=== PATIENT | male | born 1940 | race Caucasian/White ===

== ENCOUNTER 2019-12-01 14:15 | Inpatient (IN) | payer OTHER ==
[~2019-12-01] VITALS: Ht 185.4 cm; Wt 89.2 kg
[~2019-12-01 14:15] MED LIST: ACETAMINOPHEN325 MG PO; DIABETA5 MG PO; HYDROCODON-ACE1 EAC7 PO; K-DUR20 MEQ PO; LASIX20 MG PO; MELATONIN 3 MG1 TAB PO; PRAVACHOL40 MG
--- NOTE | 2019-12-01 14:20 | NUR ---
PATIENT ARRIVED BY [facility] WITH EMS X 2 FROM [facility] IN [place]. PATIENT TRANSFERRED FOR EVALUATION AND THE NEED FOR CHEST TUBE PLACEMENT DUE TO HEMOTHORAX FROM FALLING AT HIS HOME. PATIENT IS ALERT/ORIENTED X 3. FREQUENTLY FORGETS HE IS NOW IN [place]. REORIENTED NEEDED. PATIENT ANSWERS QUESTIONS APPROPRIATELY. LEFT UPPER ARM IV SITE PATENT. 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 PATIENT IS PLEASANT, NO BEHAVIORS WITNESSED AT THIS TIME. CALL LIGHT WITHIN REACH. NO DISTRESS.
--- NOTE | 2019-12-01 14:50 | NUR ---
PAGED AND NEW ORDERS RECIEVED TO COMPLETE CXR AND CALL REPORT WHEN AVAILABLE.
[2019-12-01] MEDS ORDERED: METOPROLOL TART50 MG PO (15:12)
[2019-12-01] MEDS ORDERED: HYDRALAZINE HCL25 MG PO (15:12)
[2019-12-01] MEDS ORDERED: LISINOPRIL20 MG PO (15:12)
[2019-12-01] MEDS ORDERED: KEFLEX500 MG PO (15:13)
[2019-12-01] MEDS ORDERED: LEVEMIR FL100 UNIT/1 SC (15:13)
[2019-12-01] MEDS ORDERED: KLONOPIN1 MG PO (15:14)
[2019-12-01 15:46] VITALS: BP 178/84; BMI 25.5
--- NOTE | 2019-12-01 16:02 | NUR ---
CXR RESULTS CALLED TO DR. GUAJARDO AT THIS TIME. NO FURTHER ORDERS RECEIVED.
[2019-12-01 16:28] LABS: APTT 22.1 SECONDS (22.8-39.4); INR 0.98 (0.85-1.17)
--- NOTE | 2019-12-01 16:36 | NUR ---
FSBS 150. NO INSULIN PER SLIDING SCALE.
[2019-12-01 16:45] LABS: ALBUMIN 2.7 g/dL (3.4-5.0); ALKALINE PHOSPHATASE 75 U/L (30-120); ALT (SGPT) 16 U/L (10-68); BILIRUBIN - TOTAL 0.79 mg/dL (0.2-1.3); CALC OSMOLALITY 294 mosm/kg (275-300); CALCIUM 7.8 mg/dL (8.5-10.1); CHLORIDE - SERUM 108 mmol/L (98-107); CKMB 1.6 U/L (0.0-3.6); CREATINE KINASE 209 UL (21-232); CREATININE - SERUM 1.5 mg/dL (0.6-1.3); GLUCOSE 152 mg/dL (74-106); MAGNESIUM - SERUM 1.9 mg/dL (1.8-2.4); POTASSIUM - SERUM 3.5 mmol/L (3.5-5.1); PROTEIN - SERUM 5.5 g/dL (6.4-8.2); SODIUM 143 mmol/L (136-145); TROPONIN-I 0.028 ng/mL (0.000-0.060); UREA NITROGEN 31 mg/dL (7-18); eGFR NON AFRICAN AMERICAN 48 mL/min (90-120)
[2019-12-01 17:42] VITALS: BP 120/93
--- NOTE | 2019-12-01 19:47 | NUR ---
DR GUAJARDO ON UNIT SEEING PATIENT.
[2019-12-01 19:48] LABS: BASOPHILS 0.1 % (0-2); EOSINOPHILS 1.3 % (0-7); HEMATOCRIT 38.5 % (42.0-54.0); HEMOGLOBIN 12.7 g/dL (13.5-17.5); IMMATURE GRANULOCYTES 0.1 % (0-5); LYMPHOCYTES 13.5 % (15-50); MCH 32.4 pg (26.0-34.0); MCV 98.2 fL (80.0-100.0); MEAN PLATELET VOLUME 12.4 fL (7.4-10.4); MONOCYTES 8.1 % (2-11); NEUTROPHILS 76.9 % (40-80); RBC 3.92 10x6/uL (4.20-6.10); RDW 13.7 % (11.5-14.5); WBC 7.5 10x3/uL (4.8-10.8)
[2019-12-01 19:49] LABS: PLATELET COUNT 136 10x3/uL (130-400)
[2019-12-01 20:00] VITALS: BP 123/68
--- NOTE | 2019-12-01 20:00 | NUR ---
REPORT AND INITIAL ASSESSMENT COMPLETED. PT RESTING IN BED. CONFUSED. WEARING BRIEFS. BED ALARM ON, TRYING TO GET UP OUT OF BED, BUT IS TOO WEAK. DISORIENTED TO PLACE/TIME/SITUATION. FALL PRECAUTIONS IN PLACE.
--- NOTE | 2019-12-01 22:30 | NUR ---
ABLE TO DEFLATE PENILE IMPLANT. PT WET, INCONTINENT OF URINE. CARE PROVIDED. NEW BRIEF AND LINENS. 2 PERSONS TO GET HIM BACK UP IN BED AND RESTING COMFORTABLY. SALINE LOCK TO SABA IN PLACE. SR UP X 2. CALL LIGHT IN REACH.
[2019-12-01 22:32] LABS: CKMB 1.5 U/L (0.0-3.6); CREATINE KINASE 190 UL (21-232); TROPONIN-I 0.019 ng/mL (0.000-0.060)
[2019-12-02 03:14] LABS: BASOPHILS 0.2 % (0-2); EOSINOPHILS 1.5 % (0-7); HEMATOCRIT 34.4 % (42.0-54.0); HEMOGLOBIN 11.4 g/dL (13.5-17.5); IMMATURE GRANULOCYTES 0.2 % (0-5); LYMPHOCYTES 21.5 % (15-50); MCH 32.4 pg (26.0-34.0); MCHC 33.1 g/dL (31.0-37.0); MCV 97.7 fL (80.0-100.0); MEAN PLATELET VOLUME 11.4 fL (7.4-10.4); NEUTROPHILS 66.6 % (40-80); PLATELET COUNT 137 10x3/uL (130-400); RBC 3.52 10x6/uL (4.20-6.10); RDW 13.5 % (11.5-14.5); WBC 5.5 10x3/uL (4.8-10.8)
[2019-12-02 03:42] LABS: ALBUMIN 2.4 g/dL (3.4-5.0); ALKALINE PHOSPHATASE 66 U/L (30-120); ALT (SGPT) 13 U/L (10-68); BILIRUBIN - TOTAL 0.91 mg/dL (0.2-1.3); CALC OSMOLALITY 294 mosm/kg (275-300); CALCIUM 7.8 mg/dL (8.5-10.1); CARBON DIOXIDE 24.7 mmol/L (21.0-32.0); CHLORIDE - SERUM 106 mmol/L (98-107); CKMB 1.4 U/L (0.0-3.6); CREATINE KINASE 174 UL (21-232); CREATININE - SERUM 1.6 mg/dL (0.6-1.3); GLUCOSE 186 mg/dL (74-106); MAGNESIUM - SERUM 1.9 mg/dL (1.8-2.4); POTASSIUM - SERUM 3.5 mmol/L (3.5-5.1); PROTEIN - SERUM 5.5 g/dL (6.4-8.2); SODIUM 142 mmol/L (136-145); TROPONIN-I 0.035 ng/mL (0.000-0.060); UREA NITROGEN 33 mg/dL (7-18); eGFR NON AFRICAN AMERICAN 45 mL/min (90-120)
[2019-12-02 04:00] VITALS: BP 173/76
--- NOTE | 2019-12-02 04:22 | NUR ---
UNABLE TO COLLECT URINE SPECIMEN DUE TO FREQUENT INCONTINENCE.
--- NOTE | 2019-12-02 07:00 | NUR ---
RECEIVED REPORT. ASSUMED CARE OF PATIENT. CALL LIGHT WITHIN REACH. PATIENT RESTING IN BED, EYES OPEN. PATIENT CONFUSED TO PLACE. PATIENT IS CURRENTLY NPO. BED ALARM PATENT. SR UP FOR SAFETY. BEDSIDE SHIFT REPORT COMPLETE. WHITE BOARD UPDATED. NO DISTRESS.
--- NOTE | 2019-12-02 09:15 | NUR ---
TELEMETRY D/C'D PER AT THIS TIME DUE TO PATIENT CONTINUOUSLY PULLS TELEMETRY OFF. PATIENT HAS NOW PULLED IV TO LEFT UPPER ARM OUT. CATHETER TIP INTACT. NO BLEEDING FROM SITE. PT AT BEDSIDE WORKING WITH PATEINT AT THIS TIME.
--- NOTE | 2019-12-02 09:34 | NUR ---
PATIENT OOB TO CHAIR AT BEDSIDE. AM MEDICATIONS HELD DUE TO NPO STATUS. CALL LIGHT WITHIN REACH. NO DISTRESS. PATIENT REMAINS CONFUSED.
--- NOTE | 2019-12-02 09:44 | NUR ---
20 GAUGE IV PLACED TO RIGHT FA X 1 STICK. GOOD BLOOD RETURN, EASY FLUSH. TAPED, DATED AND SECURED. FLESH COLORED COBAN PLACED LIGHTLY OVER IV SITE TO PREVENT PT FROM PULLING IV OUT. PATIENT TOLERATED IV PLACEMENT WELL. NO DISTRESS. REQUIRES MANY QUES AND REMINDERS.
--- NOTE | 2019-12-02 10:03 | NUR ---
QUES AND REMINDERS PROVIDED TO KEEP PATIENT SITTING UP IN CHAIR CORRECTLY INSTEAD OF LEANING OVER FORWARD. FREQUENT VISUAL CHECKS. CALL LIGHT WITHIN REACH. NO DISTRESS.
[2019-12-02 10:36] VITALS: BP 170/74
--- NOTE | 2019-12-02 11:15 | NUR ---
FSBS 289. BLOOD GLUCOSE CONTINUES TO ELEVATE DESPITE NPO STATUS.
--- NOTE | 2019-12-02 13:28 | NUR ---
SPOKE WITH HAZEL DOWLING ABOUT PATIENT BEING KEPT NPO ALL DAY. NEW ORDERS OBTAINED TO ALLOW PATIENT TO EAT.
--- NOTE | 2019-12-02 14:25 | NUR ---
MEDICATED FOR PAIN AT THIS TIME. NO DISTRESS.
--- NOTE | 2019-12-02 14:33 | NUR ---
NO SCDs APPLIED TO PATIENT. PATIENT IS VERY CONFUSED, PULLS IV's OUT, TELEMETRY OFF, TRIES TO GET OUT OF THE BED. APPLYING SCDs WOULD BE MORE OF A FALL RISK TO PATIENT. PATIENT IS VERY ACTIVE.
[2019-12-02 16:03] VITALS: BP 128/61
--- NOTE | 2019-12-02 16:35 | NUR ---
FSBS 287. 6 UNITS HUMULIN ADMINISTERED PER SLIDING SCALE.
--- NOTE | 2019-12-02 20:20 | NUR ---
INITIAL ROUNDS COMPLETED AT 1920 HRS. PT RESTING WITH EYES CLOSED. RESP EVEN AND REGULAR. ASSESSMENT COMPLETED AT 2020 HRS. PT ALERT, KNOWS WHO HE IS AND THE PRESIDENT OF THE [place] Sign. KNOWS YEAR BUT DOESN'T KNOW PLACE OR SITUATION. REORIENTED TO PLACE AND SITUATION. LUINGS DIMINISHED IN BASES BILAT. CERRATO. PALPABLE PERIPHERAL PULSES. SCRATCHES NOTED TO BILAT LOWER LEGS. SORE NOTED TO L BIG TOE AND 2ND TOE. PT FOLLOWSS COMMANDS. IV TO RFA SL. SR UP X2, CALL LIGHT WITHIN REACH AND BED ALARM ON.
--- NOTE | 2019-12-02 20:35 | NUR ---
BRUISE NOTED TO R FLANK AND HIP. PT DENEIS ANY DISCOMOFRT TO THAT AREA.
[2019-12-02 20:48] VITALS: BP 150/69
--- NOTE | 2019-12-02 21:58 | NUR ---
PT INCONTINENT OF URINE. INCONTINENT CARE DONE. PT REPOSITIONED IN BED FOR COMFORT.
[2019-12-03 00:30] VITALS: BP 134/63
--- NOTE | 2019-12-03 00:47 | NUR ---
PT PULLED OUT IV WITH CATHETER INTACT. REPOSITONED IN BED FOR COMFORT. BED ALARM ON.
--- NOTE | 2019-12-03 01:10 | NUR ---
PT INCONTINENT OF URINE. INCONTINENT CARE DONE. PT REPOSITIONED IN BED FOR COMFORT.
--- NOTE | 2019-12-03 02:16 | NUR ---
PT RESTING WITH EYES CLOSED. RESP EVEN AND REGULAR. SR UP X2, CALL LIGHT WITHIN REACH AND BED ALARM ON.
--- NOTE | 2019-12-03 04:14 | NUR ---
PT INCONTINENT OF URINE. INCONTINENT CARE DONE. PT REPOSITIONED IN BED FOR COMFORT. SR UP X2, CALL LIGHT WITHIN REACH AND BED ALARM ON.
[2019-12-03 04:30] VITALS: BP 149/50
--- NOTE | 2019-12-03 04:49 | NUR ---
NEW IV PLACED #20 TO L HAND WITH ATTEMPT X1. PT TOLERATED PROCEDURE WELL.
[2019-12-03 05:58] LABS: BASOPHILS 0.2 % (0-2); EOSINOPHILS 2.2 % (0-7); HEMATOCRIT 33.8 % (42.0-54.0); HEMOGLOBIN 11.3 g/dL (13.5-17.5); LYMPHOCYTES 25.3 % (15-50); MCH 32.3 pg (26.0-34.0); MCHC 33.4 g/dL (31.0-37.0); MCV 96.6 fL (80.0-100.0); MEAN PLATELET VOLUME 11.6 fL (7.4-10.4); NEUTROPHILS 63.3 % (40-80); PLATELET COUNT 134 10x3/uL (130-400); RDW 13.7 % (11.5-14.5)
[2019-12-03 06:50] LABS: ALBUMIN 2.5 g/dL (3.4-5.0); BILIRUBIN - TOTAL 0.83 mg/dL (0.2-1.3); CALCIUM 8.3 mg/dL (8.5-10.1); CARBON DIOXIDE 26.7 mmol/L (21.0-32.0); MAGNESIUM - SERUM 2.2 mg/dL (1.8-2.4); POTASSIUM - SERUM 3.7 mmol/L (3.5-5.1); PROTEIN - SERUM 5.3 g/dL (6.4-8.2)
[2019-12-03 08:00] VITALS: BP 154/71
[2019-12-03 09:34] LABS: ANION GAP 14.7 mmol/L (8-16); CALCIUM 8.3 mg/dL (8.5-10.1); POTASSIUM - SERUM 3.7 mmol/L (3.5-5.1)
[2019-12-03 09:40] LABS: INR 0.95 (0.85-1.17); PROTIME 12.7 SECONDS (11.6-15.0)
[2019-12-03 12:08] VITALS: BP 149/64
--- NOTE | 2019-12-03 12:08 | NUR ---
ARRIVE BACK TO ROOM VIA BED FROM PROCEDURE. RT MID-BACK PUNCTURE SITE C/D/I. DENIES PAIN. ENCOURAGE TO REMAIN IN BED FOR NEXT 4 HOURS. CONTINUE PLAN OF CARE AND SAFETY PRECAUTIONS.
[2019-12-03 13:28] VITALS: BMI 25.4
[2019-12-03 15:00] VITALS: BP 167/79
[2019-12-03 15:26] LABS: PROTEIN - BODY FLUID 3.5 G/DL
[2019-12-03 18:14] LABS: EOS BF 2 %; MACROPHAGES BF 32 %; MESOTHELIALS BF 4 %; NEUT - BF 52 %
--- NOTE | 2019-12-03 19:21 | NUR ---
REPORT RECEIVED AND ROUNDING COMPLETE. PATIENT LAYING IN BED IN LOW FOWLERS, EYES CLOSED, MOUTH OPEN BREATHING EVEN BUT SHALLOW. NO PIV DAY NURSE STATES PATIENT PULLED OUT AND MD AWARE, BED ALARM IS ON AT THIS TIME. CALL LIGHT WITHIN REACH AND BED IN LOWEST LOCKED POSITION.
[2019-12-03 20:00] VITALS: BP 144/66
--- NOTE | 2019-12-03 22:27 | NUR ---
OT NOTE: PT REQUIRED MOD/MAX A X2 FOR SUPINE TO SIT. PT COMPLETED SIT TO STAND WITH MOD A X2. PT COMPLETED BUE AROM WITH FUNTIONAL TASKS. PT REQUIRED MOD A WITH CAYLA GOWN. PT EXHIBITED IMPAIRED TASK PROCESSING. PT REQUIRED EXTENSIVE CUES FOR SEQUENCING TASKS. [phone] ROSE MARIE VITALE COTA
[2019-12-04] VITALS (51 sets, daily range): BP systolic 105–185; BP diastolic 56–104
--- NOTE | 2019-12-04 04:10 | NUR ---
UPDATE GIVEN TO CHRISTIANO BRAVO APN, NEW ORDERS RECIEVED
[2019-12-04 04:14] LABS: BASOPHILS 0.1 % (0-2); HEMATOCRIT 34.4 % (42.0-54.0); HEMOGLOBIN 11.4 g/dL (13.5-17.5); IMMATURE GRANULOCYTES 0.8 % (0-5); LYMPHOCYTES 22.2 % (15-50); MCH 32.4 pg (26.0-34.0); MCHC 33.1 g/dL (31.0-37.0); MCV 97.7 fL (80.0-100.0); MEAN PLATELET VOLUME 11.5 fL (7.4-10.4); MONOCYTES 6.3 % (2-11); NEUTROPHILS 69.6 % (40-80); RBC 3.52 10x6/uL (4.20-6.10); RDW 13.8 % (11.5-14.5)
[2019-12-04 04:16] LABS: PLATELET COUNT 179 10x3/uL (130-400); WBC 10.9 10x3/uL (4.8-10.8)
[2019-12-04 04:22] LABS: ALBUMIN 2.4 g/dL (3.4-5.0); ANION GAP 14.6 mmol/L (8-16); BILIRUBIN - TOTAL 0.93 mg/dL (0.2-1.3); CALCIUM 7.9 mg/dL (8.5-10.1); CARBON DIOXIDE 23.2 mmol/L (21.0-32.0); CREATININE - SERUM 2.1 mg/dL (0.6-1.3); MAGNESIUM - SERUM 2.1 mg/dL (1.8-2.4); POTASSIUM - SERUM 3.8 mmol/L (3.5-5.1); PROTEIN - SERUM 5.9 g/dL (6.4-8.2)
--- NOTE | 2019-12-04 04:31 | NUR ---
0308 ROUNDING ON PATIENT AND FOUND HIM UNRESPONSIVE, CALLED A RAPID. 0309 CODE BLUE CALLED 0330 PATIENT LEFT FLOOR AND MOVED TO CVICU REPORT GIVEN TO OSITO RN AT BEDSIDE BEFORE PATIENT WAS MOVED. 0425 PAITENT FAMILY WAS NOTIFIED ON EVENTS AND SISTER STATED TO CONTINE TO GIVE ALL CARE NECESSARY. TRANSFER CAR OPERATOR DRIER AND OSITO IN CVICU NOTIFIED OF SISTERS WISHES.
--- NOTE | 2019-12-04 07:00 | NUR ---
RECEIVED BEDSIDE REPORT ON PATIENT AND ASSUMED CARE. PATIENT ON VENT, VENT SETTINGS ARE: AC 14, TV 500, PEEP 5 FIO2 40%, BBS - CLEAR BUT DIMINIHSED IN THE BASES, SPO2 100%. CM - SR RATE 76, BARILLAS CATH IN PLACE WITH SIENNA UOP NOTED. PATIENT NOT FOLLOWING COMMANDS, TURNED AND REPOSITIONED IN BED. LEVOPHED GTT AT 10 MCG/MIN, WITH BP SYSTOLIC IN 160S DECREASED TO 5 MCG/MIN. HEAD TO TOE ASSESSMENT COMPLETED.
--- NOTE | 2019-12-04 07:50 | MORECARE ---
CASE MANAGEMENT DISCHARGE SUMMARY PATIENT: JOSE BLOUNT 3RD UNIT: [id number] ADM DATE: 12/01/19 AGE: 79 : 42 SEX: M ROOM/BED: D[facility] AUTHOR: CHRISTOPHER MONAHAN PHYSICIAN: REFERRING PHYSICIAN: MIKE PATRICIO MD DATE OF SERVICE: 12/04/19 Discharge Plan Patient Name: JOSE BLOUNT [facility] [facility] 1940 Planned Disposition: Anticipated Discharge Date: Discharge Date: Expected LOS: Initial Reviewer: [email or web address] Initial Review Date: 12/01/2019 Generated: 12/04/19 8:49 am External Providers External Provider: [facility] Next Contact Date: Service Request Date: Service Type: Resolution: Reviewer: Comments: Patient Name: JOSE BLOUNT Page [phone] at 0750 All edits/amendments must be made on the electronic document DICTATION DATE: 12/04/19 0749 PARTS LISTER: YANG 12/04/19 0749 RPT#: [id number] DC DATE: STATUS: ADM IN [facility] [address] [place] [address] END OF REPORT
--- NOTE | 2019-12-04 07:57 | MORECARE ---
CASE MANAGEMENT DISCHARGE SUMMARY PATIENT: JOSE BLOUNT UNIT: [id number] ADM DATE: 12/01/19 AGE: 79 : 42 SEX: M ROOM/BED: [facility] AUTHOR: CHRISTOPHER MONAHAN PHYSICIAN: REFERRING PHYSICIAN: MIKE PATRICIO MD DATE OF SERVICE: 12/04/19 Discharge Plan Patient Name: JOSE BLOUNT [facility] [facility] 1940 Planned Disposition: Anticipated Discharge Date: Discharge Date: Expected LOS: Initial Reviewer: [email or web address] Initial Review Date: 12/01/2019 Generated: 12/04/19 8:57 am DCPIA - Discharge Planning Initial Assessment Updated by [email or web address]: Karyna Perez on 12/04/19 7:50 am * Is the patient Alert and Oriented? No * Preadmission Environment Home Alone * Additional services required to return to the preadmission environment? Yes * Can the patient safely return to the preadmission environment? No * Has this patient been hospitalized within the prior 30 days at any hospital? No Last DP export: 12/04/19 6:50 a Patient Name: JOSE BLOUNT Page [phone] at 0757 All edits/amendments must be made on the electronic document DICTATION DATE: 12/04/19756 SEWER CONTRACTOR: YANG 12/04/19 075 RPT#: [id number] DC DATE: STATUS: ADM IN [facility] [address] [place] [address] END OF REPORT
--- NOTE | 2019-12-04 08:04 | MORECARE ---
CASE MANAGEMENT DISCHARGE SUMMARY PATIENT: JOSE BLOUNT UNIT: [id number] ADM DATE: 12/01/19 AGE: 79 : 42 SEX: M ROOM/BED: D[facility] AUTHOR: TANIYA,DOC PHYSICIAN: REFERRING PHYSICIAN: MIKE PATRICIO MD DATE OF SERVICE: 12/04/19 Discharge Plan Patient Name: JOSE BLOUNT Facility: [facility]:[place] : 1940 Planned Disposition: Anticipated Discharge Date: Discharge Date: Expected LOS: Initial Reviewer: [email or web address] Initial Review Date: 12/01/2019 Generated: 12/04/19 9:04 am Comments DCP- Discharge Planning Updated by [email or web address]: Karyna Perez on 12/04/19 7:[address] Patient Name: JOSE BLOUNT Admission Status: Elective Accout number: [id number] Admission Date: 12-01-2019 : 1940 Admission Diagnosis: Attending: ZACHARY Current LOS: 3 Anticipated DC Date: Planned Disposition: Primary Insurance: [employer] Late entry. assessment completed 12/03/19 at 1430 Discharge Planning Comments: CM met with patient to complete initial dc planning assessment. PT confused. CM called sister Leandra at [phone]. CM educated patient on the CM role and verbal consent given by patient to complete assessment. Patient lives at home alone and Leandra feels he needs additional services, and she feels he can not live at home alone. Leandra wanted CM to assist with placing patient in an assisted living facility. CM educated Leandra on the services available for the patient. Leandra states she feels the patient could benefit from rehab at SNF. TOYA verbalized for [facility]. CM called Teja at [phone] and faxed referral. CM will continue to follow and will assist as needed with dc plans/needs. Visual Merchandising Director: Karyna Perez DCPIA - Discharge Planning Initial Assessment Updated by [id number]: Karyna Perez on 12/04/19 7:50 am * Is the patient Alert and Oriented? No * Preadmission Environment Home Alone * Additional services required to return to the preadmission environment? Yes * Can the patient safely return to the preadmission environment? No * Has this patient been hospitalized within the prior 30 days at any hospital? No Coverage Notice Reviewer: [id number] Jabier Perez Notice Issued Date-Time: 12/03/2019 15:30 Notice Type: Patient Choice Letter Notice Delivered To: Family Member Relationship to Patient: Sister Salesperson [employer] Name: Leandra Benjamin Delivery Method: PHONE - Phone Johanna Days: Prior Verbal Notification: Recipient Understood Notice: Yes Recipient Signature: Med Rec Note Co-signed by Attending: Coverage Notice Comment: toya verbalized for luke Ann DP export: 12/04/19 6:57 a Patient Name: JOSE BLOUNT Page [phone] at 0804 All edits/amendments must be made on the electronic document DICTATION DATE: 12/04/19803 NURSE EXTERN: YANG 12/04/19803 RPT#: [id number] DC DATE: STATUS: ADM IN [address] [place] [address] END OF REPORT
--- NOTE | 2019-12-04 09:00 | NUR ---
PATIENT TURNED AND REPOSITIONED IN BED. LEVOPHED GTT TURNED OFF.
[2019-12-04 09:54] LABS: BILIRUBIN NEGATIVE (NEGATIVE); KETONE SMALL mg/dL (NEGATIVE); NITRITE NEGATIVE (NEGATIVE); UROBILINOGEN NORMAL (NORMAL)
--- NOTE | 2019-12-04 11:00 | NUR ---
REASSESSMENT COMPLETED. PATIENT TURNED AND REPOSITIONED IN BED. LINENS CHANGED.
--- NOTE | 2019-12-04 11:10 | NUR ---
Nutrition Follow-up: Code blue overnight. Now intubated. Wt: 192.9# (12/02) Last BM: 11/29 per chart Labs noted: Glu 248, Ca 7.9, Alb 2.4 Meds noted: Humalog, NS @ 125, electrolyte protocol -If pt to remain intubated, rec initiate nutrition support within 24-48 hrs as medically feasible. -Monitor wt. -RD following.
--- NOTE | 2019-12-04 13:06 | NUR ---
SPOKE TO DR. ONEIL CONCERNING PATEINT HAVING INCREASED FREQUENCY OF PVC'S AND A 6 BEAT RUN OF V-TACH. K WAS 3.8 AND MAG 2.1 WITH THIS MORNING LABS, CREATINE WAS 2.1. ORDERS 40 MEQ OF KCL TO BE GIVEN ONE TIME.
--- NOTE | 2019-12-04 13:30 | NUR ---
DR. ONEIL AT ROOM UPDATED AND EXAMINES PATIENT. STATES WILL LIKELY TRY PS TRIALS TOMORROW TO START WEANING FOR EXTUBATION.
--- NOTE | 2019-12-04 14:21 | NUR ---
SPOKE TO DR. CLEMONS REGARDING PATIENTS FREQUENT PVCS AND SHORT RUNS 4-6 BEATS OF VTACH. ORDERS CARIZEM GTT AT 5 MG/HR AND TO OBTAIN SET OF CARDIAC ENZYMES.
--- NOTE | 2019-12-04 15:01 | NUR ---
REASSESSMENT COMPLETED VSS. TURNED AND REPOSITIONED IN BED.
[2019-12-04 15:36] LABS: CKMB 7.5 U/L (0.0-3.6); CREATINE KINASE 418 UL (21-232)
[2019-12-04 15:50] LABS: TROPONIN-I 0.089 ng/mL (0.000-0.060)
--- NOTE | 2019-12-04 15:53 | NUR ---
SPOKE TO DR. CLEMONS REGARDING TROPONIN 0.089, NO NEW ORDERS. TO CONTINUE CARDIZEM GTT AND WILL LOOK AT GETTING A CT OF HEAD TOMORROW.
--- NOTE | 2019-12-04 17:11 | NUR ---
PATIENT TURNED AND REPOSITIONED. DR. CLEMONS AT ROOM UPDATED, WILL ORDER A CT HEAD FOR TONIGHT. PATIENT TO TRANSFER DOWN TO ICU AND OBTAIN CT WHEN TRANSFERED.
[2019-12-04 18:08] LABS: ACID FAST SMEAR Negative (()); AFB SPECIMEN PROCESSING Concentration (())
[2019-12-05] VITALS (25 sets, daily range): BP systolic 123–162; BP diastolic 55–103
--- NOTE | 2019-12-05 00:06 | NUR ---
patient arrived to unit. bedside shift report recieved from gamal miranda.
--- NOTE | 2019-12-05 00:07 | NUR ---
patient on vent. respiratory at bedside. no open sores on skin. warm and dry. frey in place. bruising on the right side of torso. patient on no sedation. has cardizam running at 5 mg. patient does not react to stimuli. eyes move but does not follow commands such as squeezing hands. lungs clear to auscalation. hypo x4 bowel sounds. s1s2 noted. palpable pulses.
[2019-12-05 05:17] LABS: BASOPHILS 0 % (0-2); EOSINOPHILS 0.1 % (0-7); HEMATOCRIT 32.6 % (42.0-54.0); HEMOGLOBIN 10.5 g/dL (13.5-17.5); IMMATURE GRANULOCYTES 0.2 % (0-5); LYMPHOCYTES 7.8 % (15-50); MCH 31.9 pg (26.0-34.0); MCHC 32.2 g/dL (31.0-37.0); MCV 99.1 fL (80.0-100.0); MEAN PLATELET VOLUME 11.2 fL (7.4-10.4); MONOCYTES 7.9 % (2-11); RBC 3.29 10x6/uL (4.20-6.10); RDW 14.1 % (11.5-14.5); WBC 8.4 10x3/uL (4.8-10.8)
[2019-12-05 05:45] LABS: PLATELET COUNT 142 10x3/uL (130-400)
[2019-12-05 06:00] LABS: ALBUMIN 2.1 g/dL (3.4-5.0); BILIRUBIN - TOTAL 0.91 mg/dL (0.2-1.3); CALCIUM 7.6 mg/dL (8.5-10.1); CREATININE - SERUM 1.8 mg/dL (0.6-1.3); MAGNESIUM - SERUM 1.9 mg/dL (1.8-2.4); PROTEIN - SERUM 5.3 g/dL (6.4-8.2)
[2019-12-05 06:01] LABS: ANION GAP 18.4 mmol/L (8-16); POTASSIUM - SERUM 4.4 mmol/L (3.5-5.1)
--- NOTE | 2019-12-05 07:59 | NUR ---
0750 DR ONEIL AT BEDSIDE STOPPED CARDIZEM GTT HR 68 PLACED ON CPAP. PT TURNS HEAD TO LOOK AT NURSE WHEN TALKED TO.
--- NOTE | 2019-12-05 10:46 | NUR ---
Nutrition follow-up: Pt intubated, sedated Glucerna started @ 20 ml/hr with increase to goal rate of 40 ml/hr Labs reviewed Wt: 199# RDN following.
[2019-12-05 13:12] LABS: FUNGUS STAIN Final report (())
[2019-12-05 15:07] LABS: APTT 30.8 SECONDS (22.8-39.4); INR 1.27 (0.85-1.17); PROTIME 15.8 SECONDS (11.6-15.0)
--- NOTE | 2019-12-05 16:58 | NUR ---
1630 TRANSPORTED VIA BED TO IR FOR THORACYNTHESIS CONSENT SIGNED VIA PHONE CONSENT BY HIS SISTER MANISHA
--- NOTE | 2019-12-05 17:39 | NUR ---
1710 RETIRNED FROM IR PULLED OFF 850ML BLOODY DRAINAGE DRESSING NOTED TO RIGHT BACK DSG CDI FREQUENT VITAL SIGNS INITIATED DR ONEIL ORDERED STAT CBC AND PRBC X 3 UNITS TO KEEP ON HOLD IF NEEDED
[2019-12-05 18:21] LABS: BASOPHILS 0.1 % (0-2); EOSINOPHILS 0.1 % (0-7); HEMATOCRIT 32.8 % (42.0-54.0); HEMOGLOBIN 10.5 g/dL (13.5-17.5); IMMATURE GRANULOCYTES 0.2 % (0-5); LYMPHOCYTES 6.3 % (15-50); MCH 32.1 pg (26.0-34.0); MCV 100.3 fL (80.0-100.0); NEUTROPHILS 84.3 % (40-80); PLATELET COUNT 145 10x3/uL (130-400); RBC 3.27 10x6/uL (4.20-6.10); RDW 14.5 % (11.5-14.5); WBC 9.9 10x3/uL (4.8-10.8)
--- NOTE | 2019-12-05 18:35 | NUR ---
1800 CALLED PTS SISTER AFTER THORO TO REPORT UPDATE BLOOD CONSENT DONE
--- NOTE | 2019-12-05 19:00 | NUR ---
REPORT RECIEVED, SHIFT ASSESSMENT COMPLETE, PT ON VENT WITH 100% O2 SAT. ALL PPP, VSS, WILL CON'T TO MONITOR
[2019-12-06] VITALS (23 sets, daily range): BP systolic 106–171; BP diastolic 53–88
--- NOTE | 2019-12-06 03:00 | NUR ---
COMPLETE BATH AND LINEN CHANGE
[2019-12-06 05:09] LABS: BASOPHILS 0.1 % (0-2); EOSINOPHILS 0.1 % (0-7); HEMATOCRIT 32.1 % (42.0-54.0); HEMOGLOBIN 10.3 g/dL (13.5-17.5); IMMATURE GRANULOCYTES 0.2 % (0-5); LYMPHOCYTES 6.4 % (15-50); MCH 32.5 pg (26.0-34.0); MCHC 32.1 g/dL (31.0-37.0); MCV 101.3 fL (80.0-100.0); MEAN PLATELET VOLUME 11.5 fL (7.4-10.4); MONOCYTES 7.8 % (2-11); NEUTROPHILS 85.4 % (40-80); PLATELET COUNT 147 10x3/uL (130-400); RBC 3.17 10x6/uL (4.20-6.10); RDW 14.5 % (11.5-14.5); WBC 8.5 10x3/uL (4.8-10.8)
[2019-12-06 05:33] LABS: ALBUMIN 2.1 g/dL (3.4-5.0); ANION GAP 18.4 mmol/L (8-16); BILIRUBIN - TOTAL 0.63 mg/dL (0.2-1.3); CARBON DIOXIDE 21.1 mmol/L (21.0-32.0); CREATININE - SERUM 1.8 mg/dL (0.6-1.3); MAGNESIUM - SERUM 2.1 mg/dL (1.8-2.4); POTASSIUM - SERUM 4.5 mmol/L (3.5-5.1); PROTEIN - SERUM 5.1 g/dL (6.4-8.2)
[2019-12-06 05:43] LABS: PHOSPHOROUS 3.9 mg/dL (2.5-4.9)
--- NOTE | 2019-12-06 09:08 | NUR ---
PS TRIAL 01/27
--- NOTE | 2019-12-06 20:15 | NUR ---
ASSESSMENT PER FLOW SHEET, VS CONTINUE, IV IN RIGH FA INTACT WITH NO REDNESS OR EDEMA INFUSING VIA PUMP NS AT 125, BARILLAS CATH INTACT DRAINING DARK YELLOW URINE, SCD'S ON AND WORKING PROPERLY, HEEL PROTECTORS IN PLACE, BED IN LOW POSITION, SIDE RAILS X 2, CALL LIGHT IN REACH
--- NOTE | 2019-12-06 20:28 | NUR ---
NEW BAG OF NS HUNG PER MD ORDERS, SEE EMAR
--- NOTE | 2019-12-06 21:22 | NUR ---
OBTAINED FSBS AND TEMP, PT SUCTIONED AT THIS TIME
--- NOTE | 2019-12-06 21:25 | NUR ---
CHRISTIANO BRAVO NP ON UNIT, REPORT OF PT'S TEMP, SEE ORDERS
--- NOTE | 2019-12-06 21:38 | NUR ---
ADM TYLENOL RECTALLY PER MD ORDERS, SEE EMAR
--- NOTE | 2019-12-06 22:15 | NUR ---
PT RESTING WITH EYES CLOSED, RESP QUIET, NO DISTRESS NOTED, LEFT UNDISTURBED AT THIS TIME, BED IN LOW POSITION, SIDE RAILS X 2, CALL LIGHT IN REACH
--- NOTE | 2019-12-06 23:00 | NUR ---
SHIFT REASSESSMENT PER FLOW SHEET, VS CONTINUE, SCD'S ON AND WORKING PROPERLY, HEEL PROTECTORS ON, FALL PRECAUTIONS IN PLACE
[2019-12-07] VITALS (24 sets, daily range): BP systolic 132–206; BP diastolic 55–112
--- NOTE | 2019-12-07 00:30 | NUR ---
PT RESTING WITH EYES CLOSED, RESP QUIET, NO DISTRESS NOTED, LEFT UNDISTURBED AT THIS TIME, FALL PRECAUTIONS IN PLACE
--- NOTE | 2019-12-07 02:21 | NUR ---
PT RESTING WITH EYES CLOSED, RESP QUIET, NO DISTRESS NOTED, LEFT UNDISTURBED AT THIS TIME
--- NOTE | 2019-12-07 03:21 | NUR ---
BP 184/112, PAGED CHRISTIANO BRAVO LINE SERVICE PERSON
--- NOTE | 2019-12-07 03:24 | NUR ---
CHRISTIANO BRAVO NP ON UNIT, REPORT OF PT'S BP'S, SEE ORDERS
--- NOTE | 2019-12-07 03:45 | NUR ---
CALLED [employer] REGARDING ORDER
--- NOTE | 2019-12-07 04:00 | NUR ---
BP 177/79, HR104, ADM LOPRESSOR SIVP OVER 10MINS, I&O'S COLLECTED, PT GIVEN CHG BATH, BARILLAS CARE DONE, GOWN AND CHUX CHANGED, SCD'S CONTINUE ON AND WORKING PROPERLY, FALL PRECAUTIONS IN PLACE
--- NOTE | 2019-12-07 06:31 | NUR ---
PT RESTING WITH EYES CLOSED, AROUSES TO SOFT VERBAL STIMULATION, OBTAINED FSBS, ADM INSULIN PER MD ORDERS, SEE EMAR, VS CONTINUE, SCD'S ON AND WORKING PROPERLY, HEEL PROTECTORS ON, FALL PRECAUTIONS IN PLACE
--- NOTE | 2019-12-07 09:53 | NUR ---
NUTRITION F/U PT EXTUBATED, AWAITING SWALLOW EVAL. WILL PROVIDE DIET WHEN ADVANCED. RD FOLLOWING
[2019-12-07 11:05] LABS: BASOPHILS 0.1 % (0-2); EOSINOPHILS 2.4 % (0-7); HEMATOCRIT 33.8 % (42.0-54.0); HEMOGLOBIN 10.4 g/dL (13.5-17.5); IMMATURE GRANULOCYTES 0.7 % (0-5); LYMPHOCYTES 9.1 % (15-50); MCH 32.2 pg (26.0-34.0); MCHC 30.8 g/dL (31.0-37.0); MEAN PLATELET VOLUME 11.1 fL (7.4-10.4); NEUTROPHILS 80.7 % (40-80); PLATELET COUNT 167 10x3/uL (130-400); RBC 3.23 10x6/uL (4.20-6.10); RDW 14.9 % (11.5-14.5); WBC 8.4 10x3/uL (4.8-10.8)
[2019-12-07 11:06] LABS: MCV 104.6 fL (80.0-100.0)
[2019-12-07 11:21] LABS: ALBUMIN 1.9 g/dL (3.4-5.0); ANION GAP 18.8 mmol/L (8-16); BILIRUBIN - TOTAL 0.55 mg/dL (0.2-1.3); CALCIUM 8.1 mg/dL (8.5-10.1); CARBON DIOXIDE 18.3 mmol/L (21.0-32.0); CREATININE - SERUM 1.7 mg/dL (0.6-1.3); POTASSIUM - SERUM 4.1 mmol/L (3.5-5.1); PROTEIN - SERUM 5.6 g/dL (6.4-8.2)
--- NOTE | 2019-12-07 19:40 | NUR ---
RECEIVED CARE OF PT, ASSESSMENT PER FLOWSHEET. PT ALERT, SPEECH GARBLED, ABLE TO FOLLOW SIMPLE COMMANDS. HR SR WITH PVC'S ON CM, PPP, BARILLAS CATH PATENT, POSITIONED FOR COMFORT, ON RA, VSS.
--- NOTE | 2019-12-07 20:26 | NUR ---
OT NOTE: PT COMPLETED UE PROM TOLERATED. PT COMPLETED POSITIONING WITH MAX A. [id number] THANK YOU,CARLOS ALCOCER
[2019-12-08] VITALS (25 sets, daily range): BP systolic 124–202; BP diastolic 58–120
[2019-12-08 04:34] LABS: BASOPHILS 0.2 % (0-2); EOSINOPHILS 1.9 % (0-7); HEMATOCRIT 33.8 % (42.0-54.0); HEMOGLOBIN 10.5 g/dL (13.5-17.5); IMMATURE GRANULOCYTES 0.2 % (0-5); LYMPHOCYTES 17.2 % (15-50); MCH 31.7 pg (26.0-34.0); MCHC 31.1 g/dL (31.0-37.0); MEAN PLATELET VOLUME 10.8 fL (7.4-10.4); MONOCYTES 7.1 % (2-11); NEUTROPHILS 73.4 % (40-80); PLATELET COUNT 174 10x3/uL (130-400); RBC 3.31 10x6/uL (4.20-6.10); RDW 14.5 % (11.5-14.5)
[2019-12-08 04:37] LABS: MCV 102.1 fL (80.0-100.0); WBC 5.9 10x3/uL (4.8-10.8)
[2019-12-08 05:05] LABS: ALBUMIN 1.8 g/dL (3.4-5.0); ANION GAP 14.9 mmol/L (8-16); BILIRUBIN - TOTAL 0.73 mg/dL (0.2-1.3); CALCIUM 7.8 mg/dL (8.5-10.1); CARBON DIOXIDE 21.8 mmol/L (21.0-32.0); CREATININE - SERUM 1.4 mg/dL (0.6-1.3); PHOSPHOROUS 2.4 mg/dL (2.5-4.9); POTASSIUM - SERUM 3.7 mmol/L (3.5-5.1); PROTEIN - SERUM 5.3 g/dL (6.4-8.2)
--- NOTE | 2019-12-08 05:59 | NUR ---
SPOKE WITH CHRISTIANO BRAVO APRN, REGARDING CRITICALLY HIGH CHLORIDE OF 122. RECEIVED ORDERS TO DC NS IVF, START D5W @ 50 ML/HR, REDRAW BMP @ 1200. WILL CTM.
[2019-12-08 10:23] LABS: MAGNESIUM - SERUM 1.9 mg/dL (1.8-2.4); POTASSIUM - SERUM 3.6 mmol/L (3.5-5.1)
--- NOTE | 2019-12-08 10:43 | NUR ---
PT TOLERATED MEDS CRUSHED IN APPLESAUCE AND ATE ENTIRE CUP OF APPLESAUCE. NO S/S ASPIRATION NOTED. VSS. NO ACUTE DISTRESS NOTED. WILL [id number] PLAN OF CARE.
[2019-12-08 11:59] LABS: ANION GAP 13.3 mmol/L (8-16); CALCIUM 8.2 mg/dL (8.5-10.1); CARBON DIOXIDE 23.4 mmol/L (21.0-32.0); CREATININE - SERUM 1.4 mg/dL (0.6-1.3); POTASSIUM - SERUM 3.7 mmol/L (3.5-5.1)
--- NOTE | 2019-12-08 12:22 | NUR ---
DR CLEMONS ROUNDED ON PT, NO NEW ORDERS RECIEVED.
--- NOTE | 2019-12-08 18:26 | NUR ---
NO ACUTE DISTRESS NOTED. NO CHANGE. VSS. PT TURNED Q2H. OPENS EYES TO STIMULATION THEN GOES BACK TO SLEEP. THIS IS NO CHANGE SINCE AM ASSESSMENT. WILL CONTINUE PLAN OF CARE.
--- NOTE | 2019-12-08 19:00 | NUR ---
RECEIVED REPORT, BREATHING SHALLOW, DENIES NEEDS, BED LOWEST POSIITON, BARILLAS TO GRAVITY, IV TO RW PATENT, CALL LIGHT IN REACH, TRACE EDEMA TO BLE, WILL CONTINUE POC
--- NOTE | 2019-12-08 23:53 | NUR ---
SLEEPING, NO S/S OF DISTRESS NOTED, BREATHING SHALLOW
[2019-12-09] VITALS (13 sets, daily range): BP systolic 122–195; BP diastolic 47–107
--- NOTE | 2019-12-09 01:38 | NUR ---
PT AWAKE LYING IN BED. PT HAS BARILLAS SIENNA COLORED URINE, HEEL PROTECTORS IN PLACE. PT ON RA, LUNG SOUNDS DIMINISHED. NO S/SX OF DISTRESS, IV IN RT WRIST D5 @ 50. CONTINUE WITH PLAN OF CARE
[2019-12-09 03:44] LABS: BASOPHILS 0.2 % (0-2); EOSINOPHILS 1.5 % (0-7); HEMOGLOBIN 10.8 g/dL (13.5-17.5); IMMATURE GRANULOCYTES 0.4 % (0-5); LYMPHOCYTES 19.2 % (15-50); MCH 32.2 pg (26.0-34.0); MCHC 31.8 g/dL (31.0-37.0); MCV 101.5 fL (80.0-100.0); MEAN PLATELET VOLUME 10.5 fL (7.4-10.4); MONOCYTES 7.1 % (2-11); NEUTROPHILS 71.6 % (40-80); PLATELET COUNT 170 10x3/uL (130-400); RBC 3.35 10x6/uL (4.20-6.10); RDW 14.5 % (11.5-14.5); WBC 5.5 10x3/uL (4.8-10.8)
[2019-12-09 03:55] LABS: ALBUMIN 1.8 g/dL (3.4-5.0); ANION GAP 11.7 mmol/L (8-16); BILIRUBIN - TOTAL 0.91 mg/dL (0.2-1.3); CALCIUM 7.9 mg/dL (8.5-10.1); CARBON DIOXIDE 24.8 mmol/L (21.0-32.0); CREATININE - SERUM 1.5 mg/dL (0.6-1.3); MAGNESIUM - SERUM 1.9 mg/dL (1.8-2.4); PHOSPHOROUS 2.8 mg/dL (2.5-4.9); POTASSIUM - SERUM 3.5 mmol/L (3.5-5.1); PROTEIN - SERUM 5.2 g/dL (6.4-8.2)
--- NOTE | 2019-12-09 05:01 | NUR ---
PT K+ IS 3.5 ADMINISTERED 40MEQ OF K+ PER PROTOCOL WITH SCHEDULED MEDS WILL ORDER REDRAW FOR 0900. CONTINUE WITH PLAN OF CARE
--- NOTE | 2019-12-09 07:00 | NUR ---
RECEIVED REPORT. ASSUMED CARE OF PATIENT. PATIENT RESTING WITH EYES CLOSED. RESP EVEN AND UNLABORED. BEDSIDE SHIFT REPORT COMPLETE, WHITE BOARD UPDATED. IV FLUIDS INFUSING ORDERED. CALL LIGHT WITHIN REACH. SCDS AND HEEL PROTECTORS PATENT. NO DISTRESS.
--- NOTE | 2019-12-09 09:00 | NUR ---
PT CONSUMED >60% OF AM MEAL. ATTEMPTS TO SPEAK SHORT WORDS. ATTENTION TOWARD TELEVISION AT THIS TIME. NO DISTRESS.
--- NOTE | 2019-12-09 10:00 | NUR ---
COMPLETE BATH AND LINEN CHANGE AT THIS TIME. PATIENT TOLERATED BATH AND LINEN CHANGE WELL. NO DISTRESS. NOW RESTING WITH EYE CLOSED.
--- NOTE | 2019-12-09 11:14 | NUR ---
FSBS 289. 6 UNITS HUMALOG ADMINISTERED PER SLIDING SCALE. PT AT BEDSIDE AT THIS TIME.
--- NOTE | 2019-12-09 12:21 | NUR ---
OT NOTE: PT MORE ALERT TODAY.. ORIENTED X SELF ONLY. ABLE TO FOLLOW APPROX 50% COMMANDS. UNABLE TO PERFORM ANY SIMPLE GROOMING TASKS. REMAINS EXT ASSIST WITH ALL ADLS AND MOBILITY. A/AROM EXS FOR UES..PROM EXS FOR LES; ATTEMPTED TO SIT PT UP ON EOB WITH MAX ASSIST X 2..ONCE PT WAS UP, REQUIRED TOTAL ASSIST FOR STATIC SITTING BALANCE. PT BECAME LESS RESPONSIVE SO WE ASSISTED BACK TO SUPINE POSITION AND PT WAS FINE.. BP AND 02 SATS WERE ALL GOOD. POSITIONED UP IN BED WITH MAX ASSIST X 2 BERONICA EARL, OTR/L
--- NOTE | 2019-12-09 12:37 | NUR ---
AT BEDSIDE, PATIENT HAS IMPROVED AND CAN BE MOVED OUT OF ICU TODAY.
--- NOTE | 2019-12-09 13:23 | NUR ---
MEDICATED FOR PAIN AT THIS TIME. NO DISTRESS.
--- NOTE | 2019-12-09 14:14 | NUR ---
JOSETTE, PATIENTS SISTERS FROM [place], CALLED AND WITH PROVIDED PASSWORD, UPDATE PROVIDED TO HIS SISTERS.
--- NOTE | 2019-12-09 14:49 | NUR ---
TRANSFER FROM ICU BY BED. CALL LIGHT IN REACH. WILL CONT. PLAN OF CARE.
--- NOTE | 2019-12-09 19:47 | NUR ---
RECIEVED UP IN BED WITH HOB ELEVATED. CONFUSED X4. WHEN ASKED HIS NAME HE REPLIED "KRISTEN". IV TO RT FA WITH D51/2 NS INFUSING AT 50CC/HR. BRUISING TO LT SIDE D/T FALL AT HOME. TELEMETRY IN PLACE. F/C INTACT WITH CLEAR YELLOW URINE DRAINING TO BEDSIDE DRAINAG BAG. HE IS TOTAL CARE. NO OBVIOUS S/S OF DISTRESS OBSERVED.
[2019-12-10 00:30] VITALS: BP 159/77
[2019-12-10 04:30] VITALS: BP 140/75
--- NOTE | 2019-12-10 09:11 | MORECARE ---
CASE MANAGEMENT DISCHARGE SUMMARY PATIENT: JOSE BLOUNT UNIT: [id number] ADM DATE: 12/01/19 AGE: 79 : 42 SEX: M ROOM/BED: D.3055 AUTHOR: TANIYA,DOC PHYSICIAN: REFERRING PHYSICIAN: MIKE PATRICIO MD DATE OF SERVICE: 12/10/19 Discharge Plan Patient Name: JOSE BLOUNT Facility: [facility]:[place] : 1940 Planned Disposition: Anticipated Discharge Date: Discharge Date: Expected LOS: Initial Reviewer: [email or web address] Initial Review Date: 12/01/2019 Generated: 12/10/19 10:10 am Comments DCP- Discharge Planning Updated by [email or web address]: Karyna Perez on 12/10/19 8:[address] SENT UPDATE TO KARMA AT [place] TO REVIEW. KARMA STATES THEY HAVE A MALE BED AVAILIBILITY. WILL CONTINUE TO FOLLOW. DCP- Discharge Planning Updated by [id number]: Karyna Perez on 12/04/19 7:[address] Patient Name: JOSE BLOUNT Admission Status: Elective Accout number: [id number] Admission Date: 12-01-2019 : 1940 Admission Diagnosis: Attending: ZACHARY Current LOS: 3 Anticipated DC Date: Planned Disposition: [facility] Late entry. assessment completed 12/03/19 at 1430 Discharge Planning Comments: CM met with patient to complete initial dc planning assessment. PT confused. CM called sister Leandra at [phone]. CM educated patient on the CM role and verbal consent given by patient to complete assessment. Patient lives at home alone and Leandra feels he needs additional services, and she feels he can not live at home alone. Leandra wanted CM to assist with placing patient in an assisted living facility. CM educated Leandra on the services available for the patient. Leandra states she feels the patient could benefit from rehab at SNF. TOYA verbalized for [facility]. CM called Karma at [phone] and faxed referral. CM will continue to follow and will assist as needed with dc plans/needs. Mechanic Field Service: Karyna Perez DCPIA - Discharge Planning Initial Assessment Updated by [id number]: Karyna Perez on 12/04/19 7:50 am * Is the patient Alert and Oriented? No * Preadmission Environment Home Alone * Additional services required to return to the preadmission environment? Yes * Can the patient safely return to the preadmission environment? No * Has this patient been hospitalized within the prior 30 days at any hospital? No Coverage Notice Reviewer: [id number] - Karyna Perez Notice Issued Date-Time: 12/03/2019 15:30 Notice Type: Patient Choice Letter Notice Delivered To: Family Member Relationship to Patient: Sister Hospice Volunteer Coordinator Name: Leandra Benjamin Delivery Method: PHONE - Phone Johanna Days: Prior Verbal Notification: Recipient Understood Notice: Yes Recipient Signature: Med Rec Note Co-signed by Attending: Coverage Notice Comment: toya verbalized for slim Ann DP export: 12/04/19 7:04 a Patient Name: JOSE BLOUNT Page [id number] at 0911 All edits/amendments must be made on the electronic document DICTATION DATE: 12/10/19909 DENTAL LABORATORY TECHNICIAN: YANG 12/10/19909 RPT#: [id number] DC DATE: STATUS: ADM IN [facility] [address] [place] [address] END OF REPORT
[2019-12-10 10:22] VITALS: BP 152/65
[2019-12-10 12:54] LABS: BASOPHILS 0.2 % (0-2); EOSINOPHILS 1.5 % (0-7); HEMATOCRIT 36.1 % (42.0-54.0); HEMOGLOBIN 11.2 g/dL (13.5-17.5); IMMATURE GRANULOCYTES 0.3 % (0-5); LYMPHOCYTES 9.4 % (15-50); MCH 31.9 pg (26.0-34.0); MCV 102.8 fL (80.0-100.0); MEAN PLATELET VOLUME 11.1 fL (7.4-10.4); MONOCYTES 6.4 % (2-11); NEUTROPHILS 82.2 % (40-80); PLATELET COUNT 151 10x3/uL (130-400); RBC 3.51 10x6/uL (4.20-6.10); RDW 14.5 % (11.5-14.5); WBC 6.1 10x3/uL (4.8-10.8)
[2019-12-10 13:06] VITALS: BP 125/70
[2019-12-10 13:13] LABS: BILIRUBIN - TOTAL 1.3 mg/dL (0.2-1.3); CALCIUM 7.7 mg/dL (8.5-10.1); CARBON DIOXIDE 21.2 mmol/L (21.0-32.0); CREATININE - SERUM 1.5 mg/dL (0.6-1.3)
[2019-12-10 13:17] LABS: ANION GAP 16.1 mmol/L (8-16); POTASSIUM - SERUM 4.3 mmol/L (3.5-5.1)
--- NOTE | 2019-12-10 17:13 | NUR ---
OT NOTE: PT RESTING BUT AROUSED TO VOICE. PT REMAINS CONFUSED AND ORIENTED TO SELF ONLY. VERBALIZATION REMAINS MINIMAL AND DIFFICULT TO UNDERSTAND. ATTEMPTED BED MOB INCLUDING ROLLING FROM SIDE TO SIDE, HOWEVER, PT CURRENTLY TOTAL ASSIST. NO ATTEMPTS TO ASSIST WITH THIS. PERFORMED PROM TO ALL EXTREMETIES.. L UE REMAINS TIGHT. ATTEMPTED TO POSITION L UE INTO EXTENDED POSITION, HOWEVER, PT STAYS IN THIS POSITION ONLY MOMENTARILY AND RETURNS TO FLEXED ELBOW POSIITON. BERONICA EARL, OTR/L [phone]
[2019-12-10 18:28] VITALS: BP 192/96
--- NOTE | 2019-12-10 19:48 | NUR ---
REPORT RECEIVED AND ROUNDING COMPLETE. PATIENT LAYING IN BED BED SLIGHTLY ELEVATED, LEFT FOREARM PIV THAT IS PATENT AND RUNNING FLUIDS AT THIS TIME. BARILLAS IN PLACE WITH SCANT AMOUT OF URINE IN BARILLAS BAG, URINE IS CLEAR BUT A ORANGE IN COLOR. PATIENT IS LETHARGIC BUT RESPONSE VERY SLOWLY WHEN TALKED TO. NO DISTRESS NOTED AND NO NEEDS VOICED AT THIS TIME. CALL LIGHT WITHIN REACH AND BED IN LOWEST LOCKED POSITION.
[2019-12-10 20:00] VITALS: BP 153/81
[2019-12-11] VITALS: BP 153/74
[2019-12-11 04:00] VITALS: BP 140/64
[2019-12-11 06:04] LABS: BASOPHILS 0.2 % (0-2); HEMATOCRIT 34.4 % (42.0-54.0); HEMOGLOBIN 10.8 g/dL (13.5-17.5); IMMATURE GRANULOCYTES 0.6 % (0-5); LYMPHOCYTES 15.8 % (15-50); MCH 31.5 pg (26.0-34.0); MCHC 31.4 g/dL (31.0-37.0); MEAN PLATELET VOLUME 10.9 fL (7.4-10.4); MONOCYTES 5.3 % (2-11); NEUTROPHILS 76.1 % (40-80); PLATELET COUNT 176 10x3/uL (130-400); RBC 3.43 10x6/uL (4.20-6.10); RDW 14.3 % (11.5-14.5); WBC 6.5 10x3/uL (4.8-10.8)
[2019-12-11 06:07] LABS: MCV 100.3 fL (80.0-100.0)
[2019-12-11 06:32] LABS: ANION GAP 9.1 mmol/L (8-16); CALCIUM 8.1 mg/dL (8.5-10.1); CARBON DIOXIDE 27.6 mmol/L (21.0-32.0); CREATININE - SERUM 1.5 mg/dL (0.6-1.3); POTASSIUM - SERUM 3.7 mmol/L (3.5-5.1)
--- NOTE | 2019-12-11 07:00 | NUR ---
RECEIVED REPORT. ASSUMED CARE OF PATIENT. CALL LIGHT WITHIN REACH. PATIENT RESTING WITH EYES CLOSED. RESP EVEN AND UNLABORED. PATIENT IS MAXIMAL ASSIST. WHITE BOARD UPDATED, BEDSIDE SHIFT REPORT COMPLETE. NO DISTRESS.
[2019-12-11 09:13] VITALS: BP 188/71
--- NOTE | 2019-12-11 10:24 | NUR ---
OT NOTE: (DOS 12/10/19) PT COMPLETED BUE PROM TOLERATED. PT COMPLETED POSITIONING WITH TOTAL A. [id number] THANK YOU,CARLOS ALCOCER
[2019-12-11 11:10] VITALS: BP 153/60
--- NOTE | 2019-12-11 11:21 | NUR ---
FSBS 279. 6 UNITS HUMALOG ADMINISTERED PER SLIDING SCALE.
--- NOTE | 2019-12-11 14:01 | NUR ---
NUTRITION FOLLOW UP: INTERVIEW: Met with patient and spoke with patient's nurse. Patient in bed and lunch tray on bedside table. Only a couple of bites eaten from lunch tray. Patient's nurse stated patient has not been experiencing a poor appetite. Patient cannot physcially feed himself and needs asssitance with all PO intake. Patient's nurse denied patient has been experiencing any recent N/V/D/C and no new chewing/swallowing issues with the puree foods and nectar thick liquids. DIET: Purreed Diet with [place] Thick Liquids PO INTAKE: 31% avg for past 5 meals WEIGHT: 12/08-198lbs, 12/05-196lbs, 12/03-198lbs BM: BM x 1 on 12/09 SIG MEDS: Lantus, Synthroid, Humalog, KPhos, KCl, Protonix IV Fluids: D5 in NS @ 50 ml/hr (provides 204 kcal/day) SIG LABS: Na-151(H), Cl-118(CH), BUN-(H), Cr-1.5(H), GFR-48(L), Ca-8.1(L), AST-64(H), ALT-76(H), Albumin-2.0(L) POC Glucose: 279, 227, 262, 277, 388 INTERVENTIONS: -Continue current diet per STERILE PROCESSING MANAGER -Offer nectar thick nutritional supplements if po intake continues < 50% avg -Patient must have assistance with all PO intake (pt cannot feed himself) RD to continue to monitor and follow patient DHS
--- NOTE | 2019-12-11 14:56 | MORECARE ---
CASE MANAGEMENT DISCHARGE SUMMARY PATIENT: JOSE BLOUNT UNIT: [id number] ADM DATE: 12/01/19 AGE: 79 : 42 SEX: M ROOM/BED: D.2151 AUTHOR: TANIYA,DOC PHYSICIAN: REFERRING PHYSICIAN: MIKE PATRICIO MD DATE OF SERVICE: 12/11/19 Discharge Plan Patient Name: JOSE BLOUNT Facility: [facility]:[place] : 1940 Planned Disposition: Anticipated Discharge Date: Discharge Date: Expected LOS: Initial Reviewer: [id number] Initial Review Date: 12/01/2019 Generated: 12/11/19 3:56 pm Comments DCP- Discharge Planning Updated by [id number]: Karyna Browne on 12/11/19 1:[address] CM SPOKE WITH KARMA FROM [facility]. KARMA STATES THEY ARE UNABLE TO ACCOMODATE HIS NEEDS. SENT REFERRAL TO [facility] PER REQUEST. KARYNA BROWNE DCP- Discharge Planning Updated by [email or web address]: Karyna Browne on 12/10/19 8:[address] SENT UPDATE TO KARMA AT [place] TO REVIEW. KARMA STATES THEY HAVE A MALE BED AVAILIBILITY. WILL CONTINUE TO FOLLOW. DCP- Discharge Planning Updated by [email or web address]: Karyna Browne on 12/04/19 7:[address] Patient Name: JOSE BLOUNT Admission Status: Elective Accout number: [id number] Admission Date: 12-01-2019 : 1940 Admission Diagnosis: Attending: ZACHARY Current LOS: 3 Anticipated DC Date: Planned Disposition: Primary Insurance: [employer]YCR Late entry. assessment completed 12/03/19 at 1430 Discharge Planning Comments: CM met with patient to complete initial dc planning assessment. PT confused. CM called sister Leandra at [phone]. CM educated patient on the CM role and verbal consent given by patient to complete assessment. Patient lives at home alone and Leandra feels he needs additional services, and she feels he can not live at home alone. Leandra wanted CM to assist with placing patient in an assisted living facility. CM educated Leandra on the services available for the patient. Leandra states she feels the patient could benefit from rehab at [facility]. TOYA verbalized for [facility]. CM called Karma at [phone] and faxed referral. CM will continue to follow and will assist as needed with dc plans/needs. Stock Patcher: Karyna Browne DCPIA - Discharge Planning Initial Assessment Updated by [email or web address]: Karyna Browne on 12/04/19 7:50 am * Is the patient Alert and Oriented? No * Preadmission Environment Home Alone * Additional services required to return to the preadmission environment? Yes * Can the patient safely return to the preadmission environment? No * Has this patient been hospitalized within the prior 30 days at any hospital? No External Providers External Provider: [facility] Next Contact Date: Service Request Date: Service Type: Resolution: Reviewer: Comments: Coverage Notice Reviewer: [id number] Jabier Browne Notice Issued Date-Time: 12/03/2019 15:30 Notice Type: Patient Choice Letter Notice Delivered To: Family Member Relationship to Patient: Sister Radiator Specialist Name: Leandra Benjamin Delivery Method: PHONE - Phone Johanna Days: Prior Verbal Notification: Recipient Understood Notice: Yes Recipient Signature: Med Rec Note Co-signed by Attending: Coverage Notice Comment: toya verbalized for [facility] Last DP export: 12/10/19 8:11 a Patient Name: JOSE BLOUNT Page [phone] at 1456 All edits/amendments must be made on the electronic document DICTATION DATE: 12/11/19 1451 FUR OPERATOR: YANG 12/11/19 1451 RPT#: [id number] DC DATE: STATUS: ADM IN [facility] [address] [place] [address] END OF REPORT
[2019-12-11 16:32] VITALS: BP 134/62
--- NOTE | 2019-12-11 16:35 | NUR ---
OT NOTE: PROM TO B UES. REQUIRES EXT ASSIST WITH ALL ADLS. PT DOES NOT INITIATE ANY ADLS WITH THERAPIST. MAX ASSIST WITH BED MOB. BERONICA EARL, OTR/L [phone]
--- NOTE | 2019-12-11 17:15 | NUR ---
NS @ 30 initiated at this time.
[2019-12-11 20:00] VITALS: BP 143/72
[2019-12-12] VITALS: BP 108/57
[2019-12-12 00:05] LABS: BILIRUBIN NEGATIVE (NEGATIVE); KETONE NEGATIVE (NEGATIVE); NITRITE NEGATIVE (NEGATIVE)
[2019-12-12 00:07] LABS: BACTERIA FEW /hpf (NEGATIVE); EPITHELIAL CELLS 0-5 /hpf (0-5); WHITE CELLS - URINE 0-5 /hpf (NEGATIVE)
[2019-12-12 04:00] VITALS: BP 152/64
[2019-12-12 06:06] LABS: BASOPHILS 0.2 % (0-2); HEMATOCRIT 34.7 % (42.0-54.0); HEMOGLOBIN 11.1 g/dL (13.5-17.5); IMMATURE GRANULOCYTES 0.4 % (0-5); LYMPHOCYTES 19.4 % (15-50); MCH 31.4 pg (26.0-34.0); MEAN PLATELET VOLUME 11.5 fL (7.4-10.4); MONOCYTES 6.6 % (2-11); NEUTROPHILS 71.4 % (40-80); PLATELET COUNT 179 10x3/uL (130-400); RBC 3.53 10x6/uL (4.20-6.10); RDW 14.2 % (11.5-14.5); WBC 5.5 10x3/uL (4.8-10.8)
[2019-12-12 06:34] LABS: ANION GAP 11.4 mmol/L (8-16); CALCIUM 7.9 mg/dL (8.5-10.1); CARBON DIOXIDE 23.9 mmol/L (21.0-32.0); CREATININE - SERUM 1.4 mg/dL (0.6-1.3); POTASSIUM - SERUM 3.3 mmol/L (3.5-5.1)
[2019-12-12 06:45] LABS: MCV 98.3 fL (80.0-100.0)
[2019-12-12 09:00] VITALS: BP 151/66
[2019-12-12 13:36] VITALS: BP 123/67
--- NOTE | 2019-12-12 14:03 | NUR ---
NURSE TO NURSE BEDSIDE SHIFT REPORT DONE. RIGHT FA SEEN WITH NS INFUSING AT 30 CC/HR, BILATERAL PINK HEEL PROTECTORS ON, HEELS ARE BOGGY. DENIES NEEDS AT THIS TIME. CALL LIGHT IN USE.
--- NOTE | 2019-12-12 15:26 | NUR ---
K+ IS 3.6
--- NOTE | 2019-12-12 15:59 | NUR ---
OT NOTE: PROM TO B UE/LES..MAX ASSIST WITH ROLLING. BERONICA EARL, OTR/L [phone]
[2019-12-12 19:11] VITALS: BP 138/57
[2019-12-12 20:00] VITALS: BP 143/71
--- NOTE | 2019-12-12 21:48 | NUR ---
OT NOTE: PT COMPLETED BUE PROM TOLERATED. PT COMPLETED POSITIONING WITH TOTAL A TO DECREASE RISK OF SKIN BREAKDOWN. [phone] THANK YOU,CARLOS ALCOCER
[2019-12-13] VITALS: BP 145/57
[2019-12-13 04:00] VITALS: BP 178/74
[2019-12-13 06:27] LABS: BASOPHILS 0 % (0-2); EOSINOPHILS 1.4 % (0-7); HEMATOCRIT 34.5 % (42.0-54.0); HEMOGLOBIN 10.9 g/dL (13.5-17.5); IMMATURE GRANULOCYTES 0.7 % (0-5); LYMPHOCYTES 17.6 % (15-50); MCH 31.4 pg (26.0-34.0); MCHC 31.6 g/dL (31.0-37.0); MCV 99.4 fL (80.0-100.0); MEAN PLATELET VOLUME 11.5 fL (7.4-10.4); MONOCYTES 5.9 % (2-11); NEUTROPHILS 74.4 % (40-80); PLATELET COUNT 191 10x3/uL (130-400); RBC 3.47 10x6/uL (4.20-6.10); RDW 14.3 % (11.5-14.5); WBC 5.6 10x3/uL (4.8-10.8)
[2019-12-13 07:07] LABS: ANION GAP 11.5 mmol/L (8-16); CALCIUM 7.7 mg/dL (8.5-10.1); CREATININE - SERUM 1.5 mg/dL (0.6-1.3); POTASSIUM - SERUM 3.5 mmol/L (3.5-5.1)
--- NOTE | 2019-12-13 10:02 | NUR ---
Nutrition Follow-up: PO intake improving. ST following. Requires 1:1 feeding. Diet: Diabetic, Puree with [place] Thick Liquids, 1:1 feeding PO intake: 72% avg x 6 meals; 100% x 3 meals yesterday Wt: 197# (12/12); 192.9# (11/30) Labs noted: Na 149, Glu 292, A1C 9.5, Ca 7.7 Meds noted: Lantus, Humalog, Protonix, NS @ 30, electrolyte protocol -Encourage PO intake and honor food preferences within diet restrictions. -Monitor wt; noted daily wts ordered. -RD following.
--- NOTE | 2019-12-13 14:32 | MORECARE ---
CASE MANAGEMENT DISCHARGE SUMMARY PATIENT: JOSE BLOUNT UNIT: [id number] ADM DATE: 12/01/19 AGE: 79 : 42 SEX: M ROOM/BED: D.7477 AUTHOR: TANIYA,DOC PHYSICIAN: REFERRING PHYSICIAN: MIKE PATRICIO MD DATE OF SERVICE: 12/13/19 Discharge Plan Patient Name: JOSE BLOUNT Facility: [facility]:[place] : 1940 Planned Disposition: Anticipated Discharge Date: Discharge Date: Expected LOS: Initial Reviewer: [id number] Initial Review Date: 12/01/2019 Generated: 12/13/19 3:32 pm Comments DCP- Discharge Planning Updated by [email or web address]: Edel Ford on 12/13/19 1:[address] RECEIVED TELEPHONE MESSAGE FROM ARSENIO AT [facility]. TELEPHONED AT 1130. SHE WAS NOT AVAILABLE. TELEPHONED AT 1400. SHE WAS INTERESTED TO KNOW IF THE PATIENT COULD SIGN HIS OWN PAPERWORK. THE PRIMARY NURSE STATES PATIENT CAN ANSWER YES OR NO. HE IS NOT VERY VERBAL. HE IS HARD TO UNDERSTAND. ADVISED ARSENIO. DCP- Discharge Planning Updated by [id number]: Karyna Browne on 12/11/19 1:[address] CM SPOKE WITH KARMA FROM [facility]. KARMA STATES THEY ARE UNABLE TO ACCOMODATE HIS NEEDS. SENT REFERRAL TO [facility] PER REQUEST. KARYNA BROWNE DCP- Discharge Planning Updated by [email or web address]: Karyna Browne on 12/10/19 8:[address] SENT UPDATE TO KARMA AT [place] TO REVIEW. KARMA STATES THEY HAVE A MALE BED AVAILIBILITY. WILL CONTINUE TO FOLLOW. DCP- Discharge Planning Updated by [email or web address]: Karyna Browne on 12/04/19 7:[address] Patient Name: JOSE BLOUNT Admission Status: Elective Accout number: [id number] Admission Date: 12-01-2019 : 1940 Admission Diagnosis: Attending: ZACHARY Current LOS: 3 Anticipated DC Date: Planned Disposition: Primary Insurance: NOVASYSMCR Late entry. assessment completed 12/03/19 at 1430 Discharge Planning Comments: CM met with patient to complete initial dc planning assessment. PT confused. CM called sister Leandra at [phone]. CM educated patient on the CM role and verbal consent given by patient to complete assessment. Patient lives at home alone and Leandra feels he needs additional services, and she feels he can not live at home alone. Leandra wanted CM to assist with placing patient in an assisted living facility. CM educated Leandra on the services available for the patient. Leandra states she feels the patient could benefit from rehab at SNF. TOYA verbalized for [facility]. CM called Karma at [phone] and faxed referral. CM will continue to follow and will assist as needed with dc plans/needs. Senior Php Software Developer: Karyna Browne DCPIA - Discharge Planning Initial Assessment Updated by [email or web address]: Karyna Browne on 12/04/19 7:50 am * Is the patient Alert and Oriented? No * Preadmission Environment Home Alone * Additional services required to return to the preadmission environment? Yes * Can the patient safely return to the preadmission environment? No * Has this patient been hospitalized within the prior 30 days at any hospital? No Coverage Notice Reviewer: [id number] - Karyna Browne Notice Issued Date-Time: 12/03/2019 15:30 Notice Type: Patient Choice Letter Notice Delivered To: Family Member Relationship to Patient: Sister Asp Net Software Developer Name: Leandra Benjamin Delivery Method: PHONE - Phone Johanna Days: Prior Verbal Notification: Recipient Understood Notice: Yes Recipient Signature: Med Rec Note Co-signed by Attending: Coverage Notice Comment: toya verbalized for [facility] Last DP export: 12/11/19 1:56 p Patient Name: JOSE BLOUNT Page [phone] at 1432 All edits/amendments must be made on the electronic document DICTATION DATE: 12/13/19 1432 APPEALS SPECIALIST: YANG 12/13/19 1432 RPT#: [id number] DC DATE: STATUS: ADM IN [facility] [address] [place] [address] END OF REPORT
[2019-12-13 18:20] VITALS: BP 121/58
--- NOTE | 2019-12-13 19:17 | NUR ---
ASSESSMENT COMPLETE, PT AWAKE IN BED, RESPERATONS NON LABORED, PT DENIES NEEDS, BED LOW, CL IN REACH.
[2019-12-13 20:00] VITALS: BP 119/79
[2019-12-14] VITALS: BP 120/59
[2019-12-14 04:00] VITALS: BP 129/60
[2019-12-14 06:50] LABS: BASOPHILS 0.2 % (0-2); EOSINOPHILS 1.2 % (0-7); HEMATOCRIT 32.6 % (42.0-54.0); HEMOGLOBIN 10.2 g/dL (13.5-17.5); IMMATURE GRANULOCYTES 0.3 % (0-5); LYMPHOCYTES 16.1 % (15-50); MCH 31.2 pg (26.0-34.0); MCHC 31.3 g/dL (31.0-37.0); MCV 99.7 fL (80.0-100.0); MEAN PLATELET VOLUME 11.7 fL (7.4-10.4); MONOCYTES 5.7 % (2-11); NEUTROPHILS 76.5 % (40-80); PLATELET COUNT 184 10x3/uL (130-400); RBC 3.27 10x6/uL (4.20-6.10); RDW 14.6 % (11.5-14.5); WBC 6.5 10x3/uL (4.8-10.8)
[2019-12-14 07:03] LABS: ANION GAP 13.1 mmol/L (8-16); CALCIUM 7.7 mg/dL (8.5-10.1); CARBON DIOXIDE 22.2 mmol/L (21.0-32.0); CREATININE - SERUM 1.6 mg/dL (0.6-1.3); POTASSIUM - SERUM 3.3 mmol/L (3.5-5.1)
[2019-12-14 08:01] VITALS: BP 166/47
--- NOTE | 2019-12-14 08:52 | MORECARE ---
CASE MANAGEMENT DISCHARGE SUMMARY PATIENT: JOSE BLOUNT UNIT: [id number] ADM DATE: 12/01/19 AGE: 79 : 42 SEX: M ROOM/BED: D.5334 AUTHOR: TANIYA,DOC PHYSICIAN: REFERRING PHYSICIAN: MIKE PATRICIO MD DATE OF SERVICE: 12/14/19 Discharge Plan Patient Name: JOSE BLOUNT Facility: [facility]:[place] : 1940 Planned Disposition: Anticipated Discharge Date: Discharge Date: Expected LOS: Initial Reviewer: [email or web address] Initial Review Date: 12/01/2019 Generated: 12/14/19 9:52 am Comments DCP- Discharge Planning Updated by [id number]: Karyna Browne on 12/14/19 7:[address] CM CALLED [facility] AT [phone] AND SPOKE WITH KHALIF. STATES THEY ARE LOOKING TO IF THE PATIENTS INSURANCE IS IN NETWORK. STATES THEY WILL CALL CM BACK WITH DETAILS. KARYNA BROWNE DCP- Discharge Planning Updated by [email or web address]: Edel Ford on 12/13/19 1:[address] RECEIVED TELEPHONE MESSAGE FROM ARSENIO AT [facility]. TELEPHONED AT 1130. SHE WAS NOT AVAILABLE. TELEPHONED AT 1400. SHE WAS INTERESTED TO KNOW IF THE PATIENT COULD SIGN HIS OWN PAPERWORK. THE PRIMARY NURSE STATES PATIENT CAN ANSWER YES OR NO. HE IS NOT VERY VERBAL. HE IS HARD TO UNDERSTAND. ADVISED ARSENIO. DCP- Discharge Planning Updated by [email or web address]: Karyna Browne on 12/11/19 1:[address] CM SPOKE WITH KARMA FROM [facility]. KARMA STATES THEY ARE UNABLE TO ACCOMODATE HIS NEEDS. SENT REFERRAL TO [facility] PER REQUEST. KARYNA BROWNE DCP- Discharge Planning Updated by [email or web address]: Karyna Browne on 12/10/19 8:[address] SENT UPDATE TO KARMA AT [place] TO REVIEW. KARMA STATES THEY HAVE A MALE BED AVAILIBILITY. WILL CONTINUE TO FOLLOW. DCP- Discharge Planning Updated by [id number]: Karyna Browne on 12/04/19 7:[address] Patient Name: JOSE BLOUNT Admission Status: Elective Accout number: [id number] Admission Date: 12-01-2019 : 1940 Admission Diagnosis: Attending: ZACHARY Current LOS: 3 Anticipated DC Date: Planned Disposition: Primary Insurance: NOVASYSMCR Late entry. assessment completed 12/03/19 at 1430 Discharge Planning Comments: CM met with patient to complete initial dc planning assessment. PT confused. CM called sister Leandra at [phone]. CM educated patient on the CM role and verbal consent given by patient to complete assessment. Patient lives at home alone and Leandra feels he needs additional services, and she feels he can not live at home alone. Leandra wanted CM to assist with placing patient in an assisted living facility. CM educated Leandra on the services available for the patient. Leandra states she feels the patient could benefit from rehab at [facility]. EVONNE verbalized for [facility]. CM called Karma at [phone] and faxed referral. CM will continue to follow and will assist as needed with dc plans/needs. Technical Associate: Karyna Browne DCPIA - Discharge Planning Initial Assessment Updated by [id number]: Karyna Browne on 12/04/19 7:50 am * Is the patient Alert and Oriented? No * Preadmission Environment Home Alone * Additional services required to return to the preadmission environment? Yes * Can the patient safely return to the preadmission environment? No * Has this patient been hospitalized within the prior 30 days at any hospital? No Coverage Notice Reviewer: [id number] - Karyna Browne Notice Issued Date-Time: 12/03/2019 15:30 Notice Type: Patient Choice Letter Notice Delivered To: Family Member Relationship to Patient: Sister Production Mechanic Name: Leandra Benjamin Delivery Method: PHONE - Phone Johanna Days: Prior Verbal Notification: Recipient Understood Notice: Yes Recipient Signature: Med Rec Note Co-signed by Attending: Coverage Notice Comment: evonne verbalized for slim [facility]re Last DP export: 12/13/19 1:32 p Patient Name: JOSE BLOUNT Page [id number] at 0852 All edits/amendments must be made on the electronic document DICTATION DATE: 12/14/19851 POLYSOMNOGRAPHER: YANG 12/14/19851 RPT#: [id number] DC DATE: STATUS: ADM IN [facility] [address] [place] [address] END OF REPORT
--- NOTE | 2019-12-14 12:14 | NUR ---
PT RESTING QUIETLY. DENIES PAIN.
[2019-12-14 12:30] VITALS: BP 143/53
[2019-12-14 16:02] VITALS: BP 107/60
--- NOTE | 2019-12-14 19:05 | NUR ---
REPORT RECEIVED, PT CARE ASSUMED. INTRODUCED SELF AND WROTE NAME ON BOARD. PT LYING IN BED, WATCHING TV, A&A, ORIENTED TO SELF. REORIENTED TO PLACE, TIME, SITUATION. DENIES PAIN OR ANY OTHER NEEDS AT THIS TIME. BED IN LOWEST, SRX3, CALL LIGHT WITHIN REACH. WILL CTM.
[2019-12-15 04:00] VITALS: BP 132/64
[2019-12-15 05:50] LABS: BASOPHILS 0.2 % (0-2); EOSINOPHILS 1.6 % (0-7); HEMATOCRIT 33.2 % (42.0-54.0); HEMOGLOBIN 10.5 g/dL (13.5-17.5); IMMATURE GRANULOCYTES 0.2 % (0-5); LYMPHOCYTES 15.3 % (15-50); MCH 32.2 pg (26.0-34.0); MCHC 31.6 g/dL (31.0-37.0); MEAN PLATELET VOLUME 11.5 fL (7.4-10.4); MONOCYTES 6.1 % (2-11); NEUTROPHILS 76.6 % (40-80); PLATELET COUNT 197 10x3/uL (130-400); RBC 3.26 10x6/uL (4.20-6.10); RDW 14.9 % (11.5-14.5); WBC 6.2 10x3/uL (4.8-10.8)
[2019-12-15 06:06] LABS: CALCIUM 7.8 mg/dL (8.5-10.1); CARBON DIOXIDE 23.5 mmol/L (21.0-32.0); CREATININE - SERUM 1.5 mg/dL (0.6-1.3); POTASSIUM - SERUM 3.5 mmol/L (3.5-5.1)
[2019-12-15 06:11] LABS: MCV 101.8 fL (80.0-100.0)
[2019-12-15 08:13] VITALS: BP 154/62
[2019-12-15 12:00] VITALS: BP 165/65
--- NOTE | 2019-12-15 13:11 | NUR ---
PT ONLY RESPONDS WITH A GRUNT AND OCCASIONAL YEAH. REFUSES MEDICATION AND ANYTHING TO EAT OR DRINK. ORAL CARE AND BARILLAS CARE GIVEN. SCD ON.
--- NOTE | 2019-12-15 13:26 | NUR ---
DDR. NEAL HERE AND PTS CONDITION EXPLAINED TO HIM.
[2019-12-15 16:00] VITALS: BP 153/75
[2019-12-15 20:00] VITALS: BP 164/59
[2019-12-16] VITALS: BP 155/63
[2019-12-16 04:00] VITALS: BP 151/67
[2019-12-16 08:00] VITALS: BP 196/74
[2019-12-16 16:00] VITALS: BP 152/67
--- NOTE | 2019-12-16 16:57 | NUR ---
CONFUSED. FOLLOWS COMMANDS. BARILLAS DRAINING BY GRAVITY. NO SIGNS OF DISTRESS. CONTINUE PLAN OF CARE AND SAFETY PRECAUTIONS.
--- NOTE | 2019-12-16 19:10 | NUR ---
REPORT RECEIVED, PT CARE ASSUMED. WROTE NAME ON BOARD. PT SITTING UP IN BED, WATCHING TV, A&A, ORIENTED TO SELF. REQUESTING THICKENED TEA, ASSISTED. DENIES ANY OTHER NEEDS AT THIS TIME. BED IN LOWEST, SRX2, CALL LIGHT WITHIN REACH. WILL CTM.
[2019-12-16 20:00] VITALS: BP 133/61
[2019-12-17] VITALS: BP 160/63
--- NOTE | 2019-12-17 00:30 | NUR ---
EXCESSIVE LEAKING NOTED AROUND BARILLAS INSERTION SITE. ATTEMPTED TO ADJUST BARILLAS PLACEMENT, LEAKING STILL NOTED. REMOVED AND REPLACED WITH NEW 16 [place] BARILLAS, ONE ATTEMPT, 200 ML OF CONCENTRATED YELLOW URINE NOTED IN BAG, TOLERATED WELL. DRAINING BY GRAVITY WITHOUT ISSUE, NO FURTHER LEAKING NOTED. PT CLEANED AND LINENS CHANGED. MEPIPLEX PLACED ON BUTTOCKS FOR BLISTERS X2, MEPIPLEX PLACED ON LEFT LOWER BACK FOR BLISTER. REPOSITIONED FOR COMFORT. REQUESTING DIET COLA, THICKENER ADDED AND ASSISTED WITH. DENIES ANY OTHER NEEDS AT THIS TIME. BED IN LOWEST, SRX3, CALL LIGHT WITHIN REACH. WILL CTM.
[2019-12-17 04:00] VITALS: BP 156/93
[2019-12-17 04:56] LABS: BASOPHILS 0.1 % (0-2); EOSINOPHILS 1.2 % (0-7); HEMATOCRIT 33.8 % (42.0-54.0); HEMOGLOBIN 10.6 g/dL (13.5-17.5); IMMATURE GRANULOCYTES 0.4 % (0-5); LYMPHOCYTES 10.8 % (15-50); MCH 31.8 pg (26.0-34.0); MCHC 31.4 g/dL (31.0-37.0); MCV 101.5 fL (80.0-100.0); MEAN PLATELET VOLUME 11.3 fL (7.4-10.4); MONOCYTES 6.3 % (2-11); NEUTROPHILS 81.2 % (40-80); PLATELET COUNT 217 10x3/uL (130-400); RBC 3.33 10x6/uL (4.20-6.10); RDW 14.8 % (11.5-14.5)
[2019-12-17 04:57] LABS: WBC 8.2 10x3/uL (4.8-10.8)
[2019-12-17 05:33] LABS: BILIRUBIN - TOTAL 0.82 mg/dL (0.2-1.3); CALCIUM 7.8 mg/dL (8.5-10.1); CARBON DIOXIDE 28.2 mmol/L (21.0-32.0); CREATININE - SERUM 1.5 mg/dL (0.6-1.3); POTASSIUM - SERUM 3.2 mmol/L (3.5-5.1); PROTEIN - SERUM 5.6 g/dL (6.4-8.2)
--- NOTE | 2019-12-17 07:20 | NUR ---
RECIEVE REPORT. LETHARGIC. AROUSES TO STIMULI. REQUIRES COACHING TO FOLLOW COMMANDS. BARILLAS DRAINING BY GRAVITY. CONTINUE PLAN OF CARE AND SAFETY PRECAUTIONS.
[2019-12-17 09:00] VITALS: BP 154/67
--- NOTE | 2019-12-17 09:38 | MORECARE ---
CASE MANAGEMENT DISCHARGE SUMMARY PATIENT: JOSE BLOUNT UNIT: [id number] ADM DATE: 12/01/19 AGE: 79 : 42 SEX: M ROOM/BED: D.1044 AUTHOR: TANIYA,DOC PHYSICIAN: REFERRING PHYSICIAN: MIKE PATRICIO MD DATE OF SERVICE: 12/17/19 Discharge Plan Patient Name: JOSE BLOUNT Facility: [facility]:[place] : 1940 Planned Disposition: Anticipated Discharge Date: Discharge Date: Expected LOS: Initial Reviewer: [id number] Initial Review Date: 12/01/2019 Generated: 12/17/19 10:37 am Comments DCP- Discharge Planning Updated by [id number]: Karyna Browne on 12/17/19 8:[address] CM CALLED [facility] AND SPOKE WITH KHALIF FOR UPDATE ON APPROVAL. KHALIF STATES THEY ARE NOT IN NETWORK AND UNABLE TO ACCEPT PT. CM WILL CALL AROUND TO SNF TO SEE IF THEY ARE IN NETWORK. KARYNA BROWNE MSN,RN,CM DCP- Discharge Planning Updated by [id number]: Karyna Browne on 12/14/19 7:[address] CM CALLED [facility] AT [phone] AND SPOKE WITH KHALIF. STATES THEY ARE LOOKING TO SE IF THE PATIENTS INSURANCE IS IN NETWORK. STATES THEY WILL CALL CM BACK WITH DETAILS. KARYNA BROWNE DCP- Discharge Planning Updated by [id number]: Edel Ford on 12/13/19 1:[address] RECEIVED TELEPHONE MESSAGE FROM ARSENIO AT [facility]. TELEPHONED AT 1130. SHE WAS NOT AVAILABLE. TELEPHONED AT 1400. SHE WAS INTERESTED TO KNOW IF THE PATIENT COULD SIGN HIS OWN PAPERWORK. THE PRIMARY NURSE STATES PATIENT CAN ANSWER YES OR NO. HE IS NOT VERY VERBAL. HE IS HARD TO UNDERSTAND. ADVISED ARSENIO. DCP- Discharge Planning Updated by [id number]: Karyna Browne on 12/11/19 1:[address] CM SPOKE WITH KARMA FROM [facility]. KARMA STATES THEY ARE UNABLE TO ACCOMODATE HIS NEEDS. SENT REFERRAL TO [facility] PER REQUEST. KARYNA BROWNE DCP- Discharge Planning Updated by [id number]: Karyna Browne on 12/10/19 8:[address] SENT UPDATE TO KARMA AT [place] TO REVIEW. KARMA STATES THEY HAVE A MALE BED AVAILIBILITY. WILL CONTINUE TO FOLLOW. DCP- Discharge Planning Updated by [id number]: Karyna Browne on 12/04/19 7:[address] Patient Name: JOSE BLOUNT Admission Status: Elective Accout number: [id number] Admission Date: 12-01-2019 : 1940 Admission Diagnosis: Attending: ZACHARY Current LOS: 3 Anticipated DC Date: Planned Disposition: Primary Insurance: [employer] Late entry. assessment completed 12/03/19 at 1430 Discharge Planning Comments: CM met with patient to complete initial dc planning assessment. PT confused. CM called sister Leandra at [phone]. CM educated patient on the CM role and verbal consent given by patient to complete assessment. Patient lives at home alone and Leandra feels he needs additional services, and she feels he can not live at home alone. Leandra wanted CM to assist with placing patient in an assisted living facility. CM educated Leandra on the services available for the patient. Leandra states she feels the patient could benefit from rehab at SNF. EVONNE verbalized for [facility]. CM called Karma at [phone] and faxed referral. CM will continue to follow and will assist as needed with dc plans/needs. Penology Professor: Karyna Browne DCPIA - Discharge Planning Initial Assessment Updated by [id number]: Karyna Browne on 12/04/19 7:50 am * Is the patient Alert and Oriented? No * Preadmission Environment Home Alone * Additional services required to return to the preadmission environment? Yes * Can the patient safely return to the preadmission environment? No * Has this patient been hospitalized within the prior 30 days at any hospital? No Coverage Notice Reviewer: [id number] - Karyna Browne Notice Issued Date-Time: 12/03/2019 15:30 Notice Type: Patient Choice Letter Notice Delivered To: Family Member Relationship to Patient: Sister Tip Stitcher Name: Leandra Benjamin Delivery Method: PHONE - Phone Johanna Days: Prior Verbal Notification: Recipient Understood Notice: Yes Recipient Signature: Med Rec Note Co-signed by Attending: Coverage Notice Comment: evonne verbalized for [facility] Last DP export: 12/14/19 7:52 a Patient Name: JOSE BLOUNT Page 20863 at 0938 All edits/amendments must be made on the electronic document DICTATION DATE: 12/17/19936 STOVE INSTALLER: YANG 12/17/19936 RPT#: [id number] DC DATE: STATUS: ADM IN [facility] [address] [place] [address] END OF REPORT
[2019-12-17 12:49] VITALS: BP 122/50
--- NOTE | 2019-12-17 16:15 | MORECARE ---
CASE MANAGEMENT DISCHARGE SUMMARY PATIENT: JOSE BLOUNT UNIT: [id number] ADM DATE: 12/01/19 AGE: 79 : 42 SEX: M ROOM/BED: D.2653 AUTHOR: TANIYA,DOC PHYSICIAN: REFERRING PHYSICIAN: MIKE PATRICIO MD DATE OF SERVICE: 12/17/19 Discharge Plan Patient Name: JOSE BLOUNT [facility] [facility] 1940 Planned Disposition: Anticipated Discharge Date: Discharge Date: Expected LOS: Initial Reviewer: [id number] Initial Review Date: 12/01/2019 Generated: 12/17/19 5:15 pm Comments DCP- Discharge Planning Updated by [id number]: Karyna Browne on 12/17/19 8:[address] CM CALLED [facility] AND SPOKE WITH KHALIF FOR UPDATE ON APPROVAL. KHALIF STATES THEY ARE NOT IN NETWORK AND UNABLE TO ACCEPT PT. CM WILL CALL AROUND TO SNF TO SEE IF THEY ARE IN NETWORK. KARYNA BROWNE MSN,RN,CM DCP- Discharge Planning Updated by [id number]: Karyna Browne on 12/14/19 7:[address] CM CALLED [facility] AT [phone] AND SPOKE WITH KHALIF. STATES THEY ARE LOOKING TO SE IF THE PATIENTS INSURANCE IS IN NETWORK. STATES THEY WILL CALL CM BACK WITH DETAILS. KARYNA BROWNE DCP- Discharge Planning Updated by [email or web address]: Edel Ford on 12/13/19 1:[address] RECEIVED TELEPHONE MESSAGE FROM ARSENIO AT [facility]. TELEPHONED AT 1130. SHE WAS NOT AVAILABLE. TELEPHONED AT 1400. SHE WAS INTERESTED TO KNOW IF THE PATIENT COULD SIGN HIS OWN PAPERWORK. THE PRIMARY NURSE STATES PATIENT CAN ANSWER YES OR NO. HE IS NOT VERY VERBAL. HE IS HARD TO UNDERSTAND. ADVISED ARSENIO. DCP- Discharge Planning Updated by [id number]: Karyna Browne on 12/11/19 1:[address] CM SPOKE WITH KARMA FROM [facility]. KARMA STATES THEY ARE UNABLE TO ACCOMODATE HIS NEEDS. SENT REFERRAL TO [facility] PER REQUEST. KARYNA BROWNE DCP- Discharge Planning Updated by [id number]: Karyna Browne on 12/10/19 8:[address] SENT UPDATE TO KARMA AT [place] TO REVIEW. KARMA STATES THEY HAVE A MALE BED AVAILIBILITY. WILL CONTINUE TO FOLLOW. DCP- Discharge Planning Updated by [id number]: Karyna Browne on 12/04/19 7:[address] Patient Name: JOSE BLOUNT Admission Status: Elective Accout number: [id number] Admission Date: 12-01-2019 : 1940 Admission Diagnosis: Attending: ZACHARY Current LOS: 3 Anticipated DC Date: Planned Disposition: Primary Insurance: [employer] Late entry. assessment completed 12/03/19 at 1430 Discharge Planning Comments: CM met with patient to complete initial dc planning assessment. PT confused. CM called sister Leandra at [phone]. CM educated patient on the CM role and verbal consent given by patient to complete assessment. Patient lives at home alone and Leandra feels he needs additional services, and she feels he can not live at home alone. Leandra wanted CM to assist with placing patient in an assisted living facility. CM educated Leandra on the services available for the patient. Leandra states she feels the patient could benefit from rehab at SNF. TOYA verbalized for [facility]. CM called Karma at [phone] and faxed referral. CM will continue to follow and will assist as needed with dc plans/needs. Armoured Corps Officer: Karyna Browne DCPIA - Discharge Planning Initial Assessment Updated by [id number]: Karyna Browne on 12/04/19 7:50 am * Is the patient Alert and Oriented? No * Preadmission Environment Home Alone * Additional services required to return to the preadmission environment? Yes * Can the patient safely return to the preadmission environment? No * Has this patient been hospitalized within the prior 30 days at any hospital? No External Providers External Provider: [facility] Next Contact Date: Service Request Date: Service Type: Resolution: Reviewer: Comments: Coverage Notice Reviewer: [id number] - Karyna Browne Notice Issued Date-Time: 12/03/2019 15:30 Notice Type: Patient Choice Letter Notice Delivered To: Family Member Relationship to Patient: Sister Screen Tacker Name: Leandra Benjamin Delivery Method: PHONE - Phone Johanna Days: Prior Verbal Notification: Recipient Understood Notice: Yes Recipient Signature: Med Rec Note Co-signed by Attending: Coverage Notice Comment: toya verbalized for slim Ann DP export: 12/17/19 8:38 a Patient Name: JOSE BLOUNT Page 08955 at 1615 All edits/amendments must be made on the electronic document DICTATION DATE: 12/17/191614 FELT HAT MELLOWING MACHINE OPERATOR: YANG 12/17/195 RPT#: [id number] DC DATE: STATUS: ADM IN [facility] [address] [place] [address] END OF REPORT
--- NOTE | 2019-12-17 16:25 | MORECARE ---
CASE MANAGEMENT DISCHARGE SUMMARY PATIENT: JOSE BLOUNT UNIT: [id number] ADM DATE: 12/01/19 AGE: 79 : 42 SEX: M ROOM/BED: D.9812 AUTHOR: TANIYA,DOC PHYSICIAN: REFERRING PHYSICIAN: MIKE PATRICIO MD DATE OF SERVICE: 12/17/19 Discharge Plan Patient Name: JOSE BLOUNT [facility] [facility] 1940 Planned Disposition: Anticipated Discharge Date: Discharge Date: Expected LOS: Initial Reviewer: [id number] Initial Review Date: 12/01/2019 Generated: 12/17/19 5:24 pm Comments DCP- Discharge Planning Updated by [id number]: Karyna Browne on 12/17/19 8:[address] CM CALLED [facility] AND SPOKE WITH KHALIF FOR UPDATE ON APPROVAL. KHALIF STATES THEY ARE NOT IN NETWORK AND UNABLE TO ACCEPT PT. CM WILL CALL AROUND TO SNF TO SEE IF THEY ARE IN NETWORK. KARYNA BROWNE MSN,RN,CM DCP- Discharge Planning Updated by [id number]: Karyna Browne on 12/14/19 7:[address] CM CALLED [facility] AT [phone] AND SPOKE WITH KHALIF. STATES THEY ARE LOOKING TO SE IF THE PATIENTS INSURANCE IS IN NETWORK. STATES THEY WILL CALL CM BACK WITH DETAILS. KARYNA BROWNE DCP- Discharge Planning Updated by [id number]: Edel Ford on 12/13/19 1:[address] RECEIVED TELEPHONE MESSAGE FROM ARSENIO AT [facility]. TELEPHONED AT 1130. SHE WAS NOT AVAILABLE. TELEPHONED AT 1400. SHE WAS INTERESTED TO KNOW IF THE PATIENT COULD SIGN HIS OWN PAPERWORK. THE PRIMARY NURSE STATES PATIENT CAN ANSWER YES OR NO. HE IS NOT VERY VERBAL. HE IS HARD TO UNDERSTAND. ADVISED ARSENIO. DCP- Discharge Planning Updated by [id number]: Karyna Browne on 12/11/19 1:[address] CM SPOKE WITH KARMA FROM [facility]. KARMA STATES THEY ARE UNABLE TO ACCOMODATE HIS NEEDS. SENT REFERRAL TO [facility] PER REQUEST. KARYNA BROWNE DCP- Discharge Planning Updated by [id number]: Karyna Browne on 12/10/19 8:[address] SENT UPDATE TO KARMA AT [place] TO REVIEW. KARMA STATES THEY HAVE A MALE BED AVAILIBILITY. WILL CONTINUE TO FOLLOW. DCP- Discharge Planning Updated by [id number]: Karyna Browne on 12/04/19 7:[address] Patient Name: JOSE BLOUNT Admission Status: Elective Accout number: [id number] Admission Date: 12-01-2019 : 1940 Admission Diagnosis: Attending: ZACHARY Current LOS: 3 Anticipated DC Date: Planned Disposition: Primary Insurance: [employer] Late entry. assessment completed 12/03/19 at 1430 Discharge Planning Comments: CM met with patient to complete initial dc planning assessment. PT confused. CM called sister Leandra at [phone]. CM educated patient on the CM role and verbal consent given by patient to complete assessment. Patient lives at home alone and Leandra feels he needs additional services, and she feels he can not live at home alone. Leandra wanted CM to assist with placing patient in an assisted living facility. CM educated Leandra on the services available for the patient. Leandra states she feels the patient could benefit from rehab at SNF. TOYA verbalized for [facility]. CM called [facility] at [phone] and faxed referral. CM will continue to follow and will assist as needed with dc plans/needs. Monotype Caster: Karyna Browne DCPIA - Discharge Planning Initial Assessment Updated by [id number]: Karyna Browne on 12/04/19 7:50 am * Is the patient Alert and Oriented? No * Preadmission Environment Home Alone * Additional services required to return to the preadmission environment? Yes * Can the patient safely return to the preadmission environment? No * Has this patient been hospitalized within the prior 30 days at any hospital? No External Providers External Provider: [facility] Next Contact Date: Service Request Date: Service Type: Resolution: Reviewer: Comments: Coverage Notice Reviewer: [id number] - Karyna Browne Notice Issued Date-Time: 12/03/2019 15:30 Notice Type: Patient Choice Letter Notice Delivered To: Family Member Relationship to Patient: Sister Child Welfare Specialist Name: Leandra Benjamin Delivery Method: PHONE - Phone Johanna Days: Prior Verbal Notification: Recipient Understood Notice: Yes Recipient Signature: Med Rec Note Co-signed by Attending: Coverage Notice Comment: toya verbalized for slim Ann DP export: 12/17/19 3:15 p Patient Name: JOSE BLOUNT Page 27241 at 1625 All edits/amendments must be made on the electronic document DICTATION DATE: 12/17/191624 PLATEN DRIER OPERATOR: YANG 12/17/195 RPT#: [id number] DC DATE: STATUS: ADM IN [facility] [address] [place] [address] END OF REPORT
[2019-12-17 20:00] VITALS: BP 144/71
[2019-12-18] VITALS: BP 109/53
[2019-12-18 04:00] VITALS: BP 124/58
[2019-12-18 07:15] LABS: BASOPHILS 0.1 % (0-2); EOSINOPHILS 1.1 % (0-7); HEMATOCRIT 33.9 % (42.0-54.0); HEMOGLOBIN 10.5 g/dL (13.5-17.5); IMMATURE GRANULOCYTES 0.3 % (0-5); LYMPHOCYTES 12.1 % (15-50); MCH 31.4 pg (26.0-34.0); MCV 101.5 fL (80.0-100.0); MEAN PLATELET VOLUME 11.9 fL (7.4-10.4); MONOCYTES 4.4 % (2-11); PLATELET COUNT 204 10x3/uL (130-400); RBC 3.34 10x6/uL (4.20-6.10); RDW 15.1 % (11.5-14.5); WBC 9.9 10x3/uL (4.8-10.8)
[2019-12-18 07:18] LABS: ALBUMIN 2.1 g/dL (3.4-5.0); BILIRUBIN - TOTAL 0.89 mg/dL (0.2-1.3); CARBON DIOXIDE 22.9 mmol/L (21.0-32.0); CREATININE - SERUM 1.6 mg/dL (0.6-1.3); PROTEIN - SERUM 5.5 g/dL (6.4-8.2)
[2019-12-18 07:21] LABS: ANION GAP 14.8 mmol/L (8-16); POTASSIUM - SERUM 3.7 mmol/L (3.5-5.1)
--- NOTE | 2019-12-18 08:43 | MORECARE ---
CASE MANAGEMENT DISCHARGE SUMMARY PATIENT: JOSE BLOUNT UNIT: [id number] ADM DATE: 12/01/19 AGE: 79 : 42 SEX: M ROOM/BED: D.2410 AUTHOR: TANIYA,DOC PHYSICIAN: REFERRING PHYSICIAN: MIKE PATRICIO MD DATE OF SERVICE: 12/18/19 Discharge Plan Patient Name: JOSE BLOUNT Facility: [facility]:[place] : 1940 Planned Disposition: Anticipated Discharge Date: Discharge Date: Expected LOS: Initial Reviewer: [id number] Initial Review Date: 12/01/2019 Generated: 12/18/19 9:42 am Comments DCP- Discharge Planning Updated by [email or web address]: Karyna Browne on 12/18/19 7:[address] CM CALLED [facility] AND SPOKE WITH KHALIF FOR UPDATE ON APPROVAL. [facility] STATES THEY ARE NOT IN NETWORK AND UNABLE TO ACCEPT PT. CM WILL CALL AROUND TO SNF TO SEE IF THEY ARE IN NETWORK. CM ATTEMPTED TO CALL CARMELO AT [phone] AND UNABLE TO LEAVE MESSAGE. KARYNA BROWNE MSN,RN,CM DCP- Discharge Planning Updated by [id number]: Karyna Browne on 12/18/19 7:[address] MCM CALLED SISTER AT [phone] TO DISCUSS UPDATE. MAILBOX IS FULL AND UNABLE TO TAKE MESSAGES. WILL CONTINUE TO REACH OUT TO DISCUSS DC PLANNING. KARYNA BROWNE DCP- Discharge Planning Updated by [id number]: Karyna Browne on 12/14/19 7:[address] CM CALLED [facility] AT [phone] AND SPOKE WITH KHALIF. STATES THEY ARE LOOKING TO SE IF THE PATIENTS INSURANCE IS IN NETWORK. STATES THEY WILL CALL CM BACK WITH DETAILS. KARYNA BROWNE DCP- Discharge Planning Updated by [email or web address]: Edel Ford on 12/13/19 1:[address] RECEIVED TELEPHONE MESSAGE FROM ARSENIO AT [facility]. TELEPHONED AT 1130. SHE WAS NOT AVAILABLE. TELEPHONED AT 1400. SHE WAS INTERESTED TO KNOW IF THE PATIENT COULD SIGN HIS OWN PAPERWORK. THE PRIMARY NURSE STATES PATIENT CAN ANSWER YES OR NO. HE IS NOT VERY VERBAL. HE IS HARD TO UNDERSTAND. ADVISED ARSENIO. DCP- Discharge Planning Updated by [id number]: Karyna Browne on 12/11/19 1:[address] CM SPOKE WITH KARMA FROM [facility]. KARMA STATES THEY ARE UNABLE TO ACCOMODATE HIS NEEDS. SENT REFERRAL TO [facility] PER REQUEST. KARYNA BROWNE DCP- Discharge Planning Updated by [id number]: Karyna Browne on 12/10/19 8:[address] SENT UPDATE TO KARMA AT [place] TO REVIEW. KARMA STATES THEY HAVE A MALE BED AVAILIBILITY. WILL CONTINUE TO FOLLOW. DCP- Discharge Planning Updated by [id number]: Karyna Browne on 12/04/19 7:[address] Patient Name: JOSE BLOUNT Admission Status: Elective Accout number: [id number] Admission Date: 12-01-2019 : 1940 Admission Diagnosis: Attending: ZACHARY Current LOS: 3 Anticipated DC Date: Planned Disposition: Primary Insurance: [employer] Locks[employer] Late entry. assessment completed 12/03/19 at 1430 Discharge Planning Comments: CM met with patient to complete initial dc planning assessment. PT confused. CM called sister Carmelo at [phone]. CM educated patient on the CM role and verbal consent given by patient to complete assessment. Patient lives at home alone and Carmelo feels he needs additional services, and she feels he can not live at home alone. Carmelo wanted CM to assist with placing patient in an assisted living facility. CM educated Carmelo on the services available for the patient. Carmelo states she feels the patient could benefit from rehab at SNF. EVONNE verbalized for [facility]. CM called [facility]ma at [phone] and faxed referral. CM will continue to follow and will assist as needed with dc plans/needs. Toys And Games Hand Finisher: Karyna Browne DCPIA - Discharge Planning Initial Assessment Updated by [email or web address]: Karyna Browne on 12/04/19 7:50 am * Is the patient Alert and Oriented? No * Preadmission Environment Home Alone * Additional services required to return to the preadmission environment? Yes * Can the patient safely return to the preadmission environment? No * Has this patient been hospitalized within the prior 30 days at any hospital? No Coverage Notice Reviewer: KAREN - Karyna Browne Notice Issued Date-Time: 12/03/2019 15:30 Notice Type: Patient Choice Letter Notice Delivered To: Family Member Relationship to Patient: Sister Medical Records Auditor Name: Carmelo Benjamin Delivery Method: PHONE - Phone Johanna Days: Prior Verbal Notification: Recipient Understood Notice: Yes Recipient Signature: Med Rec Note Co-signed by Attending: Coverage Notice Comment: evonne verbalized for slim Ann DP export: 12/17/19 3:25 p Patient Name: JOSE BLOUNT Page 40728 at 0843 All edits/amendments must be made on the electronic document DICTATION DATE: 12/18/19841 SUPERINTENDENT TRACK: YANG 12/18/19841 RPT#: [id number] DC DATE: STATUS: ADM IN [address] [place] [address] END OF REPORT
--- NOTE | 2019-12-18 09:01 | MORECARE ---
CASE MANAGEMENT DISCHARGE SUMMARY PATIENT: JOSE BLOUNT UNIT: [id number] ADM DATE: 12/01/19 AGE: 79 : 42 SEX: M ROOM/BED: D.5762 AUTHOR: TANIYA,DOC PHYSICIAN: REFERRING PHYSICIAN: MIKE PATRICIO MD DATE OF SERVICE: 12/18/19 Discharge Plan Patient Name: JOSE BLOUNT Facility: [facility]:[place] : 1940 Planned Disposition: Anticipated Discharge Date: Discharge Date: Expected LOS: Initial Reviewer: [id number] Initial Review Date: 12/01/2019 Generated: 12/18/19 10:00 am Comments DCP- Discharge Planning Updated by [id number]: Karyna Browne on 12/18/19 7:[address] CM CALLED [facility] AND SPOKE WITH KHALIF FOR UPDATE ON APPROVAL. [facility] STATES THEY ARE NOT IN NETWORK AND UNABLE TO ACCEPT PT. CM WILL CALL AROUND TO SNF TO SEE IF THEY ARE IN NETWORK. CM ATTEMPTED TO CALL CARMELO AT [phone] AND UNABLE TO LEAVE MESSAGE. KARYNA BROWNE MSN,RN,CM DCP- Discharge Planning Updated by [id number]: Karyna Browne on 12/18/19 7:[address] MCM CALLED SISTER AT [phone] TO DISCUSS UPDATE. MAILBOX IS FULL AND UNABLE TO TAKE MESSAGES. WILL CONTINUE TO REACH OUT TO DISCUSS DC PLANNING. KARYNA BROWNE DCP- Discharge Planning Updated by [id number]: Karyna Browne on 12/14/19 7:[address] CM CALLED [facility] AT [phone] AND SPOKE WITH KHALIF. STATES THEY ARE LOOKING TO SE IF THE PATIENTS INSURANCE IS IN NETWORK. STATES THEY WILL CALL CM BACK WITH DETAILS. KARYNA BROWNE DCP- Discharge Planning Updated by [email or web address]: Edel Ford on 12/13/19 1:[address] RECEIVED TELEPHONE MESSAGE FROM ARSENIO AT [facility]. TELEPHONED AT 1130. SHE WAS NOT AVAILABLE. TELEPHONED AT 1400. SHE WAS INTERESTED TO KNOW IF THE PATIENT COULD SIGN HIS OWN PAPERWORK. THE PRIMARY NURSE STATES PATIENT CAN ANSWER YES OR NO. HE IS NOT VERY VERBAL. HE IS HARD TO UNDERSTAND. ADVISED ARSENIO. DCP- Discharge Planning Updated by [id number]: Karyna Browne on 12/11/19 1:[address] CM SPOKE WITH KARMA FROM [facility]. KARMA STATES THEY ARE UNABLE TO ACCOMODATE HIS NEEDS. SENT REFERRAL TO [facility] PER REQUEST. KARYNA BROWNE DCP- Discharge Planning Updated by [id number]: Karyna Browne on 12/10/19 8:[address] SENT UPDATE TO KARMA AT [place] TO REVIEW. KARMA STATES THEY HAVE A MALE BED AVAILIBILITY. WILL CONTINUE TO FOLLOW. DCP- Discharge Planning Updated by [id number]: Karyna Browne on 12/04/19 7:[address] Patient Name: JOSE BLOUNT Admission Status: Elective Accout number: [id number] Admission Date: 12-01-2019 : 1940 Admission Diagnosis: Attending: ZACHARY Current LOS: 3 Anticipated DC Date: Planned Disposition: Primary Insurance: [employer] Late entry. assessment completed 12/03/19 at 1430 Discharge Planning Comments: CM met with patient to complete initial dc planning assessment. PT confused. CM called sister Carmelo at [phone]. CM educated patient on the CM role and verbal consent given by patient to complete assessment. Patient lives at home alone and Carmelo feels he needs additional services, and she feels he can not live at home alone. Carmelo wanted CM to assist with placing patient in an assisted living facility. CM educated Carmelo on the services available for the patient. Carmelo states she feels the patient could benefit from rehab at [facility]. EVONNE verbalized for [facility]. CM called Karma at [phone] and faxed referral. CM will continue to follow and will assist as needed with dc plans/needs. Overlock Collar Setter: Karyna Browne DCPIA - Discharge Planning Initial Assessment Updated by [id number]: Karyna Browne on 12/04/19 7:50 am * Is the patient Alert and Oriented? No * Preadmission Environment Home Alone * Additional services required to return to the preadmission environment? Yes * Can the patient safely return to the preadmission environment? No * Has this patient been hospitalized within the prior 30 days at any hospital? No External Providers External Provider: [facility] Next Contact Date: Service Request Date: Service Type: Resolution: Reviewer: Comments: Coverage Notice Reviewer: [id number] Jabier Browne Notice Issued Date-Time: 12/03/2019 15:30 Notice Type: Patient Choice Letter Notice Delivered To: Family Member Relationship to Patient: Sister Board Writer Name: Carmelo Benjamin Delivery Method: PHONE - Phone Johanna Days: Prior Verbal Notification: Recipient Understood Notice: Yes Recipient Signature: Med Rec Note Co-signed by Attending: Coverage Notice Comment: evonne verbalized for slim Ann DP export: 12/18/19 7:43 a Patient Name: JOSE BLOUNT Page 77705 at 0901 All edits/amendments must be made on the electronic document DICTATION DATE: 12/18/19899 BUILDING PERFORMANCE CONSULTANT: YANG 12/18/19899 RPT#: [id number] DC DATE: STATUS: ADM IN [facility] [address] [place] [address] END OF REPORT
--- NOTE | 2019-12-18 09:02 | NUR ---
OT NOTE: (DOS 12/17/19) PT COMPLETED UE AAROM TOLERATED. PT COMPLETED BED POSITIONING WITH MOD/MAX A. PT COMPLETED FACE HYGIENE WITH MAX A. [phone] THANK YOU,CARLOS ALCOCER
[2019-12-18 09:36] VITALS: BP 118/55
--- NOTE | 2019-12-18 11:51 | NUR ---
OT NOTE: PT MUCH MORE ALERT TODAY. INCREASED VERBALIZATION NOTED TODAY. PERFORMED PROM TO ALL EXTREMETIES. PT ABLE TO MOVE R UE UPON COMMAND WITH EXT TIME.(I.E. TOUCH THE TOP OF YOUR HEAD WITH YOUR R HAND)...PERFORMED MYOFACIAL RELEASE TO STERNOCLEIDOMASTOID MUSCLE.. 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 POSITIONED WITH PAD TO PREVENT FURTHER TIGHTENING OF MUSCLES. BERONICA EARL, OTR/L [phone]
--- NOTE | 2019-12-18 12:55 | NUR ---
Nutrition Follow-up: PO intake fluctuates. Nursing reports pt ate ~50% of breakfast this AM. ST following. Awaiting placement. Diet: Diabetic, Puree, Veteran Thick Liquids; 1:1 feeding PO intake: 61% avg x 7 meals Wt: 203# (12/17); 192.9# (11/30) Last BM: 12/14 per chart Labs noted: Na 148, Glu 212, Ca 8.0, Alb 2.1 Meds noted: Lantus, Humalog, Protonix, NS @ 30, electrolyte protocol -Encourage PO intake and honor food preferences within diet restrictions. -Monitor wt; noted daily wts ordered. - following.
[2019-12-18 13:39] VITALS: BP 134/57
--- NOTE | 2019-12-18 15:07 | NUR ---
OT NOTE: PT COMPLETED UE/LE PROM TOLERATED. PT COMPLETED POSITIONING WITH TOTAL A. PT COMPLETED BED MOB WITH TOTAL A. [phone] THANK YOU,CARLOS ALCOCER
--- NOTE | 2019-12-18 16:19 | MORECARE ---
CASE MANAGEMENT DISCHARGE SUMMARY PATIENT: JOSE BLOUNT UNIT: [id number] ADM DATE: 12/01/19 AGE: 79 : 42 SEX: M ROOM/BED: D.1198 AUTHOR: TANIYA,DOC PHYSICIAN: REFERRING PHYSICIAN: MIKE PATRICIO MD DATE OF SERVICE: 12/18/19 Discharge Plan Patient Name: JOSE BLOUNT Facility: [facility]:[place] : 1940 Planned Disposition: Anticipated Discharge Date: Discharge Date: Expected LOS: Initial Reviewer: [id number] Initial Review Date: 12/01/2019 Generated: 12/18/19 5:19 pm Comments DCP- Discharge Planning Updated by [id number]: Karyna Browne on 12/18/19 7:[address] CM CALLED [facility] AND SPOKE WITH KHALIF FOR UPDATE ON APPROVAL. [facility] STATES THEY ARE NOT IN NETWORK AND UNABLE TO ACCEPT PT. CM WILL CALL AROUND TO SNF TO SEE IF THEY ARE IN NETWORK. CM ATTEMPTED TO CALL CARMELO AT [phone] AND UNABLE TO LEAVE MESSAGE. KARYNA BROWNE MSN,RN,CM DCP- Discharge Planning Updated by [id number]: Karyna Browne on 12/18/19 7:[address] MCM CALLED SISTER AT [phone] TO DISCUSS UPDATE. MAILBOX IS FULL AND UNABLE TO TAKE MESSAGES. WILL CONTINUE TO REACH OUT TO DISCUSS DC PLANNING. KARYNA BROWNE DCP- Discharge Planning Updated by [id number]: Karyna Browne on 12/14/19 7:[address] CM CALLED [facility] AT [phone] AND SPOKE WITH KHALIF. STATES THEY ARE LOOKING TO SE IF THE PATIENTS INSURANCE IS IN NETWORK. STATES THEY WILL CALL CM BACK WITH DETAILS. KARYNA BROWNE DCP- Discharge Planning Updated by [id number]: Edel Ford on 12/13/19 1:[address] RECEIVED TELEPHONE MESSAGE FROM ARSENIO AT [facility]. TELEPHONED AT 1130. SHE WAS NOT AVAILABLE. TELEPHONED AT 1400. SHE WAS INTERESTED TO KNOW IF THE PATIENT COULD SIGN HIS OWN PAPERWORK. THE PRIMARY NURSE STATES PATIENT CAN ANSWER YES OR NO. HE IS NOT VERY VERBAL. HE IS HARD TO UNDERSTAND. ADVISED ARSENIO. DCP- Discharge Planning Updated by [email or web address]: Karyna Browne on 12/11/19 1:[address] CM SPOKE WITH KARMA FROM [facility]. KARMA STATES THEY ARE UNABLE TO ACCOMODATE HIS NEEDS. SENT REFERRAL TO [facility] PER REQUEST. KARYNA BROWNE DCP- Discharge Planning Updated by [id number]: Karyna Browne on 12/10/19 8:[address] SENT UPDATE TO KARMA AT [facility] TO REVIEW. KARMA STATES THEY HAVE A MALE BED AVAILIBILITY. WILL CONTINUE TO FOLLOW. DCP- Discharge Planning Updated by [id number]: Karyna Browne on 12/04/19 7:[address] Patient Name: JOSE BLOUNT Admission Status: Elective Accout number: [id number] Admission Date: 12-01-2019 : 1940 Admission Diagnosis: Attending: ZACHARY Current LOS: 3 Anticipated DC Date: Planned Disposition: Primary Insurance: [employer]wi Late entry. assessment completed 12/03/19 at 1430 Discharge Planning Comments: CM met with patient to complete initial dc planning assessment. PT confused. CM called sister Carmelo at [phone]. CM educated patient on the CM role and verbal consent given by patient to complete assessment. Patient lives at home alone and Carmelo feels he needs additional services, and she feels he can not live at home alone. Carmelo wanted CM to assist with placing patient in an assisted living facility. CM educated Carmelo on the services available for the patient. Carmelo states she feels the patient could benefit from rehab at SNF. EVONNE verbalized for [facility]. CM called Karma at [phone] and faxed referral. CM will continue to follow and will assist as needed with dc plans/needs. Commercial Credit Reviewer: Karyna Browne DCPIA - Discharge Planning Initial Assessment Updated by [id number]: Karyna Browne on 12/04/19 7:50 am * Is the patient Alert and Oriented? No * Preadmission Environment Home Alone * Additional services required to return to the preadmission environment? Yes * Can the patient safely return to the preadmission environment? No * Has this patient been hospitalized within the prior 30 days at any hospital? No Coverage Notice Reviewer: KAREN - Karyna Browne Notice Issued Date-Time: 12/03/2019 15:30 Notice Type: Patient Choice Letter Notice Delivered To: Family Member Relationship to Patient: Sister Assistant Professor Of Surgery Name: Carmelo Benjamin Delivery Method: PHONE - Phone Johanna Days: Prior Verbal Notification: Recipient Understood Notice: Yes Recipient Signature: Med Rec Note Co-signed by Attending: Coverage Notice Comment: evonne verbalized for slim Ann DP export: 12/18/19 8:01 a Patient Name: JOSE BLOUNT Page 00954 at 1619 All edits/amendments must be made on the electronic document DICTATION DATE: 12/18/191618 LAY OUT TECHNICIAN: YANG 12/18/19 1619 RPT#: [id number] DC DATE: STATUS: ADM IN [facility] [address] [place] [address] END OF REPORT
[2019-12-18 20:00] VITALS: BP 133/53
[2019-12-19 04:00] VITALS: BP 172/66
[2019-12-19 05:59] LABS: BILIRUBIN - TOTAL 0.65 mg/dL (0.2-1.3); CALCIUM 7.5 mg/dL (8.5-10.1); CARBON DIOXIDE 24.2 mmol/L (21.0-32.0); CREATININE - SERUM 1.5 mg/dL (0.6-1.3); POTASSIUM - SERUM 3.9 mmol/L (3.5-5.1); PROTEIN - SERUM 5.4 g/dL (6.4-8.2)
[2019-12-19 06:35] LABS: ANION GAP 11.7 mmol/L (8-16)
[2019-12-19 06:36] LABS: BASOPHILS 0 % (0-2); EOSINOPHILS 1.4 % (0-7); HEMATOCRIT 32.3 % (42.0-54.0); HEMOGLOBIN 10.3 g/dL (13.5-17.5); IMMATURE GRANULOCYTES 0.4 % (0-5); LYMPHOCYTES 17.7 % (15-50); MCHC 31.9 g/dL (31.0-37.0); MCV 100.3 fL (80.0-100.0); MEAN PLATELET VOLUME 12.1 fL (7.4-10.4); MONOCYTES 5.6 % (2-11); NEUTROPHILS 74.9 % (40-80); PLATELET COUNT 183 10x3/uL (130-400); RBC 3.22 10x6/uL (4.20-6.10); RDW 15.1 % (11.5-14.5)
[2019-12-19 06:39] LABS: WBC 7.3 10x3/uL (4.8-10.8)
[2019-12-19 07:48] VITALS: BP 175/74
--- NOTE | 2019-12-19 09:39 | NUR ---
REPORT RECEIVED. WILL CONTINUE WITH POC. PT CURRENTLY LYING SEMI FOWLERS. CALL LIGHT W/I REACH. PT IS AAO WITH INTERMENTINT CONFUSION. PT IS BEDFAST. SCDS ON. BARILLAS IN PLACE AND DRAINING URINE. NO S/S OF DISTRESS NOTED. PT DENIES ANY NEEDS AT THIS TIME. R.FOR PIV SALINE LOCKED. FEED PT BREAKFAST. WILL CTM.
--- NOTE | 2019-12-19 13:19 | MORECARE ---
CASE MANAGEMENT DISCHARGE SUMMARY PATIENT: JOSE BLOUNT UNIT: [id number] ADM DATE: 12/01/19 AGE: 79 : 42 SEX: M ROOM/BED: D.8973 AUTHOR: TANIYA,DOC PHYSICIAN: REFERRING PHYSICIAN: MIKE PATRICIO MD DATE OF SERVICE: 12/19/19 Discharge Plan Patient Name: JOSE BLOUNT Facility: [facility]:[place] : 1940 Planned Disposition: Anticipated Discharge Date: Discharge Date: Expected LOS: Initial Reviewer: [email or web address] Initial Review Date: 12/01/2019 Generated: 12/19/19 2:19 pm Comments DCP- Discharge Planning Updated by [id number]: Gretel Aparicio on 12/19/19 12:[address] A referral was faxed to [facility], spoke with Roxana ([phone]), who states the facility does not have any alf beds available. [facility] does have Skilled beds, but this patient looks, eventually, to require a alf bed. DCP- Discharge Planning Updated by [id number]: Karyna Browne on 12/18/19 7:[address] CM CALLED [facility] AND SPOKE WITH KHALIF FOR UPDATE ON APPROVAL. [facility] STATES THEY ARE NOT IN NETWORK AND UNABLE TO ACCEPT PT. CM WILL CALL AROUND TO SNF TO SEE IF THEY ARE IN NETWORK. CM ATTEMPTED TO CALL CARMELO AT [phone] AND UNABLE TO LEAVE MESSAGE. KARYNA BROWNE MSN,RN,CM DCP- Discharge Planning Updated by [id number]: Karyna Browne on 12/18/19 7:[address] MCM CALLED SISTER AT [phone] TO DISCUSS UPDATE. MAILBOX IS FULL AND UNABLE TO TAKE MESSAGES. WILL CONTINUE TO REACH OUT TO DISCUSS DC PLANNING. KARYNA BROWNE DCP- Discharge Planning Updated by [id number]: Karyna Browne on 12/14/19 7:[address] CM CALLED [facility] AT [phone] AND SPOKE WITH KHALIF. STATES THEY ARE LOOKING TO IF THE PATIENTS INSURANCE IS IN NETWORK. STATES THEY WILL CALL CM BACK WITH DETAILS. KARYNA BROWNE DCP- Discharge Planning Updated by [id number]: Edel Ford on 12/13/19 1:[address] RECEIVED TELEPHONE MESSAGE FROM ARSENIO AT [facility]. TELEPHONED AT 1130. SHE WAS NOT AVAILABLE. TELEPHONED AT 1400. SHE WAS INTERESTED TO KNOW IF THE PATIENT COULD SIGN HIS OWN PAPERWORK. THE PRIMARY NURSE STATES PATIENT CAN ANSWER YES OR NO. HE IS NOT VERY VERBAL. HE IS HARD TO UNDERSTAND. ADVISED ARSENIO. DCP- Discharge Planning Updated by [id number]: Karyna Browne on 12/11/19 1:[address] CM SPOKE WITH KARMA FROM [facility]. KARMA STATES THEY ARE UNABLE TO ACCOMODATE HIS NEEDS. SENT REFERRAL TO [facility] PER REQUEST. KARYNA BROWNE DCP- Discharge Planning Updated by [id number]: Karyna Browne on 12/10/19 8:[address] SENT UPDATE TO KARMA AT [facility] TO REVIEW. KARMA STATES THEY HAVE A MALE BED AVAILIBILITY. WILL CONTINUE TO FOLLOW. DCP- Discharge Planning Updated by [id number]: Karyna Browne on 12/04/19 7:[address] Patient Name: JOSE BLOUNT Admission Status: Elective Accout number: [id number] Admission Date: 12-01-2019 : 1940 Admission Diagnosis: Attending: ZACHARY Current LOS: 3 Anticipated DC Date: Planned Disposition: Primary Insurance: NOVASYCR Late entry. assessment completed 12/03/19 at 1430 Discharge Planning Comments: CM met with patient to complete initial dc planning assessment. PT confused. CM called sister Carmelo at [phone]. CM educated patient on the CM role and verbal consent given by patient to complete assessment. Patient lives at home alone and Carmelo feels he needs additional services, and she feels he can not live at home alone. Carmelo wanted CM to assist with placing patient in an assisted living facility. CM educated Carmelo on the services available for the patient. Carmelo states she feels the patient could benefit from rehab at SNF. EVONNE verbalized for [facility]. CM called [facility] at [phone] and faxed referral. CM will continue to follow and will assist as needed with dc plans/needs. Candy Dipper: Karyna Browne DCPIA - Discharge Planning Initial Assessment Updated by [id number]: Karyna Browne on 12/04/19 7:50 am * Is the patient Alert and Oriented? No * Preadmission Environment Home Alone * Additional services required to return to the preadmission environment? Yes * Can the patient safely return to the preadmission environment? No * Has this patient been hospitalized within the prior 30 days at any hospital? No Coverage Notice Reviewer: [id number] Jabier Browne Notice Issued Date-Time: 12/03/2019 15:30 Notice Type: Patient Choice Letter Notice Delivered To: Family Member Relationship to Patient: Sister Black Leather Buffer Name: Carmelo Benjamin Delivery Method: PHONE - Phone Johanna Days: Prior Verbal Notification: Recipient Understood Notice: Yes Recipient Signature: Med Rec Note Co-signed by Attending: Coverage Notice Comment: evonne verbalized for slim andre Seth DP export: 12/18/19 3:20 p Patient Name: JOSE BLOUNT Page [id number] at 1319 All edits/amendments must be made on the electronic document DICTATION DATE: 12/19/19 1319 PLATING AND POINT ASSEMBLY SUPERVISOR: YANG 12/19/19 1319 RPT#: [id number] DC DATE: STATUS: ADM IN [facility] [address] [place] [address] END OF REPORT
--- NOTE | 2019-12-19 16:04 | NUR ---
OT NOTE: PT PERFORMED BETTER TODAY WITH UE AROM EXS. ABLE TO PERFORM SEVERAL REPS OF R UE AROM WITHOUT ASSIST; L UE A/AROM. PROM TO B LES; PT AGAIN WITH LATERAL LEAN OF HEAD. PERFORMED MYOFACIAL MASSAGE TO R SCM, THEN POSITIONED TOWEL AND PILLOW TO SUPPORT HEAD/NECK.. WAS ABLE TO POSITION FAIRLY CLOSE TO MIDLINE. BERONICA COY, OTR/L [phone]
[2019-12-19 19:18] VITALS: BP 123/63
[2019-12-20] VITALS: BP 137/51
[2019-12-20 04:00] VITALS: BP 133/77
[2019-12-20 06:14] LABS: ALBUMIN 1.7 g/dL (3.4-5.0); BILIRUBIN - TOTAL 0.39 mg/dL (0.2-1.3); CALCIUM 7.4 mg/dL (8.5-10.1); CARBON DIOXIDE 23.6 mmol/L (21.0-32.0); CREATININE - SERUM 1.4 mg/dL (0.6-1.3); POTASSIUM - SERUM 3.9 mmol/L (3.5-5.1); PROTEIN - SERUM 4.6 g/dL (6.4-8.2)
[2019-12-20 06:17] LABS: ANION GAP 13.3 mmol/L (8-16)
--- NOTE | 2019-12-20 06:55 | NUR ---
RESTING IN BED WITH EYES CLOSED. RESPIRATIONS EVEN AND UNLABORED. BREATHING OUT OF MOUTH. BARILLAS CATHETER PRESENT. BED ALARM ON. SCDS ON. IV TO RIGHT FOREARM, SL. SITE PATENT WITHOUT REDNESS OR SWELLING. CRUSH MEDS WITH . FEEDER. CALL LIGHT IN REACH. WILL CONTINUE TO MONITOR.
--- NOTE | 2019-12-20 07:19 | NUR ---
I have reviewed this patient and I concur with the Shift Assessment completed by the Licensed Practical Nurse today this shift.
[2019-12-20 07:36] LABS: BASOPHILS 0.2 % (0-2); EOSINOPHILS 2.3 % (0-7); HEMATOCRIT 30.5 % (42.0-54.0); HEMOGLOBIN 9.6 g/dL (13.5-17.5); IMMATURE GRANULOCYTES 0.2 % (0-5); LYMPHOCYTES 24.4 % (15-50); MCH 31.4 pg (26.0-34.0); MCHC 31.5 g/dL (31.0-37.0); MCV 99.7 fL (80.0-100.0); MEAN PLATELET VOLUME 11.2 fL (7.4-10.4); MONOCYTES 6.5 % (2-11); NEUTROPHILS 66.4 % (40-80); PLATELET COUNT 202 10x3/uL (130-400); RBC 3.06 10x6/uL (4.20-6.10); RDW 14.9 % (11.5-14.5); WBC 5.3 10x3/uL (4.8-10.8)
--- NOTE | 2019-12-20 08:13 | NUR ---
LYING IN BED,WITHOUT DISTRESS.DOOR OPEN
[2019-12-20 08:40] VITALS: BP 124/61
[2019-12-20 12:25] VITALS: BP 114/55
--- NOTE | 2019-12-20 14:52 | MORECARE ---
CASE MANAGEMENT DISCHARGE SUMMARY PATIENT: JOSE BLOUNT UNIT: [id number] ADM DATE: 12/01/19 AGE: 79 : 42 SEX: M ROOM/BED: D.2230 AUTHOR: TANIYA,DOC PHYSICIAN: REFERRING PHYSICIAN: MIKE PATRICIO MD DATE OF SERVICE: 12/20/19 Discharge Plan Patient Name: JOSE BLOUNT Facility: [facility]:[place] : 1940 Planned Disposition: Anticipated Discharge Date: Discharge Date: Expected LOS: Initial Reviewer: [id number] Initial Review Date: 12/01/2019 Generated: 12/20/19 3:52 pm Comments DCP- Discharge Planning Updated by [id number]: Gretel Aparicio on 12/19/19 12:[address] A referral was faxed to [facility], spoke with Roxana ([phone]), who states the facility does not have any alf beds available. [facility] does have Skilled beds, but this patient looks, eventually, to require a alf bed. DCP- Discharge Planning Updated by [id number]: Karyna Browne on 12/18/19 7:[address] CM CALLED [facility] AND SPOKE WITH KHALIF FOR UPDATE ON APPROVAL. [facility] STATES THEY ARE NOT IN NETWORK AND UNABLE TO ACCEPT PT. CM WILL CALL AROUND TO SNF TO SEE IF THEY ARE IN NETWORK. CM ATTEMPTED TO CALL CARMELO AT [phone] AND UNABLE TO LEAVE MESSAGE. KARYNA BROWNE MSN,RN,CM DCP- Discharge Planning Updated by [id number]: Karyna Browne on 12/18/19 7:[address] MCM CALLED SISTER AT [phone] TO DISCUSS UPDATE. MAILBOX IS FULL AND UNABLE TO TAKE MESSAGES. WILL CONTINUE TO REACH OUT TO DISCUSS DC PLANNING. KARYNA BROWNE DCP- Discharge Planning Updated by [id number]: Karyna Browne on 12/14/19 7:[address] CM CALLED [facility] AT [phone] AND SPOKE WITH KHALIF. STATES THEY ARE LOOKING TO IF THE PATIENTS INSURANCE IS IN NETWORK. STATES THEY WILL CALL CM BACK WITH DETAILS. KARYNA BROWNE DCP- Discharge Planning Updated by [id number]: Edel Ford on 12/13/19 1:[address] RECEIVED TELEPHONE MESSAGE FROM ARSENIO AT [facility] ([place], [place]). TELEPHONED AT 1130. SHE WAS NOT AVAILABLE. TELEPHONED AT 1400. SHE WAS INTERESTED TO KNOW IF THE PATIENT COULD SIGN HIS OWN PAPERWORK. THE PRIMARY NURSE STATES PATIENT CAN ANSWER YES OR NO. HE IS NOT VERY VERBAL. HE IS HARD TO UNDERSTAND. ADVISED ARSENIO. DCP- Discharge Planning Updated by [id number]: Karyna Browne on 12/11/19 1:[address] CM SPOKE WITH KARMA FROM [facility]. KARMA STATES THEY ARE UNABLE TO ACCOMODATE HIS NEEDS. SENT REFERRAL TO [facility] ([place], [place]) PER REQUEST. KARYNA BROWNE DCP- Discharge Planning Updated by [id number]: Karyna Browne on 12/10/19 8:[address] SENT UPDATE TO KARMA AT [facility] TO REVIEW. KARMA STATES THEY HAVE A MALE BED AVAILIBILITY. WILL CONTINUE TO FOLLOW. DCP- Discharge Planning Updated by [id number]: Karyna Browne on 12/04/19 7:[address] Patient Name: JOSE BLOUNT Admission Status: Elective Accout number: [id number] Admission Date: 12-01-2019 : 1940 Admission Diagnosis: Attending: ZACHARY Current LOS: 3 Anticipated DC Date: Planned Disposition: Primary Insurance: NOVASYCR Late entry. assessment completed 12/03/19 at 1430 Discharge Planning Comments: CM met with patient to complete initial dc planning assessment. PT confused. CM called sister Carmelo at [phone]. CM educated patient on the CM role and verbal consent given by patient to complete assessment. Patient lives at home alone and Carmelo feels he needs additional services, and she feels he can not live at home alone. Carmelo wanted CM to assist with placing patient in an assisted living facility. CM educated Carmelo on the services available for the patient. Carmelo states she feels the patient could benefit from rehab at SNF. EVONNE verbalized for [facility]. CM called [facility] at [phone] and faxed referral. CM will continue to follow and will assist as needed with dc plans/needs. Mother'S Helper: Karyna Browne DCPIA - Discharge Planning Initial Assessment Updated by [email or web address]: Karyna Browne on 12/04/19 7:50 am * Is the patient Alert and Oriented? No * Preadmission Environment Home Alone * Additional services required to return to the preadmission environment? Yes * Can the patient safely return to the preadmission environment? No * Has this patient been hospitalized within the prior 30 days at any hospital? No External Providers External Provider: [facility] Next Contact Date: Service Request Date: Service Type: Resolution: Reviewer: Comments: Coverage Notice Reviewer: [id number] Jabier Browne Notice Issued Date-Time: 12/03/2019 15:30 Notice Type: Patient Choice Letter Notice Delivered To: Family Member Relationship to Patient: Sister Protective Signal Installer Name: Carmelo Benjamin Delivery Method: PHONE - Phone Johanna Days: Prior Verbal Notification: Recipient Understood Notice: Yes Recipient Signature: Med Rec Note Co-signed by Attending: Coverage Notice Comment: evonne verbalized for slim Ann DP export: 12/19/19 12:19 p Patient Name: JOSE BLOUNT Page 57616 at 1452 All edits/amendments must be made on the electronic document DICTATION DATE: 12/20/19 145 ZINC PLATE GRAINER: YANG 12/20/19 1452 RPT#: [id number] DC DATE: STATUS: ADM IN [facility] [address] [place] [address] END OF REPORT
--- NOTE | 2019-12-20 15:01 | MORECARE ---
CASE MANAGEMENT DISCHARGE SUMMARY PATIENT: JOSE BLOUNT UNIT: [id number] ADM DATE: 12/01/19 AGE: 79 : 42 SEX: M ROOM/BED: D.2230 AUTHOR: TANIYA,DOC PHYSICIAN: REFERRING PHYSICIAN: IMKE PATRICIO MD DATE OF SERVICE: 12/20/19 Discharge Plan Patient Name: JOSE BLOUNT Facility: [facility]:[place] : 1940 Planned Disposition: Anticipated Discharge Date: Discharge Date: Expected LOS: Initial Reviewer: [id number] Initial Review Date: 12/01/2019 Generated: 12/20/19 4:00 pm Comments DCP- Discharge Planning Updated by [id number]: Gretel Aparicio on 12/19/19 12:[address] A referral was faxed to [facility], spoke with Roxana ([phone]), who states the facility does not have any retirement beds available. [facility] does have Skilled beds, but this patient looks, eventually, to require a retirement bed. DCP- Discharge Planning Updated by [email or web address]: Karyna Browne on 12/18/19 7:[address] CM CALLED [facility] AND SPOKE WITH KHALIF FOR UPDATE ON APPROVAL. [facility] STATES THEY ARE NOT IN NETWORK AND UNABLE TO ACCEPT PT. CM WILL CALL AROUND TO SNF TO SEE IF THEY ARE IN NETWORK. CM ATTEMPTED TO CALL CARMELO AT [phone] AND UNABLE TO LEAVE MESSAGE. KARYNA BROWNE MSN,RN,CM DCP- Discharge Planning Updated by [email or web address]: Karyna Browne on 12/18/19 7:[address] MCM CALLED SISTER AT [phone] TO DISCUSS UPDATE. MAILBOX IS FULL AND UNABLE TO TAKE MESSAGES. WILL CONTINUE TO REACH OUT TO DISCUSS DC PLANNING. KARYNA BROWNE DCP- Discharge Planning Updated by [email or web address]: Karyna Browne on 12/14/19 7:[address] CM CALLED [facility] AT [phone] AND SPOKE WITH KHALIF. STATES THEY ARE LOOKING TO IF THE PATIENTS INSURANCE IS IN NETWORK. STATES THEY WILL CALL CM BACK WITH DETAILS. KARYNA BROWNE DCP- Discharge Planning Updated by [id number]: Edel Ford on 12/13/19 1:[address] RECEIVED TELEPHONE MESSAGE FROM ARSENIO AT [facility]. TELEPHONED AT 1130. SHE WAS NOT AVAILABLE. TELEPHONED AT 1400. SHE WAS INTERESTED TO KNOW IF THE PATIENT COULD SIGN HIS OWN PAPERWORK. THE PRIMARY NURSE STATES PATIENT CAN ANSWER YES OR NO. HE IS NOT VERY VERBAL. HE IS HARD TO UNDERSTAND. ADVISED ARSENIO. DCP- Discharge Planning Updated by [id number]: Karyna Browne on 12/11/19 1:[address] CM SPOKE WITH KARMA FROM [facility]. KARMA STATES THEY ARE UNABLE TO ACCOMODATE HIS NEEDS. SENT REFERRAL TO [facility] PER REQUEST. KARYNA BROWNE DCP- Discharge Planning Updated by [id number]: Karyna Browne on 12/10/19 8:[address] SENT UPDATE TO KARMA AT [place] TO REVIEW. KARMA STATES THEY HAVE A MALE BED AVAILIBILITY. WILL CONTINUE TO FOLLOW. DCP- Discharge Planning Updated by [id number]: Karyna Browne on 12/04/19 7:[address] Patient Name: JOSE BLOUNT Admission Status: Elective Accout number: [id number] Admission Date: 12-01-2019 : 1940 Admission Diagnosis: Attending: ZACHARY Current LOS: 3 Anticipated DC Date: Planned Disposition: Primary Insurance: NOVASYCR Late entry. assessment completed 12/03/19 at 1430 Discharge Planning Comments: CM met with patient to complete initial dc planning assessment. PT confused. CM called sister Carmelo at [phone]. CM educated patient on the CM role and verbal consent given by patient to complete assessment. Patient lives at home alone and Carmelo feels he needs additional services, and she feels he can not live at home alone. Carmelo wanted CM to assist with placing patient in an assisted living facility. CM educated Carmelo on the services available for the patient. Carmelo states she feels the patient could benefit from rehab at SNF. EVONNE verbalized for [facility]. CM called [facility] at [phone] and faxed referral. CM will continue to follow and will assist as needed with dc plans/needs. Automotive Parts Clerk: Karyna Browne DCPIA - Discharge Planning Initial Assessment Updated by [id number]: Karyna Browne on 12/04/19 7:50 am * Is the patient Alert and Oriented? No * Preadmission Environment Home Alone * Additional services required to return to the preadmission environment? Yes * Can the patient safely return to the preadmission environment? No * Has this patient been hospitalized within the prior 30 days at any hospital? No External Providers External Provider: [facility] Next Contact Date: Service Request Date: Service Type: Resolution: Reviewer: Comments: Coverage Notice Reviewer: [id number] Jabier Browne Notice Issued Date-Time: 12/03/2019 15:30 Notice Type: Patient Choice Letter Notice Delivered To: Family Member Relationship to Patient: Sister Nylon Machine Operator Name: Carmelo Benjamin Delivery Method: PHONE - Phone Johanna Days: Prior Verbal Notification: Recipient Understood Notice: Yes Recipient Signature: Med Rec Note Co-signed by Attending: Coverage Notice Comment: evonne verbalized for slim Ann DP export: 12/20/19 1:52 p Patient Name: JOSE BLOUNT Page [id number] at 1501 All edits/amendments must be made on the electronic document DICTATION DATE: 12/20/19 1501 MINE INSPECTOR: YANG 12/20/19 1501 RPT#: [id number] DC DATE: STATUS: ADM IN [facility] [address] [place] [address] END OF REPORT
--- NOTE | 2019-12-20 15:46 | MORECARE ---
CASE MANAGEMENT DISCHARGE SUMMARY PATIENT: JOSE BLOUNT UNIT: [id number] ADM DATE: 12/01/19 AGE: 79 : 42 SEX: M ROOM/BED: D.2230 AUTHOR: TANIYA,DOC PHYSICIAN: REFERRING PHYSICIAN: MIKE PATRICIO MD DATE OF SERVICE: 12/20/19 Discharge Plan Patient Name: JOSE BLOUNT [facility] [facility] 1940 Planned Disposition: Anticipated Discharge Date: Discharge Date: Expected LOS: Initial Reviewer: [id number] Initial Review Date: 12/01/2019 Generated: 12/20/19 4:45 pm Comments DCP- Discharge Planning Updated by [id number]: Claudette Taylor on 12/20/19 2:[address] Patient Name: JOSE BLOUNT Admission Status: Elective Accout number: [id number] Admission Date: 12-01-2019 : 1940 Admission Diagnosis:HEMOTHORAX Attending: ZACHARY Current LOS: 19 Anticipated DC Date: Planned Disposition: Primary Insurance: [employer] Discharge Planning Comments: FAXED REFERRAL TO [facility]. Car Cleaning Supervisor: Claudette Taylor DCP- Discharge Planning Updated by [id number]: Gretel Aparicio on 12/19/19 12:[address] A referral was faxed to [facility], spoke with Roxana ([phone]), who states the facility does not have any half-way beds available. [facility] does have Skilled beds, but this patient looks, eventually, to require a half-way bed. DCP- Discharge Planning Updated by [id number]: Karyna Browne on 12/18/19 7:[address] CM CALLED [facility] AND SPOKE WITH KHALIF FOR UPDATE ON APPROVAL. KHALIF STATES THEY ARE NOT IN NETWORK AND UNABLE TO ACCEPT PT. CM WILL CALL AROUND TO SNF TO SEE IF THEY ARE IN NETWORK. CM ATTEMPTED TO CALL CARMELO AT [phone] AND UNABLE TO LEAVE MESSAGE. KARYNA BROWNE MSN,RN,CM DCP- Discharge Planning Updated by [id number]: Karyna Browne on 12/18/19 7:[address] MCM CALLED SISTER AT [phone] TO DISCUSS UPDATE. MAILBOX IS FULL AND UNABLE TO TAKE MESSAGES. WILL CONTINUE TO REACH OUT TO DISCUSS DC PLANNING. KARYNA BROWNE DCP- Discharge Planning Updated by [id number]: Karyna Browne on 12/14/19 7:[address] CM CALLED [facility] AT [phone] AND SPOKE WITH KHALIF. STATES THEY ARE LOOKING TO SE IF THE PATIENTS INSURANCE IS IN NETWORK. STATES THEY WILL CALL CM BACK WITH DETAILS. KARYNA BROWNE DCP- Discharge Planning Updated by [id number]: Edlelola Ford on 12/13/19 1:[address] RECEIVED TELEPHONE MESSAGE FROM ARSENIO AT [facility]. TELEPHONED AT 1130. SHE WAS NOT AVAILABLE. TELEPHONED AT 1400. SHE WAS INTERESTED TO KNOW IF THE PATIENT COULD SIGN HIS OWN PAPERWORK. THE PRIMARY NURSE STATES PATIENT CAN ANSWER YES OR NO. HE IS NOT VERY VERBAL. HE IS HARD TO UNDERSTAND. ADVISED ARSENIO. DCP- Discharge Planning Updated by [id number]: Karyna Browne on 12/11/19 1:[address] CM SPOKE WITH KARMA FROM [facility]. KARMA STATES THEY ARE UNABLE TO ACCOMODATE HIS NEEDS. SENT REFERRAL TO [facility] PER REQUEST. KARYNA BROWNE DCP- Discharge Planning Updated by [id number]: Karyna Browne on 12/10/19 8:[address] SENT UPDATE TO KARMA AT [facility] TO REVIEW. KARMA STATES THEY HAVE A MALE BED AVAILIBILITY. WILL CONTINUE TO FOLLOW. DCP- Discharge Planning Updated by [id number]: Karyna Browne on 12/04/19 7:[address] Patient Name: JOSE BLOUNT Admission Status: Elective Accout number: [id number] Admission Date: 12-01-2019 : 1940 Admission Diagnosis: Attending: ZACHARY Current LOS: 3 Anticipated DC Date: Planned Disposition: Primary Insurance: [employer] Late entry. assessment completed 12/03/19 at 1430 Discharge Planning Comments: CM met with patient to complete initial dc planning assessment. PT confused. CM called sister Carmelo at [phone]. CM educated patient on the CM role and verbal consent given by patient to complete assessment. Patient lives at home alone and Carmelo feels he needs additional services, and she feels he can not live at home alone. Carmelo wanted CM to assist with placing patient in an assisted living facility. CM educated Carmelo on the services available for the patient. Carmelo states she feels the patient could benefit from rehab at SNF. EVONNE verbalized for [facility]. CM called [facility] at [phone] and faxed referral. CM will continue to follow and will assist as needed with dc plans/needs. Car Cleaning Supervisor: Karyna Browne DCPIA - Discharge Planning Initial Assessment Updated by [id number]: Karyna Browne on 12/04/19 7:50 am * Is the patient Alert and Oriented? No * Preadmission Environment Home Alone * Additional services required to return to the preadmission environment? Yes * Can the patient safely return to the preadmission environment? No * Has this patient been hospitalized within the prior 30 days at any hospital? No Coverage Notice Reviewer: [id number] - Karyna Browne Notice Issued Date-Time: 12/03/2019 15:30 Notice Type: Patient Choice Letter Notice Delivered To: Family Member Relationship to Patient: Sister Hospital Scientist Name: Carmelo Benjamin Delivery Method: PHONE - Phone Johanna Days: Prior Verbal Notification: Recipient Understood Notice: Yes Recipient Signature: Med Rec Note Co-signed by Attending: Coverage Notice Comment: evonne verbalized for slim andre Last DP export: 12/20/19 2:01 p Patient Name: JOSE BLOUNT Page 56049 at 1546 All edits/amendments must be made on the electronic document DICTATION DATE: 12/20/19 1545 BASEBALL PLAYER: YANG 12/20/19 1545 RPT#: [id number] DC DATE: STATUS: ADM IN [facility] [address] [place] [address] END OF REPORT
[2019-12-20 16:38] VITALS: BP 156/90
--- NOTE | 2019-12-20 18:48 | NUR ---
RESTING IN BED WITH EYES OPEN. NO C/O PAIN. NO S/S OF ACUTE DISTRESS NOTED. DENIES ANY NEEDS AT THIS TIME. CALL LIGHT IN REACH. WILL CONTINUE TO MONITOR.
[2019-12-20 20:00] VITALS: BP 127/53
[2019-12-21] VITALS: BP 114/60
--- NOTE | 2019-12-21 03:06 | NUR ---
ASSESSED AT THE BEGINNING OF THE SHIFT. PT IS ALERT AND ANSWERS MOST QUESTIONS WITH A YES OR NO NOD. HIS SISTER WAS IN THE ROOM AT THE BEGINNING. MEDS WERE CRUSHED AND GIVEN WITH APPLESAUCE. HE HAD NO PROBLEMS WITH IT AND TOOK A COKE WITH THICKENER TO WASH MEDS DOWN WITH. THERE IS A BARILLAS IN PLACE AND HE IS AWAKE AT THIS TIME.
[2019-12-21 04:00] VITALS: BP 156/57
[2019-12-21 06:49] LABS: BASOPHILS 0.2 % (0-2); EOSINOPHILS 2.4 % (0-7); HEMOGLOBIN 9.7 g/dL (13.5-17.5); IMMATURE GRANULOCYTES 0.2 % (0-5); LYMPHOCYTES 28.5 % (15-50); MCH 31.4 pg (26.0-34.0); MCHC 31.3 g/dL (31.0-37.0); MCV 100.3 fL (80.0-100.0); MEAN PLATELET VOLUME 11.4 fL (7.4-10.4); MONOCYTES 8.2 % (2-11); NEUTROPHILS 60.5 % (40-80); PLATELET COUNT 194 10x3/uL (130-400); RBC 3.09 10x6/uL (4.20-6.10); WBC 4.3 10x3/uL (4.8-10.8)
[2019-12-21 07:08] LABS: ALBUMIN 1.9 g/dL (3.4-5.0); ANION GAP 13.5 mmol/L (8-16); BILIRUBIN - TOTAL 0.5 mg/dL (0.2-1.3); CALCIUM 7.8 mg/dL (8.5-10.1); CARBON DIOXIDE 25.2 mmol/L (21.0-32.0); CREATININE - SERUM 1.6 mg/dL (0.6-1.3); POTASSIUM - SERUM 3.7 mmol/L (3.5-5.1); PROTEIN - SERUM 5.5 g/dL (6.4-8.2)
--- NOTE | 2019-12-21 08:00 | NUR ---
PT LAYING IN BED, AWAKE, DISORIENTATED TO TIME, PLACE AND SITUATION. PT ANSWERS QUESTIONS SLOWLY WITH GARBLED VOICE. DENIES PAIN AT THIS TIME. PIV IN RIGHT FOREARM, S/L PATENT NO REDNESS OR SWELLING. BRUISES ON RIGHT HIP AND FLANK. BRUISES ON BILAT UPPER EXTREMITIES. SKIN TEAR ON RIGHT ELBOW AND FOREARM, DRSG C/D/I. DRY CRACKING ON BILAT LOWER EXTREMITIES. BARILLAS IN PLACE, PATENT, CONCENTRATED URINE, STATLOCK IN PLACE. PT UNABLE TO EAT WITHOUT ASSIST. EDUCATED PT ON CL AND NEEDS, VERBALIZED UNDERSTANDING. DENIES FURTHER NEEDS. BED LOW, RAILS X2. CL IN REACH. WILL CONTINUE TO MONITOR.
--- NOTE | 2019-12-21 08:30 | MORECARE ---
CASE MANAGEMENT DISCHARGE SUMMARY PATIENT: JOSE BLOUNT UNIT: [id number] ADM DATE: 12/01/19 AGE: 79 : 42 SEX: M ROOM/BED: D.2203 AUTHOR: TANIYA,DOC PHYSICIAN: REFERRING PHYSICIAN: MIKE PATRICIO MD DATE OF SERVICE: 12/21/19 Discharge Plan Patient Name: JOSE BLOUNT [facility] [facility] 1940 Planned Disposition: Anticipated Discharge Date: Discharge Date: Expected LOS: Initial Reviewer: [id number] Initial Review Date: 12/01/2019 Generated: 12/21/19 9:30 am Comments DCP- Discharge Planning Updated by [id number]: Claudette Taylor on 12/20/19 2:[address] Patient Name: JOSE BLOUNT Admission Status: Elective Accout number: [id number] Admission Date: 12-01-2019 : 1940 Admission Diagnosis:HEMOTHORAX Attending: ZACHARY Current LOS: 19 Anticipated DC Date: Planned Disposition: Primary Insurance: [employer] Discharge Planning Comments: FAXED REFERRAL TO [facility]. Staffing Manager: Claudette Taylor DCP- Discharge Planning Updated by [id number]: Gretel Aparicio on 12/19/19 12:[address] A referral was faxed to [facility], spoke with Roxana ([phone]), who states the facility does not have any residential beds available. [facility] does have Skilled beds, but this patient looks, eventually, to require a residential bed. DCP- Discharge Planning Updated by [id number]: Karyna Browne on 12/18/19 7:[address] CM CALLED [facility] AND SPOKE WITH KHALIF FOR UPDATE ON APPROVAL. KHALIF STATES THEY ARE NOT IN NETWORK AND UNABLE TO ACCEPT PT. CM WILL CALL AROUND TO SNF TO SEE IF THEY ARE IN NETWORK. CM ATTEMPTED TO CALL CARMELO AT [phone] AND UNABLE TO LEAVE MESSAGE. KARYNA BROWNE MSN,RN,CM DCP- Discharge Planning Updated by [id number]: Karyna Browne on 12/18/19 7:[address] MCM CALLED SISTER AT [phone] TO DISCUSS UPDATE. MAILBOX IS FULL AND UNABLE TO TAKE MESSAGES. WILL CONTINUE TO REACH OUT TO DISCUSS DC PLANNING. KARYNA BROWNE DCP- Discharge Planning Updated by [id number]: Karyna Browne on 12/14/19 7:[address] CM CALLED [facility] AT [phone] AND SPOKE WITH KHALIF. STATES THEY ARE LOOKING TO SE IF THE PATIENTS INSURANCE IS IN NETWORK. STATES THEY WILL CALL CM BACK WITH DETAILS. KARYNA BROWNE DCP- Discharge Planning Updated by [id number]: Edellola Ford on 12/13/19 1:[address] RECEIVED TELEPHONE MESSAGE FROM ARSENIO AT [facility]. TELEPHONED AT 1130. SHE WAS NOT AVAILABLE. TELEPHONED AT 1400. SHE WAS INTERESTED TO KNOW IF THE PATIENT COULD SIGN HIS OWN PAPERWORK. THE PRIMARY NURSE STATES PATIENT CAN ANSWER YES OR NO. HE IS NOT VERY VERBAL. HE IS HARD TO UNDERSTAND. ADVISED ARSENIO. DCP- Discharge Planning Updated by [id number]: Karyna Browne on 12/11/19 1:[address] CM SPOKE WITH KARMA FROM [facility]. KARMA STATES THEY ARE UNABLE TO ACCOMODATE HIS NEEDS. SENT REFERRAL TO [facility] PER REQUEST. KARYNA BROWNE DCP- Discharge Planning Updated by [id number]: Karyna Browne on 12/10/19 8:[address] SENT UPDATE TO KARMA AT [facility] TO REVIEW. KARMA STATES THEY HAVE A MALE BED AVAILIBILITY. WILL CONTINUE TO FOLLOW. DCP- Discharge Planning Updated by [id number]: Karyna Browne on 12/04/19 7:[address] Patient Name: JOSE BLOUNT Admission Status: Elective Accout number: [id number] Admission Date: 12-01-2019 : 1940 Admission Diagnosis: Attending: ZACHARY Current LOS: 3 Anticipated DC Date: Planned Disposition: Primary Insurance: [employer] Late entry. assessment completed 12/03/19 at 1430 Discharge Planning Comments: CM met with patient to complete initial dc planning assessment. PT confused. CM called sister Carmelo at [phone]. CM educated patient on the CM role and verbal consent given by patient to complete assessment. Patient lives at home alone and Carmelo feels he needs additional services, and she feels he can not live at home alone. Carmelo wanted CM to assist with placing patient in an assisted living facility. CM educated Carmelo on the services available for the patient. Carmelo states she feels the patient could benefit from rehab at SNF. EVONNE verbalized for [facility]. CM called [facility] at [phone] and faxed referral. CM will continue to follow and will assist as needed with dc plans/needs. Staffing Manager: Karyna Browne DCPIA - Discharge Planning Initial Assessment Updated by [id number]: Karyna Browne on 12/04/19 7:50 am * Is the patient Alert and Oriented? No * Preadmission Environment Home Alone * Additional services required to return to the preadmission environment? Yes * Can the patient safely return to the preadmission environment? No * Has this patient been hospitalized within the prior 30 days at any hospital? No Coverage Notice Reviewer: [id number] - Karyna Browne Notice Issued Date-Time: 12/03/2019 15:30 Notice Type: Patient Choice Letter Notice Delivered To: Family Member Relationship to Patient: Sister It Support Specialist Name: Carmelo Benjamin Delivery Method: PHONE - Phone Johanna Days: Prior Verbal Notification: Recipient Understood Notice: Yes Recipient Signature: Med Rec Note Co-signed by Attending: Coverage Notice Comment: evonne verbalized for slim andre Last DP export: 12/20/19 2:46 p Patient Name: JOSE BLOUNT Page 30481 at 0830 All edits/amendments must be made on the electronic document DICTATION DATE: 12/21/19829 PULLMAN CONDUCTOR: YANG 12/21/19829 RPT#: [id number] DC DATE: STATUS: ADM IN [facility] [address] [place] [address] END OF REPORT
[2019-12-21 13:07] VITALS: BP 147/63
--- NOTE | 2019-12-21 13:54 | NUR ---
NUTRTIION FOLLOW UP: COMMENTS: Patient eating okay. Tolerating current diet per AUTOMATIC DIE CUTTING MACHINE OPERATOR. DIET: Diabetic Purree with Table Rock Thick Liquids PO INTAKE: 65% avg for last 7 meals WEIGHT: 203 lbs BM: x 1 on 12/19 SIG LABS: Na-150(H), Cl-115(H), BUN-30(H), Cr-1.6(H) SIG MEDS: Lantus, Synthroid, Humalog, KPhos, KCl, Zofran, Protonix, NS @ 50cc/hr RECOMMENDATIONS: -Continue current diet per AUTOMATIC DIE CUTTING MACHINE OPERATOR -Offer nectar thick nutritional supplements if po intake becomes < 50% avg -Patient requires 1:1 feeding assist with PO intake
--- NOTE | 2019-12-21 13:55 | NUR ---
ASSISTED PT WITH LUNCH TRAY, TOLERATED WELL, ATE 50% OF MEAL. BED LOW, RAILS X2. WILL CONTINUE TO MONITOR.
[2019-12-21 14:04] LABS: CREATININE - URINE 114.6 mg/dL (30-125); PRO/CRE RATIO URINE 0.7 mg/g; PROTEIN - URINE 81.2 mg/dL (0.0-11.9)
--- NOTE | 2019-12-21 15:46 | NUR ---
OT NOTE: PT COMPLETED UE/LE PROM TOLERATED. PT REQUIRED TOTAL A WITH POSITIONING TO DECREASE AREAS OF PRESSURE. PT REQUIRED MAX A FOR SIMPLE FACE HYGIENE. [phone] THANK YOU,CARLOS ALCOCER
[2019-12-21 17:42] VITALS: BP 140/60
[2019-12-21 20:00] VITALS: BP 158/66
[2019-12-22 04:00] VITALS: BP 160/56
--- NOTE | 2019-12-22 07:15 | NUR ---
REC'D IN BED ALERT TO SELF ONLY. RESP EVEN AND UNLABORED WITH NO DISTRESS NOTED. CAN EXPRESS NEEDS AND WANTS. NO C/O NOTED OR VOICED. ASSESSMENT COMPLETED. C/L IN REACH AT BEDSIDE.
[2019-12-22 08:00] VITALS: BP 140/62
[2019-12-22 10:04] LABS: ANION GAP 14.1 mmol/L (8-16); CALCIUM 7.7 mg/dL (8.5-10.1); CARBON DIOXIDE 23.6 mmol/L (21.0-32.0); CREATININE - SERUM 1.6 mg/dL (0.6-1.3); POTASSIUM - SERUM 3.7 mmol/L (3.5-5.1)
[2019-12-22 11:44] LABS: BASOPHILS 0.2 % (0-2); EOSINOPHILS 2.6 % (0-7); HEMATOCRIT 29.7 % (42.0-54.0); HEMOGLOBIN 9.2 g/dL (13.5-17.5); IMMATURE GRANULOCYTES 0.2 % (0-5); LYMPHOCYTES 29.9 % (15-50); MCH 31.4 pg (26.0-34.0); MCV 101.4 fL (80.0-100.0); MEAN PLATELET VOLUME 11.2 fL (7.4-10.4); MONOCYTES 8.1 % (2-11); PLATELET COUNT 175 10x3/uL (130-400); RBC 2.93 10x6/uL (4.20-6.10); RDW 14.9 % (11.5-14.5); WBC 4.2 10x3/uL (4.8-10.8)
[2019-12-22 13:26] VITALS: BP 127/58
--- NOTE | 2019-12-22 14:23 | NUR ---
I have reviewed this patient and I concur with the Shift Assessment completed by the Licensed Practical Nurse today this shift.
[2019-12-22 16:17] VITALS: BP 144/67
--- NOTE | 2019-12-22 19:15 | NUR ---
PATIENT ALERT AND ORIENTED ONLY TO SELF. CAN ANSWER YES AND NO QUESTIONS. ASSESSMENT PERFORMED. PATIENT INCONTINENT OF BOWEL. BED BATH AND BED CHANGE PROVIDED. BARILLAS CARE PROVIDED PER HOSPITAL PROTOCAL. PATIENT DENIES PAIN UPON ASSESSMENT. NEW MEPILEX APPLIED TO BUTTOCKS. SCDS ON BILATERALLY. CALL LIGHT CLOSE. PATIENT CLOSE TO NURSES STATION FOR MONITORING. DENIES FURTHER NEEDS. CPOC.
[2019-12-22 20:00] VITALS: BP 144/71
[2019-12-23] VITALS: BP 127/63
[2019-12-23 04:00] VITALS: BP 149/62
[2019-12-23 07:10] LABS: BASOPHILS 0 % (0-2); EOSINOPHILS 2.7 % (0-7); HEMATOCRIT 29.9 % (42.0-54.0); HEMOGLOBIN 9.5 g/dL (13.5-17.5); IMMATURE GRANULOCYTES 0.2 % (0-5); LYMPHOCYTES 25.7 % (15-50); MCH 31.7 pg (26.0-34.0); MCHC 31.8 g/dL (31.0-37.0); MCV 99.7 fL (80.0-100.0); MEAN PLATELET VOLUME 11.2 fL (7.4-10.4); MONOCYTES 7.7 % (2-11); NEUTROPHILS 63.7 % (40-80); PLATELET COUNT 178 10x3/uL (130-400); RDW 14.7 % (11.5-14.5); WBC 4.8 10x3/uL (4.8-10.8)
[2019-12-23 07:40] LABS: ANION GAP 11.6 mmol/L (8-16); CALCIUM 7.3 mg/dL (8.5-10.1); CARBON DIOXIDE 24.8 mmol/L (21.0-32.0); CREATININE - SERUM 1.5 mg/dL (0.6-1.3); PHOSPHOROUS 3.1 mg/dL (2.5-4.9); POTASSIUM - SERUM 3.4 mmol/L (3.5-5.1)
--- NOTE | 2019-12-23 08:45 | NUR ---
RESTING IN BED, NO DISTRESS NOTED, CONT TO MONITOR SUGARS, AND CONFUSION, WILL ASSIST WITH MEALS, REMAINS CONFUSED
[2019-12-23 09:53] VITALS: BP 141/69
[2019-12-23 12:45] VITALS: BP 149/63
[2019-12-23 16:37] VITALS: BP 161/68
--- NOTE | 2019-12-23 19:15 | NUR ---
PATIENT ALERT AND WATCHING TV WHEN ENTERING THE ROOM. PATIENT IS ORIENTED TO HIMSELF ONLY, AND WHEN ASKED HIS NAME, PATIENT ANSWERS "BLOUNT". PATIENT ANSWERES YES AND NO QUESTIONS. ANSWERS "NO" WHEN ASKED IF HE IS IN PAIN. HAS CALL LIGHT CLOSE. BARILLAS CATHETER DRAINING YELLOW URINE. ASSESSMENT PERFORMED. BED ALARM ON. DOOR OPEN FOR CONTINUAL MONITORING. CPOC.
--- NOTE | 2019-12-23 20:15 | NUR ---
ADMINISTERED HS MEDICATIONS IN APPLE SAUCE. FED PATIENT ENTIRE APPLESAUCE HS SNACK. TOLERATED WELL.
[2019-12-23 23:03] VITALS: BP 156/78
[2019-12-24 02:35] VITALS: BP 182/91
[2019-12-24 04:48] LABS: BASOPHILS 0.2 % (0-2); EOSINOPHILS 2.7 % (0-7); HEMATOCRIT 31.9 % (42.0-54.0); IMMATURE GRANULOCYTES 0.2 % (0-5); LYMPHOCYTES 31.4 % (15-50); MCH 31.2 pg (26.0-34.0); MCHC 31.3 g/dL (31.0-37.0); MCV 99.4 fL (80.0-100.0); MEAN PLATELET VOLUME 10.9 fL (7.4-10.4); MONOCYTES 7.3 % (2-11); NEUTROPHILS 58.2 % (40-80); PLATELET COUNT 172 10x3/uL (130-400); RBC 3.21 10x6/uL (4.20-6.10); RDW 14.5 % (11.5-14.5); WBC 4.4 10x3/uL (4.8-10.8)
[2019-12-24 05:26] LABS: ANION GAP 10.6 mmol/L (8-16); CALCIUM 7.6 mg/dL (8.5-10.1); CARBON DIOXIDE 25.1 mmol/L (21.0-32.0); CREATININE - SERUM 1.4 mg/dL (0.6-1.3); MAGNESIUM - SERUM 1.8 mg/dL (1.8-2.4); POTASSIUM - SERUM 3.7 mmol/L (3.5-5.1)
[2019-12-24 07:13] VITALS: BP 176/79
--- NOTE | 2019-12-24 08:23 | MORECARE ---
CASE MANAGEMENT DISCHARGE SUMMARY PATIENT: JOSE BLOUNT UNIT: [id number] ADM DATE: 12/01/19 AGE: 79 : 42 SEX: M ROOM/BED: D.2203 AUTHOR: TANIYA,DOC PHYSICIAN: REFERRING PHYSICIAN: MIKE PATRICIO MD DATE OF SERVICE: 12/24/19 Discharge Plan Patient Name: JOSE BLOUNT Facility: [facility]:[place] : 1940 Planned Disposition: Anticipated Discharge Date: Discharge Date: Expected LOS: Initial Reviewer: [id number] Initial Review Date: 12/01/2019 Generated: 12/24/19 9:23 am Comments DCP- Discharge Planning Updated by [id number]: Bettye Portillo on 12/24/19 7:[address] REFERRAL SENT TO [facility] DCP- Discharge Planning Updated by [id number]: Claudette Taylor on 12/20/19 2:[address] Patient Name: JOSE BLOUNT Admission Status: Elective Accout number: [id number] Admission Date: 12-01-2019 : 1940 Admission Diagnosis:HEMOTHORAX Attending: ZACHARY Current LOS: 19 Anticipated DC Date: Planned Disposition: [facility] Discharge Planning Comments: FAXED REFERRAL TO [facility]. Touch Up Carver: Claudette Taylor DCP- Discharge Planning Updated by [id number]: Gretel Aparicio on 12/19/19 12:[address] A referral was faxed to [facility], spoke with Roxana ([phone]), who states the facility does not have any medical terminologist beds available. [facility] does have Skilled beds, but this patient looks, eventually, to require a alf bed. DCP- Discharge Planning Updated by [id number]: Karyna Browne on 12/18/19 7:[address] CM CALLED [facility] AND SPOKE WITH KHALIF FOR UPDATE ON APPROVAL. KHALIF STATES THEY ARE NOT IN NETWORK AND UNABLE TO ACCEPT PT. CM WILL CALL AROUND TO SNF TO SEE IF THEY ARE IN NETWORK. CM ATTEMPTED TO CALL CARMELO AT [phone] AND UNABLE TO LEAVE MESSAGE. KARYNA BROWNE MSN,RN,CM DCP- Discharge Planning Updated by [id number]: Karyna Browne on 12/18/19 7:[address] MCM CALLED SISTER AT [phone] TO DISCUSS UPDATE. MAILBOX IS FULL AND UNABLE TO TAKE MESSAGES. WILL CONTINUE TO REACH OUT TO DISCUSS DC PLANNING. KARYNA BROWNE DCP- Discharge Planning Updated by [id number]: Karyna Browne on 12/14/19 7:[address] CM CALLED [facility] AT [phone] AND SPOKE WITH KHALIF. STATES THEY ARE LOOKING TO IF THE PATIENTS INSURANCE IS IN NETWORK. STATES THEY WILL CALL CM BACK WITH DETAILS. KARYNA BROWNE DCP- Discharge Planning Updated by [id number]: Edel Ford on 12/13/19 1:[address] RECEIVED TELEPHONE MESSAGE FROM ARSENIO AT [facility]. TELEPHONED AT 1130. SHE WAS NOT AVAILABLE. TELEPHONED AT 1400. SHE WAS INTERESTED TO KNOW IF THE PATIENT COULD SIGN HIS OWN PAPERWORK. THE PRIMARY NURSE STATES PATIENT CAN ANSWER YES OR NO. HE IS NOT VERY VERBAL. HE IS HARD TO UNDERSTAND. ADVISED ARSENIO. DCP- Discharge Planning Updated by [id number]: Karyna Browne on 12/11/19 1:[address] CM SPOKE WITH KARMA FROM [facility]. KARMA STATES THEY ARE UNABLE TO ACCOMODATE HIS NEEDS. SENT REFERRAL TO [facility] PER REQUEST. KARYNA BROWNE DCP- Discharge Planning Updated by [id number]: Karyna Browne on 12/10/19 8:[address] SENT UPDATE TO KARMA AT [place] TO REVIEW. KARMA STATES THEY HAVE A MALE BED AVAILIBILITY. WILL CONTINUE TO FOLLOW. DCP- Discharge Planning Updated by [id number]: Karyna Browne on 12/04/19 7:[address] Patient Name: JOSE BLOUNT Admission Status: Elective Accout number: [id number] Admission Date: 12-01-2019 : 1940 Admission Diagnosis: Attending: ZACHARY Current LOS: 3 Anticipated DC Date: Planned Disposition: Primary Insurance: [employer] Late entry. assessment completed 12/03/19 at 1430 Discharge Planning Comments: CM met with patient to complete initial dc planning assessment. PT confused. CM called sister Carmelo at [phone]. CM educated patient on the CM role and verbal consent given by patient to complete assessment. Patient lives at home alone and Carmelo feels he needs additional services, and she feels he can not live at home alone. Carmelo wanted CM to assist with placing patient in an assisted living facility. CM educated Carmelo on the services available for the patient. Carmelo states she feels the patient could benefit from rehab at [facility]. EVONNE verbalized for [facility]. CM called [facility] at [phone] and faxed referral. CM will continue to follow and will assist as needed with dc plans/needs. Touch Up Carver: Karyna Browne DCPIA - Discharge Planning Initial Assessment Updated by [id number]: Karyna Browne on 12/04/19 7:50 am * Is the patient Alert and Oriented? No * Preadmission Environment Home Alone * Additional services required to return to the preadmission environment? Yes * Can the patient safely return to the preadmission environment? No * Has this patient been hospitalized within the prior 30 days at any hospital? No External Providers External Provider: [facility] Next Contact Date: Service Request Date: Service Type: Resolution: Reviewer: Comments: Coverage Notice Reviewer: [id number] - Karyna Browne Notice Issued Date-Time: 12/03/2019 15:30 Notice Type: Patient Choice Letter Notice Delivered To: Family Member Relationship to Patient: Sister Container Finishing Inspector Name: Carmelo Benjamin Delivery Method: PHONE - Phone Johanna Days: Prior Verbal Notification: Recipient Understood Notice: Yes Recipient Signature: Med Rec Note Co-signed by Attending: Coverage Notice Comment: evonne verbalized for slim andre Last DP export: 12/21/19 7:31 a Patient Name: JOSE BLOUNT Page 85792 at 0823 All edits/amendments must be made on the electronic document DICTATION DATE: 12/24/19822 DENTISTRY PROFESSOR: YANG 12/24/19822 RPT#: [id number] DC DATE: STATUS: ADM IN [facility] [address] [place] [address] END OF REPORT
[2019-12-24 09:31] VITALS: BP 163/73
[2019-12-24 12:34] VITALS: BP 140/89
[2019-12-24 17:59] VITALS: BP 141/64
--- NOTE | 2019-12-24 19:00 | NUR ---
PATIENT RESTING WITH EYES CLOSED AND UNLABORED RESPIRATIONS WHEN ENTERING THE ROOM. PATIENT AROUSES WHEN NAME CALLED. PATIENT ANSWERS YES AND NO QUESTIONS. FALLS BACK TO SLEEP EASILY. ASSESSMENT PERFORMED. PATIENT HAS BARILLAS CATHETER THAT IS PATENT AND DRAINING YELLOW URINE. NO DISTRESS NOTED. CALL LIGHT CLOSE. BED ALARM ON. CPOC.
[2019-12-24 20:00] VITALS: BP 157/67
--- NOTE | 2019-12-24 20:30 | NUR ---
ADMINISTERED HS MEDICATIONS CRUSHED IN PUDDING. PATIENT FINISHED PUDDING CUP HS SNACK. NO DISTRESS NOTED. SHAKES HEAD "NO" WHEN ASKED IF HE NEEDS ANYTHING. BED ALARM REMAINS ON. CLOSE TO NURSES STATION FOR CONTINUAL MONITORING. CPOC.
--- NOTE | 2019-12-25 00:05 | NUR ---
PATIENT SIGNED CONSENTS. SIGNED REFUSAL FOR BLOOD PRODUCTS. ALL ARE ON CHART. HIBBA CLEANSE PERFORMED. NPO STATUS REVIEWED WITH PATIENT. PATIENT VERBALIZES UNDERSTANDING.
[2019-12-25 04:00] VITALS: BP 152/67
--- NOTE | 2019-12-25 05:42 | NUR ---
FSBS CHECKED, 76. FED PATIENT APPLESAUCE WITH AM MEDICATIONS.
[2019-12-25 06:56] LABS: BASOPHILS 0.2 % (0-2); EOSINOPHILS 2.8 % (0-7); HEMATOCRIT 33.3 % (42.0-54.0); HEMOGLOBIN 10.4 g/dL (13.5-17.5); IMMATURE GRANULOCYTES 0.2 % (0-5); LYMPHOCYTES 24.6 % (15-50); MCHC 31.2 g/dL (31.0-37.0); MCV 99.1 fL (80.0-100.0); MEAN PLATELET VOLUME 11.1 fL (7.4-10.4); MONOCYTES 8.5 % (2-11); NEUTROPHILS 63.7 % (40-80); PLATELET COUNT 183 10x3/uL (130-400); RBC 3.36 10x6/uL (4.20-6.10); RDW 14.6 % (11.5-14.5)
[2019-12-25 07:27] LABS: ANION GAP 9.7 mmol/L (8-16); CALCIUM 8.2 mg/dL (8.5-10.1); CARBON DIOXIDE 26.8 mmol/L (21.0-32.0); CREATININE - SERUM 1.4 mg/dL (0.6-1.3); PHOSPHOROUS 3.2 mg/dL (2.5-4.9); POTASSIUM - SERUM 3.5 mmol/L (3.5-5.1)
--- NOTE | 2019-12-25 07:54 | NUR ---
PT SITTING UP IN BED. AWAKE AND ALERT. ANSWERS ONLY YES AND NO QUESTIONS BY KNODDING OF HEAD. RESP EVEN AND UNLABORED AT THIS TIME. DOES NOT PRESENT WITH PAIN. SALINE LOC TO RIGHT FOREARM, SITE WITHOUT REDNESS OR EDEMA. F/C PATENT TO GRAVITY. DENIES FURTHER NEEDS AT THIS TIME. CL WITHIN REACH. ENCOURAGED TO CALL WITH NEEDS. CONTINUE POC
[2019-12-25 08:25] VITALS: BP 149/79
[2019-12-25 12:22] VITALS: BP 137/74
--- NOTE | 2019-12-25 17:00 | NUR ---
OT NOTE: (AM) PT COMPLETED BUE PROM TOLERATED. PT COMPLETED POSITIONING WITH MAX A. (PM) PT COMPLETED UE PROM . PT COMPLETED UB HYGIENE TASKS WITH MOD A. [phone] THANK YOU,CARLOS ALCOCER
[2019-12-25 20:00] VITALS: BP 170/88
--- NOTE | 2019-12-25 20:00 | NUR ---
PT SITTING UP IN BED WITHOUT DISTRESS, ORIENTED TO SELF ONLY. IV RIGHT FA SL. BARILLAS IN PLACE. SCDS ON. BAD RIVER BAND. ANSWERS SOME YES OR NO QUESTIONS BY NODDING HEAD. GAVE PT MEDS CRUSHED IN APPLESAUCE. PT TOOK TWO BITES AND HAD DIFFICULTY FOLLOWING COMMANDS TO SWALLOW. GAVE A SIP OF THICKENED JUICE AND WAS ABLE TO GET APPLESAUCE DOWN. PT IMMEDIATELY FELL ASLEEP SITTING UP. LEFT HOB ELEVATED. WILL CTM
--- NOTE | 2019-12-25 23:30 | NUR ---
PT LYING IN BED WITH HOB 45 SLEEPING WITHOUT DISTRESS, WILL CTM
[2019-12-26] VITALS: BP 189/91
[2019-12-26 04:00] VITALS: BP 169/89
--- NOTE | 2019-12-26 05:15 | NUR ---
PT GIVEN BED BATH AT THIS TIME. PROVIDED BARILLAS CARE. PROPPED ARMS ON PILLOWS. ELEVATED LEGS. BILAT HEEL PROTECTORS ON. SCDS ON. WILL CTM
[2019-12-26 05:27] LABS: BASOPHILS 0.2 % (0-2); EOSINOPHILS 3.3 % (0-7); HEMATOCRIT 33.2 % (42.0-54.0); HEMOGLOBIN 10.5 g/dL (13.5-17.5); IMMATURE GRANULOCYTES 0.2 % (0-5); LYMPHOCYTES 24.5 % (15-50); MCH 31.4 pg (26.0-34.0); MCHC 31.6 g/dL (31.0-37.0); MCV 99.4 fL (80.0-100.0); MEAN PLATELET VOLUME 11.3 fL (7.4-10.4); MONOCYTES 8.2 % (2-11); NEUTROPHILS 63.6 % (40-80); PLATELET COUNT 189 10x3/uL (130-400); RBC 3.34 10x6/uL (4.20-6.10); RDW 14.7 % (11.5-14.5); WBC 4.6 10x3/uL (4.8-10.8)
[2019-12-26 05:40] LABS: ANION GAP 12.8 mmol/L (8-16); CALCIUM 8.1 mg/dL (8.5-10.1); CREATININE - SERUM 1.4 mg/dL (0.6-1.3); PHOSPHOROUS 3.4 mg/dL (2.5-4.9); POTASSIUM - SERUM 3.8 mmol/L (3.5-5.1)
--- NOTE | 2019-12-26 07:56 | NUR ---
RESTING IN BED, NO DISTRESS NOTED, EYES CLOSED, CONT TO MONITOR SUGARS, MONITOR SWALLOW, TURN PER STAFF
[2019-12-26 09:58] VITALS: BP 167/82
[2019-12-26 12:47] VITALS: BP 151/69
--- NOTE | 2019-12-26 13:26 | NUR ---
OT NOTE: PT COMPLETED SUPINE TO SIT WITH TOTAL A. PT COMPLETED EOB SITTING ENDURANCE WITH MIN A. PT COMPLETED UE PROM TOLERATED. PT COMPLETED FACE HYGIENE WITH MOD A. NOTED INCREASE AROM IN UE TODAY. [phone] THANK YOU,CARLOS ALCOCER
--- NOTE | 2019-12-26 14:23 | NUR ---
OT NOTE: PERFORMED A/AROM AND AROM EXS WITH UE/LES. PT ALERT BUT STILL WITH MINIMAL VERBALIZATION. BERONICA EARL, OTR/L 2-120
--- NOTE | 2019-12-26 14:26 | MORECARE ---
CASE MANAGEMENT DISCHARGE SUMMARY PATIENT: JOSE BLOUNT UNIT: [id number] ADM DATE: 12/01/19 AGE: 79 : 42 SEX: M ROOM/BED: D.2203 AUTHOR: TANIYADOC PHYSICIAN: REFERRING PHYSICIAN: MIKE PATRICIO MD DATE OF SERVICE: 12/26/19 Discharge Plan Patient Name: JOSE BLOUNT Facility: [facility]:[place] : 1940 Planned Disposition: Anticipated Discharge Date: Discharge Date: Expected LOS: Initial Reviewer: [id number] Initial Review Date: 12/01/2019 Generated: 12/26/19 3:26 pm Comments DCP- Discharge Planning Updated by [email or web address]: Bettye Portillo on 12/26/19 1:[address] SPOKE AT LENGTH WITH CARMELO (SISTER) ABOUT HER BROTHER AND HIS PLAN OF CARE. SHE HAD MULTIPLE QUESTIONS. I ATTEPMTED TO ANSWER THEM THE BEST I COULD. LOOKING BACK IN HIS CHART HE DID AMBULATE 4 FEET PRIOR TO HIS CODE ON 12/03 HIS SISTER SAID THAT HE WAS LIVING ON HIS OWN IN A SENIOR CITIZEN COMPLEX, IT WAS HIS NEIGHBOR WHO CALLED EMS BECAUSE HIS CALL LIGHT WAS FLASHING AT 0200. 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 SHE SAID THAT LAST YEAR HIS NUMBERS WERE "GOING UP". 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 CM SHARED THESE CONCERNS WITH ROSS THE CHIP SEPARATOR . CM WILL CONTINUE TO FOLLOW AND ASSIST WITH PATIENT'S CARE. DCP- Discharge Planning Updated by [id number]: Bettye Portillo on 12/24/19 7:[address] REFERRAL SENT TO [facility] DCP- Discharge Planning Updated by [id number]: Claudette Taylor on 12/20/19 2:[address] Patient Name: JOSE BLOUNT Admission Status: Elective Accout number: [id number] Admission Date: 12-01-2019 : 1940 Admission Diagnosis:HEMOTHORAX Attending: ZACHARY Current LOS: 19 Anticipated DC Date: Planned Disposition: [facility] Discharge Planning Comments: FAXED REFERRAL TO [facility]. Coffin Maker: Claudette Taylor DCP- Discharge Planning Updated by [email or web address]: Gretel Aparicio on 12/19/19 12:[address] A referral was faxed to [facility], spoke with Roxana ([phone]), who states the facility does not have any intermodal customer service beds available. [facility] does have Skilled beds, but this patient looks, eventually, to require a detention bed. DCP- Discharge Planning Updated by [email or web address]: Karyna Browne on 12/18/19 7:[address] CM CALLED [facility] AND SPOKE WITH KHALIF FOR UPDATE ON APPROVAL. KHALIF STATES THEY ARE NOT IN NETWORK AND UNABLE TO ACCEPT PT. CM WILL CALL AROUND TO SNF TO SEE IF THEY ARE IN NETWORK. CM ATTEMPTED TO CALL CARMELO AT [phone] AND UNABLE TO LEAVE MESSAGE. KARYNA BROWNE MSN,RN,CM DCP- Discharge Planning Updated by [email or web address]: Karyna Browne on 12/18/19 7:[address] MCM CALLED SISTER AT [phone] TO DISCUSS UPDATE. MAILBOX IS FULL AND UNABLE TO TAKE MESSAGES. WILL CONTINUE TO REACH OUT TO DISCUSS DC PLANNING. KARYNA BROWNE DCP- Discharge Planning Updated by [id number]: Karyna Browne on 12/14/19 7:[address] CM CALLED [facility] AT [phone] AND SPOKE WITH KHALIF. STATES THEY ARE LOOKING TO SE IF THE PATIENTS INSURANCE IS IN NETWORK. STATES THEY WILL CALL CM BACK WITH DETAILS. KARYNA BROWNE DCP- Discharge Planning Updated by [email or web address]: Edel Ford on 12/13/19 1:[address] RECEIVED TELEPHONE MESSAGE FROM ARSENIO AT [facility]. TELEPHONED AT 1130. SHE WAS NOT AVAILABLE. TELEPHONED AT 1400. SHE WAS INTERESTED TO KNOW IF THE PATIENT COULD SIGN HIS OWN PAPERWORK. THE PRIMARY NURSE STATES PATIENT CAN ANSWER YES OR NO. HE IS NOT VERY VERBAL. HE IS HARD TO UNDERSTAND. ADVISED ARSENIO. DCP- Discharge Planning Updated by [id number]: Karyna Browne on 12/11/19 1:[address] CM SPOKE WITH KARMA FROM [facility]. KARMA STATES THEY ARE UNABLE TO ACCOMODATE HIS NEEDS. SENT REFERRAL TO [facility] PER REQUEST. KARYNA BROWNE DCP- Discharge Planning Updated by [id number]: Karyna Browne on 12/10/19 8:[address] SENT UPDATE TO KARMA AT [facility] TO REVIEW. KARMA STATES THEY HAVE A MALE BED AVAILIBILITY. WILL CONTINUE TO FOLLOW. DCP- Discharge Planning Updated by [id number]: Karyna Browne on 12/04/19 7:[address] Patient Name: JOSE BLOUNT Admission Status: Elective Accout number: [id number] Admission Date: 12-01-2019 : 1940 Admission Diagnosis: Attending: ZACHARY Current LOS: 3 Anticipated DC Date: Planned Disposition: Primary Insurance: [employer] Late entry. assessment completed 12/03/19 at 1430 Discharge Planning Comments: CM met with patient to complete initial dc planning assessment. PT confused. CM called sister Carmelo at [phone]. CM educated patient on the CM role and verbal consent given by patient to complete assessment. Patient lives at home alone and Carmelo feels he needs additional services, and she feels he can not live at home alone. Carmelo wanted CM to assist with placing patient in an assisted living facility. CM educated Carmelo on the services available for the patient. Carmelo states she feels the patient could benefit from rehab at SNF. EVONNE verbalized for [facility]. CM called [facility] at [phone] and faxed referral. CM will continue to follow and will assist as needed with dc plans/needs. Coffin Maker: Karyna Browne DCPIA - Discharge Planning Initial Assessment Updated by [id number]: Karyna Browne on 12/04/19 7:50 am * Is the patient Alert and Oriented? No * Preadmission Environment Home Alone * Additional services required to return to the preadmission environment? Yes * Can the patient safely return to the preadmission environment? No * Has this patient been hospitalized within the prior 30 days at any hospital? No Coverage Notice Reviewer: [id number] - Karyna Browne Notice Issued Date-Time: 12/03/2019 15:30 Notice Type: Patient Choice Letter Notice Delivered To: Family Member Relationship to Patient: Sister Flame Burner Name: Carmelo Benjamin Delivery Method: PHONE - Phone Johanna Days: Prior Verbal Notification: Recipient Understood Notice: Yes Recipient Signature: Med Rec Note Co-signed by Attending: Coverage Notice Comment: evonne verbalized for [facility] Last DP export: 12/24/19 7:23 a Patient Name: JOSE BLOUNT Page 60701 at 1426 All edits/amendments must be made on the electronic document DICTATION DATE: 12/26/191425 [facility]OSPITAL [facility]LAIN: YANG 12/26/191425 RPT#: [id number] DC DATE: STATUS: ADM IN [facility] [address] [place] [address] END OF REPORT
--- NOTE | 2019-12-26 16:16 | NUR ---
DR GORDON AWARE OF CONSULT
--- NOTE | 2019-12-26 17:29 | NUR ---
MRI BRAIN WITHOUT ORDERED ON PATIENT. HE IS UNABLE TO SCREEN HIMSELF SO I CALLED AND SPOKE TO BOTH HIS SISTERS, CARMELO TA AND MANISHA TAN. IN LOOKING AT HIS PRIOR IMAGES I NOTICED A PENILE IMPLANT. NO INFORMATION IS KNOWN ABOUT THE TYPE OF IMPLANT THIS IS OR IF IT IS MRI COMPATIBLE. I CALLED DR MAR, RADIOLOGIST, WHO INTRUCTED ME NOT TO DO AN MRI ON HIM UNTIL WE HAD FURTHER INFORMATION ON THE IMPLANT AND COULD CLEAR HIM FOR THE SCAN. I CALLLED HIS NURSE CHRIS AND INFORMED HER OF THIS WELL. DR MAR RECOMMENDS REPEATING CT HEAD TO COMPARE TO 12/04/2019 SCAN TO SEE IF THERE ARE ANY CHANGES.
[2019-12-26 18:06] VITALS: BP 146/67
[2019-12-26 20:00] VITALS: BP 147/66
--- NOTE | 2019-12-26 20:00 | NUR ---
PT SITTING UP IN BED WITHOUT DISTRESS, ORIENTED TO SELF ONLY. IV RIGHT FA SL. PT ANSWERS SOME YES OR NO QUESTIONS. BARILLAS IN PLACE. FSBS 86. GAVE PT MEDS CRUSHED IN APPLESAUCE. PT WOULD ONLY EAT A COUPLE BITES BEFORE REFUSING TO SWALLOW ANYMORE. HOLDING APPLESAUCE IN MOUTH. TOOK LOTS OF ENCOURAGING TO GET PT TO SWALLOW SOME WATER TO GET APPLESAUCE DOWN. LEFT PT SITTING UP. WILL CTM
--- NOTE | 2019-12-26 23:00 | NUR ---
PT GIVEN BED BATH AT THIS TIME, BARILLAS CARE PROVIDED. LINENS CHANGED. DRESSINGS TO BUTTOCKS CHANGED. ARMS PROPPED ON PILLOWS. TURNED TO RIGHT SIDE. PROVIDED ORAL CARE. PT IMMEDIATELY WENT BACK TO SLEEP. LEFT HOB 45 DEGRESS. WILL CTM
[2019-12-27] VITALS: BP 158/90
[2019-12-27 04:00] VITALS: BP 157/70
--- NOTE | 2019-12-27 05:45 | NUR ---
PT WOULD NOT WAKE UP ENOUGH TO TAKE MORNING MEDS, UNABLE TO FOLLOW COMMANDS
[2019-12-27 08:24] LABS: BASOPHILS 0.2 % (0-2); EOSINOPHILS 3.4 % (0-7); HEMOGLOBIN 10.6 g/dL (13.5-17.5); IMMATURE GRANULOCYTES 0.2 % (0-5); LYMPHOCYTES 24.4 % (15-50); MCH 31.5 pg (26.0-34.0); MCHC 31.2 g/dL (31.0-37.0); MCV 100.9 fL (80.0-100.0); MEAN PLATELET VOLUME 10.7 fL (7.4-10.4); MONOCYTES 9.4 % (2-11); NEUTROPHILS 62.4 % (40-80); PLATELET COUNT 163 10x3/uL (130-400); RBC 3.37 10x6/uL (4.20-6.10); RDW 14.9 % (11.5-14.5); WBC 4.7 10x3/uL (4.8-10.8)
[2019-12-27 08:47] LABS: ALBUMIN 2.1 g/dL (3.4-5.0); ANION GAP 14.3 mmol/L (8-16); BILIRUBIN - TOTAL 0.59 mg/dL (0.2-1.3); CARBON DIOXIDE 25.3 mmol/L (21.0-32.0); CREATININE - SERUM 1.3 mg/dL (0.6-1.3); PHOSPHOROUS 3.6 mg/dL (2.5-4.9); POTASSIUM - SERUM 3.6 mmol/L (3.5-5.1); PROTEIN - SERUM 5.4 g/dL (6.4-8.2)
[2019-12-27 09:00] VITALS: BP 105/60
--- NOTE | 2019-12-27 10:18 | CN ---
PATIENT NAME:JOSE BLOUNT MEDICAL RECORD: [id number] : 44 LOCATION:[facility] ADMIT DATE: 12/01/19 ACCOUNT: [id number] CONSULTING PHYSICIAN: JONATHAN HANDLEY MD REFERRING PHYSICIAN: MIKE PATRICIO MD DATE OF CONSULTATION: 12/26/2019 IDENTIFYING DATA: The patient is 79 years old and he is admitted to the hospital on a voluntary basis. CHIEF COMPLAINT: Confusion. HISTORY OF PRESENT ILLNESS: The patient has multiple myeloma. He suffered of rib fracture and he has been admitted to the hospital to address this. He has had a urinary tract infection, hemothorax and pleural effusion along with diabetes and coronary artery disease. Currently, he is profoundly confused. He answers questions yes and no, although I am not sure he is answering them accurately and if the questions is posed in a way that cannot be answered yes or no, he does not answer at all. He is only oriented to person and cannot follow multistep commands. He is awake, alert, and pleasant, but not able to understand what is being said or done with him. Apparently, this is relatively new. I have reviewed the records and he was living in a supervised setting for the elderly a month ago. He clearly has had a decline and it may well be related to the code that he had in early November. The explanation is not clear and may never be clear; however, this appears to be fairly advanced dementia with no real evidence that he is going to improve. ASSESSMENT: Vascular dementia. PLAN: The patient's condition is advanced. He needs 90-fhez-q-day supervision. He is not displaying behaviors that would necessitate or require an admission to the behavioral unit. He does need long-term long term care. I doubt he is capable of participating in rehabilitation services at a skilled wing of the long term, but I will leave that to the long term to assess and decide. At this point, there is little that I can do for him pharmacologically except control any disruptive behaviors that might arise and recommend 79-wbtp-g-day supervision and it would appear that given his social circumstances, the least restrictive environment is going to be the long term. TRANSINT:[id number] Voice Confirmation ID: [id number] DOCUMENT ID: [id number] JONATHAN HANDLEY MD at 1018 CC: [id number] DICTATION DATE: 12/26/19 1534 CONTENT DESIGNER: 12/26/19 1606 ADM IN [facility] [address] [id number]
[2019-12-27 13:13] VITALS: BP 148/78
--- NOTE | 2019-12-27 14:18 | NUR ---
Nutrition follow-up: Pt receiving a regular pureed diet with nectar thick liquids 1:1 feeding PO intake ~25%-50% of some meals; 0 at some meals Labs reviewed +BM Wt: 203# Pt lethargic today If po intake remains poor will need to consider nutrition support (PEG tube vs NGT placement and TF started) RDN following.
--- NOTE | 2019-12-27 16:04 | NUR ---
OT NOTE: PT VERY LETHARGIC IN AM AND PM..UNABLE TO AROUSE PT IN PM FOR GREATER THAN A FEW SECONDS AND THEN HE WOULD FALL BACK ASLEEP. BERONICA EARL, OTR/L
[2019-12-27 17:17] VITALS: BP 146/53
--- NOTE | 2019-12-27 19:30 | NUR ---
THIS NURSE WALKED PAST PT ROOM TO RECIEVE REPORT FROM PREVIOUS SHIFT ON A DIFFERENT PT WHEN THIS NURSE NOTICED PT HAD AGONAL BREATHING. ENTERED PT ROOM AND PT WAS VERY DIAPHORETIC AND PALE. ATTEMPTED TO FEEL FOR PULSE AND INITIALLY COULD NOT FIND ONE. DROPPED PT HOB FLAT AND FELT A WEAK CAROTID PULSE. PT WAS UNRESPONIVE TO ALL STIMULI. SECOND NURSE CAME TO ROOM AND ASSISTED CALLED RAPID RESPONSE. 02 WAS 76%, BP 107/47, HR 60. RESPIRATORY CAME TO ROOM AND PLACED PT ON NON REBREATHER. CHRISTIANO BRAVO APN CAME TO BEDSIDE. STARTED RUNNING NS. THIS NURSE CALLED SISTER MANISHA AND TO UPDATE ON PT AND CLARIFY CODE STATUS, AT THIS TIME PT WAS FULL CODE. MANISHA STATED SHE WAS TO SPEAK TO SISTER ABOUT PT CONDITION AND SHE WOULD CALL BACK WITH HER DECISION BUT UNTIL THEN SHE WANTED FULL CODE. CHRISTIANO BRAVO APN AT THIS TIME INSTRUCTED TO CALL SERJIO BILLY TO PREPARE TO INTUBATE. SERJIO BILLY CALLED AND ER DOC CAME TO BEDSIDE. STARTED PREPPING ROOM FOR INTUBATION WHILE BAGGING PT WITH AMBU. MANISHA CALLED BACK TO SPEAK AGAIN ABOUT WHAT WAS HAPPENING WITH PT. CHRISTIANO BRAVO SPOKE WITH SISTER ABOUT PT CONDITION/PROGNOSIS. DURING THIS TIME PT STARTED HAVING A SEIZURE. ER DOC ORDERED 1MG ATIVAN, GIVEN ORDERED. SUCTION SECRETIONS FROM MOUTH. AT THIS TIME MANISHA CHOSE TO MAKE PT MED CODE ONLY. MED CODE WAS THOROUGHLY EXPLAINED THAT IN THE EVENT PT NEEDED LIFE SAVING MEASURES WE WOULD GIVE MEDICATION ONLY, NO CPR, NO INTUBATION, NO DEFIBRILLATION. MANISHA VERBALIZED UNDERSTANDING, STATES SHE WANTS TO JUST MAKE SURE PT IS COMFORTABLE. AT THIS TIME PREP FOR INTUBATION STOPPED. PT WAS IN POST ICTAL STATE BUT RESPIRATION WERE BETTER AFTER ATIVAN. PT LEFT ON VENTI MASK TO WEAN TOLERATED WITH ALL VSS. WILL CTM
[2019-12-27 20:00] VITALS: BP 107/47
--- NOTE | 2019-12-27 22:00 | NUR ---
PT STARTING TO AROUSE TO VERBAL AND PHYSICAL STIMULATION. MOVING ARMS SLIGHTLY WHEN TOUCHED. SISTER CARMELO CALLED FOR UPDATE AND WANTED CLARIFICATION ON WHAT MED CODE ONLY MEANT. INFORMED CARMELO IN THE EVENT OF PULMONARY OR CARDIAC ARREST WE WOULD ONLY GIVE MEDICATIONS, THERE WOULD BE NO CPR, NO INTUBATION AND NO DEBRILLATION. CARMELO VERBALIZED UNDERSTANDING AND STATED SHE WAS INTERESTED IN SPEAKING WITH DOCTORS AND CHIEF INTERNAL AUDITOR IN AM ABOUT MAKING PT HOSPICE OR COMFORT CARE ONLY. STATES [facility] IS NOT VERY INTERESTED IN HOSPICE BUT THAT COMFORT MEASURES ONLY IS SOMETHING THEY MIGHT WANT. BOTH SISTERS DO NOT WANT PT TO GO TO [facility] D/T COVID RESTRICTIONS NOT ALLOWING THEM TO SEE HIM. THEY WOULD LIKE TO SPEAK ABOUT OPTIONS THAT WOULD ALLOW THEM TO BE WITH HIM. WILL PASS ALONG TO DAYSHIFT IN AM TO SET UP WITH DOCTORS AND CASE MANAGEMENT. AT THIS TIME I TRANSFERED PHONE CALL INTO PT ROOM AND SET ROOM PHONE UP BESIDE PT SO CARMELO COULD SPEAK TO HIM. UPON HEARING CARMELO PT STARTED MAKING SOUNDS IF HE RECOGNIZED HER VOICE BUT IS STILL NOT OPENING EYES. WILL CTM
[2019-12-28] VITALS: BP 100/53
--- NOTE | 2019-12-28 00:30 | NUR ---
PT WEANED DOWN TO 2L/NC, O2 98-100%. ALL VITALS STABLE
--- NOTE | 2019-12-28 03:00 | NUR ---
PT AWAKE AND MOVING ARMS AROUND HE WAS PRIOR TO EVENT AT BEGINNING OF SHIFT. WASHED PT FACE, PROVIDED ORAL CARE AND BARILLAS CARE. PT OPENING LEFT EYE SENIOR LIVING AND LOOKING AT THIS NURSE WHILE DOING SO. PT MAKING NOISES DURING THIS WELL IF TRYING TO COMMUNICATE. PT WAS PULLING NASAL CANULA OFF, O2 SATS WERE 98-100% ON ROOM AIR SO THIS NURSE DID NOT PUT CANULA BACK ON AT THIS TIME
[2019-12-28 04:00] VITALS: BP 161/71
[2019-12-28 05:01] LABS: HEMOGLOBIN 11.1 g/dL (13.5-17.5); LYMPHOCYTES 23.7 % (15-50); MCH 32.8 pg (26.0-34.0); MCHC 32.6 g/dL (31.0-37.0); MCV 100.6 fL (80.0-100.0); MEAN PLATELET VOLUME 10.7 fL (7.4-10.4); PLATELET COUNT 166 10x3/uL (130-400); RBC 3.38 10x6/uL (4.20-6.10); RDW 14.7 % (11.5-14.5); WBC 5.4 10x3/uL (4.8-10.8)
[2019-12-28 05:09] LABS: ALBUMIN 2.2 g/dL (3.4-5.0); ANION GAP 17.5 mmol/L (8-16); BILIRUBIN - TOTAL 0.58 mg/dL (0.2-1.3); CALCIUM 7.9 mg/dL (8.5-10.1); CARBON DIOXIDE 21.9 mmol/L (21.0-32.0); CREATININE - SERUM 1.4 mg/dL (0.6-1.3); PROTEIN - SERUM 5.9 g/dL (6.4-8.2)
[2019-12-28 05:13] LABS: POTASSIUM - SERUM 4.4 mmol/L (3.5-5.1)
[2019-12-28 09:45] VITALS: BP 128/77
[2019-12-28 12:54] VITALS: BP 115/47
--- NOTE | 2019-12-28 16:51 | MORECARE ---
CASE MANAGEMENT DISCHARGE SUMMARY PATIENT: JOSE BLOUNT UNIT: [id number] ADM DATE: 12/01/19 AGE: 79 : 42 SEX: M ROOM/BED: D.2203 AUTHOR: TANIYADOC PHYSICIAN: REFERRING PHYSICIAN: MIKE PATRICIO MD DATE OF SERVICE: 12/28/19 Discharge Plan Patient Name: JOSE BLOUNT Facility: [facility]:[place] : 1940 Planned Disposition: Anticipated Discharge Date: Discharge Date: Expected LOS: Initial Reviewer: [email or web address] Initial Review Date: 12/01/2019 Generated: 12/28/19 5:51 pm Comments DCP- Discharge Planning Updated by [id number]: Bettye Portillo on 12/28/19 3:[address] updated Carmelo on patient's status. She stated that her and her sister will be here Tuesday and they are going to visit him together ( I got this approved with Dharmesh Curran) So they can make the decision on residential vs hospice. CM to follow and assist as needed DCP- Discharge Planning Updated by [id number]: Bettye Portillo on 12/26/19 1:[address] SPOKE AT LENGTH WITH CARMELO (SISTER) ABOUT HER BROTHER AND HIS PLAN OF CARE. SHE HAD MULTIPLE QUESTIONS. I ATTEPMTED TO ANSWER THEM THE BEST I COULD. LOOKING BACK IN HIS CHART HE DID AMBULATE 4 FEET PRIOR TO HIS CODE ON 12/03 HIS SISTER SAID THAT HE WAS LIVING ON HIS OWN IN A SENIOR CITIZEN COMPLEX, IT WAS HIS NEIGHBOR WHO CALLED EMS BECAUSE HIS CALL LIGHT WAS FLASHING AT 0200. 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 SHE SAID THAT LAST YEAR HIS NUMBERS WERE "GOING UP". 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 CM SHARED THESE CONCERNS WITH DEBORAH . CM WILL CONTINUE TO FOLLOW AND ASSIST WITH PATIENT'S CARE. DCP- Discharge Planning Updated by [id number]: Bettye Portillo on 12/24/19 7:[address] REFERRAL SENT TO [facility] DCP- Discharge Planning Updated by [id number]: Claudette Taylor on 12/20/19 2:[address] Patient Name: JOSE BLOUNT Admission Status: Elective Accout number: [id number] Admission Date: 12-01-2019 : 1940 Admission Diagnosis:HEMOTHORAX Attending: ZACHARY Current LOS: 19 Anticipated DC Date: Planned Disposition: Primary Insurance: [employer] Discharge Planning Comments: FAXED REFERRAL TO [facility]. Systems Test Analyst: Claudette Taylor DCP- Discharge Planning Updated by [id number]: Gretel Aparicio on 12/19/19 12:[address] A referral was [facility]ed to [facility], spoke with Roxana ([phone]), who states the facility does not have any chcf beds available. [facility] does have Skilled beds, but this patient looks, eventually, to require a exterminator helper bed. DCP- Discharge Planning Updated by [id number]: Karyna Browne on 12/18/19 7:[address] CM CALLED [facility] AND SPOKE WITH KHALIF FOR UPDATE ON APPROVAL. KHALIF STATES THEY ARE NOT IN NETWORK AND UNABLE TO ACCEPT PT. CM WILL CALL AROUND TO SNF TO SEE IF THEY ARE IN NETWORK. CM ATTEMPTED TO CALL CARMELO AT [phone] AND UNABLE TO LEAVE MESSAGE. KARYNA BROWNE MSN,RN,CM DCP- Discharge Planning Updated by [id number]: Karyna Browne on 12/18/19 7:[address] MCM CALLED SISTER AT [phone] TO DISCUSS UPDATE. MAILBOX IS FULL AND UNABLE TO TAKE MESSAGES. WILL CONTINUE TO REACH OUT TO DISCUSS DC PLANNING. KARYNA BROWNE DCP- Discharge Planning Updated by [id number]: Karyna Browne on 12/14/19 7:[address] CM CALLED [facility] AT [phone] AND SPOKE WITH KHALIF. STATES THEY ARE LOOKING TO SE IF THE PATIENTS INSURANCE IS IN NETWORK. STATES THEY WILL CALL CM BACK WITH DETAILS. KARYNA BROWNE DCP- Discharge Planning Updated by [id number]: Edel Ford on 12/13/19 1:[address] RECEIVED TELEPHONE MESSAGE FROM ARSENIO AT [facility]. TELEPHONED AT 1130. SHE WAS NOT AVAILABLE. TELEPHONED AT 1400. SHE WAS INTERESTED TO KNOW IF THE PATIENT COULD SIGN HIS OWN PAPERWORK. THE PRIMARY NURSE STATES PATIENT CAN ANSWER YES OR NO. HE IS NOT VERY VERBAL. HE IS HARD TO UNDERSTAND. ADVISED ARSENIO. DCP- Discharge Planning Updated by [id number]: Karyna Browne on 12/11/19 1:[address] CM SPOKE WITH KARMA FROM [facility]. KARMA STATES THEY ARE UNABLE TO ACCOMODATE HIS NEEDS. SENT REFERRAL TO [facility] PER REQUEST. KARYNA BROWNE DCP- Discharge Planning Updated by [id number]: Karyna Browne on 12/10/19 8:[address] SENT UPDATE TO KARMA AT [facility] TO REVIEW. KARMA STATES THEY HAVE A MALE BED AVAILIBILITY. WILL CONTINUE TO FOLLOW. DCP- Discharge Planning Updated by [id number]: Karyna Browne on 12/04/19 7:[address] Patient Name: JOSE BLOUNT Admission Status: Elective Accout number: [id number] Admission Date: 12-01-2019 : 1940 Admission Diagnosis: Attending: ZACHARY Current LOS: 3 Anticipated DC Date: Planned Disposition: Primary Insurance: [employer] Late entry. assessment completed 12/03/19 at 1430 Discharge Planning Comments: CM met with patient to complete initial dc planning assessment. PT confused. CM called sister Carmelo at [phone]. CM educated patient on the CM role and verbal consent given by patient to complete assessment. Patient lives at home alone and Carmelo feels he needs additional services, and she feels he can not live at home alone. Carmelo wanted CM to assist with placing patient in an assisted living facility. CM educated Carmelo on the services available for the patient. Carmelo states she feels the patient could benefit from rehab at SNF. EVONNE verbalized for [facility]. CM called [facility] at [phone] and faxed referral. CM will continue to follow and will assist as needed with dc plans/needs. Systems Test Analyst: Karyna Browne DCPIA - Discharge Planning Initial Assessment Updated by [email or web address]: Karyan Browne on 12/04/19 7:50 am * Is the patient Alert and Oriented? No * Preadmission Environment Home Alone * Additional services required to return to the preadmission environment? Yes * Can the patient safely return to the preadmission environment? No * Has this patient been hospitalized within the prior 30 days at any hospital? No Coverage Notice Reviewer: [email or web address] - Karyna Browne Notice Issued Date-Time: 12/03/2019 15:30 Notice Type: Patient Choice Letter Notice Delivered To: Family Member Relationship to Patient: Sister Wastewater Treatment Engineer Name: Carmelo Benjamin Delivery Method: PHONE - Phone Johanna Days: Prior Verbal Notification: Recipient Understood Notice: Yes Recipient Signature: Med Rec Note Co-signed by Attending: Coverage Notice Comment: evonne verbalized for slim Ann DP export: 12/26/19 1:26 pm Patient Name: JOSE BLOUNT Page 25562 at 1651 All edits/amendments must be made on the electronic document DICTATION DATE: 12/28/191650 TEMPERATURE LOGGING OPERATOR: YANG 12/28/191650 RPT#: [id number] DC DATE: STATUS: ADM IN [facility] [address] [place] [address] END OF REPORT
[2019-12-28 17:35] VITALS: BP 141/72
[2019-12-28 22:04] VITALS: BP 150/119
[2019-12-29 03:09] VITALS: BP 148/62
--- NOTE | 2019-12-29 07:26 | NUR ---
REFUSED AM LABS THIS AM
--- NOTE | 2019-12-29 07:59 | NUR ---
RESTING IN BED, NO DISTRESS NOTED, TURN AND FEED PER STAFF, IV INFUSING, CONT TO MONITOR
[2019-12-29 10:26] VITALS: BP 167/67
[2019-12-29 11:00] VITALS: BP 134/72
[2019-12-29 17:35] VITALS: BP 124/45
--- NOTE | 2019-12-29 22:05 | NUR ---
OT NOTE: PT COMPLETED SUPINE TO SIT AT EOB WITH MOD A. PT COMPLETED UE AAROM TOLERATED. PT COMPLETED FACE HYGIENE WITH MOD A. [phone] ROSE MARIE VITALE COTA
[2019-12-29 22:21] VITALS: BP 101/51
[2019-12-30 01:07] VITALS: BP 123/58
[2019-12-30 06:49] VITALS: BP 141/56
[2019-12-30 08:48] LABS: BASOPHILS 0.2 % (0-2); EOSINOPHILS 3.1 % (0-7); HEMATOCRIT 33.3 % (42.0-54.0); HEMOGLOBIN 10.3 g/dL (13.5-17.5); IMMATURE GRANULOCYTES 0.2 % (0-5); MCH 31.7 pg (26.0-34.0); MCHC 30.9 g/dL (31.0-37.0); MCV 102.5 fL (80.0-100.0); MEAN PLATELET VOLUME 10.6 fL (7.4-10.4); MONOCYTES 7.3 % (2-11); NEUTROPHILS 71.2 % (40-80); PLATELET COUNT 171 10x3/uL (130-400); RBC 3.25 10x6/uL (4.20-6.10); RDW 15.5 % (11.5-14.5); WBC 6.2 10x3/uL (4.8-10.8)
[2019-12-30 09:03] VITALS: BP 134/62
[2019-12-30 09:15] LABS: ALBUMIN 2.4 g/dL (3.4-5.0); ANION GAP 14.3 mmol/L (8-16); BILIRUBIN - TOTAL 0.75 mg/dL (0.2-1.3); CALCIUM 8.3 mg/dL (8.5-10.1); CARBON DIOXIDE 23.5 mmol/L (21.0-32.0); CREATININE - SERUM 1.4 mg/dL (0.6-1.3); POTASSIUM - SERUM 3.8 mmol/L (3.5-5.1); PROTEIN - SERUM 5.7 g/dL (6.4-8.2)
[2019-12-30 12:53] VITALS: BP 138/58
[2019-12-30 17:31] VITALS: BP 137/69
--- NOTE | 2019-12-30 20:40 | NUR ---
AROUSES TO VERBAL STIMULI. RESP UNALBORED. NO DISTRESS NOTED. IV TO RFA WITHOUT REDNESS OR EDEMA NOTED.BARILLAS PATENT AND DRAINING SIENNA URINE. CL IN REACH
[2019-12-31 03:24] VITALS: BP 141/52
--- NOTE | 2019-12-31 05:10 | NUR ---
I have reviewed this patient and I concur with the Shift Assessment completed by the Licensed Practical Nurse today this shift.
[2019-12-31 05:39] LABS: BASOPHILS 0.1 % (0-2); EOSINOPHILS 1.9 % (0-7); HEMATOCRIT 35.7 % (42.0-54.0); HEMOGLOBIN 11.1 g/dL (13.5-17.5); IMMATURE GRANULOCYTES 0.1 % (0-5); LYMPHOCYTES 16.2 % (15-50); MCH 31.6 pg (26.0-34.0); MCHC 31.1 g/dL (31.0-37.0); MCV 101.7 fL (80.0-100.0); MEAN PLATELET VOLUME 10.5 fL (7.4-10.4); MONOCYTES 5.5 % (2-11); NEUTROPHILS 76.2 % (40-80); PLATELET COUNT 189 10x3/uL (130-400); RBC 3.51 10x6/uL (4.20-6.10); RDW 15.3 % (11.5-14.5); WBC 7.2 10x3/uL (4.8-10.8)
[2019-12-31 05:56] LABS: ALBUMIN 2.5 g/dL (3.4-5.0); ANION GAP 15.8 mmol/L (8-16); BILIRUBIN - TOTAL 1.06 mg/dL (0.2-1.3); CALCIUM 8.4 mg/dL (8.5-10.1); CARBON DIOXIDE 22.8 mmol/L (21.0-32.0); CREATININE - SERUM 1.4 mg/dL (0.6-1.3); POTASSIUM - SERUM 3.6 mmol/L (3.5-5.1); PROTEIN - SERUM 6.4 g/dL (6.4-8.2)
[2019-12-31 06:40] VITALS: BP 196/65
[2019-12-31 07:09] LABS: FUNGUS MYCOLOGY CULTURE Final report (())
[2019-12-31 09:22] VITALS: BP 159/63
--- NOTE | 2019-12-31 10:44 | NUR ---
PT LYING IN BED, NOT EATING MUCH PT HAS BEEN POCKETING FOOD, ADMINISTERED CRUSHED MEDIATIONS WITH APPLESAUCE AND GIVING PT THICKENED WATER AFTERWARDS. BED IN LOWEST POSITION, CL IN REACH CONTINUE WITH PLAN OF CARE
[2019-12-31 13:05] VITALS: BP 139/54
[2019-12-31 17:54] VITALS: BP 148/53
--- NOTE | 2019-12-31 18:39 | NUR ---
OT NOTE: PT COMPLETED BUE PROM TOLERATED. PT COMPLETED POSITOINING TO DECREASE SKIN BREAKDOWN. [phone] THANK YOU,CARLOS ALCOCER
--- NOTE | 2019-12-31 18:45 | NUR ---
I have reviewed this patient and I concur with the Shift Assessment completed by the Licensed Practical Nurse today this shift.
--- NOTE | 2019-12-31 19:45 | NUR ---
resting in bed with no needs noted at this time. patient is confused. on bedrest. folley cath in place and paten. heal protecters in place. iv to right forearm with ns at 50ml/hr. no s/s of disterss.call light in reach. checked often for needs and safety.
[2019-12-31 20:00] VITALS: BP 183/78
[2020-01-01] VITALS: BP 152/66
[2020-01-01 04:00] VITALS: BP 172/77
[2020-01-01 08:55] VITALS: BP 144/59
[2020-01-01 11:22] LABS: ANION GAP 14.8 mmol/L (8-16); BASOPHILS 0.1 % (0-2); CALCIUM 8.3 mg/dL (8.5-10.1); CARBON DIOXIDE 24.4 mmol/L (21.0-32.0); CREATININE - SERUM 1.3 mg/dL (0.6-1.3); EOSINOPHILS 1.7 % (0-7); HEMATOCRIT 36.7 % (42.0-54.0); HEMOGLOBIN 11.4 g/dL (13.5-17.5); IMMATURE GRANULOCYTES 0.1 % (0-5); LYMPHOCYTES 18.3 % (15-50); MCH 31.7 pg (26.0-34.0); MCHC 31.1 g/dL (31.0-37.0); MCV 101.9 fL (80.0-100.0); MEAN PLATELET VOLUME 10.6 fL (7.4-10.4); MONOCYTES 4.6 % (2-11); NEUTROPHILS 75.2 % (40-80); PLATELET COUNT 188 10x3/uL (130-400)
[2020-01-01 11:24] LABS: POTASSIUM - SERUM 4.2 mmol/L (3.5-5.1)
[2020-01-01 13:19] VITALS: BP 138/46
--- NOTE | 2020-01-01 14:08 | NUR ---
Nutrition follow-up: Pt asleep in chair. RDN did not disturb. Pt receiving a consistent CHO puree diet with nectar thick liquids 1:1 feeding assistace required PO intake remains poor; nurse reports pt pocketing food at times Labs reviedwed No new wt to assess Noted possible hospice eval soon Will need nutrition support within 24 hours if pt does not go into hospice. RDN following.
[2020-01-01 17:06] VITALS: BP 139/43
--- NOTE | 2020-01-01 18:04 | NUR ---
PT ABLE TO EAT HALF OF DINNER TRAY TONVOLODYMRY, ASSSITED PT WITH DINNER AND HE ATE ALL OF PUREED HAM, HALF OF PUREED GREENS BEANS AND A FOURTH OF MASHED POTATOES AND A CUP OF SHERBERT, PT ALSO ATE ABOUT 40% OF BREAKFAST WITH ENCOURAGEMENT FROM SPEEACH THERAPIST. WILL ORDER FLAVORED ICE WITH EACH TRAY TO WAKE PT SENSES AND CONTRIBUTE TO PT EATING MORE.
--- NOTE | 2020-01-01 18:45 | NUR ---
I have reviewed this patient and I concur with the Shift Assessment completed by the Licensed Practical Nurse today this shift.
--- NOTE | 2020-01-01 19:47 | NUR ---
PATIENT IS RESTING IN BED WITH CONFUSION PRESENT. LEFT FOREARM IN PLACE AND PATEN WITH NS PER ORDERS PER ORDERS. FOLLEY CARTH IN PLACE AND PATEN WITH SIENNA URIN TO BAG. MEDS CRUSHED IN APPLESAUSE. SISTERS JUST ARIVED TO SEE PT. WITH APROVAIL FOR BOTH TO BE HERE. THERE ARE CONSIDERING HOSPICE PER REPORT.NO NEEDS AT THIS TIME.
[2020-01-01 20:00] VITALS: BP 151/54
[2020-01-02] VITALS: BP 152/75
[2020-01-02 04:00] VITALS: BP 165/77
[2020-01-02 05:01] LABS: BASOPHILS 0.4 % (0-2); EOSINOPHILS 2.3 % (0-7); HEMATOCRIT 32.5 % (42.0-54.0); HEMOGLOBIN 10.3 g/dL (13.5-17.5); IMMATURE GRANULOCYTES 0.2 % (0-5); LYMPHOCYTES 22.2 % (15-50); MCH 31.6 pg (26.0-34.0); MCHC 31.7 g/dL (31.0-37.0); MEAN PLATELET VOLUME 10.6 fL (7.4-10.4); MONOCYTES 5.8 % (2-11); NEUTROPHILS 69.1 % (40-80); PLATELET COUNT 183 10x3/uL (130-400); RBC 3.26 10x6/uL (4.20-6.10); WBC 5.3 10x3/uL (4.8-10.8)
[2020-01-02 05:18] LABS: MCV 99.7 fL (80.0-100.0)
[2020-01-02 05:30] LABS: ANION GAP 13.9 mmol/L (8-16); CALCIUM 7.8 mg/dL (8.5-10.1); CARBON DIOXIDE 23.5 mmol/L (21.0-32.0); CREATININE - SERUM 1.2 mg/dL (0.6-1.3); MAGNESIUM - SERUM 1.7 mg/dL (1.8-2.4); POTASSIUM - SERUM 3.4 mmol/L (3.5-5.1)
--- NOTE | 2020-01-02 07:42 | NUR ---
PT CALCIUM AND MAGNESIUM ARE LOW THIS MORNING. COVER WITH PROTOCOL
[2020-01-02 09:36] VITALS: BP 168/62
--- NOTE | 2020-01-02 09:39 | NUR ---
PT SITTING UP IN BED, ASSISTED PT WITH BREAKFAST, PT ATE ALL OF HIS EGGS AND HALF OF BISCUIT FOR BREAKFAST ALONG WITH I/2 CUP OF SHERBERT AND TOOK MEDS. CONTINUE WITH PLAN OF CARE
--- NOTE | 2020-01-02 10:52 | MORECARE ---
CASE MANAGEMENT DISCHARGE SUMMARY PATIENT: JOSE BLOUNT UNIT: [id number] ADM DATE: 12/01/19 AGE: 79 : 42 SEX: M ROOM/BED: D.2203 AUTHOR: TANIYADOC PHYSICIAN: REFERRING PHYSICIAN: MIEK PATRICIO MD DATE OF SERVICE: 01/02/20 Discharge Plan Patient Name: JOSE BLOUNT Facility: [facility]:[place] : 1940 Planned Disposition: Anticipated Discharge Date: Discharge Date: Expected LOS: Initial Reviewer: [id number] Initial Review Date: 12/01/2019 Generated: 01/02/20 11:52 am Comments DCP- Discharge Planning Updated by [id number]: Bettye Portillo on 01/02/20 9:[address] ATTEMPTED TO CALL SISTER BUT GOT HER VOICEMAIL. WILL CALL AGAIN LATER DCP- Discharge Planning Updated by [id number]: Bettye Portillo on 12/28/19 3:[address] updated Carmelo on patient's status. She stated that her and her sister will be here Tuesday and they are going to visit him together ( I got this approved with Dharmesh Curran) So [facility] can [facility]. CM to follow and assist as needed DCP- Discharge Planning Updated by [id number]: Bettye Portillo on 12/26/19 1:[address] SPOKE AT LENGTH WITH CARMELO (SISTER) ABOUT HER BROTHER AND HIS PLAN OF CARE. SHE HAD MULTIPLE QUESTIONS. I ATTEPMTED TO ANSWER THEM THE BEST I COULD. LOOKING BACK IN HIS CHART HE DID AMBULATE 4 FEET PRIOR TO HIS CODE ON 12/03 HIS SISTER SAID THAT HE WAS LIVING ON HIS OWN IN A SENIOR CITIZEN COMPLEX, IT WAS HIS NEIGHBOR WHO CALLED EMS BECAUSE HIS CALL LIGHT WAS FLASHING AT 0200. 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 SHE SAID THAT LAST YEAR HIS NUMBERS WERE "GOING UP". 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 CM SHARED THESE CONCERNS WITH DEBORAH . CM WILL CONTINUE TO FOLLOW AND ASSIST WITH PATIENT'S CARE. DCP- Discharge Planning Updated by [email or web address]: Bettye Portillo on 12/24/19 7:[address] REFERRAL SENT TO [facility] DCP- Discharge Planning Updated by [id number]: Claudette Taylor on 12/20/19 2:[address] Patient Name: JOSE BLOUNT Admission Status: Elective Accout number: [id number] Admission Date: 12-01-2019 : 1940 Admission Diagnosis:HEMOTHORAX Attending: ZACHARY Current LOS: 19 Anticipated DC Date: Planned Disposition: Primary Insurance: [facility] Discharge Planning Comments: FAXED REFERRAL TO [facility]. Truck Technician: Claudette Taylor DCP- Discharge Planning Updated by [id number]: Gretel Aparicio on 12/19/19 12:[address] A referral was [facility]ed to [facility], spoke with Roxana ([phone]), who states the facility does not have any half-way beds available. [facility] does have Skilled beds, but this patient looks, eventually, to require a exterminator helper termite bed. DCP- Discharge Planning Updated by [id number]: Karyna Browne on 12/18/19 7:[address] CM CALLED [facility] AND SPOKE WITH KHALIF FOR UPDATE ON APPROVAL. KHALIF STATES THEY ARE NOT IN NETWORK AND UNABLE TO ACCEPT PT. CM WILL CALL AROUND TO SNF TO SEE IF THEY ARE IN NETWORK. CM ATTEMPTED TO CALL CARMELO AT [phone] AND UNABLE TO LEAVE MESSAGE. KARYAN BROWNE MSN,RN,CM DCP- Discharge Planning Updated by [id number]: Karyna Browne on 12/18/19 7:[address] MCM CALLED SISTER AT [phone] TO DISCUSS UPDATE. MAILBOX IS FULL AND UNABLE TO TAKE MESSAGES. WILL CONTINUE TO REACH OUT TO DISCUSS DC PLANNING. KARYNA BROWNE DCP- Discharge Planning Updated by [id number]: Karyna Browne on 12/14/19 7:[address] CM CALLED [facility] AT [phone] AND SPOKE WITH KHALIF. STATES THEY ARE LOOKING TO SE IF THE PATIENTS INSURANCE IS IN NETWORK. STATES THEY WILL CALL CM BACK WITH DETAILS. KARYNA BROWNE DCP- Discharge Planning Updated by [id number]: Edel Ford on 12/13/19 1:[address] RECEIVED TELEPHONE MESSAGE FROM ARSENIO AT [facility]. TELEPHONED AT 1130. SHE WAS NOT AVAILABLE. TELEPHONED AT 1400. SHE WAS INTERESTED TO KNOW IF THE PATIENT COULD SIGN HIS OWN PAPERWORK. THE PRIMARY NURSE STATES PATIENT CAN ANSWER YES OR NO. HE IS NOT VERY VERBAL. HE IS HARD TO UNDERSTAND. ADVISED ARSENIO. DCP- Discharge Planning Updated by [email or web address]: Karyna Browne on 12/11/19 1:[address] CM SPOKE WITH KARMA FROM [facility]. KARMA STATES THEY ARE UNABLE TO ACCOMODATE HIS NEEDS. SENT REFERRAL TO [facility] PER REQUEST. KARYNA BROWNE DCP- Discharge Planning Updated by [id number]: Karyna Browne on 12/10/19 8:[address] SENT UPDATE TO KARMA AT [facility] TO REVIEW. KARMA STATES THEY HAVE A MALE BED AVAILIBILITY. WILL CONTINUE TO FOLLOW. DCP- Discharge Planning Updated by [id number]: Karyna Browne on 12/04/19 7:[address] Patient Name: JOSE BLOUNT Admission Status: Elective Accout number: [id number] Admission Date: 12-01-2019 : 1940 Admission Diagnosis: Attending: ZACHARY Current LOS: 3 Anticipated DC Date: Planned Disposition: Primary Insurance: [employer] Late entry. assessment completed 12/03/19 at 1430 Discharge Planning Comments: CM met with patient to complete initial dc planning assessment. PT confused. CM called sister Carmelo at [phone]. CM educated patient on the CM role and verbal consent given by patient to complete assessment. Patient lives at home alone and Carmelo feels he needs additional services, and she feels he can not live at home alone. Carmelo wanted CM to assist with placing patient in an assisted living facility. CM educated Carmelo on the services available for the patient. Carmelo states she feels the patient could benefit from rehab at SNF. EVONNE verbalized for [facility]. CM called [facility] at [phone] and faxed referral. CM will continue to follow and will assist as needed with dc plans/needs. Truck Technician: Karyna Browne DCPIA - Discharge Planning Initial Assessment Updated by [id number]: Karyna Browne on 12/04/19 7:50 am * Is the patient Alert and Oriented? No * Preadmission Environment Home Alone * Additional services required to return to the preadmission environment? Yes * Can the patient safely return to the preadmission environment? No * Has this patient been hospitalized within the prior 30 days at any hospital? No Coverage Notice Reviewer: [id number] Jabier Browne Notice Issued Date-Time: 12/03/2019 15:30 Notice Type: Patient Choice Letter Notice Delivered To: Family Member Relationship to Patient: Sister Mold Capper Name: Carmelo Benjamin Delivery Method: PHONE - Phone Johanna Days: Prior Verbal Notification: Recipient Understood Notice: Yes Recipient Signature: Med Rec Note Co-signed by Attending: Coverage Notice Comment: evonne verbalized for slim Ann DP export: 12/28/19 3:51 pm Patient Name: JOSE BLOUNT Page 34152 at 1052 All edits/amendments must be made on the electronic document DICTATION DATE: 01/02/20 1052 RN MATERNITY: YANG 01/02/20 1052 RPT#: [id number] DC DATE: STATUS: ADM IN [facility] [address] [place] [address] END OF REPORT
--- NOTE | 2020-01-02 12:41 | MORECARE ---
CASE MANAGEMENT DISCHARGE SUMMARY PATIENT: JOSE BLOUNT UNIT: [id number] ADM DATE: 12/01/19 AGE: 79 : 42 SEX: M ROOM/BED: D.2203 AUTHOR: TANIYA,DOC PHYSICIAN: REFERRING PHYSICIAN: MIKE PATRICIO MD DATE OF SERVICE: 01/02/20 Discharge Plan Patient Name: JOSE BLOUNT Facility: [facility]:[place] : 1940 Planned Disposition: Anticipated Discharge Date: Discharge Date: Expected LOS: Initial Reviewer: [id number] Initial Review Date: 12/01/2019 Generated: 01/02/20 1:40 pm Comments DCP- Discharge Planning Updated by [id number]: Bettye Portillo on 01/02/20 11:[address] spoke with Carmelo they would like to meet with me for options of next plan of care. They will be coming to the hospital today DCP- Discharge Planning Updated by [id number]: Bettye Portillo on 01/02/20 9:[address] ATTEMPTED TO CALL SISTER BUT GOT HER VOICEMAIL. WILL CALL AGAIN LATER DCP- Discharge Planning Updated by [id number]: Bettye Portillo on 12/28/19 3:[address] updated Carmelo on patient's status. She stated that her and her sister will be here Tuesday and they are going to visit him together ( I got this approved with Dharmesh Curran) So they can make the decision on [facility] vs hospice. CM to follow and assist as needed DCP- Discharge Planning Updated by [id number]: Bettye Portillo on 12/26/19 1:[address] SPOKE AT LENGTH WITH CARMELO (SISTER) ABOUT HER BROTHER AND HIS PLAN OF CARE. SHE HAD MULTIPLE QUESTIONS. I ATTEPMTED TO ANSWER THEM THE BEST I COULD. LOOKING BACK IN HIS CHART HE DID AMBULATE 4 FEET PRIOR TO HIS CODE ON 12/03 HIS SISTER SAID THAT HE WAS LIVING ON HIS OWN IN A SENIOR CITIZEN COMPLEX, IT WAS HIS NEIGHBOR WHO CALLED EMS BECAUSE HIS CALL LIGHT WAS FLASHING AT 0200. 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 SHE SAID THAT LAST YEAR HIS NUMBERS WERE "GOING UP". 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 CM SHARED THESE CONCERNS WITH REZAN . CM WILL CONTINUE TO FOLLOW AND ASSIST WITH PATIENT'S CARE. DCP- Discharge Planning Updated by [id number]: Bettye Portillo on 12/24/19 7:[address] REFERRAL SENT TO [facility] DCP- Discharge Planning Updated by [id number]: Claudette Taylor on 12/20/19 2:[address] Patient Name: JOSE BLOUNT Admission Status: Elective Accout number: [id number] Admission Date: 12-01-2019 : 1940 Admission Diagnosis:HEMOTHORAX Attending: ZACHARY Current LOS: 19 Anticipated DC Date: Planned Disposition: Primary Insurance: [employer] Discharge Planning Comments: FAXED REFERRAL TO [facility]. Base Manager: Claudette Taylor DCP- Discharge Planning Updated by [email or web address]: Gretel Aparicio on 12/19/19 12:[address] A referral [facility]ed to [facility], spoke with Roxana ([phone]), who states the facility does not have any senior benefits specialist beds available. [place] does have Skilled beds, but this patient looks, eventually, to require a correction bed. DCP- Discharge Planning Updated by [id number]: Karyna Browne on 12/18/19 7:[address] CM CALLED [facility] AND SPOKE WITH KHALIF FOR UPDATE ON APPROVAL. [facility] STATES THEY ARE NOT IN NETWORK AND UNABLE TO ACCEPT PT. CM WILL CALL AROUND TO SNF TO SEE IF THEY ARE IN NETWORK. CM ATTEMPTED TO CALL CARMELO AT [phone] AND UNABLE TO LEAVE MESSAGE. KARYNA BROWNE MSN,RN,CM DCP- Discharge Planning Updated by [id number]: Karyna Browne on 12/18/19 7:[address] MCM CALLED SISTER AT [phone] TO DISCUSS UPDATE. MAILBOX IS FULL AND UNABLE TO TAKE MESSAGES. WILL CONTINUE TO REACH OUT TO DISCUSS DC PLANNING. KARYNA BROWNE DCP- Discharge Planning Updated by [id number]: Karyna Browne on 12/14/19 7:[address] CM CALLED [facility] AT [phone] AND SPOKE WITH KHALIF. STATES THEY ARE LOOKING TO SE IF THE PATIENTS INSURANCE IS IN NETWORK. STATES THEY WILL CALL CM BACK WITH DETAILS. KARYNA BROWNE DCP- Discharge Planning Updated by [id number]: Edel Logan on 12/13/19 1:[address] RECEIVED TELEPHONE MESSAGE FROM ARSENIO AT [facility]. TELEPHONED AT 1130. SHE WAS NOT AVAILABLE. TELEPHONED AT 1400. SHE WAS INTERESTED TO KNOW IF THE PATIENT COULD SIGN HIS OWN PAPERWORK. THE PRIMARY NURSE STATES PATIENT CAN ANSWER YES OR NO. HE IS NOT VERY VERBAL. HE IS HARD TO UNDERSTAND. ADVISED ARSENIO. DCP- Discharge Planning Updated by [id number]: Karyna Browne on 12/11/19 1:[address] CM SPOKE WITH KARMA FROM [facility]. KARMA STATES THEY ARE UNABLE TO ACCOMODATE HIS NEEDS. SENT REFERRAL TO [facility] PER REQUEST. KARYNA BROWNE DCP- Discharge Planning Updated by [id number]: Karyna Browne on 12/10/19 8:[address] SENT UPDATE TO KARMA AT [facility] TO REVIEW. KARMA STATES THEY HAVE A MALE BED AVAILIBILITY. WILL CONTINUE TO FOLLOW. DCP- Discharge Planning Updated by [id number]: Karyna Browne on 12/04/19 7:[address] Patient Name: JOSE BLOUNT Admission Status: Elective Accout number: [id number] Admission Date: 12-01-2019 : 1940 Admission Diagnosis: Attending: ZACHARY Current LOS: 3 Anticipated DC Date: Planned Disposition: Primary Insurance: [employer] Late entry. assessment completed 12/03/19 at 1430 Discharge Planning Comments: CM met with patient to complete initial dc planning assessment. PT confused. CM called sister Carmelo at [phone]. CM educated patient on the CM role and verbal consent given by patient to complete assessment. Patient lives at home alone and Carmelo feels he needs additional services, and she feels he can not live at home alone. Carmelo wanted CM to assist with placing patient in an assisted living facility. CM educated Carmelo on the services available for the patient. Carmelo states she feels the patient could benefit from rehab at SNF. EVONNE verbalized for [facility]. CM called [facility] at [phone] and faxed referral. CM will continue to follow and will assist as needed with dc plans/needs. Base Manager: Karyna Edds DCPIA - Discharge Planning Initial Assessment Updated by [id number]: Karyna Browne on 12/04/19 7:50 am * Is the patient Alert and Oriented? No * Preadmission Environment Home Alone * Additional services required to return to the preadmission environment? Yes * Can the patient safely return to the preadmission environment? No * Has this patient been hospitalized within the prior 30 days at any hospital? No Coverage Notice Reviewer: [id number] - Karyna Browne Notice Issued Date-Time: 12/03/2019 15:30 Notice Type: Patient Choice Letter Notice Delivered To: Family Member Relationship to Patient: Sister Pizzamaker Name: Carmelo Benjamin Delivery Method: PHONE - Phone Johanna Days: Prior Verbal Notification: Recipient Understood Notice: Yes Recipient Signature: Med Rec Note Co-signed by Attending: Coverage Notice Comment: evonne verbalized for slim Ann DP export: 01/02/20 9:52 am Patient Name: JOSE BLOUNT Page 30860 at 1241 All edits/amendments must be made on the electronic document DICTATION DATE: 01/02/20 1241 NURSES MEDICAL ASSISTANTS PHLEBOTOMISTS: YANG 01/02/20 1241 RPT#: [id number] DC DATE: STATUS: ADM IN [facility] [address] [place] [address] END OF REPORT
[2020-01-02 13:24] VITALS: BP 155/70
--- NOTE | 2020-01-02 16:17 | NUR ---
OT NOTE: PT COMPLETED UE PROM TOLERATED. PT COMPLETED POSITIONING WITH TOTAL A . PT COMPLETED FACE HYGIENE WITH MAX A. [phone] THANK YOU,CARLOS ALCOCER
--- NOTE | 2020-01-02 16:49 | MORECARE ---
CASE MANAGEMENT DISCHARGE SUMMARY PATIENT: JOSE BLOUNT UNIT: [id number] ADM DATE: 12/01/19 AGE: 79 : 42 SEX: M ROOM/BED: D.2203 AUTHOR: TANIYA,DOC PHYSICIAN: REFERRING PHYSICIAN: MIKE PATRICIO MD DATE OF SERVICE: 01/02/20 Discharge Plan Patient Name: JOSE BLOUNT Facility: [facility]:[place] : 1940 Planned Disposition: Anticipated Discharge Date: Discharge Date: Expected LOS: Initial Reviewer: [id number] Initial Review Date: 12/01/2019 Generated: 01/02/20 5:48 pm Comments DCP- Discharge Planning Updated by [id number]: Bettye Portillo on 01/02/20 11:[address] spoke with Carmelo they would like to meet with me for options of next plan of care. They will be coming to the hospital today DCP- Discharge Planning Updated by [id number]: Bettye Portillo on 01/02/20 9:[address] ATTEMPTED TO CALL SISTER BUT GOT HER VOICEMAIL. WILL CALL AGAIN LATER DCP- Discharge Planning Updated by [id number]: Bettye Portillo on 12/28/19 3:[address] updated Carmelo on patient's status. She stated that her and her sister will be here Tuesday and they are going to visit him together ( I got this approved with Dharmesh Curran) So they can make the decision on correction vs hospice. CM to follow and assist as needed DCP- Discharge Planning Updated by [id number]: Bettye Portillo on 12/26/19 1:[address] SPOKE AT LENGTH WITH CARMELO (SISTER) ABOUT HER BROTHER AND HIS PLAN OF CARE. SHE HAD MULTIPLE QUESTIONS. I ATTEPMTED TO ANSWER THEM THE BEST I COULD. LOOKING BACK IN HIS CHART HE DID AMBULATE 4 FEET PRIOR TO HIS CODE ON 12/03 HIS SISTER SAID THAT HE WAS LIVING ON HIS OWN IN A SENIOR CITIZEN COMPLEX, IT WAS HIS NEIGHBOR WHO CALLED EMS BECAUSE HIS CALL LIGHT WAS FLASHING AT 0200. 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 SHE SAID THAT LAST YEAR HIS NUMBERS WERE "GOING UP". 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 CM SHARED THESE CONCERNS WITH REZAN . CM WILL CONTINUE TO FOLLOW AND ASSIST WITH PATIENT'S CARE. DCP- Discharge Planning Updated by [id number]: Bettye Portillo on 12/24/19 7:[address] REFERRAL SENT TO [facility] DCP- Discharge Planning Updated by [id number]: Claudette Taylor on 12/20/19 2:[address] Patient Name: JOSE BLOUNT Admission Status: Elective Accout number: [id number] Admission Date: 12-01-2019 : 1940 Admission Diagnosis:HEMOTHORAX Attending: ZACHARY Current LOS: 19 Anticipated DC Date: Planned Disposition: Primary Insurance: [employer] Discharge Planning Comments: FAXED REFERRAL TO [facility]. Rn Admissions: Claudette Taylor DCP- Discharge Planning Updated by [id number]: Gretel Aparicio on 12/19/19 12:[address] A referral was [facility]ed to [facility], spoke with Roxana ([phone]), who states the facility does not have any manager long term care beds available. [place] does have Skilled beds, but this patient looks, eventually, to require a fdc bed. DCP- Discharge Planning Updated by [id number]: Karyna Browne on 12/18/19 7:[address] CM CALLED [facility] AND SPOKE WITH KHALIF FOR UPDATE ON APPROVAL. [facility] STATES THEY ARE NOT IN NETWORK AND UNABLE TO ACCEPT PT. CM WILL CALL AROUND TO SNF TO SEE IF THEY ARE IN NETWORK. CM ATTEMPTED TO CALL CARMELO AT [phone] AND UNABLE TO LEAVE MESSAGE. KARYNA BROWNE MSN,RN,CM DCP- Discharge Planning Updated by [id number]: Karyna Browne on 12/18/19 7:[address] MCM CALLED SISTER AT [phone] TO DISCUSS UPDATE. MAILBOX IS FULL AND UNABLE TO TAKE MESSAGES. WILL CONTINUE TO REACH OUT TO DISCUSS DC PLANNING. KARYNA BROWNE DCP- Discharge Planning Updated by [id number]: Karyna Browne on 12/14/19 7:[address] CM CALLED [facility] AT [phone] AND SPOKE WITH KHALIF. STATES THEY ARE LOOKING TO SE IF THE PATIENTS INSURANCE IS IN NETWORK. STATES THEY WILL CALL CM BACK WITH DETAILS. KARYNA BROWNE DCP- Discharge Planning Updated by [id number]: Edel Logan on 12/13/19 1:[address] RECEIVED TELEPHONE MESSAGE FROM ARSENIO AT [facility]. TELEPHONED AT 1130. SHE WAS NOT AVAILABLE. TELEPHONED AT 1400. SHE WAS INTERESTED TO KNOW IF THE PATIENT COULD SIGN HIS OWN PAPERWORK. THE PRIMARY NURSE STATES PATIENT CAN ANSWER YES OR NO. HE IS NOT VERY VERBAL. HE IS HARD TO UNDERSTAND. ADVISED ARSENIO. DCP- Discharge Planning Updated by [id number]: Karyna Browne on 12/11/19 1:[address] CM SPOKE WITH KARMA FROM [facility]. KARMA STATES THEY ARE UNABLE TO ACCOMODATE HIS NEEDS. SENT REFERRAL TO [facility] PER REQUEST. KARYNA BROWNE DCP- Discharge Planning Updated by [id number]: Karyna Browne on 12/10/19 8:[address] SENT UPDATE TO KARMA AT [facility] TO REVIEW. KARMA STATES THEY HAVE A MALE BED AVAILIBILITY. WILL CONTINUE TO FOLLOW. DCP- Discharge Planning Updated by [id number]: Karyna Browne on 12/04/19 7:[address] Patient Name: JOSE BLOUNT Admission Status: Elective Accout number: [id number] Admission Date: 12-01-2019 : 1940 Admission Diagnosis: Attending: ZACHARY Current LOS: 3 Anticipated DC Date: Planned Disposition: Primary Insurance: [employer] Late entry. assessment completed 12/03/19 at 1430 Discharge Planning Comments: CM met with patient to complete initial dc planning assessment. PT confused. CM called sister Carmelo at [phone]. CM educated patient on the CM role and verbal consent given by patient to complete assessment. Patient lives at home alone and Carmelo feels he needs additional services, and she feels he can not live at home alone. Carmelo wanted CM to assist with placing patient in an assisted living facility. CM educated Carmelo on the services available for the patient. Carmelo states she feels the patient could benefit from rehab at SNF. EVONNE verbalized for [facility]. CM called [facility] at [phone] and faxed referral. CM will continue to follow and will assist as needed with dc plans/needs. Rn Admissions: Karyna Edds DCPIA - Discharge Planning Initial Assessment Updated by [id number]: Karyna Browne on 12/04/19 7:50 am * Is the patient Alert and Oriented? No * Preadmission Environment Home Alone * Additional services required to return to the preadmission environment? Yes * Can the patient safely return to the preadmission environment? No * Has this patient been hospitalized within the prior 30 days at any hospital? No Coverage Notice Reviewer: [id number] - Karyna Browne Notice Issued Date-Time: 12/03/2019 15:30 Notice Type: Patient Choice Letter Notice Delivered To: Family Member Relationship to Patient: Sister Solar Development Engineer Name: Carmelo Benjamin Delivery Method: PHONE - Phone Johanna Days: Prior Verbal Notification: Recipient Understood Notice: Yes Recipient Signature: Med Rec Note Co-signed by Attending: Coverage Notice Comment: evonne verbalized for slim Ann DP export: 01/02/20 11:41 am Patient Name: JOSE BLOUNT Page 40316 at 1649 All edits/amendments must be made on the electronic document DICTATION DATE: 01/02/201647 MANAGER CONTACT: YANG 01/02/201647 RPT#: [id number] DC DATE: STATUS: ADM IN [facility] [address] [place] [address] END OF REPORT
--- NOTE | 2020-01-02 16:59 | MORECARE ---
CASE MANAGEMENT DISCHARGE SUMMARY PATIENT: JOSE BLOUNT UNIT: [id number] ADM DATE: 12/01/19 AGE: 79 : 42 SEX: M ROOM/BED: D.2203 AUTHOR: TANIYADOC PHYSICIAN: REFERRING PHYSICIAN: MIKE PATRICIO MD DATE OF SERVICE: 01/02/20 Discharge Plan Patient Name: JOSE BLOUNT Facility: [facility]:[place] : 1940 Planned Disposition: Anticipated Discharge Date: Discharge Date: Expected LOS: Initial Reviewer: [id number] Initial Review Date: 12/01/2019 Generated: 01/02/20 5:59 pm Comments DCP- Discharge Planning Updated by [id number]: Bettye Portillo on 01/02/20 3:[address] Spoke with both sisters at length about their options. They would like for him to go to [facility] and give him a chance to see what he can do with therapy. They are trying to decide between [facility] and [facility]. I explained to them that the next question that will be is PEG tube. They are torn between what is the right choice. I told them to think about it and to call me in the morning. I spent over 1 hour speaking with them. They are very concerned and willing to help their brother DCP- Discharge Planning Updated by [id number]: Bettye Portillo on 01/02/20 11:[address] spoke with Carmelo they would like to meet with me for options of next plan of care. They will be coming to the hospital today DCP- Discharge Planning Updated by [id number]: Bettye Portillo on 01/02/20 9:[address] ATTEMPTED TO CALL SISTER BUT GOT HER VOICEMAIL. WILL CALL AGAIN LATER DCP- Discharge Planning Updated by [id number]: Bettye Portillo on 12/28/19 3:[address] updated Carmelo on patient's status. She stated that her and her sister will be here Tuesday and they are going to visit him together ( I got this approved with Niecy the Alex Curran) So they can make the decision on senior care vs hospice. CM to follow and assist as needed DCP- Discharge Planning Updated by [id number]: Bettye Portillo on 12/26/19 1:[address] SPOKE AT LENGTH WITH CARMELO (SISTER) ABOUT HER BROTHER AND HIS PLAN OF CARE. SHE HAD MULTIPLE QUESTIONS. I ATTEPMTED TO ANSWER THEM THE BEST I COULD. LOOKING BACK IN HIS CHART HE DID AMBULATE 4 FEET PRIOR TO HIS CODE ON 12/03 HIS SISTER SAID THAT HE WAS LIVING ON HIS OWN IN A SENIOR CITIZEN COMPLEX, IT WAS HIS NEIGHBOR WHO CALLED EMS BECAUSE HIS CALL LIGHT WAS FLASHING AT 0200. 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 SHE SAID THAT LAST YEAR HIS NUMBERS WERE "GOING UP". 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 CM SHARED THESE CONCERNS WITH DEBORAH . CM WILL CONTINUE TO FOLLOW AND ASSIST WITH PATIENT'S CARE. DCP- Discharge Planning Updated by [id number]: Bettye Lindsey on 12/24/19 7:[address] REFERRAL SENT TO [facility] DCP- Discharge Planning Updated by [id number]: Claudette Taylor on 12/20/19 2:[address] Patient Name: JOSE BLOUNT Admission Status: Elective Accout number: [id number] Admission Date: 12-01-2019 : 1940 Admission Diagnosis:HEMOTHORAX Attending: ZACHARY Current LOS: 19 Anticipated DC Date: Planned Disposition: Primary Insurance: [facility] Discharge Planning Comments: FAXED REFERRAL TO [facility]. Certified Nurse Operating Room: Claudette Taylor DCP- Discharge Planning Updated by [id number]: Gretel Aparicio on 12/19/19 12:[address] A referral was faxed to [facility], spoke with Roxana ([phone]), who states the facility does not have any half-way beds available. [place] does have Skilled beds, but this patient looks, eventually, to require a half-way bed. DCP- Discharge Planning Updated by [id number]: Karyna Browne on 12/18/19 7:[address] [facility] AND SPOKE WITH KHALIF FOR UPDATE ON APPROVAL. KHALIF STATES THEY ARE NOT IN NETWORK AND UNABLE TO ACCEPT PT. CM WILL CALL AROUND TO SNF TO SEE IF THEY ARE IN NETWORK. CM ATTEMPTED TO CALL CARMELO AT [phone] AND UNABLE TO LEAVE MESSAGE. KARYNA BROWNE MSN,RN,CM DCP- Discharge Planning Updated by [id number]: Karyna Browne on 12/18/19 7:[address] MCM CALLED SISTER AT [phone] TO DISCUSS UPDATE. MAILBOX IS FULL AND UNABLE TO TAKE MESSAGES. WILL CONTINUE TO REACH OUT TO DISCUSS DC PLANNING. KARYNA BRWONE DCP- Discharge Planning Updated by [id number]: Karyna Browne on 12/14/19 7:[address] CM CALLED [facility] AT [phone] AND SPOKE WITH KHALIF. STATES THEY ARE LOOKING TO SE IF THE PATIENTS INSURANCE IS IN NETWORK. STATES THEY WILL CALL CM BACK WITH DETAILS. KARYNA BROWNE DCP- Discharge Planning Updated by [id number]: Edel Ford on 12/13/19 1:[address] RECEIVED TELEPHONE MESSAGE FROM ARSENIO AT [facility]. TELEPHONED AT 1130. SHE WAS NOT AVAILABLE. TELEPHONED AT 1400. SHE WAS INTERESTED TO KNOW IF THE PATIENT COULD SIGN HIS OWN PAPERWORK. THE PRIMARY NURSE STATES PATIENT CAN ANSWER YES OR NO. HE IS NOT VERY VERBAL. HE IS HARD TO UNDERSTAND. ADVISED ARSENIO. DCP- Discharge Planning Updated by [id number]: Karyna Browne on 12/11/19 1:[address] CM SPOKE WITH KARMA FROM [facility]. KARMA STATES THEY ARE UNABLE TO ACCOMODATE HIS NEEDS. SENT REFERRAL TO [facility] PER REQUEST. KARYNA BROWNE DCP- Discharge Planning Updated by [id number]: Karyna Browne on 12/10/19 8:[address] SENT UPDATE TO KARAM AT [facility] TO REVIEW. KARMA STATES THEY HAVE A MALE BED AVAILIBILITY. WILL CONTINUE TO FOLLOW. DCP- Discharge Planning Updated by [id number]: Karyna Browne on 12/04/19 7:[address] Patient Name: JOSE BLOUNT Admission Status: Elective Accout number: [id number] Admission Date: 12-01-2019 : 1940 Admission Diagnosis: Attending: ZACHARY Current LOS: 3 Anticipated DC Date: Planned Disposition: Primary Insurance: [employer] Late entry. assessment completed 12/03/19 at 1430 Discharge Planning Comments: CM met with patient to complete initial dc planning assessment. PT confused. CM called sister Carmelo at [phone]. CM educated patient on the CM role and verbal consent given by patient to complete assessment. Patient lives at home alone and Carmelo feels he needs additional services, and she feels he can not live at home alone. Carmelo wanted CM to assist with placing patient in an assisted living facility. CM educated Carmelo on the services available for the patient. Carmelo states she feels the patient could benefit from rehab at SNF. EVONNE verbalized for [facility]. CM called [facility] at [phone] and faxed referral. CM will continue to follow and will assist as needed with dc plans/needs. Certified Nurse Operating Room: Karyna Browne DCPIA - Discharge Planning Initial Assessment Updated by [id number]: Karyna Browne on 12/04/19 7:50 am * Is the patient Alert and Oriented? No * Preadmission Environment Home Alone * Additional services required to return to the preadmission environment? Yes * Can the patient safely return to the preadmission environment? No * Has this patient been hospitalized within the prior 30 days at any hospital? No Coverage Notice Reviewer: [id number] - Karyna Browne Notice Issued Date-Time: 12/03/2019 15:30 Notice Type: Patient Choice Letter Notice Delivered To: Family Member Relationship to Patient: Sister Homicide Investigator Name: Carmelo Benjamin Delivery Method: PHONE - Phone Johanna Days: Prior Verbal Notification: Recipient Understood Notice: Yes Recipient Signature: Med Rec Note Co-signed by Attending: Coverage Notice Comment: evonne verbalized for [facility] Last DP export: 01/02/20 3:49 pm Patient Name: JOSE BLOUNT Page [id number] at 1659 All edits/amendments must be made on the electronic document DICTATION DATE: 01/02/201658 TACTICAL DEBRIEFER OFFICER: YANG 01/02/201658 RPT#: [id number] DC DATE: STATUS: ADM IN [facility] [address] [place] [address] END OF REPORT
--- NOTE | 2020-01-02 18:00 | NUR ---
I have reviewed this patient and I concur with the Shift Assessment completed by the Licensed Practical Nurse today this shift.
[2020-01-02 18:21] VITALS: BP 159/69
[2020-01-02 20:00] VITALS: BP 153/79
[2020-01-03] VITALS (7 sets, daily range): BP systolic 125–168; BP diastolic 44–96; Ht 185.4 cm; Wt 89.2 kg
[2020-01-03 05:49] LABS: BASOPHILS 0.2 % (0-2); EOSINOPHILS 2.1 % (0-7); HEMATOCRIT 31.6 % (42.0-54.0); IMMATURE GRANULOCYTES 0.2 % (0-5); LYMPHOCYTES 20.2 % (15-50); MCH 31.7 pg (26.0-34.0); MCHC 31.6 g/dL (31.0-37.0); MCV 100.3 fL (80.0-100.0); MEAN PLATELET VOLUME 10.5 fL (7.4-10.4); MONOCYTES 7.4 % (2-11); NEUTROPHILS 69.9 % (40-80); PLATELET COUNT 192 10x3/uL (130-400); RBC 3.15 10x6/uL (4.20-6.10); RDW 15.2 % (11.5-14.5); WBC 5.7 10x3/uL (4.8-10.8)
[2020-01-03 06:23] LABS: ANION GAP 12.8 mmol/L (8-16); CALCIUM 8.1 mg/dL (8.5-10.1); CARBON DIOXIDE 22.7 mmol/L (21.0-32.0); CREATININE - SERUM 1.2 mg/dL (0.6-1.3); MAGNESIUM - SERUM 1.7 mg/dL (1.8-2.4); POTASSIUM - SERUM 3.5 mmol/L (3.5-5.1)
--- NOTE | 2020-01-03 10:39 | NUR ---
SAT PATIENT UP IN BED FOR MEDICATIONS AND BREAKFAST. PATIENT ATE HALF HIS EGGS AND 1/4 OF BISCUITS THEN STARTED TO COUGH IN BETWEEN BITES, SAT PATIENT UP STRAIGHTER AND THEN REPORTED FINDINGS TO Fredo MARSH WITH SPEECH. CONTINUE WITH PLAN OF CARE
--- NOTE | 2020-01-03 10:52 | NUR ---
I have reviewed this patient and I concur with the Shift Assessment completed by the Licensed Practical Nurse today this shift.
--- NOTE | 2020-01-03 14:27 | NUR ---
FED PATIENT LUNCH, PT ATE HALF OF GREEN BEANS, TURKEY AND DRESSING. PATIENT DIES NOT CARE FOR MASHED POTATOES. CONTINUE WITH PLAN OF CARE
--- NOTE | 2020-01-03 15:39 | MORECARE ---
CASE MANAGEMENT DISCHARGE SUMMARY PATIENT: JOSE BLOUNT UNIT: [id number] ADM DATE: 12/01/19 AGE: 79 : 42 SEX: M ROOM/BED: D.2203 AUTHOR: TANIYADOC PHYSICIAN: REFERRING PHYSICIAN: MIKE PATRICIO MD DATE OF SERVICE: 01/03/20 Discharge Plan Patient Name: JOSE BLOUNT Facility: [facility]:[place] : 1940 Planned Disposition: Anticipated Discharge Date: Discharge Date: Expected LOS: Initial Reviewer: [id number] Initial Review Date: 12/01/2019 Generated: 01/03/20 4:38 pm Comments DCP- Discharge Planning Updated by [id number]: Bettye Portillo on 01/03/20 2:[address] PATIENT'S SISTERS ARE THINKING ABOUT [facility] AND WANT HIM TO HAVE HIS PEG TUBE, THEY WANT HIM TO HAVE SKILLED THERAPY TO SEE HOW MUCH HE WILL PROGRESS DCP- Discharge Planning Updated by [id number]: Bettye Portillo on 01/02/20 3:[address] Spoke with both sisters at length about their options. They would like for him to go to skilled and give him a chance to see what he can do with therapy. They are trying to decide between [facility] [place] and [facility]. I explained to them that the next question that will be is PEG tube. They are torn between what is the right choice. I told them to think about it and to call me in the morning. I spent over 1 hour speaking with them. They are very concerned and willing to help their brother DCP- Discharge Planning Updated by [id number]: Bettye Portillo on 01/02/20 11:[address] spoke with Carmelo they would like to meet with me for options of next plan of care. They will be coming to the hospital today DCP- Discharge Planning Updated by [id number]: Bettye Portillo on 01/02/20 9:[address] ATTEMPTED TO CALL SISTER BUT GOT HER VOICEMAIL. WILL CALL AGAIN LATER DCP- Discharge Planning Updated by [id number]: Bettye Portillo on 12/28/19 3:[address] updated Carmelo on patient's status. She stated that her and her sister will be here Tuesday and they are going to visit him together ( I got this approved with Dharmesh Curran) So they can make the decision on senior living vs hospice. CM to follow and assist as needed DCP- Discharge Planning Updated by [id number]: Bettye Portillo on 12/26/19 1:[address] SPOKE AT LENGTH WITH CARMELO (SISTER) ABOUT HER BROTHER AND HIS PLAN OF CARE. SHE HAD MULTIPLE QUESTIONS. I ATTEPMTED TO ANSWER THEM THE BEST I COULD. LOOKING BACK IN HIS CHART HE DID AMBULATE 4 FEET PRIOR TO HIS CODE ON 12/03 HIS SISTER SAID THAT HE WAS LIVING ON HIS OWN IN A SENIOR CITIZEN COMPLEX, IT WAS HIS NEIGHBOR WHO CALLED EMS BECAUSE HIS CALL LIGHT WAS FLASHING AT 0200. 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 SHE SAID THAT LAST YEAR HIS NUMBERS WERE "GOING UP". 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 CM SHARED THESE CONCERNS WITH DEBORAH . CM WILL CONTINUE TO FOLLOW AND ASSIST WITH PATIENT'S CARE. DCP- Discharge Planning Updated by [id number]: Bettye Portillo on 12/24/19 7:[address] REFERRAL SENT TO [facility] DCP- Discharge Planning Updated by [id number]: Claudette Taylor on 12/20/19 2:[address] Patient Name: JOSE BLOUNT Admission Status: Elective Accout number: [id number] Admission Date: 12-01-2019 : 1940 Admission Diagnosis:HEMOTHORAX Attending: ZACHARY Current LOS: 19 Anticipated DC Date: Planned Disposition: [facility] Discharge Planning Comments: FAXED REFERRAL TO [facility]. Cuff Turner Machine Operator: Claudette Taylor DCP- Discharge Planning Updated by [id number]: Gretel Aparicio on 12/19/19 12:[address] A referral was [facility]ed to [facility], spoke with Roxana ([phone]), who states the facility does not have any prison beds available. [place] does have Skilled beds, but this patient looks, eventually, to require a prison bed. DCP- Discharge Planning Updated by [id number]: Karyna Browne on 12/18/19 7:[address] CM [address]ED [facility] AND SPOKE WITH KHLAIF FOR UPDATE ON APPROVAL. KHALIF STATES THEY ARE NOT IN NETWORK AND UNABLE TO ACCEPT PT. CM WILL CALL AROUND TO SNF TO SEE IF THEY ARE IN NETWORK. CM ATTEMPTED TO CALL CARMELO AT [phone] AND UNABLE TO LEAVE MESSAGE. KAYRNA BROWNE MSN,RN,CM DCP- Discharge Planning Updated by [id number]: Karyna Browne on 12/18/19 7:[address] MCM CALLED SISTER AT [phone] TO DISCUSS UPDATE. MAILBOX IS FULL AND UNABLE TO TAKE MESSAGES. WILL CONTINUE TO REACH OUT TO DISCUSS DC PLANNING. KARYNA BROWNE DCP- Discharge Planning Updated by [id number]: Karyna Browne on 12/14/19 7:[address] CM CALLED [facility] AT [phone] AND SPOKE WITH KHALIF. STATES THEY ARE LOOKING TO SE IF THE PATIENTS INSURANCE IS IN NETWORK. STATES THEY WILL CALL CM BACK WITH DETAILS. KARYNA BROWNE DCP- Discharge Planning Updated by [id number]: Edel Ford on 12/13/19 1:[address] RECEIVED TELEPHONE MESSAGE FROM ARSENIO AT [facility]. TELEPHONED AT 1130. SHE WAS NOT AVAILABLE. TELEPHONED AT 1400. SHE WAS INTERESTED TO KNOW IF THE PATIENT COULD SIGN HIS OWN PAPERWORK. THE PRIMARY NURSE STATES PATIENT CAN ANSWER YES OR NO. HE IS NOT VERY VERBAL. HE IS HARD TO UNDERSTAND. ADVISED ARSENIO. DCP- Discharge Planning Updated by [id number]: Karyna Browne on 12/11/19 1:[address] CM SPOKE WITH KARMA FROM [facility]. KARMA STATES THEY ARE UNABLE TO ACCOMODATE HIS NEEDS. SENT REFERRAL TO [facility] PER REQUEST. KARYNA BROWNE DCP- Discharge Planning Updated by [id number]: Karyna Browne on 12/10/19 8:[address] SENT UPDATE TO KARMA AT [place] TO REVIEW. KARMA STATES THEY HAVE A MALE BED AVAILIBILITY. WILL CONTINUE TO FOLLOW. DCP- Discharge Planning Updated by [id number]: Karyna Browne on 12/04/19 7:[address] Patient Name: JOSE BLOUNT Admission Status: Elective Accout number: [id number] Admission Date: 12-01-2019 : 1940 Admission Diagnosis: Attending: ZACHARY Current LOS: 3 Anticipated DC Date: Planned Disposition: Primary [facility] Late entry. assessment completed 12/03/19 at 1430 Discharge Planning Comments: CM met with patient to complete initial dc planning assessment. PT confused. CM called sister Carmelo at [phone]. CM educated patient on the CM role and verbal consent given by patient to complete assessment. Patient lives at home alone and Carmelo feels he needs additional services, and she feels he can not live at home alone. Carmelo wanted CM to assist with placing patient in an assisted living facility. CM educated Carmelo on the services available for the patient. Carmelo states she feels the patient could benefit from rehab at SNF. EVONNE verbalized for [facility]. CM called [facility] at [phone] and faxed referral. CM will continue to follow and will assist as needed with dc plans/needs. Cuff Turner Machine Operator: Karyna Browne DCPIA - Discharge Planning Initial Assessment Updated by [id number]: Karyna Browne on 12/04/19 7:50 am * Is the patient Alert and Oriented? No * Preadmission Environment Home Alone * Additional services required to return to the preadmission environment? Yes * Can the patient safely return to the preadmission environment? No * Has this patient been hospitalized within the prior 30 days at any hospital? No Coverage Notice Reviewer: [id number] - Karyna Browne Notice Issued Date-Time: 12/03/2019 15:30 Notice Type: Patient Choice Letter Notice Delivered To: Family Member Relationship to Patient: Sister Woolen Tester Name: Carmelo Benjamin Delivery Method: PHONE - Phone Johanna Days: Prior Verbal Notification: Recipient Understood Notice: Yes Recipient Signature: Med Rec Note Co-signed by Attending: Coverage Notice Comment: evonne verbalized for [facility] Last DP export: 01/02/20 3:59 pm Patient Name: JOSE BLOUNT Page 05750 at 1539 All edits/amendments must be made on the electronic document DICTATION DATE: 01/03/201537 POUND ATTENDANT: YANG 01/03/201537 RPT#: [id number] DC DATE: STATUS: ADM IN [facility] [address] [place] [address] END OF REPORT
--- NOTE | 2020-01-03 16:24 | NUR ---
RECEIVED ORDERS FOR CONSENTS FOR A PEG PLACEMENT. PT SISTERS ARE AT BEDSIDE, HAD CONSENTS SIGNED. NO OTHER NEEDS AT THIS TIME. CONTINUE WITH PLAN OF CARE
--- NOTE | 2020-01-03 17:08 | NUR ---
OT NOTE: PT COMPLETED SUPINE TO SIT WITH MAX A. PT COMPLETED LUE POSITIONING AND PROM TOLERATED. PT COMPLETED SIT TO STAND WITH TOTAL A. PT COMPLETED EOB SITTING WITH MOD A. PT REQUIRED MOD CUES FOR INCREASED PARTICIPATION. PT IS COOPERATIVE BUT EXHIBITED POOR ENDURANCE. [id number] THANK YOU,CARLOS ALCOCER
--- NOTE | 2020-01-03 18:02 | NUR ---
PT IS COUGHING A LOT MORE TODAY THAN HE HAS BEEN , PER SYSTEM MANAGER PT TEMP WAS 100.2 AT DINNER TIME VITALS. ORDERED CXR TO R/O PNA. SISTERS AT BEDSIDE. SIGNED CONSENTS FOR PEG TUBE PLACEMENT 01/04/20. CO NTINUE WITH PLAN OF CARE. ADMINISTERED PRN TYLENOL WELL
[2020-01-04 04:00] VITALS: BP 178/73
[2020-01-04 05:22] LABS: BASOPHILS 0.2 % (0-2); EOSINOPHILS 1.5 % (0-7); HEMATOCRIT 31.5 % (42.0-54.0); IMMATURE GRANULOCYTES 0.2 % (0-5); MCH 31.7 pg (26.0-34.0); MCHC 31.7 g/dL (31.0-37.0); MEAN PLATELET VOLUME 10.5 fL (7.4-10.4); MONOCYTES 5.5 % (2-11); NEUTROPHILS 75.6 % (40-80); PLATELET COUNT 150 10x3/uL (130-400); RBC 3.15 10x6/uL (4.20-6.10); RDW 15.1 % (11.5-14.5)
[2020-01-04 05:27] LABS: ANION GAP 11.4 mmol/L (8-16); CALCIUM 7.9 mg/dL (8.5-10.1); CARBON DIOXIDE 23.3 mmol/L (21.0-32.0); CREATININE - SERUM 1.2 mg/dL (0.6-1.3); MAGNESIUM - SERUM 1.5 mg/dL (1.8-2.4); POTASSIUM - SERUM 3.7 mmol/L (3.5-5.1)
[2020-01-04 09:07] VITALS: BP 160/55
--- NOTE | 2020-01-04 11:57 | NUR ---
PT NOT IN ROOM.
[2020-01-04 17:31] VITALS: BP 136/66
[2020-01-04 22:24] VITALS: BP 158/79
[2020-01-05 01:13] VITALS: BP 175/74
[2020-01-05 06:14] VITALS: BP 119/52
[2020-01-05 06:33] LABS: BASOPHILS 0.2 % (0-2); EOSINOPHILS 1.8 % (0-7); HEMATOCRIT 30.6 % (42.0-54.0); HEMOGLOBIN 9.6 g/dL (13.5-17.5); IMMATURE GRANULOCYTES 0.2 % (0-5); MCH 31.4 pg (26.0-34.0); MCHC 31.4 g/dL (31.0-37.0); MEAN PLATELET VOLUME 10.9 fL (7.4-10.4); NEUTROPHILS 73.8 % (40-80); PLATELET COUNT 161 10x3/uL (130-400); RBC 3.06 10x6/uL (4.20-6.10); RDW 14.8 % (11.5-14.5)
[2020-01-05 06:48] LABS: ANION GAP 11.8 mmol/L (8-16); CALCIUM 7.6 mg/dL (8.5-10.1); CARBON DIOXIDE 23.9 mmol/L (21.0-32.0); CREATININE - SERUM 1.3 mg/dL (0.6-1.3); MAGNESIUM - SERUM 1.6 mg/dL (1.8-2.4); POTASSIUM - SERUM 3.7 mmol/L (3.5-5.1)
[2020-01-05 09:50] VITALS: BP 146/64
--- NOTE | 2020-01-05 12:26 | NUR ---
PATIENT IN BED DENIES PAIN OR NEEDS. SLEEPY, EASY TO AROUSE. BED LOW POSITION, CALL LIGHT IN REACH. WILL CONTINUE TO MONITOR.
[2020-01-05 13:12] VITALS: BP 157/59
[2020-01-05 16:00] VITALS: BP 150/60
[2020-01-05 21:14] VITALS: BP 169/69
[2020-01-06 01:21] VITALS: BP 173/78
[2020-01-06 06:03] LABS: BASOPHILS 0.2 % (0-2); HEMATOCRIT 32.4 % (42.0-54.0); HEMOGLOBIN 10.4 g/dL (13.5-17.5); IMMATURE GRANULOCYTES 0.2 % (0-5); LYMPHOCYTES 20.9 % (15-50); MCH 31.3 pg (26.0-34.0); MCHC 32.1 g/dL (31.0-37.0); MEAN PLATELET VOLUME 10.8 fL (7.4-10.4); MONOCYTES 8.6 % (2-11); NEUTROPHILS 67.1 % (40-80); PLATELET COUNT 173 10x3/uL (130-400); RBC 3.32 10x6/uL (4.20-6.10); RDW 14.4 % (11.5-14.5); WBC 5.3 10x3/uL (4.8-10.8)
[2020-01-06 06:10] LABS: MCV 97.6 fL (80.0-100.0)
[2020-01-06 06:17] VITALS: BP 156/78
[2020-01-06 06:23] LABS: CALCIUM 7.9 mg/dL (8.5-10.1); CARBON DIOXIDE 21.4 mmol/L (21.0-32.0); CREATININE - SERUM 1.1 mg/dL (0.6-1.3); MAGNESIUM - SERUM 1.6 mg/dL (1.8-2.4); POTASSIUM - SERUM 3.4 mmol/L (3.5-5.1)
--- NOTE | 2020-01-06 07:57 | NUR ---
RESTING IN BED WITH EYES CLOSED, BREATHING EVEN AND NONLABORED, NO CURRENT S/S OF DISTRESS. IV LOCATED TO RIGHT FOREARM CURRENTLY RUNNING 1/2NS @ 75ML. WILL CONT TO MONITOR.
[2020-01-06 08:00] VITALS: BP 171/69
[2020-01-06 12:18] VITALS: BP 146/68
[2020-01-06 16:26] VITALS: BP 99/75
[2020-01-06 22:11] VITALS: BP 154/62
[2020-01-07 01:38] VITALS: BP 141/66
[2020-01-07 04:04] VITALS: BP 132/86
[2020-01-07 06:01] LABS: BASOPHILS 0.3 % (0-2); HEMATOCRIT 31.9 % (42.0-54.0); HEMOGLOBIN 10.2 g/dL (13.5-17.5); IMMATURE GRANULOCYTES 0.3 % (0-5); LYMPHOCYTES 17.9 % (15-50); MCH 31.5 pg (26.0-34.0); MCV 98.5 fL (80.0-100.0); MEAN PLATELET VOLUME 10.9 fL (7.4-10.4); MONOCYTES 9.1 % (2-11); NEUTROPHILS 67.4 % (40-80); PLATELET COUNT 183 10x3/uL (130-400); RBC 3.24 10x6/uL (4.20-6.10); RDW 14.3 % (11.5-14.5)
[2020-01-07 06:13] LABS: WBC 3.4 10x3/uL (4.8-10.8)
[2020-01-07 06:38] LABS: ANION GAP 11.9 mmol/L (8-16); CARBON DIOXIDE 22.7 mmol/L (21.0-32.0); CREATININE - SERUM 1.2 mg/dL (0.6-1.3); MAGNESIUM - SERUM 1.7 mg/dL (1.8-2.4); POTASSIUM - SERUM 3.6 mmol/L (3.5-5.1)
[2020-01-07 09:11] VITALS: BP 157/76
--- NOTE | 2020-01-07 11:12 | NUR ---
Nutrition follow-up/consult: PEG tube placed 01/04/20 Consult for TF receiving 01/05/20 Chart reviewed Labs reviewed Wt: 203# RDN ordered Glucerna 1.0 urbano to start @ 25 ml/hr with gradual increase to goal rate of 75 ml/hr with 75 ml H2O flush q 4 hours. HOB > [address] following.
[2020-01-07 12:25] VITALS: BP 164/70
[2020-01-07 16:04] VITALS: BP 126/70
--- NOTE | 2020-01-07 16:49 | NUR ---
OT NOTE: PT COMPLETED UE PROM TOLERATED. PT REQUIRED TOTAL A WITH POSITIONING FOR DECREASED RISK OF SKIN BREAKDOWN. [id number] THANK YOU,CARLOS ALCOCER
--- NOTE | 2020-01-07 17:25 | NUR ---
0700 BEDSIDE REPORT RECEIVED ASSESSMENT COMPLETE BLISTER NOTED TO RIGHT UPPER THIGH PLACED ADAPTIC OVER SITE AND TEGREDERM OVER SITE
--- NOTE | 2020-01-07 17:28 | NUR ---
1200 PT REFUSES PO INTAKE PEG TUBE FLUSHED AND CLAMPED
--- NOTE | 2020-01-07 17:45 | NUR ---
1704 UPDATED FAMILY MEMBER VIA PHONE
[2020-01-07 20:00] VITALS: BP 167/83
--- NOTE | 2020-01-07 22:00 | NUR ---
SUPINE IN BED, FOLLOWS VERBAL COMMANDS, NO VERBAL RESPONSE, BUT NODS HEAD APPROPRIATELY. BED BATH GIVEN. MEPILEX TO BUTTOCK REMOVED, SKIN CLEANSED AND NEW DRESSING APPLIED. BUTTOCK EXCORIATED, 3 SORES NOTED, WITH GREEN PURULENT DRAINAGE. CTM.
[2020-01-08] VITALS: BP 145/71
[2020-01-08 04:00] VITALS: BP 114/47
[2020-01-08 05:38] LABS: BASOPHILS 0.2 % (0-2); EOSINOPHILS 2.3 % (0-7); HEMATOCRIT 32.4 % (42.0-54.0); HEMOGLOBIN 10.5 g/dL (13.5-17.5); IMMATURE GRANULOCYTES 0.2 % (0-5); LYMPHOCYTES 13.2 % (15-50); MCH 31.8 pg (26.0-34.0); MCHC 32.4 g/dL (31.0-37.0); MCV 98.2 fL (80.0-100.0); MEAN PLATELET VOLUME 10.6 fL (7.4-10.4); MONOCYTES 14.7 % (2-11); NEUTROPHILS 69.4 % (40-80); PLATELET COUNT 201 10x3/uL (130-400); RDW 14.3 % (11.5-14.5)
[2020-01-08 05:51] LABS: WBC 5.2 10x3/uL (4.8-10.8)
[2020-01-08 05:55] LABS: ANION GAP 16.8 mmol/L (8-16); CARBON DIOXIDE 19.3 mmol/L (21.0-32.0); CREATININE - SERUM 1.4 mg/dL (0.6-1.3); MAGNESIUM - SERUM 1.7 mg/dL (1.8-2.4); POTASSIUM - SERUM 4.1 mmol/L (3.5-5.1)
[2020-01-08 08:36] VITALS: BP 124/54
--- NOTE | 2020-01-08 08:39 | MORECARE ---
CASE MANAGEMENT DISCHARGE SUMMARY PATIENT: JOSE BLOUNT UNIT: [id number] ADM DATE: 12/01/19 AGE: 79 : 42 SEX: M ROOM/BED: D.2203 AUTHOR: TANIYA,DOC PHYSICIAN: REFERRING PHYSICIAN: MIKE PATRICIO MD DATE OF SERVICE: 01/08/20 Discharge Plan Patient Name: JOSE BLOUNT Facility: [facility]:[place] : 1940 Planned Disposition: Anticipated Discharge Date: Discharge Date: Expected LOS: Initial Reviewer: [id number] Initial Review Date: 12/01/2019 Generated: 01/08/20 9:38 am Comments DCP- Discharge Planning Updated by [email or web address]: Bettye Portillo on 01/08/20 7:[address] ALEXANDER SENT OFF, FEEDING STILL NEED TO BE STARTED. CM TO FOLLOW AND ASSIST NEEDED DCP- Discharge Planning Updated by [id number]: Bettye Portillo on 01/03/20 2:[address] PATIENT'S SISTERS ARE THINKING ABOUT [facility] AND WANT HIM TO HAVE HIS PEG TUBE, THEY WANT HIM TO HAVE SKILLED THERAPY TO SEE HOW MUCH HE WILL PROGRESS DCP- Discharge Planning Updated by [id number]: Bettye Portillo on 01/02/20 3:[address] Spoke with both sisters at length about their options. They would like for him to go to skilled and give him a chance to see what he can do with therapy. They are trying to decide between [facility] and [facility]. I explained to them that the next question that will be is PEG tube. They are torn between what is the right choice. I told them to think about it and to call me in the morning. I spent over 1 hour speaking with them. They are very concerned and willing to help their brother DCP- Discharge Planning Updated by [id number]: Bettye Portillo on 01/02/20 11:[address] spoke with Carmelo they would like to meet with me for options of next plan of care. They will be coming to the hospital today DCP- Discharge Planning Updated by [id number]: Bettye Portillo on 01/02/20 9:[address] ATTEMPTED TO CALL SISTER BUT GOT HER VOICEMAIL. WILL CALL AGAIN LATER DCP- Discharge Planning Updated by [id number]: Bettye Portillo on 12/28/19 3:[address] updated Carmelo on patient's status. She stated that her and her sister will be here Tuesday and they are going to visit him together ( I got this approved with Dharmesh Curran) So they can make the decision on long term vs hospice. CM to follow and assist as needed DCP- Discharge Planning Updated by [id number]: Bettye Portillo on 12/26/19 1:[address] SPOKE AT LENGTH WITH CARMELO (SISTER) ABOUT HER BROTHER AND HIS PLAN OF CARE. SHE HAD MULTIPLE QUESTIONS. I ATTEPMTED TO ANSWER THEM THE BEST I COULD. LOOKING BACK IN HIS CHART HE DID AMBULATE 4 FEET PRIOR TO HIS CODE ON 12/03 HIS SISTER SAID THAT HE WAS LIVING ON HIS OWN IN A SENIOR CITIZEN COMPLEX, IT WAS HIS NEIGHBOR WHO CALLED EMS BECAUSE HIS CALL LIGHT WAS FLASHING AT 0200. 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 SHE SAID THAT LAST YEAR HIS NUMBERS WERE "GOING UP". 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 CM SHARED THESE CONCERNS WITH DEBORAH . CM WILL CONTINUE TO FOLLOW AND ASSIST WITH PATIENT'S CARE. DCP- Discharge Planning Updated by [id number]: Bettye Ronquilloken on 12/24/19 7:[address] REFERRAL SENT TO [facility] DCP- Discharge Planning Updated by [id number]: Claudette Taylor on 12/20/19 2:[address] Patient Name: JOSE BLOUNT Admission Status: Elective Accout number: [id number] Admission Date: 12-01-2019 : 1940 Admission Diagnosis:HEMOTHORAX Attending: ZACHARY Current LOS: 19 Anticipated DC Date: Planned Disposition: Primary Insurance: [facility] Discharge Planning Comments: FAXED REFERRAL TO [facility]. Lead Software Architect: lCaudette Taylor DCP- Discharge Planning Updated by [id number]: Gretel Aparicio on 12/19/19 12:[address] A referral was faxed to [facility], spoke with Roxana ([phone]), who states the facility does not have any adjunct faculty for medical terminology beds available. [facility] does have Skilled beds, but this patient looks, eventually, to require a chcf bed. DCP- Discharge Planning Updated by [id number]: Karyna Browne on 12/18/19 7:[address] CM CALLED [facility] AND SPOKE WITH KHALIF FOR UPDATE ON APPROVAL. KHALIF STATES THEY ARE NOT IN NETWORK AND UNABLE TO ACCEPT PT. CM WILL CALL AROUND TO SNF TO SEE IF THEY ARE IN NETWORK. CM ATTEMPTED TO CALL CARMELO AT [phone] AND UNABLE TO LEAVE MESSAGE. KARYNA BROWNE MSN,RN,CM DCP- Discharge Planning Updated by [email or web address]: Karyna Browne on 12/18/19 7:[address] MCM CALLED SISTER AT [phone] TO DISCUSS UPDATE. MAILBOX IS FULL AND UNABLE TO TAKE MESSAGES. WILL CONTINUE TO REACH OUT TO DISCUSS DC PLANNING. KARYNA BROWNE DCP- Discharge Planning Updated by [id number]: Karyna Browne on 12/14/19 7:[address] CM CALLED [facility] AT [phone] AND SPOKE WITH KHALIF. STATES THEY ARE LOOKING TO SE IF THE PATIENTS INSURANCE IS IN NETWORK. STATES THEY WILL CALL CM BACK WITH DETAILS. KARYNA BROWNE DCP- Discharge Planning Updated by [id number]: Edel Ford on 12/13/19 1:[address] RECEIVED TELEPHONE MESSAGE FROM ARSENIO AT [facility]. TELEPHONED AT 1130. SHE WAS NOT AVAILABLE. TELEPHONED AT 1400. SHE WAS INTERESTED TO KNOW IF THE PATIENT COULD SIGN HIS OWN PAPERWORK. THE PRIMARY NURSE STATES PATIENT CAN ANSWER YES OR NO. HE IS NOT VERY VERBAL. HE IS HARD TO UNDERSTAND. ADVISED ARSENIO. DCP- Discharge Planning Updated by [email or web address]: Karyna Browne on 12/11/19 1:[address] CM SPOKE WITH KARMA FROM [facility]. KARMA STATES THEY ARE UNABLE TO ACCOMODATE HIS NEEDS. SENT REFERRAL TO [facility] PER REQUEST. KARYNA BROWNE DCP- Discharge Planning Updated by [id number]: Karyna Browne on 12/10/19 8:[address] SENT UPDATE TO KARMA AT [facility] TO REVIEW. KARMA STATES THEY HAVE A MALE BED AVAILIBILITY. WILL CONTINUE TO FOLLOW. DCP- Discharge Planning Updated by [id number]: Karyna Browne on 12/04/19 7:[address] Patient Name: JOSE BLOUNT Admission Status: Elective Accout number: [id number] Admission Date: 12-01-2019 : 1940 Admission Diagnosis: Attending: ZACHARY Current LOS: 3 Anticipated DC Date: Planned Disposition: Primary Insurance: [employer] Late entry. assessment completed 12/03/19 at 1430 Discharge Planning Comments: CM met with patient to complete initial dc planning assessment. PT confused. CM called sister Carmelo at [phone]. CM educated patient on the CM role and verbal consent given by patient to complete assessment. Patient lives at home alone and Carmelo feels he needs additional services, and she feels he can not live at home alone. Carmelo wanted CM to assist with placing patient in an assisted living facility. CM educated Carmelo on the services available for the patient. Carmelo states she feels the patient could benefit from rehab at SNF. EVONNE verbalized for [facility]. CM called [facility] at [phone] and faxed referral. CM will continue to follow and will assist as needed with dc plans/needs. Lead Software Architect: Karyna Browne DCPIA - Discharge Planning Initial Assessment Updated by [id number]: Karyna Browne on 12/04/19 7:50 am * Is the patient Alert and Oriented? No * Preadmission Environment Home Alone * Additional services required to return to the preadmission environment? Yes * Can the patient safely return to the preadmission environment? No * Has this patient been hospitalized within the prior 30 days at any hospital? No External Providers External Provider: [facility] Next Contact Date: Service Request Date: Service Type: Resolution: Reviewer: Comments: Coverage Notice Reviewer: [id number] - Karyna Browne Notice Issued Date-Time: 12/03/2019 15:30 Notice Type: Patient Choice Letter Notice Delivered To: Family Member Relationship to Patient: Sister Securities Settlement Processor Name: Carmelo Benjamin Delivery Method: PHONE - Phone Johanna Days: Prior Verbal Notification: Recipient Understood Notice: Yes Recipient Signature: Med Rec Note Co-signed by Attending: Coverage Notice Comment: evonne verbalized for [facility] Last DP export: 01/03/20 2:39 p Patient Name: JOSE BLOUNT Page [phone] at 0839 All edits/amendments must be made on the electronic document DICTATION DATE: 01/08/20838 METAL TUBE CUTTER: YANG 01/08/20838 RPT#: [id number] DC DATE: STATUS: ADM IN [facility] [address] [place] [address] END OF REPORT
--- NOTE | 2020-01-08 11:55 | NUR ---
0700 BEDSIDE REPORT RECEIVED ASSESSMENT COMPLETE ORAL CARE PROVIDED REPOSITIONED USING PILLOW SUPPORT TO BACK TOTAL FEED ONLYL ATE ONE BITE BREAKFAST
--- NOTE | 2020-01-08 11:56 | NUR ---
1130 KARMA IGNACIO FROM [facility] PRESENT WORKING ON ADMITTING PATIENT TO [facility]
--- NOTE | 2020-01-08 11:58 | NUR ---
1135 STARTED GLUCERNA AT 25 ML/HOUR TO GRAVITY FEED TO PEG TUBE
--- NOTE | 2020-01-08 12:00 | NUR ---
1145 NEW ORDER NOTED FOR PROCALAMINE INFUSION STARTED AT 75ML/HOUR TO R FORE ARM IV SITE SATISFACTORY
[2020-01-08 12:39] VITALS: BP 179/77
--- NOTE | 2020-01-08 13:41 | NUR ---
Nutrition follow-up: RDN rounds found TF had not beed started 2/2 no feeding pump available. RDN provided Edda, RN with gravity feeding set rates for drip feeds. Glucerna 1.0 urbano now infusing @ 25 ml per hour via gravity drip. ProcalAmine PPN also started @ 75 ml/hr RDN following.
[2020-01-08 17:20] VITALS: BP 115/39
--- NOTE | 2020-01-08 17:21 | NUR ---
OT NOTE: PT COMPLETED BUE PROM TOLERATED. PT COMPLETED POSITIONING TO DECREASE RISKS OF SKIN BREAKDOWN. PT REQUIRED MOD CUES FOR INCREASED ATTENTION TO TASKS. [phone] THANK YOU,CARLOS ALCOCER
--- NOTE | 2020-01-08 17:50 | NUR ---
OT NOTE: PERFORMED PROM TO B UE/LES...POSITIONED PT FOR COMFORT..PT VERY LETHARGIC.. LIMITED ACTIVE PARTICIPATION BERONICA EARL, OTR/L [phone]
[2020-01-08 20:00] VITALS: BP 149/64
[2020-01-09] VITALS: BP 173/99
--- NOTE | 2020-01-09 00:28 | NUR ---
I have reviewed this patient and I concur with the Shift Assessment completed by the Licensed Practical Nurse today this shift.
--- NOTE | 2020-01-09 01:00 | NUR ---
SUPINE IN BED, AROUSES TO VERBAL STIMULATION. TUBE FEEDING STOP IN PREPERATION FOR BATH. RESIDUAL 75ML. CTM
[2020-01-09 04:00] VITALS: BP 160/90
--- NOTE | 2020-01-09 06:00 | NUR ---
PEG RESIDUAL 80MLs, FLUSHED WITH 75MLs H2O, FEED RATE ADJUSTED AND PROCAL CHANGED TO 25ML/HR.
--- NOTE | 2020-01-09 07:52 | NUR ---
PATIENT SLEEPING. LUNGS DIMINISHED TO BLL. HEART SOUNDS S1 AND S2 HEARD IN ALL SHARPE. BOWEL SOUNDS ACTIVE X 4. IV TO RFA PATENT WITHOUT REDNESS. DENIES NEEDS. BED LOW. CALL RUST AND PERSONAL ITEMS IN REACH. WILL CONTINUE TO MONITOR.
[2020-01-09 08:33] VITALS: BP 153/44
--- NOTE | 2020-01-09 08:49 | MORECARE ---
CASE MANAGEMENT DISCHARGE SUMMARY PATIENT: JOSE BLOUNT UNIT: [id number] ADM DATE: 12/01/19 AGE: 79 : 42 SEX: M ROOM/BED: D.2203 AUTHOR: TANIYADOC PHYSICIAN: REFERRING PHYSICIAN: MIKE PATRICIO MD DATE OF SERVICE: 01/09/20 Discharge Plan Patient Name: JOSE BLOUNT Facility: [facility]:[place] : 1940 Planned Disposition: Anticipated Discharge Date: Discharge Date: Expected LOS: Initial Reviewer: [id number] Initial Review Date: 12/01/2019 Generated: 01/09/20 9:48 am Comments DCP- Discharge Planning Updated by [id number]: Bettye Portillo on 01/09/20 7:[address] CALLED CARMELO AND LEFT MESSAGE FOR HER TO CALL ME, I WAS CALLING TO GIVE UPDATE DCP- Discharge Planning Updated by [id number]: Bettye Portillo on 01/08/20 7:[address] ALEXANDER SENT OFF, FEEDING STILL NEED TO BE STARTED. CM TO FOLLOW AND ASSIST NEEDED DCP- Discharge Planning Updated by [id number]: Bettye Portillo on 01/03/20 2:[address] PATIENT'S SISTERS ARE THINKING ABOUT [facility] AND WANT HIM TO HAVE HIS PEG TUBE, THEY WANT HIM TO HAVE SKILLED THERAPY TO SEE HOW MUCH HE WILL PROGRESS DCP- Discharge Planning Updated by [id number]: Bettye Portillo on 01/02/20 3:[address] Spoke with both sisters at length about their options. They would like for him to go to skilled and give him a chance to see what he can do with therapy. They are trying to decide between [facility] in [place] and [facility]. I explained to them that the next question that will be is PEG tube. They are torn between what is the right choice. I told them to think about it and to call me in the morning. I spent over 1 hour speaking with them. They are very concerned and willing to help their brother DCP- Discharge Planning Updated by [id number]: Bettye Portillo on 01/02/20 11:[address] spoke with Carmelo they would like to meet with me for options of next plan of care. They will be coming to the hospital today DCP- Discharge Planning Updated by [id number]: Bettye Portillo on 01/02/20 9:[address] ATTEMPTED TO CALL SISTER BUT GOT HER VOICEMAIL. WILL CALL AGAIN LATER DCP- Discharge Planning Updated by [id number]: Bettye Portillo on 12/28/19 3:[address] updated Carmelo on patient's status. She stated that her and her sister will be here Tuesday and they are going to visit him together ( I got this approved with Dharmesh Curran) So they can make the decision on prison vs hospice. CM to follow and assist as needed DCP- Discharge Planning Updated by [id number]: Bettye Portillo on 12/26/19 1:[address] SPOKE AT LENGTH WITH CARMELO (SISTER) ABOUT HER BROTHER AND HIS PLAN OF CARE. SHE HAD MULTIPLE QUESTIONS. I ATTEPMTED TO ANSWER THEM THE BEST I COULD. LOOKING BACK IN HIS CHART HE DID AMBULATE 4 FEET PRIOR TO HIS CODE ON 12/03 HIS SISTER SAID THAT HE WAS LIVING ON HIS OWN IN A SENIOR CITIZEN COMPLEX, IT WAS HIS NEIGHBOR WHO CALLED EMS BECAUSE HIS CALL LIGHT WAS FLASHING AT 0200. 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 SHE SAID THAT LAST YEAR HIS NUMBERS WERE "GOING UP". 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 CM SHARED THESE CONCERNS WITH DEBORAH . CM WILL CONTINUE TO FOLLOW AND ASSIST WITH PATIENT'S CARE. DCP- Discharge Planning Updated by [id number]: Bettye Ronquilloken on 12/24/19 7:[address] REFERRAL SENT TO [facility] DCP- Discharge Planning Updated by [id number]: Claudette Taylor on 12/20/19 2:[address] Patient Name: JOSE BLOUNT Admission Status: Elective Accout number: [id number] Admission Date: 12-01-2019 : 1940 Admission Diagnosis:HEMOTHORAX Attending: ZACHARY Current LOS: 19 Anticipated DC Date: Planned Disposition: Primary Insurance: [facility] Discharge Planning Comments: FAXED REFERRAL TO [facility]. Lifestyle Coordinator: Claudette Taylor DCP- Discharge Planning Updated by [id number]: Gretel Aparicio on 12/19/19 12:[address] A referral was faxed to [facility], spoke with Roxana ([phone]), who states the facility does not have any moth exterminator beds available. [facility] does have Skilled beds, but this patient looks, eventually, to require a snf bed. DCP- Discharge Planning Updated by [id number]: Karyna Browne on 12/18/19 7:[address] CM CALLED [facility] AND SPOKE WITH KHALIF FOR UPDATE ON APPROVAL. KHALIF STATES THEY ARE NOT IN NETWORK AND UNABLE TO ACCEPT PT. CM WILL CALL AROUND TO SNF TO SEE IF THEY ARE IN NETWORK. CM ATTEMPTED TO CALL CARMELO AT [phone] AND UNABLE TO LEAVE MESSAGE. KARYNA BROWNE MSN,RN,CM DCP- Discharge Planning Updated by [id number]: Karyna Browne on 12/18/19 7:[address] MCM CALLED SISTER AT [phone] TO DISCUSS UPDATE. MAILBOX IS FULL AND UNABLE TO TAKE MESSAGES. WILL CONTINUE TO REACH OUT TO DISCUSS DC PLANNING. KARYNA BROWNE DCP- Discharge Planning Updated by [id number]: Karyna Browne on 12/14/19 7:[address] CM CALLED [facility] AT [phone] AND SPOKE WITH KHALIF. STATES THEY ARE LOOKING TO SE IF THE PATIENTS INSURANCE IS IN NETWORK. STATES THEY WILL CALL CM BACK WITH DETAILS. KARYNA BROWNE DCP- Discharge Planning Updated by [id number]: Edel Ford on 12/13/19 1:[address] RECEIVED TELEPHONE MESSAGE FROM ARSENIO AT [facility]. TELEPHONED AT 1130. SHE WAS NOT AVAILABLE. TELEPHONED AT 1400. SHE WAS INTERESTED TO KNOW IF THE PATIENT COULD SIGN HIS OWN PAPERWORK. THE PRIMARY NURSE STATES PATIENT CAN ANSWER YES OR NO. HE IS NOT VERY VERBAL. HE IS HARD TO UNDERSTAND. ADVISED ARSENIO. DCP- Discharge Planning Updated by [id number]: Karyna Browne on 12/11/19 1:[address] CM SPOKE WITH KARMA FROM [facility]. KARMA STATES THEY ARE UNABLE TO ACCOMODATE HIS NEEDS. SENT REFERRAL TO [facility] PER REQUEST. KARYNA BROWNE DCP- Discharge Planning Updated by [id number]: Karyna Browne on 12/10/19 8:[address] SENT UPDATE TO KARMA AT [place] TO REVIEW. KARMA STATES THEY HAVE A MALE BED AVAILIBILITY. WILL CONTINUE TO FOLLOW. DCP- Discharge Planning Updated by [id number]: Karyna Browne on 12/04/19 7:[address] Patient Name: JOSE BLOUNT Admission Status: Elective Accout number: [id number] Admission Date: 12-01-2019 : 1940 Admission Diagnosis: Attending: ZACHARY Current LOS: 3 Anticipated DC Date: Planned Disposition: Primary Insurance: [employer] Late entry. assessment completed 12/03/19 at 1430 Discharge Planning Comments: CM met with patient to complete initial dc planning assessment. PT confused. CM called sister Carmelo at [phone]. CM educated patient on the CM role and verbal consent given by patient to complete assessment. Patient lives at home alone and Carmelo feels he needs additional services, and she feels he can not live at home alone. Carmelo wanted CM to assist with placing patient in an assisted living facility. CM educated Carmelo on the services available for the patient. Carmelo states she feels the patient could benefit from rehab at SNF. EVONNE verbalized for [facility]. CM called [facility] at [phone] and faxed referral. CM will continue to follow and will assist as needed with dc plans/needs. Lifestyle Coordinator: Karyna Browne DCPIA - Discharge Planning Initial Assessment Updated by [id number]: Karyna Browne on 12/04/19 7:50 am * Is the patient Alert and Oriented? No * Preadmission Environment Home Alone * Additional services required to return to the preadmission environment? Yes * Can the patient safely return to the preadmission environment? No * Has this patient been hospitalized within the prior 30 days at any hospital? No Coverage Notice Reviewer: [id number] - Karyna Browne Notice Issued Date-Time: 12/03/2019 15:30 Notice Type: Patient Choice Letter Notice Delivered To: Family Member Relationship to Patient: Sister Orthopaedic Surgeon Name: Carmelo Benjamin Delivery Method: PHONE - Phone Johanna Days: Prior Verbal Notification: Recipient Understood Notice: Yes Recipient Signature: Med Rec Note Co-signed by Attending: Coverage Notice Comment: evonne verbalized for slim andre Last DP export: 01/08/20 7:39 a Patient Name: JOSE BLOUNT Page [phone] at 0849 All edits/amendments must be made on the electronic document DICTATION DATE: 01/09/20847 SENIOR PROCESS ENGINEER: YANG 01/09/20847 RPT#: [id number] DC DATE: STATUS: ADM IN [facility] [address] [place] [address] END OF REPORT
--- NOTE | 2020-01-09 10:42 | NUR ---
PATIENT SLEEPING. WILL CONTINUE TO MONITOR.
[2020-01-09 10:50] LABS: BASOPHILS 0 % (0-2); EOSINOPHILS 1.6 % (0-7); HEMATOCRIT 34.3 % (42.0-54.0); IMMATURE GRANULOCYTES 0.2 % (0-5); LYMPHOCYTES 22.7 % (15-50); MCH 31.1 pg (26.0-34.0); MCHC 32.1 g/dL (31.0-37.0); MCV 96.9 fL (80.0-100.0); MEAN PLATELET VOLUME 10.7 fL (7.4-10.4); MONOCYTES 10.2 % (2-11); NEUTROPHILS 65.3 % (40-80); PLATELET COUNT 184 10x3/uL (130-400); RBC 3.54 10x6/uL (4.20-6.10); RDW 14.2 % (11.5-14.5); WBC 4.5 10x3/uL (4.8-10.8)
[2020-01-09 11:00] LABS: ANION GAP 13.3 mmol/L (8-16); CALCIUM 7.8 mg/dL (8.5-10.1); CARBON DIOXIDE 21.8 mmol/L (21.0-32.0); CREATININE - SERUM 1.3 mg/dL (0.6-1.3); MAGNESIUM - SERUM 1.7 mg/dL (1.8-2.4); POTASSIUM - SERUM 4.1 mmol/L (3.5-5.1)
--- NOTE | 2020-01-09 11:44 | NUR ---
RESIDUAL CHECKED AND 80ML NOTED. TUBE FEED STOPPED AND PAGED. WAITING RESPONSE.
--- NOTE | 2020-01-09 11:55 | NUR ---
SPOKE WITH MICHEL OLIVA FOR DR MOHR AND MANISHA WHO STATES TO HOLD TUBE FEED FOR NOW. FEED PATIENT LUNCH AND CHECK RESIDUAL AGAIN IN 6 HOURS IF RESIDUAL IS STILL 2X'S AMOUNT OF FEEDING CONTINUE TO HOLD AND CALL SURGERY BACK. NO OTHER NEEDS AT THIS TIME. COTINUE WITH PLAN OF CARE.
--- NOTE | 2020-01-09 12:30 | NUR ---
ATTEMPTED TO FEED PATIENT LUNCH. TOLERATED THREE BITES SHERBET, THREE BITES VANILLA PUDDING AND TWO BITES MASHED POTATOES AND GRAVY. AFTER THIS, PATIENT STARTED LETTING FOOD FALL OUT OF MOUTH AND WOULD NOT SWALLOW EVEN WITH COAXING. WILL ATTEMPT AGAIN.
[2020-01-09 12:44] VITALS: BP 126/33
--- NOTE | 2020-01-09 13:14 | NUR ---
SPEECH THERAPIST ANDERS ATTEMPTED TO FEED PATIENT AGAIN WITHOUT SUCCESS. STATES PATIENT LETTING FOOD DROP OUT OF MOUTH AND NOT SWALLOWING.
--- NOTE | 2020-01-09 13:28 | NUR ---
PATIENT STATES FEELS URGE TO VOID. BARILLAS UNCLAMPED AND URINE DRAINED. STATES WANTS BARILLAS OUT NOW. REMOVED WITH TIP INTACT PER PATIENT REQUEST AND PER ORDER.
--- NOTE | 2020-01-09 13:28 | NUR ---
Nutrition follow-up: Pt with new PEG tube. Glucerna 1.0 urbano ordered @ 25 ml/hr with increase to goal rate of 75 ml/hr. TF to run via gravity drip - 18 drops/min TF off at this time 2/2 residual of 80 ml. Pt receiving a pureed diet; pt ate a few bites of lunch but then would not swallow aand food was falling out of mouth. Pt might tolerate bolus feeds as follows: If po intake at meals in < 50% - bolus 1 carton of Glucerna 1.0 urbano or, pt might tolerate nocturnal TF of Glucerna 1.0 urbano x 12 hours @ 60 ml/hr and offer meals during the day. Pt must have assistance with meals. RDN following.
--- NOTE | 2020-01-09 14:37 | NUR ---
TUBE FEEDS RESUMED AT [address] DELGADO AND HAZEL HAWKINS. STATES TO FOLLOW DIET ORDER IN REGARDS TO RESIDUAL AND INCREASING RATE.
[2020-01-09 16:57] VITALS: BP 123/65
--- NOTE | 2020-01-09 17:24 | NUR ---
TUBE FEED RESIDUAL CHECKED AND 50ML NOTED. TUBE FEED INCREASED TO 65ML/HR.
[2020-01-09 20:00] VITALS: BP 176/72
[2020-01-10] VITALS: BP 176/74
--- NOTE | 2020-01-10 01:00 | NUR ---
PEG RESIDUAL 110MLS. 75ML H2O FLUSH GIVEN THROUGH PEG. FEEDING STOPPED FOR UPCOMING BATH. CTM.
[2020-01-10 04:00] VITALS: BP 161/71
[2020-01-10 05:40] LABS: BASOPHILS 0.2 % (0-2); EOSINOPHILS 2.1 % (0-7); HEMATOCRIT 34.8 % (42.0-54.0); HEMOGLOBIN 11.4 g/dL (13.5-17.5); IMMATURE GRANULOCYTES 0.2 % (0-5); LYMPHOCYTES 19.3 % (15-50); MCH 31.7 pg (26.0-34.0); MCHC 32.8 g/dL (31.0-37.0); MCV 96.7 fL (80.0-100.0); MEAN PLATELET VOLUME 10.2 fL (7.4-10.4); MONOCYTES 8.1 % (2-11); NEUTROPHILS 70.1 % (40-80); PLATELET COUNT 174 10x3/uL (130-400); RDW 14.2 % (11.5-14.5); WBC 4.7 10x3/uL (4.8-10.8)
[2020-01-10 06:04] LABS: ANION GAP 13.7 mmol/L (8-16); CARBON DIOXIDE 21.5 mmol/L (21.0-32.0); CREATININE - SERUM 1.3 mg/dL (0.6-1.3); MAGNESIUM - SERUM 1.9 mg/dL (1.8-2.4); POTASSIUM - SERUM 4.2 mmol/L (3.5-5.1)
--- NOTE | 2020-01-10 07:25 | NUR ---
I have reviewed this patient and I concur with the Shift Assessment completed by the Licensed Practical Nurse today this shift.
--- NOTE | 2020-01-10 08:45 | NUR ---
PATIENT IN BED WITH IV INTACT. NO COMPLAINTS OR SIGNS OF IDSTRESS. EYES CLOSED RESTING QUIETLY. LAYING ON SIDE WITH BARILLAS INTACT. HOB 45 DEGRESS. CHECKED RESICUAL AT THIS TIME. NO RESIDUAL NOTED. TF DRIPPING ORDERED. WILL CONTINUE TO MONITOR.
[2020-01-10 08:51] VITALS: BP 133/93
--- NOTE | 2020-01-10 09:45 | NUR ---
Nutrition follow-up: Pt is now NPO per speech Glucerna 1.0 urbano infusing via gravity drip @ 50 ml/hr; goal rate 75 ml/hr Labs reviewed Wt: 196# RDN following.
--- NOTE | 2020-01-10 11:00 | NUR ---
PATIENT IN BED WITH IV INTACT. EYES CLOSED RESTING QUIETLY. TUBE FLUSHED WITH WATER. PATIENT HAS NO RESIDUAL. TF INFUSING ORDERED. BARILLAS ITACT. CALL LIGHT WITHIN REACH.
[2020-01-10 12:02] VITALS: BP 149/31
--- NOTE | 2020-01-10 13:45 | NUR ---
PATIENT IN BED WITH IV INTACT. TUBE FLUSHED AGAIN ORDERED. RESIDUAL WAS 50 AT THIS TIME. NO SIGS OF DISTRESS. WILL CONTINUE TO MONITOR. TF DRIPPING AT 75 ORDERED. CALL IGHT WITHIN REACH.
--- NOTE | 2020-01-10 16:43 | NUR ---
OT NOTE: PT COMPLETED UE PROM TOLERATED. PT EXHIBITED INCREASED SPASTICITY OF RUE. NURSING AWARE. PT REQUIRED REPOSITIONING WITH TOTAL A. [phone] THANK YOU,CARLOS ALCOCER
[2020-01-10 16:49] VITALS: BP 133/75
--- NOTE | 2020-01-10 16:50 | NUR ---
PATIENT SITTING UP IN BED WITH IV INTACT. TF INFUSING AT 75 PER HOUR. READJUSTED EARLIER BECAUSE SEEMED TO STOP DRIPPING. DRIPPING WITH NO PROBLEMS AT THIS TIME. EYES OPEN AT THIS TIME. ASKED IF OK, PATIET STATED YES. DOESNT SEEM TO BE IN ANY DISTRESS. BED ALARM ON. CALL LIGHT WITHIN REACH.
[2020-01-10 20:00] VITALS: BP 126/75
--- NOTE | 2020-01-10 20:00 | NUR ---
REPOSITIONED PATIENT. TOLERATED WELL. CPOC.
--- NOTE | 2020-01-10 21:56 | NUR ---
CHECKED PATIENT RESIDUAL. CURRENT RESIDUAL 160. FEEDING CLAMPED FOR ONE HOUR AND WILL RECHECK. NO MEDS GIVEN AT THIS TIME.
--- NOTE | 2020-01-10 22:15 | NUR ---
REPOSITIONING PROVIDED. CHANGED DRESSINGS TO BUTTOCKS. CALMOSEPTINE APPLIED. BARILLAS CARE PROVIDED. ORAL CARE PROVIDED. CPOC.
[2020-01-11] VITALS: BP 123/64
--- NOTE | 2020-01-11 00:30 | NUR ---
REPOSITIONED PATIENT TO RIGHT SIDE. PATIENT TOLERATED WELL. NO DISTRESS NOTED. HOB REMAINS ELEVATED. CPOC.
[2020-01-11 04:00] VITALS: BP 140/65
[2020-01-11 05:16] LABS: BASOPHILS 0 % (0-2); EOSINOPHILS 1.7 % (0-7); HEMATOCRIT 32.5 % (42.0-54.0); HEMOGLOBIN 10.7 g/dL (13.5-17.5); IMMATURE GRANULOCYTES 0.3 % (0-5); LYMPHOCYTES 26.4 % (15-50); MCH 31.5 pg (26.0-34.0); MCHC 32.9 g/dL (31.0-37.0); MCV 95.6 fL (80.0-100.0); MEAN PLATELET VOLUME 10.4 fL (7.4-10.4); MONOCYTES 8.7 % (2-11); NEUTROPHILS 62.9 % (40-80); PLATELET COUNT 160 10x3/uL (130-400); RDW 14.1 % (11.5-14.5); WBC 3.6 10x3/uL (4.8-10.8)
[2020-01-11 05:34] LABS: ANION GAP 12.1 mmol/L (8-16); CALCIUM 7.9 mg/dL (8.5-10.1); CARBON DIOXIDE 22.9 mmol/L (21.0-32.0); CREATININE - SERUM 1.3 mg/dL (0.6-1.3); MAGNESIUM - SERUM 1.8 mg/dL (1.8-2.4)
[2020-01-11 08:51] VITALS: BP 135/44
--- NOTE | 2020-01-11 12:17 | NUR ---
PATIENT IN BED. ELECTRONIC SCALE TESTER IN ROOM DRAWING BLOOD. FREE FROM SIGNS OF DISTRESS. WILL CONTINUE TO MONITOR.
[2020-01-11 12:36] VITALS: BP 137/62
--- NOTE | 2020-01-11 13:40 | NUR ---
Nutrition follow-up: TF of Glucerna 1.0 urbano @ goal rate of ~75 ml/hr gravity drip. TF was held earlier for a residual of 160 ml. Pt with no distress observed per nursing Labs reviewed Recommend continuing TF @ goal rate of 75 ml/hr gravity drip. RDN following.
--- NOTE | 2020-01-11 16:11 | NUR ---
FLUSHED BARILLAS CATHETER PER PHYSICIAN REQUEST IN NURSING MESSAGE.
--- NOTE | 2020-01-11 16:55 | NUR ---
PATIENT'S BARILLAS HAD SEDIMENT IN TUBING. CALLED ROSS MACHADO APRN TO GET ORDER TO DISCONTINUE BARILLAS AND REPLACE WITH NEW BARILLAS. DISCONTINUED OLD BARILLAS AND REPLACED WITH 16FR BARILLAS CATHETER.
[2020-01-11 16:56] VITALS: BP 146/54
--- NOTE | 2020-01-11 17:23 | NUR ---
OT NOTE: PT COMPLETED BUE PROM TOLERATED. INCREASED SPASTICITY NOTED ON R SIDE. REPORTED TO NURSING. PT REQUIRED TOTAL A WITH POSITIONING TO DECREASE RISK OF SKIN BREAKDOWN. [phone] THANK YOU,CARLOS ALCOCER
--- NOTE | 2020-01-11 18:00 | NUR ---
RESTING IN BED WITH EYES OPEN. NO S/S OF ACUTE DISTRESS NOTED. DENIES ANY NEEDS AT THIS TIME. CALL LIGHT IN REACH. BED ALARM ON. WILL CONTINUE TO MONITOR.
[2020-01-11 20:16] VITALS: BP 151/74
--- NOTE | 2020-01-11 21:30 | NUR ---
PATIENT LYING QUEITLY WITH NO DISTRESS NOTED. HOB ELEVATED 45 DEGREES. GLUCERNA 1.0 INFUSING VIA GRAVITY AT 75 CC/H VIA G TUBE. TOLERATING FEEDING WELL. RESIDUAL CHECK 50 CC. MEDS GIVEN AT THIS TIME. IV TO RFA INTACT AT KVO RATE. NO REDNESS OR EDEMA NOTED. BARILLAS PATENT AND DRAINING SIENNA URINE. TURNED AND POSITIONED FOR COMFORT.
[2020-01-12 00:55] VITALS: BP 127/61
--- NOTE | 2020-01-12 04:01 | NUR ---
I have reviewed this patient and I concur with the Shift Assessment completed by the Licensed Practical Nurse today this shift.
[2020-01-12 05:07] VITALS: BP 141/76
[2020-01-12 07:10] LABS: ALBUMIN 1.9 g/dL (3.4-5.0); ANION GAP 15.8 mmol/L (8-16); BILIRUBIN - TOTAL 0.55 mg/dL (0.2-1.3); CALCIUM 7.3 mg/dL (8.5-10.1); CARBON DIOXIDE 19.4 mmol/L (21.0-32.0); CREATININE - SERUM 1.3 mg/dL (0.6-1.3); POTASSIUM - SERUM 4.2 mmol/L (3.5-5.1); PROTEIN - SERUM 5.3 g/dL (6.4-8.2)
[2020-01-12 07:13] LABS: HEMOGLOBIN 10.2 g/dL (13.5-17.5); MCH 31.9 pg (26.0-34.0); MCHC 32.9 g/dL (31.0-37.0); MCV 96.9 fL (80.0-100.0); MEAN PLATELET VOLUME 10.6 fL (7.4-10.4); PLATELET COUNT 143 10x3/uL (130-400); RDW 14.4 % (11.5-14.5); WBC 2.7 10x3/uL (4.8-10.8)
[2020-01-12 07:50] LABS: LYMPHOCYTES 23 % (15-50); MONOCYTES 1 % (2-11); NEUTROPHILS 76 % (40-80); PLATELET ESTIMATE NORMAL
--- NOTE | 2020-01-12 07:57 | NUR ---
resting in bed, no distress noted, hob up, glucerna infusing at 75 per gravity, frey to gravity, turn per staff, cont to monitor
[2020-01-12 08:12] VITALS: BP 123/63
[2020-01-12 12:16] VITALS: BP 100/67
--- NOTE | 2020-01-12 13:52 | NUR ---
SOME SOFT BM NOTED WITH SUPPOSITORY INSERTION, CONT TO MONITOR, TURN AND REPOSITION
[2020-01-12 15:59] LABS: C-REACTIVE PROTEIN 7.4 mg/dL (0.0-0.9)
--- NOTE | 2020-01-12 16:05 | NUR ---
REPORTED D DIMER OF 4.01 TO EDITH PAZ TO GIVE RESULTS TO ASPEN MEDELLIN
[2020-01-12 16:20] VITALS: BP 123/61
[2020-01-12 16:36] LABS: ERYTHROCYTE SEDIMENTATION RATE 35 mm/hr (0-20)
--- NOTE | 2020-01-12 19:30 | NUR ---
PT IN BED, EYES CLOSED, RESP EVEN AND UNLABORED. NO DISTRESS NOTED, CL IN REACH, SR UP X 2.
[2020-01-12 20:00] VITALS: BP 139/70
[2020-01-13] VITALS (7 sets, daily range): BP systolic 103–141; BP diastolic 54–76
--- NOTE | 2020-01-13 01:59 | NUR ---
I have reviewed this patient and I concur with the Shift Assessment completed by the Licensed Practical Nurse today this shift.
[2020-01-13 06:09] LABS: BASOPHILS 0 % (0-2); EOSINOPHILS 0.3 % (0-7); HEMATOCRIT 31.7 % (42.0-54.0); HEMOGLOBIN 10.5 g/dL (13.5-17.5); IMMATURE GRANULOCYTES 0.3 % (0-5); LYMPHOCYTES 21.3 % (15-50); MCH 31.4 pg (26.0-34.0); MCHC 33.1 g/dL (31.0-37.0); MEAN PLATELET VOLUME 10.7 fL (7.4-10.4); MONOCYTES 6.3 % (2-11); NEUTROPHILS 71.8 % (40-80); PLATELET COUNT 133 10x3/uL (130-400); RBC 3.34 10x6/uL (4.20-6.10); RDW 13.9 % (11.5-14.5); WBC 3.3 10x3/uL (4.8-10.8)
[2020-01-13 06:13] LABS: MCV 94.9 fL (80.0-100.0)
[2020-01-13 06:43] LABS: ALBUMIN 1.7 g/dL (3.4-5.0); ANION GAP 14.4 mmol/L (8-16); BILIRUBIN - TOTAL 0.46 mg/dL (0.2-1.3); CALCIUM 7.6 mg/dL (8.5-10.1); CARBON DIOXIDE 20.5 mmol/L (21.0-32.0); CREATININE - SERUM 1.6 mg/dL (0.6-1.3); POTASSIUM - SERUM 3.9 mmol/L (3.5-5.1); PROTEIN - SERUM 5.4 g/dL (6.4-8.2)
--- NOTE | 2020-01-13 08:02 | NUR ---
RESTING IN BED, NO DISTRESS NOTED, GLUCERNA CONT AT 75 PER PEG, IV INFUSING AT KVO, TURNED PER STAFF, CONT TO MONITOR TEMPS
--- NOTE | 2020-01-13 10:16 | NUR ---
COVID SCREEN OBTAINED, PT PLACED IN AIRBORN ISOLATION, HOUSE SUP AWARE
--- NOTE | 2020-01-13 13:18 | NUR ---
REPORT CALLED TO DEVONTE
--- NOTE | 2020-01-13 20:30 | NUR ---
PT IN BED, EYES CLOSED, RESP EVEN AND UNLABORED, NO DISTRESS NOTED. CL IN REACH, SR UP X 2.
[2020-01-14 02:55] VITALS: BP 118/53
[2020-01-14 05:53] LABS: BASOPHILS 0 % (0-2); HEMATOCRIT 30.4 % (42.0-54.0); HEMOGLOBIN 10.2 g/dL (13.5-17.5); IMMATURE GRANULOCYTES 0.6 % (0-5); LYMPHOCYTES 22.9 % (15-50); MCHC 33.6 g/dL (31.0-37.0); MCV 95.3 fL (80.0-100.0); MEAN PLATELET VOLUME 10.5 fL (7.4-10.4); MONOCYTES 5.2 % (2-11); NEUTROPHILS 70.3 % (40-80); RBC 3.19 10x6/uL (4.20-6.10); WBC 3.1 10x3/uL (4.8-10.8)
[2020-01-14 06:02] LABS: PLATELET COUNT 88 10x3/uL (130-400)
[2020-01-14 06:34] LABS: ALBUMIN 1.6 g/dL (3.4-5.0); ANION GAP 12.4 mmol/L (8-16); BILIRUBIN - TOTAL 0.36 mg/dL (0.2-1.3); CALCIUM 7.2 mg/dL (8.5-10.1); CARBON DIOXIDE 21.8 mmol/L (21.0-32.0); CREATININE - SERUM 1.7 mg/dL (0.6-1.3); POTASSIUM - SERUM 4.2 mmol/L (3.5-5.1); PROTEIN - SERUM 4.9 g/dL (6.4-8.2)
[2020-01-14 10:22] VITALS: BP 129/80
--- NOTE | 2020-01-14 11:19 | NUR ---
PT UNRESPONSIVE. ADMINSITERED MEDICATIONS THROUGH PEG TUBE WITHOUT COMPLICATIONS. HOLDING PEG TUBE FEEDING AT THIS TIME D/T EXSESSIVE RESIDUAL. WILL REEVALUATE AND LUNCH. V/S STABLE AT THIS TIME. WILL CNT. TO MONITOR CLOSELY. CL IN REACH, SRX2. PT CLEAN/DRY.
--- NOTE | 2020-01-14 12:03 | MORECARE ---
CASE MANAGEMENT DISCHARGE SUMMARY PATIENT: JOSE BLOUNT UNIT: [id number] ADM DATE: 12/01/19 AGE: 79 : 42 SEX: M ROOM/BED: D.2131 AUTHOR: TANIYA,DOC PHYSICIAN: REFERRING PHYSICIAN: MIKE PATRICIO MD DATE OF SERVICE: 01/14/20 Discharge Plan Patient Name: JOSE BLOUNT Facility: [facility]:[place] : 1940 Planned Disposition: Anticipated Discharge Date: Discharge Date: Expected LOS: Initial Reviewer: [id number] Initial Review Date: 12/01/2019 Generated: 01/14/20 1:02 pm Comments DCP- Discharge Planning Updated by [id number]: Karyna Browne on 01/14/20 10:[address] CM attempted to call pt sister Saritha, at [phone]. CM unable to reach. Left voice message for return call. Karyna Browne DCP- Discharge Planning Updated by [id number]: Bettye Portillo on 01/09/20 7:[address] CALLED CARMELO AND LEFT MESSAGE FOR HER TO CALL ME, I WAS CALLING TO GIVE UPDATE DCP- Discharge Planning Updated by [id number]: Bettye Portillo on 01/08/20 7:[address] ALEXANDER SENT OFF, FEEDING STILL NEED TO BE STARTED. CM TO FOLLOW AND ASSIST NEEDED DCP- Discharge Planning Updated by [id number]: Bettye Portillo on 01/03/20 2:[address] PATIENT'S SISTERS ARE THINKING ABOUT [facility] AND WANT HIM TO HAVE HIS PEG TUBE, THEY WANT HIM TO HAVE SKILLED THERAPY TO SEE HOW MUCH HE WILL PROGRESS DCP- Discharge Planning Updated by [id number]: Bettye Portillo on 01/02/20 3:[address] Spoke with both sisters at length about their options. They would like for him to go to skilled and give him a chance to see what he can do with therapy. They are trying to decide between [facility] [place] and [facility]. I explained to them that the next question that will be is PEG tube. They are torn between what is the right choice. I told them to think about it and to call me in the morning. I spent over 1 hour speaking with them. They are very concerned and willing to help their brother DCP- Discharge Planning Updated by [email or web address]: Bettye Portillo on 01/02/20 11:[address] spoke with Carmelo they would like to meet with me for options of next plan of care. They will be coming to the hospital today DCP- Discharge Planning Updated by [id number]: Bettye Lindsey on 01/02/20 9:[address] ATTEMPTED TO CALL SISTER BUT GOT HER VOICEMAIL. WILL CALL AGAIN LATER DCP- Discharge Planning Updated by [id number]: Bettye Lindsey on 12/28/19 3:[address] updated Carmelo on patient's status. She stated that her and her sister will be here Tuesday and they are going to visit him together ( I got this approved with Dharmesh Curran) So they can make the decision on fci vs hospice. CM to follow and assist as needed DCP- Discharge Planning Updated by [id number]: Bettye Lindsey on 12/26/19 1:[address] SPOKE AT LENGTH WITH CARMELO (SISTER) ABOUT HER BROTHER AND HIS PLAN OF CARE. SHE HAD MULTIPLE QUESTIONS. I ATTEPMTED TO ANSWER THEM THE BEST I COULD. LOOKING BACK IN HIS CHART HE DID AMBULATE 4 FEET PRIOR TO HIS CODE ON 12/03 HIS SISTER SAID THAT HE WAS LIVING ON HIS OWN IN A SENIOR CITIZEN COMPLEX, IT WAS HIS NEIGHBOR WHO CALLED EMS BECAUSE HIS CALL LIGHT WAS FLASHING AT 0200. 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 SHE SAID THAT LAST YEAR HIS NUMBERS WERE "GOING UP". 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 CM SHARED THESE CONCERNS WITH DEBORAH . CM WILL CONTINUE TO FOLLOW AND ASSIST WITH PATIENT'S CARE. DCP- Discharge Planning Updated by [id number]: Bettye Portillo on 12/24/19 7:[address] REFERRAL SENT TO [facility] DCP- Discharge Planning Updated by [id number]: Claudette Taylor on 12/20/19 2:[address] Patient Name: JOSE BLOUNT Admission Status: Elective Accout number: [id number] Admission Date: 12-01-2019 : 1940 Admission Diagnosis:HEMOTHORAX Attending: ZACHARY Current LOS: 19 Anticipated DC Date: Planned Disposition: Primary Insurance: NOVASYSMCR Discharge Planning Comments: FAXED REFERRAL TO [facility]. [employer] Supervisor: Claudette Taylor DCP- Discharge Planning Updated by [id number]: Gretel Aparicio on 12/19/19 12:[address] A referral was faxed to [facility], spoke with Roxana ([phone]), who states the facility does not have any exterminator termite beds available. [facility] does have Skilled beds, but this patient looks, eventually, to require a jail bed. DCP- Discharge Planning Updated by [id number]: Karyna Browne on 12/18/19 7:[address] CM CALLED [facility] AND SPOKE WITH KHALIF FOR UPDATE ON APPROVAL. KHALIF STATES THEY ARE NOT IN NETWORK AND UNABLE TO ACCEPT PT. CM WILL CALL AROUND TO SNF TO SEE IF THEY ARE IN NETWORK. CM ATTEMPTED TO CALL CARMELO AT [phone] AND UNABLE TO LEAVE MESSAGE. KARYNA BROWNE MSN,RN,CM DCP- Discharge Planning Updated by [id number]: Karyna Browne on 12/18/19 7:[address] MCM CALLED SISTER AT [phone] TO DISCUSS UPDATE. MAILBOX IS FULL AND UNABLE TO TAKE MESSAGES. WILL CONTINUE TO REACH OUT TO DISCUSS DC PLANNING. KARYNA BROWNE DCP- Discharge Planning Updated by [id number]: Karyna Browne on 12/14/19 7:[address] CM CALLED [facility] AT [phone] AND SPOKE WITH KHALIF. STATES THEY ARE LOOKING TO SE IF THE PATIENTS INSURANCE IS IN NETWORK. STATES THEY WILL CALL CM BACK WITH DETAILS. KARYNA BROWNE DCP- Discharge Planning Updated by [id number]: Edel Ford on 12/13/19 1:[address] RECEIVED TELEPHONE MESSAGE FROM ARSENIO AT [facility]. TELEPHONED AT 1130. SHE WAS NOT AVAILABLE. TELEPHONED AT 1400. SHE WAS INTERESTED TO KNOW IF THE PATIENT COULD SIGN HIS OWN PAPERWORK. THE PRIMARY NURSE STATES PATIENT CAN ANSWER YES OR NO. HE IS NOT VERY VERBAL. HE IS HARD TO UNDERSTAND. ADVISED ARSENIO. DCP- Discharge Planning Updated by [id number]: Karyna Browne on 12/11/19 1:[address] CM SPOKE WITH KARMA FROM [facility]. KARMA STATES THEY ARE UNABLE TO ACCOMODATE HIS NEEDS. SENT REFERRAL TO [facility] PER REQUEST. KARYNA BROWNE DCP- Discharge Planning Updated by [id number]: Karyna Browne on 12/10/19 8:[address] SENT UPDATE TO KARMA AT [facility] TO REVIEW. KARMA STATES THEY HAVE A MALE BED AVAILIBILITY. WILL CONTINUE TO FOLLOW. DCP- Discharge Planning Updated by [id number]: Karyna Browne on 12/04/19 7:[address] Patient Name: JOSE BLOUNT Admission Status: Elective Accout number: [id number] Admission Date: 12-01-2019 : 1940 Admission Diagnosis: Attending: ZACHARY Current LOS: 3 Anticipated DC Date: Planned Disposition: Primary Insurance: [employer] Late entry. assessment completed 12/03/19 at 1430 Discharge Planning Comments: CM met with patient to complete initial dc planning assessment. PT confused. CM called sister Carmelo at [phone]. CM educated patient on the CM role and verbal consent given by patient to complete assessment. Patient lives at home alone and Carmelo feels he needs additional services, and she feels he can not live at home alone. Carmelo wanted CM to assist with placing patient in an assisted living facility. CM educated Carmelo on the services available for the patient. Carmelo states she feels the patient could benefit from rehab at SNF. EVONNE verbalized for [facility]. CM called Karma at [phone] and faxed referral. CM will continue to follow and will assist as needed with dc plans/needs. [employer] Supervisor: Karyna Browne DCPIA - Discharge Planning Initial Assessment Updated by [email or web address]: Karyna Browne on 12/04/19 7:50 am * Is the patient Alert and Oriented? No * Preadmission Environment Home Alone * Additional services required to return to the preadmission environment? Yes * Can the patient safely return to the preadmission environment? No * Has this patient been hospitalized within the prior 30 days at any hospital? No Coverage Notice Reviewer: [id number] - Karyna Browne Notice Issued Date-Time: 12/03/2019 15:30 Notice Type: Patient Choice Letter Notice Delivered To: Family Member Relationship to Patient: Sister Pegger Name: Carmelo Benjamin Delivery Method: PHONE - Phone Johanna Days: Prior Verbal Notification: Recipient Understood Notice: Yes Recipient Signature: Med Rec Note Co-signed by Attending: Coverage Notice Comment: evonne verbalized for slim Ann DP export: 01/09/20 7:49 a Patient Name: JOSE BLOUNT Page [phone] at 1203 All edits/amendments must be made on the electronic document DICTATION DATE: 01/14/201201 CLINICAL BIOSTATISTICIAN: YANG 01/14/201201 RPT#: [id number] DC DATE: STATUS: ADM IN [facility] [address] [place] [address] END OF REPORT
[2020-01-14 12:12] LABS: PLATELET ESTIMATE DECREASED
[2020-01-14 12:49] VITALS: BP 122/61
--- NOTE | 2020-01-14 13:04 | NUR ---
PT CONDITION WORSENING. MODELING NOTED ON FEET. CONTINUED REIDUAL IN FEEDING TUBE. ELEIVATED TEMPERATURE (WILL TREAT). RESPIRATIONS ELIVATED. SPOKE WITH FAMILY REGARDING CODE STATUS, CONFIRMED MEDCODE ONLY, INFORMED FAMILY OF PTS DECLINING CONDITION AND DISCUSSED POSSIBILITY OF BECOMING A DNR WITH HOSPICE CARE. FAMILY MEMBER STATED TO LEAVE THINGS IS AT THIS TIME, BUT THAT SHE WOULD CALL ME BACK SHORLTY AFTER SPEAKING WITH THE OTHER FAMILY MEMBERS. WILL CNT. TO MONITOR. CL IN REACH, SRX2.
--- NOTE | 2020-01-14 14:40 | NUR ---
SPOKE WITH BOTH OF PTS SISTERS. THEY AGREED TO MAKE PT A DNR AND TO HAVE HIM EVALUATED FOR HOSPICE. PTS CONDITION UNCHANGED. CONSULTED HOSPICE ([facility]). CM SPOKE WITH HOSPICE NURSE, TO BE EVAULATED. FAMILY MEMBERS REQUESTING VISITATION. SPOKE WITH MACHINE CONTAINER WASHER NALINI, POST HOSPICE ADMINISTION VISITATION WILL BE ALLOWED UNDER THE FOLLOWING CONDITIONS: ONE FAMILY MEMBER A TIME, THE VISITOR MUST FOLLOW ALL ISOLATION GOWNING PROTOCOLS. IDT MEMBERS INFORMED. CL IN REACH, SRX2. PT CONDITONED UNCHANGED FROM PREVIOUS NOTES.
--- NOTE | 2020-01-14 14:55 | MORECARE ---
CASE MANAGEMENT DISCHARGE SUMMARY PATIENT: JOSE BLOUNT UNIT: [id number] ADM DATE: 12/01/19 AGE: 79 : 42 SEX: M ROOM/BED: D.213 AUTHOR: TANIYA,DOC PHYSICIAN: REFERRING PHYSICIAN: MIKE PATRICIO MD DATE OF SERVICE: 01/14/20 Discharge Plan Patient Name: JOSE BLOUNT Facility: [facility]:[place] : 1940 Planned Disposition: Anticipated Discharge Date: Discharge Date: Expected LOS: Initial Reviewer: [email or web address] Initial Review Date: 12/01/2019 Generated: 01/14/20 3:54 pm Comments DCP- Discharge Planning Updated by [id number]: Karyna Browne on 01/14/20 10:[address] CM attempted to call pt sister Saritha, at [phone]. CM unable to reach. Left voice message for return call. Karyna Browne DCP- Discharge Planning Updated by [id number]: Bettye Portillo on 01/09/20 7:[address] CALLED CARMELO AND LEFT MESSAGE FOR HER TO CALL ME, I WAS CALLING TO GIVE UPDATE DCP- Discharge Planning Updated by [id number]: Bettye Portillo on 01/08/20 7:[address] ALEXANDER SENT OFF, FEEDING STILL NEED TO BE STARTED. CM TO FOLLOW AND ASSIST NEEDED DCP- Discharge Planning Updated by [id number]: Bettye Portillo on 01/03/20 2:[address] PATIENT'S SISTERS ARE THINKING ABOUT [facility] AND WANT HIM TO HAVE HIS PEG TUBE, THEY WANT HIM TO HAVE SKILLED THERAPY TO SEE HOW MUCH HE WILL PROGRESS DCP- Discharge Planning Updated by [id number]: Bettye Portillo on 01/02/20 3:[address] Spoke with both sisters at length about their options. They would like for him to go to skilled and give him a chance to see what he can do with therapy. They are trying to decide between [facility] [place] and [facility]. I explained to them that the next question that will be is PEG tube. They are torn between what is the right choice. I told them to think about it and to call me in the morning. I spent over 1 hour speaking with them. They are very concerned and willing to help their brother DCP- Discharge Planning Updated by [id number]: Bettye Portillo on 01/02/20 11:[address] spoke with Carmelo they would like to meet with me for options of next plan of care. They will be coming to the hospital today DCP- Discharge Planning Updated by [id number]: Bettye Lindsey on 01/02/20 9:[address] ATTEMPTED TO CALL SISTER BUT GOT HER VOICEMAIL. WILL CALL AGAIN LATER DCP- Discharge Planning Updated by [id number]: Bettye Lindsey on 12/28/19 3:[address] updated Carmelo on patient's status. She stated that her and her sister will be here Tuesday and they are going to visit him together ( I got this approved with Dharmesh Curran) So they can make the decision on half-way vs hospice. CM to follow and assist as needed DCP- Discharge Planning Updated by [id number]: Bettye Lindsey on 12/26/19 1:[address] SPOKE AT LENGTH WITH CARMELO (SISTER) ABOUT HER BROTHER AND HIS PLAN OF CARE. SHE HAD MULTIPLE QUESTIONS. I ATTEPMTED TO ANSWER THEM THE BEST I COULD. LOOKING BACK IN HIS CHART HE DID AMBULATE 4 FEET PRIOR TO HIS CODE ON 12/03 HIS SISTER SAID THAT HE WAS LIVING ON HIS OWN IN A SENIOR CITIZEN COMPLEX, IT WAS HIS NEIGHBOR WHO CALLED EMS BECAUSE HIS CALL LIGHT WAS FLASHING AT 0200. 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 SHE SAID THAT LAST YEAR HIS NUMBERS WERE "GOING UP". 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 CM SHARED THESE CONCERNS WITH DEBORAH . CM WILL CONTINUE TO FOLLOW AND ASSIST WITH PATIENT'S CARE. DCP- Discharge Planning Updated by [id number]: Bettye Portillo on 12/24/19 7:[address] REFERRAL SENT TO [facility] DCP- Discharge Planning Updated by [id number]: Claudette Taylor on 12/20/19 2:[address] Patient Name: JOSE BLOUNT Admission Status: Elective Accout number: [id number] Admission Date: 12-01-2019 : 1940 Admission Diagnosis:HEMOTHORAX Attending: ZACHARY Current LOS: 19 Anticipated DC Date: Planned Disposition: Primary Insurance: NOVASYSMCR Discharge Planning Comments: FAXED REFERRAL TO [facility]. Finger Lift Operator: Claudette Taylor DCP- Discharge Planning Updated by [id number]: Gretel Aparicio on 12/19/19 12:[address] A referral was faxed to [facility], spoke with Roxana ([phone]), who states the facility does not have any intermediate teacher beds available. [facility] does have Skilled beds, but this patient looks, eventually, to require a skilled nursing bed. DCP- Discharge Planning Updated by [id number]: Karyna Browne on 12/18/19 7:[address] CM CALLED [facility] AND SPOKE WITH KHALIF FOR UPDATE ON APPROVAL. KHALIF STATES THEY ARE NOT IN NETWORK AND UNABLE TO ACCEPT PT. CM WILL CALL AROUND TO SNF TO SEE IF THEY ARE IN NETWORK. CM ATTEMPTED TO CALL CARMELO AT [phone] AND UNABLE TO LEAVE MESSAGE. KARYNA BROWNE MSN,RN,CM DCP- Discharge Planning Updated by [id number]: Karyna Browne on 12/18/19 7:[address] MCM CALLED SISTER AT [phone] TO DISCUSS UPDATE. MAILBOX IS FULL AND UNABLE TO TAKE MESSAGES. WILL CONTINUE TO REACH OUT TO DISCUSS DC PLANNING. KARYNA BROWNE DCP- Discharge Planning Updated by [id number]: Karyna Browne on 12/14/19 7:[address] CM CALLED [facility] AT [phone] AND SPOKE WITH KHALIF. STATES THEY ARE LOOKING TO SE IF THE PATIENTS INSURANCE IS IN NETWORK. STATES THEY WILL CALL CM BACK WITH DETAILS. KARYNA BROWNE DCP- Discharge Planning Updated by [id number]: Edel Ford on 12/13/19 1:[address] RECEIVED TELEPHONE MESSAGE FROM ARSENIO AT [facility]. TELEPHONED AT 1130. SHE WAS NOT AVAILABLE. TELEPHONED AT 1400. SHE WAS INTERESTED TO KNOW IF THE PATIENT COULD SIGN HIS OWN PAPERWORK. THE PRIMARY NURSE STATES PATIENT CAN ANSWER YES OR NO. HE IS NOT VERY VERBAL. HE IS HARD TO UNDERSTAND. ADVISED ARSENIO. DCP- Discharge Planning Updated by [id number]: Karyna Browne on 12/11/19 1:[address] CM SPOKE WITH KARMA FROM [facility]. KARMA STATES THEY ARE UNABLE TO ACCOMODATE HIS NEEDS. SENT REFERRAL TO [facility] PER REQUEST. KARYNA BROWNE DCP- Discharge Planning Updated by [id number]: Karyna Browne on 12/10/19 8:[address] SENT UPDATE TO KARMA AT [place] TO REVIEW. KARMA STATES THEY HAVE A MALE BED AVAILIBILITY. WILL CONTINUE TO FOLLOW. DCP- Discharge Planning Updated by [id number]: Karyna Browne on 12/04/19 7:[address] Patient Name: JOSE BLOUNT Admission Status: Elective Accout number: [id number] Admission Date: 12-01-2019 : 1940 Admission Diagnosis: Attending: ZACHARY Current LOS: 3 Anticipated DC Date: Planned Disposition: Primary Insurance: [employer] Late entry. assessment completed 12/03/19 at 1430 Discharge Planning Comments: CM met with patient to complete initial dc planning assessment. PT confused. CM called sister Carmelo at [phone]. CM educated patient on the CM role and verbal consent given by patient to complete assessment. Patient lives at home alone and Carmelo feels he needs additional services, and she feels he can not live at home alone. Carmelo wanted CM to assist with placing patient in an assisted living facility. CM educated Carmelo on the services available for the patient. Carmelo states she feels the patient could benefit from rehab at SNF. EVONNE verbalized for [facility]. CM called [facility] at [phone] and faxed referral. CM will continue to follow and will assist as needed with dc plans/needs. Finger Lift Operator: Karyna Browne DCPIA - Discharge Planning Initial Assessment Updated by [id number]: Karyna Browne on 12/04/19 7:50 am * Is the patient Alert and Oriented? No * Preadmission Environment Home Alone * Additional services required to return to the preadmission environment? Yes * Can the patient safely return to the preadmission environment? No * Has this patient been hospitalized within the prior 30 days at any hospital? No External Providers External Provider: [facility](provides inp Next Contact Date: Service Request Date: Service Type: Resolution: Reviewer: Comments: Coverage Notice Reviewer: [id number] - Karyna Browne Notice Issued Date-Time: 12/03/2019 15:30 Notice Type: Patient Choice Letter Notice Delivered To: Family Member Relationship to Patient: Sister Sales Representative Sales Manager Name: Carmelo Benjamin Delivery Method: PHONE - Phone Johanna Days: Prior Verbal Notification: Recipient Understood Notice: Yes Recipient Signature: Med Rec Note Co-signed by Attending: Coverage Notice Comment: evonne verbalized for slim Ann DP export: 01/14/20 11:03 a Patient Name: JOSE BLOUNT Page [id number] at 1455 All edits/amendments must be made on the electronic document DICTATION DATE: 01/14/200 CORRECTIONAL COUNSELOR: YANG 01/14/20 1454 RPT#: [id number] DC DATE: STATUS: ADM IN [facility] [address] [place] [address] END OF REPORT
[2020-01-14 15:12] VITALS: BP 129/61
--- NOTE | 2020-01-14 18:26 | MORECARE ---
CASE MANAGEMENT DISCHARGE SUMMARY PATIENT: JOSE BLOUNT UNIT: [id number] ADM DATE: 12/01/19 AGE: 79 : 42 SEX: M ROOM/BED: D.2138 AUTHOR: TANIYADOC PHYSICIAN: REFERRING PHYSICIAN: MIKE PATRICIO MD DATE OF SERVICE: 01/14/20 Discharge Plan Patient Name: JOSE BLOUNT Facility: [facility]:[place] : 1940 Planned Disposition: Anticipated Discharge Date: Discharge Date: Expected LOS: Initial Reviewer: [email or web address] Initial Review Date: 12/01/2019 Generated: 01/14/20 7:25 pm Comments DCP- Discharge Planning Updated by [id number]: Karyna Browne on 01/14/20 5:[address] CM received call back from Saritha (sister). CM spoke to sister about condition. Her wishes is to have [facility] eval for GIP. CM called Haseeb at [phone] at [facility] to evaluation and sent clinicals. Niecy from [facility] came to evaluate, and stated he did not meet criteria at this time. She states that CM or nursing can have hospice revaluate if the patients condition worsens. Karyna Browne DCP- Discharge Planning Updated by [id number]: Karyna Browne on 01/14/20 10:[address] CM attempted to call pt sister Saritha, at [phone]. CM unable to reach. Left voice message for return call. Karyna Browne DCP- Discharge Planning Updated by [id number]: Bettye Portillo on 01/09/20 7:[address] CALLED CARMELO AND LEFT MESSAGE FOR HER TO CALL ME, I WAS CALLING TO GIVE UPDATE DCP- Discharge Planning Updated by [id number]: Bettye Portillo on 01/08/20 7:[address] [facility] SENT OFF, FEEDING STILL NEED TO BE STARTED. CM TO FOLLOW AND ASSIST NEEDED DCP- Discharge Planning Updated by [id number]: Bettye Portillo on 01/03/20 2:[address] PATIENT'S SISTERS ARE THINKING ABOUT [facility] AND WANT HIM TO HAVE HIS PEG TUBE, THEY WANT HIM TO HAVE SKILLED THERAPY TO SEE HOW MUCH HE WILL PROGRESS DCP- Discharge Planning Updated by [id number]: Bettye Portillo on 01/02/20 3:[address] Spoke with both sisters at length about their options. They would like for him to go to skilled and give him a chance to see what he can do with therapy. They are trying to decide between [facility] in [place] and [facility]. I explained to them that the next question that will be is PEG tube. They are torn between what is the right choice. I told them to think about it and to call me in the morning. I spent over 1 hour speaking with them. They are very concerned and willing to help their brother DCP- Discharge Planning Updated by [id number]: Bettye Portillo on 01/02/20 11:[address] spoke with Carmelo they would like to meet with me for options of next plan of care. They will be coming to the hospital today DCP- Discharge Planning Updated by [id number]: Bettye Portillo on 01/02/20 9:[address] ATTEMPTED TO CALL SISTER BUT GOT HER VOICEMAIL. WILL CALL AGAIN LATER DCP- Discharge Planning Updated by [id number]: Bettye Portillo on 12/28/19 3:[address] updated Carmelo on patient's status. She stated that her and her sister will be here Tuesday and they are going to visit him together ( I got this approved with Dharmesh Curran) So they can make the decision on snf vs hospice. CM to follow and assist as needed DCP- Discharge Planning Updated by [id number]: Bettye Portillo on 12/26/19 1:[address] SPOKE AT LENGTH WITH CARMELO (SISTER) ABOUT HER BROTHER AND HIS PLAN OF CARE. SHE HAD MULTIPLE QUESTIONS. I ATTEPMTED TO ANSWER THEM THE BEST I COULD. LOOKING BACK IN HIS CHART HE DID AMBULATE 4 FEET PRIOR TO HIS CODE ON 12/03 HIS SISTER SAID THAT HE WAS LIVING ON HIS OWN IN A SENIOR CITIZEN COMPLEX, IT WAS HIS NEIGHBOR WHO CALLED EMS BECAUSE HIS CALL LIGHT WAS FLASHING AT 0200. 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 SHE SAID THAT LAST YEAR HIS NUMBERS WERE "GOING UP". 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 CM SHARED THESE CONCERNS WITH DEBORAH . CM WILL CONTINUE TO FOLLOW AND ASSIST WITH PATIENT'S CARE. DCP- Discharge Planning Updated by [id number]: Bettye Portillo on 12/24/19 7:[address] REFERRAL SENT TO [facility] DCP- Discharge Planning Updated by [id number]: Claudette Taylor on 12/20/19 2:[address] Patient Name: JOSE BLOUNT Admission Status: Elective Accout number: [id number] Admission Date: 12-01-2019 : 1940 Admission Diagnosis:HEMOTHORAX Attending: ZACHARY Current LOS: 19 Anticipated DC Date: Planned Disposition: [facility] Discharge Planning Comments: FAXED REFERRAL TO [facility]. Chief Of Safety And Protection: Claudette Taylor DCP- Discharge Planning Updated by [id number]: Gretel Aparicio on 12/19/19 12:[address] A referral was faxed to [facility], spoke with Roxana ([phone]), who states the facility does not have any long-term beds available. [facility] does have Skilled beds, but this patient looks, eventually, to require a remote computer terminal operator bed. DCP- Discharge Planning Updated by [id number]: Karyna Browne on 12/18/19 7:[address] CM CALLED [facility] AND SPOKE WITH KHALIF FOR UPDATE ON APPROVAL. [facility] STATES THEY ARE NOT IN NETWORK AND UNABLE TO ACCEPT PT. CM WILL CALL AROUND TO SNF TO SEE IF THEY ARE IN NETWORK. CM ATTEMPTED TO CALL CARMELO AT [phone] AND UNABLE TO LEAVE MESSAGE. KARYNA BROWNE MSN,RN,CM DCP- Discharge Planning Updated by [id number]: Karyna Browne on 12/18/19 7:[address] MCM CALLED SISTER AT [phone] TO DISCUSS UPDATE. MAILBOX IS FULL AND UNABLE TO TAKE MESSAGES. WILL CONTINUE TO REACH OUT TO DISCUSS DC PLANNING. KARYNA BROWNE DCP- Discharge Planning Updated by [id number]: Karyna Browne on 12/14/19 7:[address] CM CALLED [facility] AT [phone] AND SPOKE WITH KHALIF. STATES THEY ARE LOOKING TO IF THE PATIENTS INSURANCE IS IN NETWORK. STATES THEY WILL CALL CM BACK WITH DETAILS. KARYNA BROWNE DCP- Discharge Planning Updated by [id number]: Edel Ford on 12/13/19 1:[address] RECEIVED TELEPHONE MESSAGE FROM ARSENIO AT [facility]. TELEPHONED AT 1130. SHE WAS NOT AVAILABLE. TELEPHONED AT 1400. SHE WAS INTERESTED TO KNOW IF THE PATIENT COULD SIGN HIS OWN PAPERWORK. THE PRIMARY NURSE STATES PATIENT CAN ANSWER YES OR NO. HE IS NOT VERY VERBAL. HE IS HARD TO UNDERSTAND. ADVISED ARSENIO. DCP- Discharge Planning Updated by [id number]: Karyna Browne on 12/11/19 1:[address] CM SPOKE WITH KARMA FROM [facility]. KARMA STATES THEY ARE UNABLE TO ACCOMODATE HIS NEEDS. SENT REFERRAL TO [facility] PER REQUEST. KARYNA BROWNE DCP- Discharge Planning Updated by [id number]: Karyna Browne on 12/10/19 8:[address] SENT UPDATE TO KARMA AT [facility] TO REVIEW. KARMA STATES THEY HAVE A MALE BED AVAILIBILITY. WILL CONTINUE TO FOLLOW. DCP- Discharge Planning Updated by [id number]: Karyna Browne on 12/04/19 7:[address] Patient Name: JOSE BLOUNT Admission Status: Elective Accout number: [id number] Admission Date: 12-01-2019 : 1940 Admission Diagnosis: Attending: ZACHARY Current LOS: 3 Anticipated DC Date: Planned Disposition: [facility] Late entry. assessment completed 12/03/19 at 1430 Discharge Planning Comments: CM met with patient to complete initial dc planning assessment. PT confused. CM called sister Carmelo at [phone]. CM educated patient on the CM role and verbal consent given by patient to complete assessment. Patient lives at home alone and Carmelo feels he needs additional services, and she feels he can not live at home alone. Carmelo wanted CM to assist with placing patient in an assisted living facility. CM educated Carmelo on the services available for the patient. Carmelo states she feels the patient could benefit from rehab at SNF. EVONNE verbalized for [facility]. CM called [facility]ma at [phone] and faxed referral. CM will continue to follow and will assist as needed with dc plans/needs. Chief Of Safety And Protection: Karyna Browne DCPIA - Discharge Planning Initial Assessment Updated by [id number]: Karyna Browne on 12/04/19 7:50 am * Is the patient Alert and Oriented? No * Preadmission Environment Home Alone * Additional services required to return to the preadmission environment? Yes * Can the patient safely return to the preadmission environment? No * Has this patient been hospitalized within the prior 30 days at any hospital? No Coverage Notice Reviewer: [id number] - Karyna Browne Notice Issued Date-Time: 12/03/2019 15:30 Notice Type: Patient Choice Letter Notice Delivered To: Family Member Relationship to Patient: Sister Manager Infrastructure Name: Carmelo Benjamin Delivery Method: PHONE - Phone Johanna Days: Prior Verbal Notification: Recipient Understood Notice: Yes Recipient Signature: Med Rec Note Co-signed by Attending: Coverage Notice Comment: evonne verbalized for slim Ann DP export: 01/14/20 1:55 p Patient Name: JOSE BLOUNT Page [id number] at 1826 All edits/amendments must be made on the electronic document DICTATION DATE: 01/14/201824 PUMPER GAUGER APPRENTICE: YANG 01/14/201824 RPT#: [id number] DC DATE: STATUS: ADM IN [facility] [address] [place] [address] END OF REPORT
[2020-01-14 20:00] VITALS: BP 133/62
--- NOTE | 2020-01-14 22:27 | NUR ---
ADMININSTERED PM MEDICATIONS VIA PEG TUBE. FLUSHED WITH 40ML BEFORE AND AFTER. CHECKED RESIDUAL BEFORE ADMININSTERING MEDICATIONS AND RECEIVED NO RESIDUAL RECORDED. BEGAN TUBE FEEDING GLUCERNA 1.0 AT A SLOW CONTINOUS GRAVITY FEED R/T HAVING SHORTAGE OF KANGAROO PUMPS AND TUBING. WILL RECHECK RESIDUAL AND FLUSH PER PROTOCOL. WILL CTM.
[2020-01-15] VITALS: BP 114/60
[2020-01-15 04:00] VITALS: BP 127/70
[2020-01-15 06:14] LABS: BASOPHILS 0.4 % (0-2); EOSINOPHILS 0 % (0-7); HEMATOCRIT 32.6 % (42.0-54.0); HEMOGLOBIN 10.6 g/dL (13.5-17.5); IMMATURE GRANULOCYTES 0.4 % (0-5); LYMPHOCYTES 16.3 % (15-50); MCH 31.4 pg (26.0-34.0); MCHC 32.5 g/dL (31.0-37.0); MCV 96.4 fL (80.0-100.0); MEAN PLATELET VOLUME 10.8 fL (7.4-10.4); MONOCYTES 7.4 % (2-11); NEUTROPHILS 75.5 % (40-80); RBC 3.38 10x6/uL (4.20-6.10); WBC 2.8 10x3/uL (4.8-10.8)
[2020-01-15 06:17] LABS: ALBUMIN 1.7 g/dL (3.4-5.0); ANION GAP 15.2 mmol/L (8-16); BILIRUBIN - TOTAL 0.41 mg/dL (0.2-1.3); CALCIUM 7.5 mg/dL (8.5-10.1); CARBON DIOXIDE 20.6 mmol/L (21.0-32.0); POTASSIUM - SERUM 4.8 mmol/L (3.5-5.1); PROTEIN - SERUM 5.7 g/dL (6.4-8.2)
[2020-01-15 06:18] LABS: PLATELET COUNT 143 10x3/uL (130-400)
[2020-01-15 06:19] LABS: CREATININE - SERUM 2.2 mg/dL (0.6-1.3)
--- NOTE | 2020-01-15 07:23 | NUR ---
LYING IN BED W/EYES OPEN, RESP IN ROOM ASSISTING PT W/BREATH TX'S--DECREASED 02 TO 2L AT THIS TIME--NO DISTRESS NOTED.
[2020-01-15 08:22] VITALS: BP 97/53
[2020-01-15 11:12] VITALS: BP 114/59
--- NOTE | 2020-01-15 14:40 | NUR ---
Nutrition Follow-up: Pt in droplet isolation; covid-19+. Chart reviewed. Noted pt made DNR and family has requested a hospice consult. Nursing reports pt tolerating TF gravity drip. Diet: Glucerna 1.0 - goal rate 75 mL/hr + H2O flushes 75 mL q 4 hrs WT: 196.2# (01/08) Labs noted: Glu 230, Na 132, Ca 7.5, Alb 1.7 -TF as tolerated. Rate of 75 mL/hr is ~18 drops per minute using gravity feeding. [place] feeding rates chart provided to nurse emergency managerBruna. -Monitor wt. -RD following.
[2020-01-15 16:32] VITALS: BP 141/72
[2020-01-15 20:00] VITALS: BP 140/50
--- NOTE | 2020-01-15 22:02 | MORECARE ---
CASE MANAGEMENT DISCHARGE SUMMARY PATIENT: JOSE BLOUNT UNIT: [id number] ADM DATE: 12/01/19 AGE: 79 : 42 SEX: M ROOM/BED: D.0929 AUTHOR: TANIYADOC PHYSICIAN: REFERRING PHYSICIAN: MIKE PATRICIO MD DATE OF SERVICE: 01/15/20 Discharge Plan Patient Name: JOSE BLOUNT Facility: [facility]:[place] : 1940 Planned Disposition: Anticipated Discharge Date: Discharge Date: Expected LOS: Initial Reviewer: [id number] Initial Review Date: 12/01/2019 Generated: 01/15/20 11:01 pm Comments DCP- Discharge Planning Updated by [id number]: Karyna Browne on 01/15/20 8:[address] CM met with Niecy from [facility] about pt condition. Niecy states the patient is doing better clinically and does not meet GIP criteria. States she will revaluate as needed. CM will send referral to [facility] for another evaluation. Karyna Browne DCP- Discharge Planning Updated by [id number]: Karyna Browne on 01/14/20 5:[address] CM received call back from Saritah (sister). CM spoke to sister about condition. Her wishes is to have [facility] eval for GIP. CM called Haseeb at [phone] at [facility] to evaluation and sent clinicals. Niecy from [facility] came to evaluate, and stated he did not meet criteria at this time. She states that CM or nursing can have hospice revaluate if the patients condition worsens. Karyna Browne DCP- Discharge Planning Updated by [id number]: Karyna Browne on 01/14/20 10:[address] CM attempted to call pt sister Saritha, at [phone]. CM unable to reach. Left voice message for return call. Karyna Browne DCP- Discharge Planning Updated by [id number]: Bettye Portillo on 01/09/20 7:[address] CALLED CARMELO AND LEFT MESSAGE FOR HER TO CALL ME, I WAS CALLING TO GIVE UPDATE DCP- Discharge Planning Updated by [id number]: Bettye Portillo on 01/08/20 7:[address] [facility] SENT OFF, FEEDING STILL NEED TO BE STARTED. CM TO FOLLOW AND ASSIST NEEDED DCP- Discharge Planning Updated by [id number]: Bettye Portillo on 01/03/20 2:[address] PATIENT'S SISTERS ARE THINKING ABOUT [facility] AND WANT HIM TO HAVE HIS PEG TUBE, THEY WANT HIM TO HAVE SKILLED THERAPY TO SEE HOW MUCH HE WILL PROGRESS DCP- Discharge Planning Updated by [id number]: Bettye Portillo on 01/02/20 3:[address] Spoke with both sisters at length about their options. They would like for him to go to [facility] and give him a chance to see what he can do with therapy. They are trying to decide between [facility] [place] and [facility]. I explained to them that the next question that will be is PEG tube. They are torn between what is the right choice. I told them to think about it and to call me in the morning. I spent over 1 hour speaking with them. They are very concerned and willing to help their brother DCP- Discharge Planning Updated by [id number]: Bettye Portillo on 01/02/20 11:[address] spoke with Carmelo they would like to meet with me for options of next plan of care. They will be coming to the hospital today DCP- Discharge Planning Updated by [id number]: Bettye Portillo on 01/02/20 9:[address] ATTEMPTED TO CALL SISTER BUT GOT HER VOICEMAIL. WILL CALL AGAIN LATER DCP- Discharge Planning Updated by [id number]: Bettye Portillo on 12/28/19 3:[address] updated Carmelo on patient's status. She stated that her and her sister will be here Tuesday and they are going to visit him together ( I got this approved with Dharmesh Curran) So they can make the decision on senior care vs hospice. CM to follow and assist as needed DCP- Discharge Planning Updated by [id number]: Bettye Portillo on 12/26/19 1:[address] SPOKE AT LENGTH WITH CARMELO (SISTER) ABOUT HER BROTHER AND HIS PLAN OF CARE. SHE HAD MULTIPLE QUESTIONS. I ATTEPMTED TO ANSWER THEM THE BEST I COULD. LOOKING BACK IN HIS CHART HE DID AMBULATE 4 FEET PRIOR TO HIS CODE ON 12/03 HIS SISTER SAID THAT HE WAS LIVING ON HIS OWN IN A SENIOR CITIZEN COMPLEX, IT WAS HIS NEIGHBOR WHO CALLED EMS BECAUSE HIS CALL LIGHT WAS FLASHING AT 0200. 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 SHE SAID THAT LAST YEAR HIS NUMBERS WERE "GOING UP". 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 CM SHARED THESE CONCERNS WITH REZAN . CM WILL CONTINUE TO FOLLOW AND ASSIST WITH PATIENT'S CARE. DCP- Discharge Planning Updated by [id number]: Bettye Portillo on 12/24/19 7:[address]FERRAL SENT TO [facility] DCP- Discharge Planning Updated by [id number]: Claudette Taylor on 12/20/19 2:[address] Patient Name: JOSE BLOUNT Admission Status: Elective Accout number: [id number] Admission Date: 12-01-2019 : 1940 Admission Diagnosis:HEMOTHORAX Attending: ZACHARY Current LOS: 19 Anticipated DC Date: Planned Disposition: Primary Insurance: [employer] Discharge Planning Comments: FAXED REFERRAL TO [facility]. Executive Asst: Claudette Taylor DCP- Discharge Planning Updated by [id number]: Gretel Aparicio on 12/19/19 12:[address] A referral was faxed to [facility], spoke with Roxana ([phone]), who states the facility does not have any fpc beds available. [facility] does have Skilled beds, but this patient looks, eventually, to require a fpc bed. DCP- Discharge Planning Updated by [id number]: Karyna Browne on 12/18/19 7:[address] CM CALLED [facility] AND SPOKE WITH KHALIF FOR UPDATE ON APPROVAL. KHALIF STATES THEY ARE NOT IN NETWORK AND UNABLE TO ACCEPT PT. CM WILL CALL AROUND TO SNF TO SEE IF THEY ARE IN NETWORK. CM ATTEMPTED TO CALL CARMELO AT [phone] AND UNABLE TO LEAVE MESSAGE. KARYNA ISSA,RN,CM DCP- Discharge Planning Updated by [id number]: Karyna Browne on 12/18/19 7:[address] MCM CALLED SISTER AT [phone] TO DISCUSS UPDATE. MAILBOX IS FULL AND UNABLE TO TAKE MESSAGES. WILL CONTINUE TO REACH OUT TO DISCUSS DC PLANNING. KARYNA BROWNE DCP- Discharge Planning Updated by [id number]: Karyna Browne on 12/14/19 7:[address] CM CALLED [facility] AT [phone] AND SPOKE WITH KHALIF. STATES THEY ARE LOOKING TO SE IF THE PATIENTS INSURANCE IS IN NETWORK. STATES THEY WILL CALL CM BACK WITH DETAILS. KARYNA BROWNE DCP- Discharge Planning Updated by [id number]: Edel Logan on 12/13/19 1:[address] RECEIVED TELEPHONE MESSAGE FROM ARSENIO AT [facility]. TELEPHONED AT 1130. SHE WAS NOT AVAILABLE. TELEPHONED AT 1400. SHE WAS INTERESTED TO KNOW IF THE PATIENT COULD SIGN HIS OWN PAPERWORK. THE PRIMARY NURSE STATES PATIENT CAN ANSWER YES OR NO. HE IS NOT VERY VERBAL. HE IS HARD TO UNDERSTAND. ADVISED ARSENIO. DCP- Discharge Planning Updated by [id number]: Karyna Browne on 12/11/19 1:[address] CM SPOKE WITH AKRMA FROM [facility]. KARMA STATES THEY ARE UNABLE TO ACCOMODATE HIS NEEDS. SENT REFERRAL TO [facility] PER REQUEST. KARYNA BROWNE DCP- Discharge Planning Updated by [id number]: Karyna Browne on 12/10/19 8:[address] SENT UPDATE TO KARMA AT [facility] TO REVIEW. KARMA STATES THEY HAVE A MALE BED AVAILIBILITY. WILL CONTINUE TO FOLLOW. DCP- Discharge Planning Updated by [id number]: Karyna Browne on 12/04/19 7:[address] Patient Name: JOSE BLOUNT Admission Status: Elective Accout number: [id number] Admission Date: 12-01-2019 : 1940 Admission Diagnosis: Attending: ZACHARY Current LOS: 3 Anticipated DC Date: Planned Disposition: Primary Insurance: [facility] Late entry. assessment completed 12/03/19 at 1430 Discharge Planning Comments: CM met with patient to complete initial dc planning assessment. PT confused. CM called sister Carmelo at [phone]. CM educated patient on the CM role and verbal consent given by patient to complete assessment. Patient lives at home alone and Carmelo feels he needs additional services, and she feels he can not live at home alone. Carmelo wanted CM to assist with placing patient in an assisted living facility. CM educated Carmelo on the services available for the patient. Carmelo states she feels the patient could benefit from rehab at SNF. EVONNE verbalized for [facility]. CM called [facility] at [phone] and faxed referral. CM will continue to follow and will assist as needed with dc plans/needs. Executive Asst: Karyna Browne DCPIA - Discharge Planning Initial Assessment Updated by [id number]: Karyna Browne on 12/04/19 7:50 am * Is the patient Alert and Oriented? No * Preadmission Environment Home Alone * Additional services required to return to the preadmission environment? Yes * Can the patient safely return to the preadmission environment? No * Has this patient been hospitalized within the prior 30 days at any hospital? No Coverage Notice Reviewer: [id number] - Karyna Browne Notice Issued Date-Time: 12/03/2019 15:30 Notice Type: Patient Choice Letter Notice Delivered To: Family Member Relationship to Patient: Sister Mushroom Picker Name: Carmelo Benjamin Delivery Method: PHONE - Phone Johanna Days: Prior Verbal Notification: Recipient Understood Notice: Yes Recipient Signature: Med Rec Note Co-signed by Attending: Coverage Notice Comment: evonne verbalized for [facility] Last DP export: 01/14/20 5:26 p Patient Name: JOSE BLOUNT Page 31843 at 2202 All edits/amendments must be made on the electronic document DICTATION DATE: 01/15/202200 SALES SUPPORT ASSOCIATE: YANG 01/15/202200 RPT#: [id number] DC DATE: STATUS: ADM IN [facility] [address] [place] [address] END OF REPORT
[2020-01-16] VITALS: BP 115/42
[2020-01-16 04:00] VITALS: BP 117/50
--- NOTE | 2020-01-16 05:41 | NUR ---
NEW SACRAL DRESSING PLACED TO COCCYX. BLACK ESCAR NOTED TO LEFT BUTTOCK. WOUND IS UNSTAGEABLE AT THIS TIME. CLEANED AREA AND PLACED NEW DRESSING. NO DRAINAGE NOTED. WILL CTM.
--- NOTE | 2020-01-16 05:47 | NUR ---
20ML RESIDUAL NOTED. TUBE FEEDING INFUSING AT APPROX 50ML/HR VIA L.UPPER QUAD PEG. WILL CTM.
[2020-01-16 07:11] LABS: BASOPHILS 0 % (0-2); EOSINOPHILS 0 % (0-7); HEMATOCRIT 31.5 % (42.0-54.0); HEMOGLOBIN 10.4 g/dL (13.5-17.5); IMMATURE GRANULOCYTES 0.3 % (0-5); LYMPHOCYTES 11.5 % (15-50); MCH 31.1 pg (26.0-34.0); MEAN PLATELET VOLUME 10.3 fL (7.4-10.4); MONOCYTES 6.2 % (2-11); PLATELET COUNT 161 10x3/uL (130-400); RBC 3.34 10x6/uL (4.20-6.10); RDW 13.7 % (11.5-14.5)
[2020-01-16 07:16] LABS: MCV 94.3 fL (80.0-100.0); WBC 3.9 10x3/uL (4.8-10.8)
--- NOTE | 2020-01-16 07:26 | NUR ---
LYING IN BED W/EYES OPEN--LETHARGIC, 02@2L/NC IN PROGRESS. NO DISTRESS NOTED.
[2020-01-16 08:01] LABS: ALBUMIN 1.6 g/dL (3.4-5.0); ANION GAP 13.2 mmol/L (8-16); BILIRUBIN - TOTAL 0.34 mg/dL (0.2-1.3); CALCIUM 7.8 mg/dL (8.5-10.1); CARBON DIOXIDE 20.8 mmol/L (21.0-32.0); CREATININE - SERUM 1.9 mg/dL (0.6-1.3); PROTEIN - SERUM 5.7 g/dL (6.4-8.2); VANCOMYCIN - RANDOM 21.4 ug/mL (10.0-20.0)
[2020-01-16 09:26] VITALS: BP 133/68
[2020-01-16 11:16] VITALS: BP 126/51
[2020-01-16 20:00] VITALS: BP 157/71
--- NOTE | 2020-01-16 20:00 | NUR ---
REPORT RECIEVED AND ROUNDING COMPLETE. PATIENT LAYIN IN BED IN HIGH FOWLERS. EYES CLOSED BREATHING EVEN AND UNLABORED. PIV TO THE LEFT WRIST SALIN LOCKED. WEARING NASAL CANNULA WITH O2 AT 2L. PATIENT WAKES TO TALKING BUT VERY LETHARGIC AND DOSENT RESPOND TO NURSE, MAKE NOISES, SOME YES AND NO QUESTIONS HE WILL ANSWER. PATIENT HAS A PEG TUBE WITH FEEDS RUNNING PER DRIP FACTOR. PATIENT HAS A BARILLAS, WITH SCANT CLOUDY URINE IN BARILLAS BAG. NO DISTRESS NOTED AT THIS TIME. CALL LIGHT WITHIN REACH AND BED INLOWEST LOCKED POSITION.
[2020-01-17] VITALS: BP 118/62
[2020-01-17 04:00] VITALS: BP 131/70
[2020-01-17 07:08] VITALS: BP 127/74
--- NOTE | 2020-01-17 07:18 | NUR ---
Lying in bed w/eyes open--lethargic--02 in progress/order, Resp therapy in room--no distress noted.
[2020-01-17 08:29] LABS: CREATININE - SERUM 1.7 mg/dL (0.6-1.3); VANCOMYCIN - RANDOM 16.4 ug/mL (10.0-20.0)
[2020-01-17 10:40] VITALS: BP 135/64
--- NOTE | 2020-01-17 13:40 | NUR ---
Nutrition Follow-up: Pt in droplet isolation; covid-19+. Chart reviewed. Comfort measures. Awaiting placement. Nursing reports pt tolerating gravity drip TF. Diet: Glucerna - goal rate 75 mL/hr (~18 drops/min) + H2O 75 mL q 4 hrs Wt: 196.2# (01/08) Labs noted: Glu 209 Meds noted: Humalog, Miralax, Colace, Florajen, electrolyte protocol -Continue TF as tolerated. -Need new wt if possible; noted daily wts ordered. -RD following.
[2020-01-17 15:24] VITALS: BP 101/53
[2020-01-17 22:26] VITALS: BP 129/54
--- NOTE | 2020-01-17 23:40 | NUR ---
ASSUMED CARE OF PATIENT FROM PREVIOUS SHIFT. IN COVID DROPLET ISOLATION. PATIENT IS DNR CODE STATUS. LEFT WRIST PIV SEEN WITH NS INFUSING AT 10 CC/HR. ON 2L PER NC. BARILLAS CATH SEEN WITH CLOUDY URINE. CALL LIGHT IS AT RIGHT SIDE. PATIENT IS LAYING ON HIS RIGHT SIDE FOR COMFORT.
--- NOTE | 2020-01-18 00:25 | NUR ---
FSBS IS 284, COVERED WITH 6 U OF INSULIN PER SLIDING SCALE.
--- NOTE | 2020-01-18 01:53 | NUR ---
CLEANED UP FROM INCONT OF STOOL. LARGE BLACK UNSTAGGABLE AREA TO COCCYX SEEN WHEN MEPILEX WAS REMOVED R/T BEING SOLIED. NEW ONE REPLACED.
[2020-01-18 02:47] VITALS: BP 156/65
[2020-01-18 06:15] VITALS: BP 139/62
--- NOTE | 2020-01-18 06:17 | NUR ---
FSBS 218, COVERED WITH 4 UNITS TO LEFT ARM. NO FURTHER INCONT. AT THIS TIME. POSITIONED TO RIGHT SIDE WITH HEAD OF BED AT 30 DEGREES.
[2020-01-18 08:18] VITALS: BP 119/34
--- NOTE | 2020-01-18 09:16 | MORECARE ---
CASE MANAGEMENT DISCHARGE SUMMARY PATIENT: JOSE BLOUNT UNIT: [id number] ADM DATE: 12/01/19 AGE: 79 : 42 SEX: M ROOM/BED: D.3011 AUTHOR: TANIYA,DOC PHYSICIAN: REFERRING PHYSICIAN: MIKE PATRICIO MD DATE OF SERVICE: 01/18/20 Discharge Plan Patient Name: JOSE BLOUNT Facility: [facility]:[place] : 1940 Planned Disposition: Anticipated Discharge Date: Discharge Date: Expected LOS: Initial Reviewer: [id number] Initial Review Date: 12/01/2019 Generated: 01/18/20 10:15 am Comments DCP- Discharge Planning Updated by [id number]: Karyna Browne on 01/18/20 8:[address] Patient Name: JOSE BLOUNT Admission Status: Elective Accout number: [id number] Admission Date: 12-01-2019 : 1940 Admission Diagnosis:HEMOTHORAX Attending: ZACHARY Current LOS: 48 Anticipated DC Date: Planned Disposition: Primary Insurance: [employer] Discharge Planning Comments: SHAWANDA called Karma at [phone] with [facility] about determination. Unable to reach Karma, but left a message to call CM back. Faxed Updated clinicals for review. Tube Sorter: Karyna Browne DCP- Discharge Planning Updated by [id number]: Karyna Browne on 01/15/20 8:[address] CM met with Niecy from [facility] about pt condition. Niecy states the patient is doing better clinically and does not meet GIP criteria. States she will revaluate as needed. CM will send referral to [facility] for another evaluation. Karyna Browne DCP- Discharge Planning Updated by [id number]: Karyna Browne on 01/14/20 5:[address] CM received call back from Saritha (sister). CM spoke to sister about condition. Her wishes is to have [facility] eval for GIP. CM called Haseeb at [phone] at [facility] to evaluation and sent clinicals. Niecy from [facility] came to evaluate, and stated he did not meet criteria at this time. She states that CM or nursing can have hospice revaluate if the patients condition worsens. Karyna Browne DCP- Discharge Planning Updated by [id number]: Karyna Browne on 01/14/20 10:[address] CM attempted to call pt sister Saritha, at [phone]. CM unable to reach. Left voice message for return call. Karyna Browne DCP- Discharge Planning Updated by [id number]: Bettye Portillo on 01/09/20 7:[address] CALLED CARMELO AND LEFT MESSAGE FOR HER TO CALL ME, I WAS CALLING TO GIVE UPDATE DCP- Discharge Planning Updated by [id number]: Bettye Portillo on 01/08/20 7:[address] ALEXANDER SENT OFF, FEEDING STILL NEED TO BE STARTED. CM TO FOLLOW AND ASSIST NEEDED DCP- Discharge Planning Updated by [id number]: Bettye Portillo on 01/03/20 2:[address] PATIENT'S SISTERS ARE THINKING ABOUT [facility] AND WANT HIM TO HAVE HIS PEG TUBE, THEY WANT HIM TO HAVE SKILLED THERAPY TO SEE HOW MUCH HE WILL PROGRESS DCP- Discharge Planning Updated by [id number]: Bettye Portillo on 01/02/20 3:[address] Spoke with both sisters at length about their options. They would like for him to go to skilled and give him a chance to see what he can do with therapy. They are trying to decide between [facility] [place] and [facility]. I explained to them that the next question that will be is PEG tube. They are torn between what is the right choice. I told them to think about it and to call me in the morning. I spent over 1 hour speaking with them. They are very concerned and willing to help their brother DCP- Discharge Planning Updated by [id number]: Bettye Portillo on 01/02/20 11:[address] spoke with Carmelo they would like to meet with me for options of next plan of care. They will be coming to the hospital today DCP- Discharge Planning Updated by [id number]: Bettye Portillo on 01/02/20 9:[address] ATTEMPTED TO CALL SISTER BUT GOT HER VOICEMAIL. WILL CALL AGAIN LATER DCP- Discharge Planning Updated by [id number]: Bettye Portillo on 12/28/19 3:[address] updated Carmelo on patient's status. She stated that her and her sister will be here Tuesday and they are going to visit him together ( I got this approved with Dharmesh Curran) So they can make the decision on longterm vs hospice. CM to follow and assist as needed DCP- Discharge Planning Updated by [id number]: Bettye Portillo on 12/26/19 1:[address] SPOKE AT LENGTH WITH CARMELO (SISTER) ABOUT HER BROTHER AND HIS PLAN OF CARE. SHE HAD MULTIPLE QUESTIONS. I ATTEPMTED TO ANSWER THEM THE BEST I COULD. LOOKING BACK IN HIS CHART HE DID AMBULATE 4 FEET PRIOR TO HIS CODE ON 12/03 HIS SISTER SAID THAT HE WAS LIVING ON HIS OWN IN A SENIOR CITIZEN COMPLEX, IT WAS HIS NEIGHBOR WHO CALLED EMS BECAUSE HIS CALL LIGHT WAS FLASHING AT 0200. 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 SHE SAID THAT LAST YEAR HIS NUMBERS WERE "GOING UP". 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 CM SHARED THESE CONCERNS WITH DEBORAH . CM WILL CONTINUE TO FOLLOW AND ASSIST WITH PATIENT'S CARE. DCP- Discharge Planning Updated by [id number]: Bettye Lindsey on 12/24/19 7:[address] REFERRAL SENT TO [facility] DCP- Discharge Planning Updated by [id number]: Claudette Taylor on 12/20/19 2:[address] Patient Name: JOSE BLOUNT Admission Status: Elective Accout number: [id number] Admission Date: 12-01-2019 : 1940 Admission Diagnosis:HEMOTHORAX Attending: ZACHARY Current LOS: 19 Anticipated DC Date: Planned Disposition: Primary Insurance: [facility] Discharge Planning Comments: FAXED REFERRAL TO [facility]. Tube Sorter: Claudette Taylor DCP- Discharge Planning Updated by [id number]: Gretel Aparicio on 12/19/19 12:[address] A referral was faxed to [facility], spoke with Roxana ([phone]), who states the facility does not have any alf beds available. [place] does have Skilled beds, but this patient looks, eventually, to require a instrument shop supervisor bed. DCP- Discharge Planning Updated by [id number]: Karyna Browne on 12/18/19 7:[address] CM CALLED [facility] AND SPOKE WITH KHALIF FOR UPDATE ON APPROVAL. KHALIF STATES THEY ARE NOT IN NETWORK AND UNABLE TO ACCEPT PT. CM WILL CALL AROUND TO SNF TO SEE IF THEY ARE IN NETWORK. CM ATTEMPTED TO CALL CARMELO AT [phone] AND UNABLE TO LEAVE MESSAGE. KARYNA BROWNE MSN,RN,CM DCP- Discharge Planning Updated by [id number]: Karyna Browne on 12/18/19 7:[address] MCM CALLED SISTER AT [phone] TO DISCUSS UPDATE. MAILBOX IS FULL AND UNABLE TO TAKE MESSAGES. WILL CONTINUE TO REACH OUT TO DISCUSS DC PLANNING. KARYNA BROWNE DCP- Discharge Planning Updated by [id number]: Karyna Browne on 12/14/19 7:[address] CM CALLED [facility] AT [phone] AND SPOKE WITH KHALIF. STATES THEY ARE LOOKING TO SE IF THE PATIENTS INSURANCE IS IN NETWORK. STATES THEY WILL CALL CM BACK WITH DETAILS. KARYNA BROWNE DCP- Discharge Planning Updated by [id number]: Edel Ford on 12/13/19 1:[address] RECEIVED TELEPHONE MESSAGE FROM ARSENIO AT [facility]. TELEPHONED AT 1130. SHE WAS NOT AVAILABLE. TELEPHONED AT 1400. SHE WAS INTERESTED TO KNOW IF THE PATIENT COULD SIGN HIS OWN PAPERWORK. THE PRIMARY NURSE STATES PATIENT CAN ANSWER YES OR NO. HE IS NOT VERY VERBAL. HE IS HARD TO UNDERSTAND. ADVISED ARSENIO. DCP- Discharge Planning Updated by [id number]: Karyna Browne on 12/11/19 1:[address] CM SPOKE WITH KARMA FROM [facility]. KARMA STATES THEY ARE UNABLE TO ACCOMODATE HIS NEEDS. SENT REFERRAL TO [facility] PER REQUEST. KARYNA BROWNE DCP- Discharge Planning Updated by [id number]: Karyna Browne on 12/10/19 8:[address] SENT UPDATE TO KARMA AT [facility] TO REVIEW. KARMA STATES THEY HAVE A MALE BED AVAILIBILITY. WILL CONTINUE TO FOLLOW. DCP- Discharge Planning Updated by [id number]: Karyna rBowne on 12/04/19 7:[address] Patient Name: JOSE BLOUNT Admission Status: Elective Accout number: [id number] Admission Date: 12-01-2019 : 1940 Admission Diagnosis: Attending: ZACHARY Current LOS: 3 Anticipated DC Date: Planned Disposition: Primary Insurance: [employer] Late entry. assessment completed 12/03/19 at 1430 Discharge Planning Comments: CM met with patient to complete initial dc planning assessment. PT confused. CM called sister Carmelo at [phone]. CM educated patient on the CM role and verbal consent given by patient to complete assessment. Patient lives at home alone and Carmelo feels he needs additional services, and she feels he can not live at home alone. Carmelo wanted CM to assist with placing patient in an assisted living facility. CM educated Carmelo on the services available for the patient. Carmelo states she feels the patient could benefit from rehab at [facility]. EVONNE verbalized for [facility]. CM called Karma at [phone] and faxed referral. CM will continue to follow and will assist as needed with dc plans/needs. Tube Sorter: Karyna Browne DCPIA - Discharge Planning Initial Assessment Updated by [id number]: Karyna Browne on 12/04/19 7:50 am * Is the patient Alert and Oriented? No * Preadmission Environment Home Alone * Additional services required to return to the preadmission environment? Yes * Can the patient safely return to the preadmission environment? No * Has this patient been hospitalized within the prior 30 days at any hospital? No Coverage Notice Reviewer: [id number] - Karyna Browne Notice Issued Date-Time: 12/03/2019 15:30 Notice Type: Patient Choice Letter Notice Delivered To: Family Member Relationship to Patient: Sister Winder Contort Operator Name: Carmelo Benjamin Delivery Method: PHONE - Phone Johanna Days: Prior Verbal Notification: Recipient Understood Notice: Yes Recipient Signature: Med Rec Note Co-signed by Attending: Coverage Notice Comment: evonne verbalized for smalls jes Last DP export: 01/15/20 9:02 p Patient Name: JOSE BLOUNT Page [id number] at 0916 All edits/amendments must be made on the electronic document DICTATION DATE: 01/18/20914 QUARANTINE INSPECTOR: YANG 01/18/20914 RPT#: [id number] DC DATE: STATUS: ADM IN [facility] [address] [place] [address] END OF REPORT
[2020-01-18 11:58] VITALS: BP 136/33
--- NOTE | 2020-01-18 12:34 | MORECARE ---
CASE MANAGEMENT DISCHARGE SUMMARY PATIENT: JOSE BLOUNT UNIT: [id number] ADM DATE: 12/01/19 AGE: 79 : 42 SEX: M ROOM/BED: D.7342 AUTHOR: TANIYA,DOC PHYSICIAN: REFERRING PHYSICIAN: MIKE PATRICIO MD DATE OF SERVICE: 01/18/20 Discharge Plan Patient Name: JOSE BLOUNT Facility: [facility]:[place] : 1940 Planned Disposition: Anticipated Discharge Date: Discharge Date: Expected LOS: Initial Reviewer: [email or web address] Initial Review Date: 12/01/2019 Generated: 01/18/20 1:34 pm Comments DCP- Discharge Planning Updated by [id number]: Karyna Browne on 01/18/20 11:[address] Called Karma at [facility] to follow up on clinical review. Left message and return number for Karma to call CM directly. Karyna Browne DCP- Discharge Planning Updated by [id number]: Karyna Browne on 01/18/20 8:[address] Patient Name: JOSE BLOUNT Admission Status: Elective Accout number: [id number] Admission Date: 12-01-2019 : 1940 Admission Diagnosis:HEMOTHORAX Attending: ZACHARY Current LOS: 48 Anticipated DC Date: Planned Disposition: Primary Insurance: [employer] Discharge Planning Comments: CM [facility] [phone] [facility]. Unable to reach Karma, but left a message to call CM back. Faxed Updated clinicals for review. Landfill Grader: Karyna Browne DCP- Discharge Planning Updated by [id number]: Karyna Browne on 01/15/20 8:[address] CM met with Niecy from [facility] about pt condition. Niecy states the patient is doing better clinically and does not meet GIP criteria. States she will revaluate as needed. CM [facility]. Karyna Browne DCP- Discharge Planning Updated by [id number]: Karyna Browne on 01/14/20 5:[address] CM received call back from Saritha (sister). CM spoke to sister about condition. Her wishes is to have [place] [facility] eval for GIP. CM called Haseeb at [phone] at [facility] to evaluation and sent clinicals. Niecy from [facility] came to evaluate, and stated he did not meet criteria at this time. She states that CM or nursing can have hospice revaluate if the patients condition worsens. Karyna Browne DCP- Discharge Planning Updated by [id number]: Karyna Browne on 01/14/20 10:[address] CM attempted to call pt sister Saritha, at [phone]. CM unable to reach. Left voice message for return call. Karyna Browne DCP- Discharge Planning Updated by [id number]: Bettye Portillo on 01/09/20 7:[address] CALLED CARMELO AND LEFT MESSAGE FOR HER TO CALL ME, I WAS CALLING TO GIVE UPDATE DCP- Discharge Planning Updated by [id number]: Bettye Portillo on 01/08/20 7:[address] ALEXANDER SENT OFF, FEEDING STILL NEED TO BE STARTED. CM TO FOLLOW AND ASSIST NEEDED DCP- Discharge Planning Updated by [id number]: Bettye Portillo on 01/03/20 2:[address] PATIENT'S SISTERS ARE THINKING ABOUT [facility] AND WANT HIM TO HAVE HIS PEG TUBE, THEY WANT HIM TO HAVE SKILLED THERAPY TO SEE HOW MUCH HE WILL PROGRESS DCP- Discharge Planning Updated by [id number]: Bettye Portillo on 01/02/20 3:[address] Spoke with both sisters at length about their options. They would like for him to go to skilled and give him a chance to see what he can do with therapy. They are trying to decide between [facility] [place] and [facility]. I explained to them that the next question that will be is PEG tube. They are torn between what is the right choice. I told them to think about it and to call me in the morning. I spent over 1 hour speaking with them. They are very concerned and willing to help their brother DCP- Discharge Planning Updated by [id number]: Bettye Portillo on 01/02/20 11:[address] spoke with Carmelo they would like to meet with me for options of next plan of care. They will be coming to the hospital today DCP- Discharge Planning Updated by [id number]: Bettye Portillo on 01/02/20 9:[address] ATTEMPTED TO CALL SISTER BUT GOT HER VOICEMAIL. WILL CALL AGAIN LATER DCP- Discharge Planning Updated by [id number]: Bettye Portillo on 12/28/19 3:[address] updated Carmelo on patient's status. She stated that her and her sister will be here Tuesday and they are going to visit him together ( I got this approved with Dharmesh Curran) So they can make the decision on detention vs hospice. CM to follow and assist as needed DCP- Discharge Planning Updated by [id number]: Bettye Portillo on 12/26/19 1:[address] SPOKE AT LENGTH WITH CARMELO (SISTER) ABOUT HER BROTHER AND HIS PLAN OF CARE. SHE HAD MULTIPLE QUESTIONS. I ATTEPMTED TO ANSWER THEM THE BEST I COULD. LOOKING BACK IN HIS CHART HE DID AMBULATE 4 FEET PRIOR TO HIS CODE ON 12/03 HIS SISTER SAID THAT HE WAS LIVING ON HIS OWN IN A SENIOR CITIZEN COMPLEX, IT WAS HIS NEIGHBOR WHO CALLED EMS BECAUSE HIS CALL LIGHT WAS FLASHING AT 0200. 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 SHE SAID THAT LAST YEAR HIS NUMBERS WERE "GOING UP". 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 CM SHARED THESE CONCERNS WITH DEBORAH . CM WILL CONTINUE TO FOLLOW AND ASSIST WITH PATIENT'S CARE. DCP- Discharge Planning Updated by [id number]: Bettye Ron[place]oken on 12/24/19 7:[address] REFERRAL SENT TO [facility] DCP- Discharge Planning Updated by [id number]: Claudette Taylor on 12/20/19 2:[address] Patient Name: JOSE BLOUNT Admission Status: Elective Accout number: [id number] Admission Date: 12-01-2019 : 1940 Admission Diagnosis:HEMOTHORAX Attending: ZACHARY Current LOS: 19 Anticipated DC Date: Planned Disposition: Primary Insurance: [facility] Discharge Planning Comments: FAXED REFERRAL TO [facility]. Landfill Grader: Claudette Taylor DCP- Discharge Planning Updated by [id number]: Gretel Aparicio on 12/19/19 12:[address] A referral was faxed to [facility], spoke with Roxana ([phone]), who states the facility does not have any mcc beds available. [facility] does have Skilled beds, but this patient looks, eventually, to require a exterminator termite bed. DCP- Discharge Planning Updated by [id number]: Karyna Browne on 12/18/19 7:[address] CM CALLED [facility] AND SPOKE WITH KHALIF FOR UPDATE ON APPROVAL. KHALIF STATES THEY ARE NOT IN NETWORK AND UNABLE TO ACCEPT PT. CM WILL CALL AROUND TO SNF TO SEE IF THEY ARE IN NETWORK. CM ATTEMPTED TO CALL CARMELO AT [phone] AND UNABLE TO LEAVE MESSAGE. KARYNA BROWNE MSN,RN,CM DCP- Discharge Planning Updated by [id number]: Karyna Browne on 12/18/19 7:[address] MCM CALLED SISTER AT [phone] TO DISCUSS UPDATE. MAILBOX IS FULL AND UNABLE TO TAKE MESSAGES. WILL CONTINUE TO REACH OUT TO DISCUSS DC PLANNING. KARYNA BROWNE DCP- Discharge Planning Updated by [id number]: Karyna Browne on 12/14/19 7:[address] CM CALLED [facility] AT [phone] AND SPOKE WITH KHALIF. STATES THEY ARE LOOKING TO SE IF THE PATIENTS INSURANCE IS IN NETWORK. STATES THEY WILL CALL CM BACK WITH DETAILS. KARYNA BROWNE DCP- Discharge Planning Updated by [id number]: Edel Ford on 12/13/19 1:[address] RECEIVED TELEPHONE MESSAGE FROM ARSENIO AT [facility]. TELEPHONED AT 1130. SHE WAS NOT AVAILABLE. TELEPHONED AT 1400. SHE WAS INTERESTED TO KNOW IF THE PATIENT COULD SIGN HIS OWN PAPERWORK. THE PRIMARY NURSE STATES PATIENT CAN ANSWER YES OR NO. HE IS NOT VERY VERBAL. HE IS HARD TO UNDERSTAND. ADVISED ARSENIO. DCP- Discharge Planning Updated by [id number]: Karyna Browne on 12/11/19 1:[address] CM SPOKE WITH KARMA FROM [facility]. KARMA STATES THEY ARE UNABLE TO ACCOMODATE HIS NEEDS. SENT REFERRAL TO [facility] PER REQUEST. KARYNA BROWNE DCP- Discharge Planning Updated by [id number]: Karyna Browne on 12/10/19 8:[address] SENT UPDATE TO KARMA AT [facility] TO REVIEW. KARMA STATES THEY HAVE A MALE BED AVAILIBILITY. WILL CONTINUE TO FOLLOW. DCP- Discharge Planning Updated by [id number]: Karyna Browne on 12/04/19 7:[address] Patient Name: JOSE BLOUNT Admission Status: Elective Accout number: [id number] Admission Date: 12-01-2019 : 1940 Admission Diagnosis: Attending: ZACHARY Current LOS: 3 Anticipated DC Date: Planned Disposition: Primary Insurance: [employer] Late entry. assessment completed 12/03/19 at 1430 Discharge Planning Comments: CM met with patient to complete initial dc planning assessment. PT confused. CM called sister Carmelo at [phone]. CM educated patient on the CM role and verbal consent given by patient to complete assessment. Patient lives at home alone and Carmelo feels he needs additional services, and she feels he can not live at home alone. Carmelo wanted CM to assist with placing patient in an assisted living facility. CM educated Carmelo on the services available for the patient. Carmelo states she feels the patient could benefit from rehab at SNF. EVONNE verbalized for [facility]. CM called [facility] at [phone] and faxed referral. CM will continue to follow and will assist as needed with dc plans/needs. Landfill Grader: Karyna Browne DCPIA - Discharge Planning Initial Assessment Updated by [id number]: Karyna Browne on 12/04/19 7:50 am * Is the patient Alert and Oriented? No * Preadmission Environment Home Alone * Additional services required to return to the preadmission environment? Yes * Can the patient safely return to the preadmission environment? No * Has this patient been hospitalized within the prior 30 days at any hospital? No Coverage Notice Reviewer: [id number] - Karyna Browne Notice Issued Date-Time: 12/03/2019 15:30 Notice Type: Patient Choice Letter Notice Delivered To: Family Member Relationship to Patient: Sister Buggy Operator Name: Carmelo Benjamin Delivery Method: PHONE - Phone Johanna Days: Prior Verbal Notification: Recipient Understood Notice: Yes Recipient Signature: Med Rec Note Co-signed by Attending: Coverage Notice Comment: evonne verbalized for [facility] Last DP export: 01/18/20 8:16 a Patient Name: JOSE BLOUNT Page [id number] at 1234 All edits/amendments must be made on the electronic document DICTATION DATE: 01/18/20 1234 FURNITURE SERVICER: YANG 01/18/20 1234 RPT#: [id number] DC DATE: STATUS: ADM IN [facility] [address] [place] [address] END OF REPORT
--- NOTE | 2020-01-18 14:13 | EEG ---
PATIENT:JOSE BLOUNT 3RD MEDICAL RECORD: [id number] DATE OF : 44 LOCATION:D.213 D.M2 ADMISSION DATE: 12/01/19 REFERRING PHYSICIAN: INTERPRETING PHYSICIAN: JOSE BAUTISTA MD DATE OF SERVICE: 12/27/2019 Date of EE12/27/2019 ROOM NUMBER: [id number]. ORDERED BY: Dr. Bautista. 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 Questionable history of stroke. Questionable history of Alzheimer dementia. MEDICATIONS: Tylenol, albuterol, aripiprazole, Vasotec, hydralazine, insulin, lisinopril, lorazepam, Mag-Ox magnesium, Protonix, Aldactone, hydrocodone, memantine. PROCEDURE: EEG done as a routine bedside portable recording using the standard 10-20 international electrode system. A 16-channel was used with 17th as EKG. Photic stimulation done as activation procedures. DESCRIPTION: EEG opens with the patient awake with the record displaying diffuse background slowing with theta and prominent delta slowing throughout, best background organization is brief runs of 5-6 Hz. Later in the record, the patient transitions through drowsiness and stage I sleep intermittently. Photic stimulation arouses the patient with persistent background slowing noted, no significant driving response or photoparoxysmal response is seen. IMPRESSION: Moderately abnormal EEG with diffuse background slowing consistent with encephalopathy. 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 No evidence of seizure or focal asymmetry. TRANSINT:[id number] Voice Confirmation ID: [id number] DOCUMENT ID: [id number] JOSE BAUTISTA MD at 1413 CC: [id number] DICTATION DATE: 12/27/19 0953 MACHINE BOSS: 12/27/19 1100 [place] [address]
--- NOTE | 2020-01-18 16:00 | MORECARE ---
CASE MANAGEMENT DISCHARGE SUMMARY PATIENT: JOSE BLOUNT UNIT: [id number] ADM DATE: 12/01/19 AGE: 79 : 42 SEX: M ROOM/BED: D.4467 AUTHOR: TANIYA,DOC PHYSICIAN: REFERRING PHYSICIAN: MIKE PATRICIO MD DATE OF SERVICE: 01/18/20 Discharge Plan Patient Name: JOSE BLOUNT Facility: [facility]:[place] : 1940 Planned Disposition: Anticipated Discharge Date: Discharge Date: Expected LOS: Initial Reviewer: [id number] Initial Review Date: 12/01/2019 Generated: 01/18/20 4:59 pm Comments DCP- Discharge Planning Updated by [id number]: Karyna Browne on 01/18/20 2:[address] Patient Name: JOSE BLOUNT Admission Status: Elective Accout number: [id number] Admission Date: 12-01-2019 : 1940 Admission Diagnosis:HEMOTHORAX Attending: ZACHARY Current LOS: 48 Anticipated DC Date: Planned Disposition: Primary Insurance: [employer]YS[employer] Discharge Planning Comments: Karma from [facility] states they have accept the patient but are waiting for family to provide financials. The patient will be in a long-term bed as self pay. Karma will let CM know when pt can be transported. Automatic Maintainer: Karyna Browne DCP- Discharge Planning Updated by [id number]: Karyna Browne on 01/18/20 11:[address] Called Karma at [facility] to follow up on clinical review. Left message and return number for Karma to call CM directly. Karyna Browne DCP- Discharge Planning Updated by [id number]: Karyna Browne on 01/18/20 8:[address] Patient Name: JOSE BLOUNT Admission Status: Elective Accout number: [id number] Admission Date: 12-01-2019 : 1940 Admission Diagnosis:HEMOTHORAX Attending: ZACHARY Current LOS: 48 Anticipated DC Date: Planned Disposition: Primary Insurance: NOVASYSMCR Discharge Planning Comments: CM called Karma at [phone] with [facility] about determination. Unable to reach Karma, but left a message to call CM back. Faxed Updated clinicals for review. Automatic Maintainer: Karyna Browne DCP- Discharge Planning Updated by [id number]: Karyna Browne on 01/15/20 8:[address] CM met with Niecy from [facility] about pt condition. Niecy states the patient is doing better clinically and does not meet GIP criteria. States she will revaluate as needed. CM will send referral to [facility] for another evaluation. Karyna Browne DCP- Discharge Planning Updated by [id number]: Karyna Browne on 01/14/20 5:[address] CM received call back from Saritha (sister). CM spoke to sister about condition. Her wishes is to have [facility] eval for GIP. CM called Haseeb at [phone] at [facility] to evaluation and sent clinicals. Niecy from [facility] came to evaluate, and stated he did not meet criteria at this time. She states that CM or nursing can have hospice revaluate if the patients condition worsens. Karyna Browne DCP- Discharge Planning Updated by [id number]: Karyna Browne on 01/14/20 10:[address] CM attempted to call pt sister Saritha, at [phone]. CM unable to reach. Left voice message for return call. Karyna Browne DCP- Discharge Planning Updated by [email or web address]: Bettye Portillo on 01/09/20 7:[address] CALLED CARMELO AND LEFT MESSAGE FOR HER TO CALL ME, I WAS CALLING TO GIVE UPDATE DCP- Discharge Planning Updated by [id number]: Bettye Portillo on 01/08/20 7:[address] ALEXANDER SENT OFF, FEEDING STILL NEED TO BE STARTED. CM TO FOLLOW AND ASSIST NEEDED DCP- Discharge Planning Updated by [email or web address]: Bettye Portillo on 01/03/20 2:[address] PATIENT'S SISTERS ARE THINKING ABOUT [facility] AND WANT HIM TO HAVE HIS PEG TUBE, THEY WANT HIM TO HAVE SKILLED THERAPY TO SEE HOW MUCH HE WILL PROGRESS DCP- Discharge Planning Updated by [id number]: Bettye Portillo on 01/02/20 3:[address] Spoke with both sisters at length about their options. They would like for him to go to skilled and give him a chance to see what he can do with therapy. They are trying to decide between [facility] in [place] and [facility]. I explained to them that the next question that will be is PEG tube. They are torn between what is the right choice. I told them to think about it and to call me in the morning. I spent over 1 hour speaking with them. They are very concerned and willing to help their brother DCP- Discharge Planning Updated by [id number]: Bettye Portillo on 01/02/20 11:[address] spoke with Carmelo they would like to meet with me for options of next plan of care. They will be coming to the hospital today DCP- Discharge Planning Updated by [id number]: Bettye Portillo on 01/02/20 9:[address] ATTEMPTED TO CALL SISTER BUT GOT HER VOICEMAIL. WILL CALL AGAIN LATER DCP- Discharge Planning Updated by [id number]: Bettye Portillo on 12/28/19 3:[address] updated Carmelo on patient's status. She stated that her and her sister will be here Tuesday and they are going to visit him together ( I got this approved with Dharmesh Curran) So they can make the decision on senior living vs hospice. CM to follow and assist as needed DCP- Discharge Planning Updated by [id number]: Bettye Portillo on 12/26/19 1:[address] SPOKE AT LENGTH WITH CARMELO (SISTER) ABOUT HER BROTHER AND HIS PLAN OF CARE. SHE HAD MULTIPLE QUESTIONS. I ATTEPMTED TO ANSWER THEM THE BEST I COULD. LOOKING BACK IN HIS CHART HE DID AMBULATE 4 FEET PRIOR TO HIS CODE ON 12/03 HIS SISTER SAID THAT HE WAS LIVING ON HIS OWN IN A SENIOR CITIZEN COMPLEX, IT WAS HIS NEIGHBOR WHO CALLED EMS BECAUSE HIS CALL LIGHT WAS FLASHING AT 0200. 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 SHE SAID THAT LAST YEAR HIS NUMBERS WERE "GOING UP". 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 CM SHARED THESE CONCERNS WITH DEBORAH . CM WILL CONTINUE TO FOLLOW AND ASSIST WITH PATIENT'S CARE. DCP- Discharge Planning Updated by [id number]: Bettye Portillo on 12/24/19 7:[address] REFERRAL SENT TO [facility] DCP- Discharge Planning Updated by [email or web address]: Claudette Taylor on 12/20/19 2:[address] Patient Name: JOSE BLOUNT Admission Status: Elective Accout number: [id number] Admission Date: 12-01-2019 : 1940 Admission Diagnosis:HEMOTHORAX Attending: ZACHARY Current LOS: 19 Anticipated DC Date: Planned Disposition: Primary Insurance: [facility] Discharge Planning Comments: FAXED REFERRAL TO [facility]. Automatic Maintainer: Claudette Taylor DCP- Discharge Planning Updated by [id number]: Gretel Aparicio on 12/19/19 12:[address] A referral was faxed to [facility], spoke with Roxana ([phone]), who states the facility does not have any termite inspector beds available. [facility] does have Skilled beds, but this patient looks, eventually, to require a prison bed. DCP- Discharge Planning Updated by [id number]: Karyna Browne on 12/18/19 7:[address] CM [address]ED [facility] ([place], [place]) AND SPOKE WITH KHALIF FOR UPDATE ON APPROVAL. KHALIF STATES THEY ARE NOT IN NETWORK AND UNABLE TO ACCEPT PT. CM WILL CALL AROUND TO SNF TO SEE IF THEY ARE IN NETWORK. CM ATTEMPTED TO CALL CARMELO AT [phone] AND UNABLE TO LEAVE MESSAGE. KARYNA BROWNE MSN,RN,CM DCP- Discharge Planning Updated by [id number]: Karyna Browne on 12/18/19 7:[address] MCM CALLED SISTER AT [phone] TO DISCUSS UPDATE. MAILBOX IS FULL AND UNABLE TO TAKE MESSAGES. WILL CONTINUE TO REACH OUT TO DISCUSS DC PLANNING. KARYNA BROWNE DCP- Discharge Planning Updated by [id number]: Karyna Browne on 12/14/19 7:[address] CM CALLED [facility] AT [phone] AND SPOKE WITH KHALIF. STATES THEY ARE LOOKING TO SE IF THE PATIENTS INSURANCE IS IN NETWORK. STATES THEY WILL CALL CM BACK WITH DETAILS. KARYNA BROWNE DCP- Discharge Planning Updated by [id number]: Edel Ford on 12/13/19 1:[address] RECEIVED TELEPHONE MESSAGE FROM ARSENIO AT [facility] ([place], [place]). TELEPHONED AT 1130. SHE WAS NOT AVAILABLE. TELEPHONED AT 1400. SHE WAS INTERESTED TO KNOW IF THE PATIENT COULD SIGN HIS OWN PAPERWORK. THE PRIMARY NURSE STATES PATIENT CAN ANSWER YES OR NO. HE IS NOT VERY VERBAL. HE IS HARD TO UNDERSTAND. ADVISED ARSENIO. DCP- Discharge Planning Updated by [id number]: Karyna Browne on 12/11/19 1:[address] CM SPOKE WITH KARMA FROM [facility]. KARMA STATES THEY ARE UNABLE TO ACCOMODATE HIS NEEDS. SENT REFERRAL TO [facility] ([place], [place]) PER REQUEST. KARYNA BROWNE DCP- Discharge Planning Updated by [id number]: Karyna Browne on 12/10/19 8:[address] SENT UPDATE TO KARMA AT [facility] TO REVIEW. KARMA STATES THEY HAVE A MALE BED AVAILIBILITY. WILL CONTINUE TO FOLLOW. DCP- Discharge Planning Updated by [id number]: Karyna Browne on 12/04/19 7:[address] Patient Name: JOSE BLOUNT Admission Status: Elective Accout number: [id number] Admission Date: 12-01-2019 : 1940 Admission Diagnosis: Attending: ZACHARY Current LOS: 3 Anticipated DC Date: Planned Disposition: Primary Insurance: [employer] Late entry. assessment completed 12/03/19 at 1430 Discharge Planning Comments: CM met with patient to complete initial dc planning assessment. PT confused. CM called sister Carmelo at [phone]. CM educated patient on the CM role and verbal consent given by patient to complete assessment. Patient lives at home alone and Carmelo feels he needs additional services, and she feels he can not live at home alone. Carmelo wanted CM to assist with placing patient in an assisted living facility. CM educated Carmelo on the services available for the patient. Carmelo states she feels the patient could benefit from rehab at SNF. EVONNE verbalized for [facility]. CM called Karma at [phone] and faxed referral. CM will continue to follow and will assist as needed with dc plans/needs. Automatic Maintainer: Karyna Browne DCPIA - Discharge Planning Initial Assessment Updated by [id number]: Karyna Browne on 12/04/19 7:50 am * Is the patient Alert and Oriented? No * Preadmission Environment Home Alone * Additional services required to return to the preadmission environment? Yes * Can the patient safely return to the preadmission environment? No * Has this patient been hospitalized within the prior 30 days at any hospital? No Coverage Notice Reviewer: [id number] Jabier Browne Notice Issued Date-Time: 12/03/2019 15:30 Notice Type: Patient Choice Letter Notice Delivered To: Family Member Relationship to Patient: Sister Manager Order Name: Carmelo Benjamin Delivery Method: PHONE - Phone Johanna Days: Prior Verbal Notification: Recipient Understood Notice: Yes Recipient Signature: Med Rec Note Co-signed by Attending: Coverage Notice Comment: evonne verbalized for slim Ann DP export: 01/18/20 11:34 a Patient Name: JOSE BLOUNT Page 45490 at 1600 All edits/amendments must be made on the electronic document DICTATION DATE: 01/18/201558 CARE MANAGEMENT COORDINATOR: YANG 01/18/201558 RPT#: [id number] DC DATE: STATUS: ADM IN [facility] [address] [place] [address] END OF REPORT
[2020-01-18 16:27] VITALS: BP 139/41
--- NOTE | 2020-01-18 18:09 | NUR ---
TURNED PT Q2H THROUGHOUT THE DAY AND CHANGED PT TWICE TODAY DUE TO DIARHEA CONSISTENT BM. NO CHANGES TO REPORT.
[2020-01-19 08:28] VITALS: BP 150/92
[2020-01-19 12:24] VITALS: BP 120/77
[2020-01-19 17:01] VITALS: BP 188/78
[2020-01-19 20:00] VITALS: BP 131/76
[2020-01-20] VITALS: BP 135/85
[2020-01-20 04:00] VITALS: BP 124/52
--- NOTE | 2020-01-20 04:46 | NUR ---
PT REMAINS OBTUNDED. TUBE FEEDING STOPED AT THIS TIME R/T RESIDUAL. DARK BROWN RESIDUAL NOTED. PT CONTINUES TO COUGH UP THICK SECREATIONS. HOB ELEVATED IN HIGH-FOWLERS. MEPILEX ON COCCYX CHANGED. TURNED PT Q 2HOURS DURING THE NIGHT. REPLACED BARILLAS. WILL CPOC.
[2020-01-20 08:49] VITALS: BP 130/65
[2020-01-20 12:29] VITALS: BP 136/58
--- NOTE | 2020-01-20 13:21 | MORECARE ---
CASE MANAGEMENT DISCHARGE SUMMARY PATIENT: JOSE BLOUNT UNIT: [id number] ADM DATE: 12/01/19 AGE: 79 : 42 SEX: M ROOM/BED: D.6386 AUTHOR: CHRISTOPHER MONAHAN PHYSICIAN: REFERRING PHYSICIAN: MIKE PATRICIO MD DATE OF SERVICE: 01/20/20 Discharge Plan Patient Name: JOSE BLOUNT Facility: [facility]:[place] : 1940 Planned Disposition: Anticipated Discharge Date: Discharge Date: Expected LOS: Initial Reviewer: [id number] Initial Review Date: 12/01/2019 Generated: 01/20/20 2:20 pm Comments DCP- Discharge Planning Updated by [id number]: Minor Gomez on 01/20/20 12:[address] Patient Name: JOSE BLOUNT Encounter No: [id number] : 1940 Primary Insurance: [employer] Anticipated DC Date: Planned Disposition: External Planned Provider: : DCP follow-up note: Telephone call to [facility] ([phone]) spoke with farm mechanic apprentice Marilia. Informed Marilia that patient is in need of re-evaluation for GIP. Marilia will have a nurse call back. Received call back from Mary, RN ([phone]). Mary requested more information on patient status and need for re-evaluation. Conference with staff nurse resulted in agreement for re-evaluation. CM will continue to follow and will assist as needed with dc plans/needs. Minor Gomez DCP- Discharge Planning Updated by [id number]: Karyna Browne on 01/18/20 2:[address] Patient Name: JOSE BLOUNT Admission Status: Elective Accout number: [id number] Admission Date: 12-01-2019 : 1940 Admission Diagnosis:HEMOTHORAX Attending: ZACHARY Current LOS: 48 Anticipated DC Date: Planned Disposition: Primary Insurance: [employer]YSM[employer] Discharge Planning Comments: Karma from [facility] states they have accept the patient but are waiting for family to provide financials. The patient will be in a long-term bed as self pay. Karma will let CM know when pt can be transported. Repairer [employer]: Karyna Browne DCP- Discharge Planning Updated by [id number]: Karyna Browne on 01/18/20 11:[address] Called Karma at [facility] to follow up on clinical review. Left message and return number for Karma to call CM directly. Karyna Browne DCP- Discharge Planning Updated by [id number]: Karyna Browne on 01/18/20 8:[address] Patient Name: JOSE BLOUNT Admission Status: Elective Accout number: [id number] Admission Date: 12-01-2019 : 1940 Admission Diagnosis:HEMOTHORAX Attending: ZACHARY Current LOS: 48 Anticipated DC Date: Planned Disposition: Primary Insurance: [employer] Discharge Planning Comments: CM called Karma at [phone] with [facility] about determination. Unable to reach Karma, but left a message to call CM back. Faxed Updated clinicals for review. Repairer Wel[employer] Equipment: Karyna Browne DCP- Discharge Planning Updated by [id number]: Karyna Browne on 01/15/20 8:[address] CM met with Niecy from [facility] about pt condition. Niecy states the patient is doing better clinically and does not meet GIP criteria. States she will revaluate as needed. CM will send referral to [facility] for another evaluation. Karyna Browne DCP- Discharge Planning Updated by [id number]: Karyna Browne on 01/14/20 5:[address] CM received call back from Saritha (sister). CM spoke to sister about condition. Her wishes is to have [facility] eval for GIP. CM called Haseeb at [phone] at [facility] to evaluation and sent clinicals. Niecy from [facility] came to evaluate, and stated he did not meet criteria at this time. She states that CM or nursing can have hospice revaluate if the patients condition worsens. Karyna Browne DCP- Discharge Planning Updated by [id number]: Karyna Browne on 01/14/20 10:[address] CM attempted to call pt sister Saritha, at [phone]. CM unable to reach. Left voice message for return call. Karyna Browne DCP- Discharge Planning Updated by [id number]: Bettye Portillo on 01/09/20 7:[address] CALLED CARMELO AND LEFT MESSAGE FOR HER TO CALL ME, I WAS CALLING TO GIVE UPDATE DCP- Discharge Planning Updated by [id number]: Bettye Portillo on 01/08/20 7:[address] ALEXANDER SENT OFF, FEEDING STILL NEED TO BE STARTED. CM TO FOLLOW AND ASSIST NEEDED DCP- Discharge Planning Updated by [id number]: Bettye Portillo on 01/03/20 2:[address] PATIENT'S SISTERS ARE THINKING ABOUT [facility] AND WANT HIM TO HAVE HIS PEG TUBE, THEY WANT HIM TO HAVE SKILLED THERAPY TO SEE HOW MUCH HE WILL PROGRESS DCP- Discharge Planning Updated by [id number]: Bettye Portillo on 01/02/20 3:[address] Spoke with both sisters at length about their options. They would like for him to go to skilled and give him a chance to see what he can do with therapy. They are trying to decide between [facility] [place] and [facility]. I explained to them that the next question that will be is PEG tube. They are torn between what is the right choice. I told them to think about it and to call me in the morning. I spent over 1 hour speaking with them. They are very concerned and willing to help their brother DCP- Discharge Planning Updated by [id number]: Bettye Portillo on 01/02/20 11:[address] spoke with Carmelo they would like to meet with me for options of next plan of care. They will be coming to the hospital today DCP- Discharge Planning Updated by [id number]: Bettye Portillo on 01/02/20 9:[address] ATTEMPTED TO CALL SISTER BUT GOT HER VOICEMAIL. WILL CALL AGAIN LATER DCP- Discharge Planning Updated by [id number]: Bettye Portillo on 12/28/19 3:[address] updated Carmelo on patient's status. She stated that her and her sister will be here Tuesday and they are going to visit him together ( I got this approved with Dharmesh Curran) So they can make the decision on long term vs hospice. CM to follow and assist as needed DCP- Discharge Planning Updated by [id number]: Bettye Portillo on 12/26/19 1:[address] SPOKE AT LENGTH WITH CARMELO (SISTER) ABOUT HER BROTHER AND HIS PLAN OF CARE. SHE HAD MULTIPLE QUESTIONS. I ATTEPMTED TO ANSWER THEM THE BEST I COULD. LOOKING BACK IN HIS CHART HE DID AMBULATE 4 FEET PRIOR TO HIS CODE ON 12/03 HIS SISTER SAID THAT HE WAS LIVING ON HIS OWN IN A SENIOR CITIZEN COMPLEX, IT WAS HIS NEIGHBOR WHO CALLED EMS BECAUSE HIS CALL LIGHT WAS FLASHING AT 0200. 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 SHE SAID THAT LAST YEAR HIS NUMBERS WERE "GOING UP". 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 CM SHARED THESE CONCERNS WITH DEBORAH . CM WILL CONTINUE TO FOLLOW AND ASSIST WITH PATIENT'S CARE. DCP- Discharge Planning Updated by [id number]: Bettye Portillo on 12/24/19 7:[address] REFERRAL SENT TO [facility] DCP- Discharge Planning Updated by [id number]: Claudette Taylor on 12/20/19 2:[address] Patient Name: JOSE BLOUNT Admission Status: Elective Accout number: [id number] Admission Date: 12-01-2019 : 1940 Admission Diagnosis:HEMOTHORAX Attending: ZACHARY Current LOS: 19 Anticipated DC Date: Planned Disposition: Primary [facility]: [facility] [facility] Discharge Planning Comments: FAXED REFERRAL TO [facility]. Repairer [employer] Equipment: Claudette Taylor DCP- Discharge Planning Updated by [id number]: Gretel Aparicio on 12/19/19 12:[address] A referral was faxed to [facility], spoke with Roxana ([phone]), who states the facility does not have any termite treater helper beds available. [facility] does have Skilled beds, but this patient looks, eventually, to require a termite treater helper bed. DCP- Discharge Planning Updated by [id number]: Karyna Browne on 12/18/19 7:[address] [facility] AND SPOKE WITH KHALIF FOR UPDATE ON APPROVAL. KHALIF STATES THEY ARE NOT IN NETWORK AND UNABLE TO ACCEPT PT. CM WILL CALL AROUND TO SNF TO SEE IF THEY ARE IN NETWORK. CM ATTEMPTED TO CALL CARMELO AT [phone] AND UNABLE TO LEAVE MESSAGE. KARYNA BORWNE MSN,RN,CM DCP- Discharge Planning Updated by [id number]: Karyna Browne on 12/18/19 7:[address] MCM CALLED SISTER AT [phone] TO DISCUSS UPDATE. MAILBOX IS FULL AND UNABLE TO TAKE MESSAGES. WILL CONTINUE TO REACH OUT TO DISCUSS DC PLANNING. KARYNA BROWNE DCP- Discharge Planning Updated by [id number]: Karyna Browne on 12/14/19 7:[address] CM CALLED [facility] AT [phone] AND SPOKE WITH KHALIF. STATES THEY ARE LOOKING TO SE IF THE PATIENTS INSURANCE IS IN NETWORK. STATES THEY WILL CALL CM BACK WITH DETAILS. KARYNA BROWNE DCP- Discharge Planning Updated by [id number]: Edel Ford on 12/13/19 1:[address] RECEIVED TELEPHONE MESSAGE [facility] AT [facility]. TELEPHONED AT 1130. SHE WAS NOT AVAILABLE. TELEPHONED AT 1400. SHE WAS INTERESTED TO KNOW IF THE PATIENT COULD SIGN HIS OWN PAPERWORK. THE PRIMARY NURSE STATES PATIENT CAN ANSWER YES OR NO. HE IS NOT VERY VERBAL. HE IS HARD TO UNDERSTAND. ADVISED ARSENIO. DCP- Discharge Planning Updated by [id number]: Karyna Browne on 12/11/19 1:[address] CM SPOKE WITH KARMA FROM [facility]. KARMA STATES THEY ARE UNABLE TO ACCOMODATE HIS NEEDS. [facility]. KARYNA BROWNE DCP- Discharge Planning Updated by [id number]: Karyna Browne on 12/10/19 8:[address] SENT UPDATE TO KARMA AT [place] TO REVIEW. KARMA STATES THEY HAVE A MALE BED AVAILIBILITY. WILL CONTINUE TO FOLLOW. DCP- Discharge Planning Updated by [id number]: Karyna Browne on 12/04/19 7:[address] Patient Name: JOSE BLOUNT Admission Status: Elective Accout number: [id number] Admission Date: 12-01-2019 : 1940 Admission Diagnosis: Attending: ZACHARY Current LOS: 3 Anticipated DC Date: Planned Disposition: Primary Insurance: [employer] Late entry. assessment completed 12/03/19 at 1430 Discharge Planning Comments: CM met with patient to complete initial dc planning assessment. PT confused. CM called sister Carmelo at [phone]. CM educated patient on the CM role and verbal consent given by patient to complete assessment. Patient lives at home alone and Carmelo feels he needs additional services, and she feels he can not live at home alone. Carmelo wanted CM to assist with placing patient in an assisted living facility. CM educated Carmelo on the services available for the patient. Carmelo states she feels the patient could benefit from rehab at SNF. EVONNE verbalized for [facility]. CM called Karma at [phone] and faxed referral. CM will continue to follow and will assist as needed with dc plans/needs. Repairer [employer]: Karyna Browne DCPIA - Discharge Planning Initial Assessment Updated by [id number]: Karyna Browne on 12/04/19 7:50 am * Is the patient Alert and Oriented? No * Preadmission Environment Home Alone * Additional services required to return to the preadmission environment? Yes * Can the patient safely return to the preadmission environment? No * Has this patient been hospitalized within the prior 30 days at any hospital? No Coverage Notice Reviewer: [id number] - Karyna Browne Notice Issued Date-Time: 12/03/2019 15:30 Notice Type: Patient Choice Letter Notice Delivered To: Family Member Relationship to Patient: Sister Inside Upholsterer Name: Carmelo Benjamin Delivery Method: PHONE - Phone Johanna Days: Prior Verbal Notification: Recipient Understood Notice: Yes Recipient Signature: Med Rec Note Co-signed by Attending: Coverage Notice Comment: evonne verbalized for [facility] Last DP export: 01/18/20 3:00 p Patient Name: JOSE BLOUNT Page 52415 at 1321 All edits/amendments must be made on the electronic document DICTATION DATE: 01/20/20 1321 NEON TUBE BENDER: YANG 01/20/20 1321 RPT#: [id number] DC DATE: STATUS: ADM IN [facility] [address] [place] [address] END OF REPORT
--- NOTE | 2020-01-20 14:35 | NUR ---
I have reviewed this patient and I concur with the Shift Assessment completed by the Licensed Practical Nurse today this shift.
[2020-01-20 16:47] VITALS: BP 146/61
--- NOTE | 2020-01-20 18:19 | NUR ---
I have reviewed this patient and I concur with the Shift Assessment completed by the Licensed Practical Nurse today this shift.
--- NOTE | 2020-01-20 18:23 | NUR ---
PT OBTUNDED. UNRESPONSIVE WITH ONLY OCCASIONAL BOUT OF EYE OPENING. HELD TUBE FEEDING D/T RESIDUAL. 3L OF O2, VS STABLE. RECONSULTED HOSICE, WAITING FOR FAMILY TO SPEAK TO THEM BEFORE THEY CAN EVALUATE. WILL CONT. TO MONITOR. CHANGED LINNENS. TURNED. CL IN REACH, SRX2.
[2020-01-21 03:54] VITALS: BP 184/80
[2020-01-21 08:23] VITALS: BP 150/71
--- NOTE | 2020-01-21 08:26 | NUR ---
AM MEDS GIVEN VIA PEG TUBE. RESIDUAL WAS 20CC OF TEA COLOR LIQUID. WHEN ASSESSING PT'S LOWER LEGS AND FEET PT MOANED WHEN FEET WERE MOVED. LT HAND IV SL. BARILLAS DRAINING YELLOW URINE TO GRAVITY. BEDSIDE RAILS X2, BED LOW. WILL CONTINUE PLAN OF CARE.
--- NOTE | 2020-01-21 10:01 | NUR ---
2MG OF MORPHINE GIVEN AT THIS TIME.
--- NOTE | 2020-01-21 14:34 | NUR ---
PT DISCHARGED TO HOSPICE. WILL READMIT.
--- NOTE | 2020-01-21 16:48 | MORECARE ---
CASE MANAGEMENT DISCHARGE SUMMARY PATIENT: JOSE BLOUNT UNIT: [id number] ADM DATE: 12/01/19 AGE: 79 : 44 SEX: M ROOM/BED: D.2133 AUTHOR: CHRISTOPHER MONAHAN PHYSICIAN: REFERRING PHYSICIAN: MIKE PATRICIO MD DATE OF SERVICE: 01/21/20 Discharge Plan Patient Name: JOSE BLOUNT Facility: [facility]:[place] : 1940 Planned Disposition: Anticipated Discharge Date: Discharge Date: 01/21/2020 Expected LOS: Initial Reviewer: [email or web address] Initial Review Date: 12/01/2019 Generated: 01/21/20 5:47 pm Comments DCP- Discharge Planning Updated by [id number]: Karyna Browne on 01/21/20 3:[address] Pt discharged to [facility] hospice services. Karyna Browne DCP- Discharge Planning Updated by [id number]: Minor Gomez on 01/20/20 12:[address] Patient Name: JOSE BLOUNT Encounter No: [id number] : 1940 Primary Insurance: [employer] Anticipated DC Date: Planned Disposition: External Planned Provider: : DCP follow-up note: Telephone call to [facility] ([phone]) spoke with veneer measurer Marilia. Informed Marilia that patient is in need of re-evaluation for GIP. Marilia will have a nurse call back. Received call back from JACKSON Hernandez ([phone]). Mary requested more information on patient status and need for re-evaluation. Conference with staff nurse resulted in agreement for re-evaluation. CM will continue to follow and will assist as needed with dc plans/needs. Minor Gomez DCP- Discharge Planning Updated by [id number]: Karyna Browne on 01/18/20 2:[address] Patient Name: JOSE BLOUNT Admission Status: Elective Accout number: [id number] Admission Date: 12-01-2019 : 1940 Admission Diagnosis:HEMOTHORAX Attending: ZACHARY Current LOS: 48 Anticipated DC Date: Planned Disposition: Primary Insurance: [employer]YSM[employer] Discharge Planning Comments: Karma from [facility] states they have accept the patient but are waiting for family to provide financials. The patient will be in a long-term bed as self pay. Karma will let CM know when pt can be transported. Applications Systems Engineer: Karyna Browne DCP- Discharge Planning Updated by [email or web address]: Karyna Browne on 01/18/20 11:[address] Called Karma at [facility] to follow up on clinical review. Left message and return number for Karma to call CM directly. Karyna Browne DCP- Discharge Planning Updated by [id number]: Karyna Browne on 01/18/20 8:[address] Patient Name: JOSE BLOUNT Admission Status: Elective Accout number: [id number] Admission Date: 12-01-2019 : 1940 Admission Diagnosis:HEMOTHORAX Attending: ZACHARY Current LOS: 48 Anticipated DC Date: Planned Disposition: Primary Insurance: [employer] Discharge Planning Comments: CM called Karma at [phone] with [facility] about determination. Unable to reach Karma, but left a message to call CM back. Faxed Updated clinicals for review. Applications Systems Engineer: Karyna Browne DCP- Discharge Planning Updated by [id number]: Karyna Browne on 01/15/20 8:[address] CM met with Niecy from [facility] about pt condition. Niecy states the patient is doing better clinically and does not meet GIP criteria. States she will revaluate as needed. CM will send referral to [facility] for another evaluation. Karyna Browne DCP- Discharge Planning Updated by [id number]: Karyna Browne on 01/14/20 5:[address] CM received call back from Saritha (sister). CM spoke to sister about condition. Her wishes is to have [facility] eval for GIP. CM called Haseeb at [phone] at [facility] to evaluation and sent clinicals. Niecy from [facility] came to evaluate, and stated he did not meet criteria at this time. She states that CM or nursing can have hospice revaluate if the patients condition worsens. Karyna Browne DCP- Discharge Planning Updated by [email or web address]: Karyna Browne on 01/14/20 10:[address] CM attempted to call pt sister Saritha, at [phone]. CM unable to reach. Left voice message for return call. Karyna Browne DCP- Discharge Planning Updated by [email or web address]: Bettye Portillo on 01/09/20 7:[address] CALLED CARMELO AND LEFT MESSAGE FOR HER TO CALL ME, I WAS CALLING TO GIVE UPDATE DCP- Discharge Planning Updated by [email or web address]: Bettye Portillo on 01/08/20 7:[address] ALEXANDER SENT OFF, FEEDING STILL NEED TO BE STARTED. CM TO FOLLOW AND ASSIST NEEDED DCP- Discharge Planning Updated by [id number]: Bettye Portillo on 01/03/20 2:[address] PATIENT'S SISTERS ARE THINKING ABOUT [facility] AND WANT HIM TO HAVE HIS PEG TUBE, THEY WANT HIM TO HAVE SKILLED THERAPY TO SEE HOW MUCH HE WILL PROGRESS DCP- Discharge Planning Updated by [id number]: Bettye Portillo on 01/02/20 3:[address] Spoke with both sisters at length about their options. They would like for him to go to skilled and give him a chance to see what he can do with therapy. They are trying to decide between [facility] in [place] and [facility]. I explained to them that the next question that will be is PEG tube. They are torn between what is the right choice. I told them to think about it and to call me in the morning. I spent over 1 hour speaking with them. They are very concerned and willing to help their brother DCP- Discharge Planning Updated by [id number]: Bettye Portillo on 01/02/20 11:[address] spoke with Carmelo they would like to meet with me for options of next plan of care. They will be coming to the hospital today DCP- Discharge Planning Updated by [email or web address]: Bettye Portillo on 01/02/20 9:[address] ATTEMPTED TO CALL SISTER BUT GOT HER VOICEMAIL. WILL CALL AGAIN LATER DCP- Discharge Planning Updated by [id number]: Bettye Portillo on 12/28/19 3:[address] updated Carmelo on patient's status. She stated that her and her sister will be here Tuesday and they are going to visit him together ( I got this approved with Dharmesh Curran) So they can make the decision on longterm vs hospice. CM to follow and assist as needed DCP- Discharge Planning Updated by [id number]: Bettye Portillo on 12/26/19 1:[address] SPOKE AT LENGTH WITH CARMELO (SISTER) ABOUT HER BROTHER AND HIS PLAN OF CARE. SHE HAD MULTIPLE QUESTIONS. I ATTEPMTED TO ANSWER THEM THE BEST I COULD. LOOKING BACK IN HIS CHART HE DID AMBULATE 4 FEET PRIOR TO HIS CODE ON 12/03 HIS SISTER SAID THAT HE WAS LIVING ON HIS OWN IN A SENIOR CITIZEN COMPLE[place], IT WAS HIS NEIGHBOR WHO CALLED EMS BECAUSE HIS CALL LIGHT WAS FLASHING AT 0200. 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 SHE SAID THAT LAST YEAR HIS NUMBERS WERE "GOING UP". 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 CM SHARED THESE CONCERNS WITH DEBORAH . CM WILL CONTINUE TO FOLLOW AND ASSIST WITH PATIENT'S CARE. DCP- Discharge Planning Updated by [id number]: Bettye Portillo on 12/24/19 7:[address] REFERRAL SENT TO [facility] DCP- Discharge Planning Updated by [id number]: Claudette Taylor on 12/20/19 2:[address] Patient Name: JOSE BLOUNT Admission Status: Elective Accout number: [id number] Admission Date: 12-01-2019 : 1940 Admission Diagnosis:HEMOTHORAX Attending: ZACHARY Current LOS: 19 Anticipated DC Date: Planned Disposition: Primary Insurance: [facility] Discharge Planning Comments: FAXED REFERRAL TO [facility]. Applications Systems Engineer: Claudette Taylor DCP- Discharge Planning Updated by [id number]: Gretel Aparicio on 12/19/19 12:[address] A referral was faxed to [facility], spoke with [facility] ([phone]), who states the facility does not have any fpc beds available. [facility] have Skilled beds, but this patient looks, eventually, to require a termite treater bed. DCP- Discharge Planning Updated by [id number]: Karyna Browne on 12/18/19 7:[address] [facility] AND SPOKE WITH KHALIF FOR UPDATE ON APPROVAL. KHALIF STATES THEY ARE NOT IN NETWORK AND UNABLE TO ACCEPT PT. CM WILL CALL AROUND TO SNF TO SEE IF THEY ARE IN NETWORK. CM ATTEMPTED TO CALL CARMELO AT [phone] AND UNABLE TO LEAVE MESSAGE. KARYNA BROWNE MSN,RN,CM DCP- Discharge Planning Updated by [id number]: Karyna Browne on 12/18/19 7:[address] MCM CALLED SISTER AT [phone] TO DISCUSS UPDATE. MAILBOX IS FULL AND UNABLE TO TAKE MESSAGES. WILL CONTINUE TO REACH OUT TO DISCUSS DC PLANNING. KARYNA BROWNE DCP- Discharge Planning Updated by [id number]: Karyna rBowne on 12/14/19 7:[address] [phone] AND SPOKE WITH KHALIF. STATES THEY ARE LOOKING TO SE IF THE PATIENTS INSURANCE IS IN NETWORK. STATES THEY WILL CALL CM BACK WITH DETAILS. KARYNA BROWNE DCP- Discharge Planning Updated by [id number]: Edel Ford on 12/13/19 1:[address] RECEIVED TELEPHONE MESSAGE FROM [facility] AT [facility]. TELEPHONED AT 1130. SHE WAS NOT AVAILABLE. TELEPHONED AT 1400. SHE WAS INTERESTED TO KNOW IF THE PATIENT COULD SIGN HIS OWN PAPERWORK. THE PRIMARY NURSE STATES PATIENT CAN ANSWER YES OR NO. HE IS NOT VERY VERBAL. HE IS HARD TO UNDERSTAND. ADVISED ARSENIO. DCP- Discharge Planning Updated by [id number]: Karyna Browne on 12/11/19 1:[address] CM SPOKE WITH KARMA FROM [facility]. KARMA STATES THEY ARE UNABLE TO ACCOMODATE HIS NEEDS. [facility]. KARYNA BROWNE DCP- Discharge Planning Updated by [id number]: Karyna Browne on 12/10/19 8:[address] SENT UPDATE TO KARMA AT [facility] TO REVIEW. KARMA STATES THEY HAVE A MALE BED AVAILIBILITY. WILL CONTINUE TO FOLLOW. DCP- Discharge Planning Updated by [id number]: Karyna Browne on 12/04/19 7:[address] Patient Name: JOSE BLOUNT Admission Status: Elective Accout number: [id number] Admission Date: 12-01-2019 : 1940 Admission Diagnosis: Attending: ZACHARY Current LOS: 3 Anticipated DC Date: Planned Disposition: Primary Insurance: [employer] Late entry. assessment completed 12/03/19 at 1430 Discharge Planning Comments: CM met with patient to complete initial dc planning assessment. PT confused. CM called sister Carmelo at [phone]. CM educated patient on the CM role and verbal consent given by patient to complete assessment. Patient lives at home alone and Carmelo feels he needs additional services, and she feels he can not live at home alone. Carmelo wanted CM to assist with placing patient in an assisted living facility. CM educated Carmelo on the services available for the patient. Carmelo states she feels the patient could benefit from rehab at [facility]. EVONNE verbalized for [facility]. CM called Karma at [phone] and faxed referral. CM will continue to follow and will assist as needed with dc plans/needs. Applications Systems Engineer: Karyna Browne DCPIA - Discharge Planning Initial Assessment Updated by [id number]: Karyna Browne on 12/04/19 7:50 am * Is the patient Alert and Oriented? No * Preadmission Environment Home Alone * Additional services required to return to the preadmission environment? Yes * Can the patient safely return to the preadmission environment? No * Has this patient been hospitalized within the prior 30 days at any hospital? No Coverage Notice Reviewer: [id number] - Karyna Browne Notice Issued Date-Time: 12/03/2019 15:30 Notice Type: Patient Choice Letter Notice Delivered To: Family Member Relationship to Patient: Sister Liability Claims Adjuster Name: Carmelo Benjamin Delivery Method: PHONE - Phone Johanna Days: Prior Verbal Notification: Recipient Understood Notice: Yes Recipient Signature: Med Rec Note Co-signed by Attending: Coverage Notice Comment: evonne verbalized for [facility] Last DP export: 01/20/20 12:21 p Patient Name: JOSE BLOUNT Page [id number] at 1648 All edits/amendments must be made on the electronic document DICTATION DATE: 01/21/201646 NATIONAL SALES DIRECTOR: YANG 01/21/201646 RPT#: [id number] DC DATE:01/21/20 STATUS: DIS IN [facility] [address] [place] [address] END OF REPORT
--- NOTE | 2020-01-22 09:49 | OP ---
PATIENT NAME: JOSE BLOUNT MEDICAL RECORD: [id number] :[birth year] LOCATION:D.M2 D.2137 ADMISSION DATE:12/01/19 SURGEON: BANDAR MOHR MD DATE OF OPERATION: 01/04/2020 PREOPERATIVE DIAGNOSES: 1. Failure to thrive. 2. Dementia. 3. Aspiration. 4. Coronary artery disease. 5. Metabolic encephalopathy. 6. Diabetes mellitus. 7. Multiple myeloma with rib fractures. POSTOPERATIVE DIAGNOSES: 1. Failure to thrive. 2. Dementia. 3. Aspiration. 4. Coronary artery disease. 5. Metabolic encephalopathy. 6. Diabetes mellitus. 7. Multiple myeloma with rib fractures. PROCEDURE: PEG tube placement. SURGEON: Bandar Mohr MD REPORT OF PROCEDURE: Olympus endoscope was advanced through the mouth and esophagus. We insufflated the stomach and found the area to have a tube. Area on the stomach was prepped and draped and skin was then infused with 5 mL of 1% lidocaine with epinephrine and the skin incision was made transversely with an 11 blade. An Angiocath needle was brought through the abdominal wall into the gastric lumen and a wire was passed through this. This wire was grasped with an Endo snare and brought out through the mouth and esophagus. We affixed this to the PEG tube. The PEG tube and wire were then pulled through the mouth and esophagus and through the abdominal wall of gastric lumen. This rested in good position about 2.5 cm at the skin. We reinserted the scope and saw there was no evidence of any bleeding. COMPLICATIONS: None. CONDITION: Stable. ANESTHESIA: TIVA. BLOOD LOSS: Minimal. NTS:[id number] Voice Confirmation ID: [id number] DOCUMENT ID: [id number] OPERATIVE REPORT [id number] JOSE BLOUNT 3RD BANDAR MOHR MD at 0949 CC: [id number] DICTATION DATE: 01/04/20 1133 RETAIL SALES ASSOCIATE BILINGUAL: 01/04/202104 DIS IN 01/21/20 [id number] [place] [address]
--- NOTE | 2020-01-23 13:03 | MORECARE ---
CASE MANAGEMENT DISCHARGE SUMMARY PATIENT: JOSE BLOUNT UNIT: [id number] ADM DATE: 12/01/19 AGE: 79 : 42 SEX: M ROOM/BED: D.3274 AUTHOR: TANIYADOC PHYSICIAN: REFERRING PHYSICIAN: MIKE PATRICIO MD DATE OF SERVICE: 01/23/20 Discharge Plan Patient Name: JOSE BLOUNT Facility: [facility]:[place] : 1940 Planned Disposition: Hospice Medical Facility Anticipated Discharge Date: 01/21/20 Discharge Date: 01/21/2020 Expected LOS: 51 Initial Reviewer: [email or web address] Initial Review Date: 12/01/2019 Generated: 01/23/20 2:02 pm Comments DCP- Discharge Planning Updated by [id number]: Karyna Browne on 01/21/20 3:[address] Pt discharged to [facility] hospice services. Karyna Browne DCP- Discharge Planning Updated by [id number]: Minor Gomez on 01/20/20 12:[address] Patient Name: JOSE BLOUNT Encounter No: [id number] : 1940 Primary Insurance: [employer]CR Anticipated DC Date: Planned Disposition: External Planned Provider: : DCP follow-up note: Telephone call to [facility] ([phone]) spoke with campus receptionist Marilia. Informed Marilia that patient is in need of re-evaluation for [facility]. Marilia will have a nurse call back. Received call back from JACKSON Hernandez ([phone]). Mary requested more information on patient status and need for re-evaluation. Conference with staff nurse resulted in agreement for re-evaluation. CM will continue to follow and will assist as needed with dc plans/needs. Minor Gomez DCP- Discharge Planning Updated by [id number]: Karyna Browne on 01/18/20 2:[address] Patient Name: JOSE BLOUNT Admission Status: Elective Accout number: [id number] Admission Date: 12-01-2019 : 1940 Admission Diagnosis:HEMOTHORAX Attending: ZACHARY Current LOS: 48 Anticipated DC Date: Planned Disposition: Primary Insurance: NOVASYSMCR Discharge Planning Comments: Karma from [facility] states they have accept the patient but are waiting for family to provide financials. The patient will be in a long-term bed as self pay. Karma will let CM know when pt can be transported. Chief Of Field Operations: Karyna Browne DCP- Discharge Planning Updated by [id number]: Karyna Browne on 01/18/20 11:[address] Called Karma at [facility] to follow up on clinical review. Left message and return number for Karma to call CM directly. Karyna Browne DCP- Discharge Planning Updated by [id number]: Karyna Browne on 01/18/20 8:[address] Patient Name: JOSE BLOUNT Admission Status: Elective Accout number: [id number] Admission Date: 12-01-2019 : 1940 Admission Diagnosis:HEMOTHORAX Attending: ZACHARY Current LOS: 48 Anticipated DC Date: Planned Disposition: Primary Insurance: [facility] Discharge Planning Comments: CM called Karma at [phone] with [facility] about determination. Unable to reach Karma, but left a message to call CM back. Faxed Updated clinicals for review. Chief Of Field Operations: Karyna Browne DCP- Discharge Planning Updated by [id number]: Karyna Browne on 01/15/20 8:[address] CM met with Niecy from [facility] about pt condition. Niecy states the patient is doing better clinically and does not meet GIP criteria. States she will revaluate as needed. CM will send referral to [facility] for another evaluation. Karyna Browne DCP- Discharge Planning Updated by [email or web address]: Karyna Browne on 01/14/20 5:[address] CM received call back from Saritha (sister). CM spoke to sister about condition. Her wishes is to have [facility] eval for GIP. CM called Haseeb at [phone] at [facility] to evaluation and sent clinicals. Niecy from [facility] came to evaluate, and stated he did not meet criteria at this time. She states that CM or nursing can have hospice revaluate if the patients condition worsens. Karyna Browne DCP- Discharge Planning Updated by [id number]: Karyna Browne on 01/14/20 10:[address] CM attempted to call pt sister Saritha, at [phone]. CM unable to reach. Left voice message for return call. Karyna Browne DCP- Discharge Planning Updated by [id number]: Bettye Portillo on 01/09/20 7:[address] CALLED CARMELO AND LEFT MESSAGE FOR HER TO CALL ME, I WAS CALLING TO GIVE UPDATE DCP- Discharge Planning Updated by [id number]: Bettye Portillo on 01/08/20 7:[address] ALEXANDER SENT OFF, FEEDING STILL NEED TO BE STARTED. CM TO FOLLOW AND ASSIST NEEDED DCP- Discharge Planning Updated by [id number]: Bettye Portillo on 01/03/20 2:[address] PATIENT'S SISTERS ARE THINKING ABOUT [facility] AND WANT HIM TO HAVE HIS PEG TUBE, THEY WANT HIM TO HAVE SKILLED THERAPY TO SEE HOW MUCH HE WILL PROGRESS DCP- Discharge Planning Updated by [id number]: Bettye Portillo on 01/02/20 3:[address] Spoke with both sisters at length about their options. They would like for him to go to skilled and give him a chance to see what he can do with therapy. They are trying to decide between [facility] in [place] and [facility]. I explained to them that the next question that will be is PEG tube. They are torn between what is the right choice. I told them to think about it and to call me in the morning. I spent over 1 hour speaking with them. They are very concerned and willing to help their brother DCP- Discharge Planning Updated by [email or web address]: Bettye Portillo on 01/02/20 11:[address] spoke with Carmelo they would like to meet with me for options of next plan of care. They will be coming to the hospital today DCP- Discharge Planning Updated by [email or web address]: Bettye Portillo on 01/02/20 9:[address] ATTEMPTED TO CALL SISTER BUT GOT HER VOICEMAIL. WILL CALL AGAIN LATER DCP- Discharge Planning Updated by [id number]: Bettye Portillo on 12/28/19 3:[address] updated Carmelo on patient's status. She stated that her and her sister will be here Tuesday and they are going to visit him together ( I got this approved with Dharmesh Curran) So they can make the decision on intermediate vs hospice. CM to follow and assist as needed DCP- Discharge Planning Updated by [id number]: Bettye Lindsey on 12/26/19 1:[address] SPOKE AT LENGTH WITH CARMELO (SISTER) ABOUT HER BROTHER AND HIS PLAN OF CARE. SHE HAD MULTIPLE QUESTIONS. I ATTEPMTED TO ANSWER THEM THE BEST I COULD. LOOKING BACK IN HIS CHART HE DID AMBULATE 4 FEET PRIOR TO HIS CODE ON 12/03 HIS SISTER SAID THAT HE WAS LIVING ON HIS OWN IN A SENIOR CITIZEN COMPLEX, IT WAS HIS NEIGHBOR WHO CALLED EMS BECAUSE HIS CALL LIGHT WAS FLASHING AT 0200. 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 SHE SAID THAT LAST YEAR HIS NUMBERS WERE "GOING UP". 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 CM SHARED THESE CONCERNS WITH DEBORAH . CM WILL CONTINUE TO FOLLOW AND ASSIST WITH PATIENT'S CARE. DCP- Discharge Planning Updated by [id number]: Bettye Portillo on 12/24/19 7:[address] REFERRAL SENT TO [facility] DCP- Discharge Planning Updated by [id number]: Claudette Taylor on 12/20/19 2:[address] Patient Name: JOSE BLOUNT Admission Status: Elective Accout number: [id number] Admission Date: 12-01-2019 : 1940 Admission Diagnosis:HEMOTHORAX Attending: ZACHARY Current LOS: 19 Anticipated DC Date: Planned Disposition: Primary Insurance: [facility] Discharge Planning Comments: FAXED REFERRAL TO [facility]. Chief Of Field Operations: Claudette Taylor DCP- Discharge Planning Updated by [id number]: Gretel Aparicio on 12/19/19 12:[address] A referral was faxed to [facility], spoke with Roxana ([phone]), who states the facility does not have any longterm beds available. [place] does have Skilled beds, but this patient looks, eventually, to require a dedicated intermodal truck driver bed. DCP- Discharge Planning Updated by [id number]: Karyna Browne on 12/18/19 7:[address] CM CALLED [facility] AND SPOKE WITH KHALIF FOR UPDATE ON APPROVAL. KHALIF STATES THEY ARE NOT IN NETWORK AND UNABLE TO ACCEPT PT. CM WILL CALL AROUND TO SNF TO SEE IF THEY ARE IN NETWORK. CM ATTEMPTED TO CALL CARMELO AT [phone] AND UNABLE TO LEAVE MESSAGE. KARYNA BROWNE MSN,RN,CM DCP- Discharge Planning Updated by [id number]: Karyna Browne on 12/18/19 7:[address] MCM CALLED SISTER AT [phone] TO DISCUSS UPDATE. MAILBOX IS FULL AND UNABLE TO TAKE MESSAGES. WILL CONTINUE TO REACH OUT TO DISCUSS DC PLANNING. KARYNA BROWNE DCP- Discharge Planning Updated by [id number]: Karyna Browne on 12/14/19 7:[address] [phone] AND SPOKE WITH KHALIF. STATES THEY ARE LOOKING TO IF THE PATIENTS INSURANCE IS IN NETWORK. STATES THEY WILL CALL CM BACK WITH DETAILS. KARYNA BROWNE DCP- Discharge Planning Updated by [id number]: Edel Ford on 12/13/19 1:[address] RECEIVED TELEPHONE MESSAGE FROM ARSENIO AT [facility]. TELEPHONED AT 1130. SHE WAS NOT AVAILABLE. TELEPHONED AT 1400. SHE WAS INTERESTED TO KNOW IF THE PATIENT COULD SIGN HIS OWN PAPERWORK. THE PRIMARY NURSE STATES PATIENT CAN ANSWER YES OR NO. HE IS NOT VERY VERBAL. HE IS HARD TO UNDERSTAND. ADVISED ARSENIO. DCP- Discharge Planning Updated by [id number]: Karyna Browne on 12/11/19 1:[address] CM SPOKE WITH KARMA FROM [facility]. KARMA STATES THEY ARE UNABLE TO ACCOMODATE HIS NEEDS. SENT REFERRAL TO [facility] PER REQUEST. KARYNA BROWNE DCP- Discharge Planning Updated by [id number]: Karyna Browne on 12/10/19 8:[address] SENT UPDATE TO [facility] AT [facility] TO REVIEW. KARMA STATES THEY HAVE A MALE BED AVAILIBILITY. WILL CONTINUE TO FOLLOW. DCP- Discharge Planning Updated by [id number]: Karyna Browne on 12/04/19 7:[address] Patient Name: JOSE BLOUNT Admission Status: Elective Accout number: [id number] Admission Date: 12-01-2019 : 1940 Admission Diagnosis: Attending: ZACHARY Current LOS: 3 Anticipated DC Date: Planned Disposition: Primary Insurance: [employer] Late entry. assessment completed 12/03/19 at 1430 Discharge Planning Comments: CM met with patient to complete initial dc planning assessment. PT confused. CM called sister Carmelo at [phone]. CM educated patient on the CM role and verbal consent given by patient to complete assessment. Patient lives at home alone and Carmelo feels he needs additional services, and she feels he can not live at home alone. Carmelo wanted CM to assist with placing patient in an assisted living facility. CM educated Carmelo on the services available for the patient. Carmelo states she feels the patient could benefit from rehab at SNF. EVONNE verbalized for [facility]. CM called Karma at [phone] and faxed referral. CM will continue to follow and will assist as needed with dc plans/needs. Chief Of Field Operations: Karyna Browne DCPIA - Discharge Planning Initial Assessment Updated by [id number]: Karyna Browne on 12/04/19 7:50 am * Is the patient Alert and Oriented? No * Preadmission Environment Home Alone * Additional services required to return to the preadmission environment? Yes * Can the patient safely return to the preadmission environment? No * Has this patient been hospitalized within the prior 30 days at any hospital? No Coverage Notice Reviewer: [email or web address] - Karyna Browne Notice Issued Date-Time: 12/03/2019 15:30 Notice Type: Patient Choice Letter Notice Delivered To: Family Member Relationship to Patient: Sister Anesthesiologist And Critical Care Name: Carmelo Benjamin Delivery Method: PHONE - Phone Johanna Days: Prior Verbal Notification: Recipient Understood Notice: Yes Recipient Signature: Med Rec Note Co-signed by Attending: Coverage Notice Comment: evonne verbalized for [facility] Last DP export: 01/21/20 3:48 p Patient Name: JOSE BLOUTN Page [id number] at 1303 All edits/amendments must be made on the electronic document DICTATION DATE: 01/23/20 1302 HUMAN ANATOMY TEACHER: YANG 01/23/20 1302 RPT#: [id number] DC DATE:01/21/20 STATUS: DIS IN [facility] [address] [place] [address] END OF REPORT
== END 2020-01-21 14:34 | disposition hospice, inpatient (51) | DRG 208 ==
LOC: D.M2 14:15 → D.CVICU 14:15 → D.MS 14:15 → D.CVICU 12-04 03:30 → D.ICU 12-04 23:40 → D.M2 12-09 14:43 → D.MS 12-19 22:54 → D.M2 01-13 13:45
PROVIDERS: Emergency Medicine; Family Medicine; Internal Medicine Nephrology; Internal Medicine Pulmonary Disease; Radiology Vascular & Interventional Radiology; Specialist; Thoracic Surgery (Cardiothoracic Vascular Surgery); ADMIT Family Medicine; ATTEND Family Medicine
PROC: 0W993ZZ Drainage of Right Pleural Cavity, Percutaneous Approach (ICD-10-PCS; principal; 2019-12-03 10:53)
PROC: 5A1945Z Respiratory Ventilation, 24-96 Consecutive Hours (ICD-10-PCS; 2019-12-04)
PROC: 0BH17EZ Insertion of Endotracheal Airway into Trachea, Via Natural or Artificial Opening (ICD-10-PCS; 2019-12-04)
PROC: 0W993ZZ Drainage of Right Pleural Cavity, Percutaneous Approach (ICD-10-PCS; 2019-12-05)
PROC: 0DH63UZ Insertion of Feeding Device into Stomach, Percutaneous Approach (ICD-10-PCS; 2020-01-04)
DX: J94.2 Hemothorax (principal); J96.00 Acute respiratory failure, unspecified whether with hypoxia or hypercapnia; I46.9 Cardiac arrest, cause unspecified; J69.0 Pneumonitis due to inhalation of food and vomit; U07.1 COVID-19; G93.41 Metabolic encephalopathy; S22.41XA Multiple fractures of ribs, right side, initial encounter for closed fracture; N39.0 Urinary tract infection, site not specified; N17.9 Acute kidney failure, unspecified; E87.0 Hyperosmolality and hypernatremia; C90.00 Multiple myeloma not having achieved remission; E46 Unspecified protein-calorie malnutrition; E87.1 Hypo-osmolality and hyponatremia; W19.XXXA Unspecified fall, initial encounter; E11.65 Type 2 diabetes mellitus with hyperglycemia; F03.90 Unspecified dementia, unspecified severity, without behavioral disturbance, psychotic disturbance, mood disturbance, and anxiety; I25.10 Atherosclerotic heart disease of native coronary artery without angina pectoris; M19.90 Unspecified osteoarthritis, unspecified site; H26.9 Unspecified cataract; E03.9 Hypothyroidism, unspecified; D64.9 Anemia, unspecified; I12.9 Hypertensive chronic kidney disease with stage 1 through stage 4 chronic kidney disease, or unspecified chronic kidney disease; E11.22 Type 2 diabetes mellitus with diabetic chronic kidney disease; N18.9 Chronic kidney disease, unspecified; E11.21 Type 2 diabetes mellitus with diabetic nephropathy; R13.10 Dysphagia, unspecified; R41.0 Disorientation, unspecified; Y95 Nosocomial condition; R62.7 Adult failure to thrive

== ENCOUNTER 2020-01-21 15:04 | Inpatient (IN) | payer OTHER ==
[~2020-01-21] VITALS: Ht 185.4 cm; Wt 88.9 kg
[~2020-01-21 15:04] MED LIST changes: +HYDRALAZINE HCL25 MG PO; +KEFLEX500 MG PO; +KLONOPIN1 MG PO; +LEVEMIR FL100 UNIT/1 SC; +LISINOPRIL20 MG PO; +METOPROLOL TART50 MG PO
[2020-01-21 15:30] VITALS: BMI 25.9
--- NOTE | 2020-01-21 15:43 | NUR ---
PT ADMITTED TO INPATIENT HOSPICE.
--- NOTE | 2020-01-21 19:00 | NUR ---
REPORT RECEIVED, WILL CONTINUE POC. PATIENT IS UNRESPONSIVE, RR IRREGULAR AND UNEVEN ON 3L HFNC. PATIENT IS ADMITTED TO HOSPICE. PIV TO LT HAND, CONTINUOUS MORPHINE IT SOLUTIONS ARCHITECT INFUSING. PATIENT APPEARS TO BE COMFORTABLE AT THIS TIME. CL IN REACH, BED LOCKED AND LOWERED. COVID-19 PRECAUTIONS FOLLOWED. WILL CTM.
[2020-01-21 20:00] VITALS: BP 156/60
[2020-01-22] VITALS (7 sets, daily range): BP systolic 141–152; BP diastolic 48–87; Ht 185.4 cm; Wt 88.9 kg
--- NOTE | 2020-01-22 07:20 | NUR ---
RECEIVE SHIFT REPORT. TEXTILE DESIGNER WITH CONTINUOUS MORPHINE. RESTING IN BED, UNRESPONSIVE. HEART RATE 59, PULSE OX 100%. RESPIRATIONS 16. WILL CONTINUE PLAN OF CARE AND SAFETY PRECAUTIONS. VIDEO MONITOR PLACED AT NURSE DESK.
--- NOTE | 2020-01-22 19:00 | NUR ---
REPORT RECEIVED, WILL CONTINUE POC. PATIENT IS UNRESPONSIVE WITH SPONTANEOUS EYE OPENING. NO S/S OF DISTRESS OBSERVED, RR EVEN AND UNLABORED ON 4L HFNC. PIV TO LT HAND INFUSING CONTINUOUS MORPHINE RESIDENTIAL TEAM LEADER. PATIENT APPEARS TO BE RESTING COMFORTABLY. CL IN REACH, BED LOCKED AND LOWERED. COVID 19 PRECAUTIONS MAINTAINED. WILL CTM.
[2020-01-23 03:55] VITALS: BP 143/66
--- NOTE | 2020-01-23 07:15 | NUR ---
RECEIVE SHIFT REPORT. RESTING IN BED WITH EYES CLOSED. RESPIRATIONS AT 15. HEART RATE 76. 02 SAT 100% ON 4L HFNC. WILL CONTINUE PLAN OF CARE AND SAFETY PRECAUTIONS.
--- NOTE | 2020-01-23 13:04 | MORECARE ---
CASE MANAGEMENT DISCHARGE SUMMARY PATIENT: JOSE BLOUNT 3RD UNIT: [id number] ADM DATE: 01/21/20 AGE: 79 : 42 SEX: M ROOM/BED: D.2137 AUTHOR: CHRISTOPHER MONAHAN PHYSICIAN: REFERRING PHYSICIAN: JUANIS XIONG MD DATE OF SERVICE: 01/23/20 Discharge Plan Patient Name: JOSE BLOUNT [facility] : 1940 Planned Disposition: Anticipated Discharge Date: Discharge Date: Expected LOS: Initial Reviewer: [email or web address] Initial Review Date: 01/21/2020 Generated: 01/23/20 2:03 pm Patient Name: JOSE BLOUNT Page 65350 at 1304 All edits/amendments must be made on the electronic document DICTATION DATE: 01/23/20 1303 ASSISTANT MEN'S LACROSSE COACH: YANG 01/23/20 1303 RPT#: [id number] DC DATE: STATUS: ADM IN [facility] [address] [place] [address] END OF REPORT
--- NOTE | 2020-01-23 14:12 | NUR ---
PATIENT HEART RATE ELEVATED TO 90. MOVING ARMS AND TURNING HEAD SIDEWAYS. ATIVAN GIVEN TO KEEP PATIENT COMFORTABLE.
[2020-01-23 16:26] VITALS: BP 156/63
[2020-01-23 20:00] VITALS: BP 155/84
--- NOTE | 2020-01-24 03:10 | NUR ---
I have reviewed this patient and I concur with the Shift Assessment completed by the Licensed Practical Nurse today this shift.
[2020-01-24 03:55] VITALS: BP 155/84
--- NOTE | 2020-01-24 07:14 | NUR ---
Lying in bed w/eyes closed, Hi-Lucian 02 in progress/order, FINANCIAL PLANNING CONSULTANT Morphine drip infusing to Left Hand @ 0.5mg/hr w/o difficulty--pt tolerating well. No distress noted.
[2020-01-24 08:00] VITALS: BP 154/77
[2020-01-24 08:10] VITALS: BP 154/77
--- NOTE | 2020-01-24 13:50 | NUR ---
LINING LAYER PUMP INCREASED AT THIS TIME TO 0.75MG/HR/DR V.O. FROM HOSPICE NURSE.
--- NOTE | 2020-01-24 16:03 | NUR ---
0900-LYING IN BED W/EYES CLOSED, AROUSES TO PHYSCIAL STIMULI, MORPHINE DRAFTER CIVIL ENGINEERING PUMP IN PROGRESS, NO DISTRESS NOTED, HI-CRISTINA 02 IN PROGRESS W/CONT PULSE OX IN PLACE HR 85-02SAT 99-100%, NO DISTRESS NOTED.
--- NOTE | 2020-01-24 16:04 | NUR ---
1100-HOSPICE NURSE IN ROOM OBTAINING PT'S VS--ASSISTED W/PT PAD CHANGE AT THIS TIME, HOSPICE NURSE CHANGED PT'S DRESSING TO COCCYX. NO OTHER NEEDS AT THIS TIME. 1300--MORPHINE PUMP CHANGED EARLIER TO 0.75MG/HR, PT TOLERATING WELL. NO DISTRESS NOTED. 1500-NO CHANGES TO REPORT.
[2020-01-24 18:20] VITALS: BP 158/74
[2020-01-24 20:00] VITALS: BP 159/100
[2020-01-25] VITALS: BP 141/117
[2020-01-25 04:00] VITALS: BP 193/76
--- NOTE | 2020-01-25 06:56 | NUR ---
REPORT GIVEN.NO CHANGE IN PT CONDITION. SAFETY MEASURES ARE IN PLACE.NO DISTRESS NOTED.
--- NOTE | 2020-01-25 13:40 | NUR ---
0700-LYING IN BED W/EYES CLOSED, 02SAT 100% MORPHINE DRIP IN PROGRESS/ORDER, NO DISTRESS NOTED. 0900-NO CHANGES TO REPORT 1100--NO CHANGES TO REPORT 1300-NO CHANGES TO REPORT
--- NOTE | 2020-01-25 15:06 | NUR ---
HOSPICE NURSE REPORTS ELEVATED B/P HR AND RESTLESSNESS--ATIVAN AND MORPHINE GIVEN/ORDER--WILL CONTINUE TO MONITOR.
[2020-01-25 15:41] VITALS: BP 148/73
[2020-01-25 21:41] VITALS: BP 150/105
--- NOTE | 2020-01-26 07:29 | NUR ---
0706-LYING IN BED W/EYES CLOSED, 02SAT 100%, HR WNL--PT IS ON HOSPICE AND A DNR ON CHART.
[2020-01-26 08:22] VITALS: BP 124/65
[2020-01-26 11:00] VITALS: BP 142/70
--- NOTE | 2020-01-26 14:50 | NUR ---
0900-NO CHANGES 1100-NO CHANGES 1300-NO CHANGES 1451-NO CHANGES
--- NOTE | 2020-01-26 17:52 | NUR ---
TURNED AND CHANGED PT'S LINENS AND GOWN, MORPHINE DRIP IN PROGRESS/ORDER, PT TOLERATED ALL WELL.
[2020-01-26 20:18] VITALS: BP 148/67
[2020-01-27 04:45] VITALS: BP 142/60
--- NOTE | 2020-01-27 07:20 | NUR ---
RECIEVE REPORT. RESTING IN BED WITH EYES CLOSED. MORPHINE PUMP SET ORDERED. CONTINUE HOSPICE CARE.
[2020-01-27 09:18] VITALS: BP 143/56
--- NOTE | 2020-01-27 15:54 | NUR ---
RESTING IN BED WITH EYES CLOSED. DECREASE OXYGEN TO 2L ORDERED. O2 SAT 100%. HOSPICE NURSE AT BEDSIDE. CONTINUE PLAN OF CARE AND SAFETY PRECAUTIONS.
[2020-01-27 21:30] VITALS: BP 147/46
--- NOTE | 2020-01-28 07:20 | NUR ---
RECIEVE REPORT. RESTING IN BED WITH EYES CLOSED. NO SIGNS OF DISTRESS. O2 @ 2L NC SAT-99%. CONTINUE PLAN OF CARE AND SAFETY PRECAUTIONS.
[2020-01-28 08:08] VITALS: BP 146/48
--- NOTE | 2020-01-28 17:02 | NUR ---
LINEN SOILED. BED BATH AND LINEN CHANGE COMPLETE. BARILLAS DRAINING BY GRAVITY. DECREASE OXYGEN TO 1L NC O2 SAT DROPS TO 98%. OXYGEN LEFT AT 1L NC. MORPHINE BINDER AND WRAPPER PACKER CONTINUED INFUSING ORDERED. CONTINUE PLAN OF CARE AND SAFETY PRECAUTIONS.
--- NOTE | 2020-01-28 19:06 | NUR ---
REPORT RECEIVED, WILL CONTINUE POC. PATIENT IS RESTING WITH EYES CLOSED, NO S/S OF DISTRESS OBSERVED, RR EVEN AND UNLABORED ON 1L HFNC. PATIENT IS UNRESPONSIVE ASIDE FROM SPONTANEOUS EYE MOVEMENT. PIV TO LT FA INFUSING MORPHINE AND NS PER ORDER. F/C HANGING TO LEFT SIDE OF BED. CL IN REACH, BED LOCKED AND LOWERED. COVID 19 PRECAUTIONS MAINTAINED. WILL CTM.
--- NOTE | 2020-01-28 19:26 | NUR ---
PATIENT FAMILY MEMBER MANISHA HERE FOR END OF LIFE VISIT APPROVED BY ADMINISTRATION. PPE PROVIDED.
[2020-01-29 04:56] VITALS: BP 175/57
--- NOTE | 2020-01-29 07:20 | NUR ---
RECIEVE REPORT. RESTING IN BED WITH EYES CLOSED. COMFORT CARE CONTINUED. CONTINUE PLAN OF CARE AND SAFETY PRECAUTIONS.
[2020-01-29 08:11] VITALS: BP 141/40
--- NOTE | 2020-01-29 14:15 | NUR ---
Nutrition Follow-up: Pt remains on hospice. NPO. No new labs Meds reviewed -RD following and available to assist as needed.
--- NOTE | 2020-01-29 14:50 | NUR ---
ALERT. WILL MAKE EYE CONTACT. NONVERBAL. LINEN CHANGE COMPLETE. REMAINS STABLE ON 1L OXYGEN. NO SIGNS OF DISTRESS. CONTINUE PLAN OF CARE AND SAFETY PRECAUTIONS.
[2020-01-29 20:00] VITALS: BP 139/60
--- NOTE | 2020-01-29 22:30 | NUR ---
PT RESTING ON BACK AT THIS TIME. MORPHINE BOLUS GIVEN. PT NON VERBAL BUT OPENS EYES TO VOICE. RR-24. NO S/S OF DISTRESS AT THIS TIME. BED LOW. PT COMFORTABLE AND DRY. WILL CONTINUE TO MONITOR.
--- NOTE | 2020-01-30 03:05 | NUR ---
PT RR IRRECULAR AND APNEC AT TIMES. RR 8-10. PRN BOLUS DOSE GIVEN. WILL CONTINUE TO MONITOR.
[2020-01-30 03:56] VITALS: BP 150/72
[2020-01-30 08:26] VITALS: BP 148/59
[2020-01-30 15:55] VITALS: BP 128/60
--- NOTE | 2020-01-30 20:30 | NUR ---
PT LAYING IN BED UNRESPONSIVE. HAS ONE EYE OPEN.FIXED.HAS 02 .RESP ARE UNLABORED. PT HAS SOUND ART INSTRUCTOR PUMP WITH MORPHINE. IV WITHOUT S/S OF INFILTRATION.PT WITH NO MOVEMENT.DRESSING TO COCYXX IS DRY AND INTACT.NO DISTRESS NOTED.SIDERAILS UPX2.
[2020-01-31 07:59] VITALS: BP 118/73
--- NOTE | 2020-01-31 08:17 | NUR ---
PT REMAINS ON HOSPICE RESTING IN BED WITH EYES OPEN. CUSTOMER SUPPORT PROFESSIONAL CONTINUES. SPO2 @ 97% ON 2lnc.
[2020-01-31 15:50] VITALS: BP 139/75
--- NOTE | 2020-01-31 19:45 | NUR ---
pt laying in bed has eyes closed.no response from pt.family at bedside.has 02 in use.resp are even et unlabored.heartrate regular.iv with normal saline @ 10 cc/hr.pt has a medicaid business analyst pump with morphine @ 7.5 mg q hour.no s/s of iv infiltration.will continue to monitor.
[2020-01-31 20:00] VITALS: BP 134/61
--- NOTE | 2020-01-31 21:00 | NUR ---
PT WITH NO CHANGE.RESP ARE UNLABORED.NO DISTRESS NOTED.
--- NOTE | 2020-02-01 01:20 | NUR ---
PT RESTING. NO CHANGE.RESP ARE UNLABORED.NO DISTRESS NOTED.
--- NOTE | 2020-02-01 02:51 | NUR ---
PT WITH LABORED RESP. PT GIVEN ATIVAN 1 MG IVPUSH.WILL CONTINUE TO MONITOR.
--- NOTE | 2020-02-01 05:42 | NUR ---
NUTRITION THERAPIST CARTRIDGE CHANGED OUT.PT WITH NO CHANGE NOTED.
[2020-02-01 08:21] VITALS: BP 140/53
[2020-02-01] MEDS ORDERED: TYLENOL650 MG RC (12:43)
[2020-02-01] MEDS ORDERED: DULCOLAX10 MG/SUPP RC (12:43)
[2020-02-01] MEDS ORDERED: MORPHINE PCA IV (12:43)
[2020-02-01] MEDS ORDERED: Atropine 1% Opht dro SL (12:43)
[2020-02-01] MEDS ORDERED: ATIVAN IV (12:43)
[2020-02-01 15:55] VITALS: BP 140/52
[2020-02-01 20:30] VITALS: BP 129/52
--- NOTE | 2020-02-01 21:41 | NUR ---
RECIEVED LAYING IN BED WITH EYES CLOSED AND NONRESPONSIVE. O2@2 LITERS PER N/C IN PLACE. IV TO LT FA WITH NS AT 10CC/HR AND IT ASSISTANT AT 0.75CC/HR CONT.. DSG TO SACRUM. CDI. NO S/S OF DISTRESS OBSERVED.
[2020-02-02 03:30] VITALS: BP 124/55
--- NOTE | 2020-02-02 07:00 | NUR ---
RECEIVED REPORT. ASSUMED CARE OF PATIENT. PATIENT REMAINS IN DROPLET ISOLATION FOR COVID-19. PATIENT IS HOSPICE, DNR. PATIENT MONITORED BY VIDEO. PATIENT LETHARGIC, CONTINUOUS CONSULTING SERVICES ASSOCIATE INFUSING ORDERED.
[2020-02-02 08:40] VITALS: BP 137/52
--- NOTE | 2020-02-02 10:44 | NUR ---
PATIENT WITH SHALLOW RESPIRATIONS. CONTINUE TO MONITOR ON VIDEO. COMFORT MEASURES PROVIDED.
--- NOTE | 2020-02-02 15:42 | NUR ---
PATIENT RESTING PEACEFULLY. HR. 108. O2 SAT 97. CONTINUES ON MORPHINE PROJECT MANAGEMENT INTERN ORDERED. NO DISTRESS.
--- NOTE | 2020-02-02 19:20 | NUR ---
RECIEVED UP IN BED WITH EYES CLOSED. REMAINS ON HOSPICE CARE. UNRESPONSIVE AND RESP SHALLOW AND EVEN. O2 SAT 100% HR 97. DSG TO BUTTOCKS. F/C IN PLACE WITH SCANT AMT OF BROWN COLOR URINE IN BAG. PER TUBE TO LT UQ. NOT IN USE. IV WITH NS AT 30CC/HE AND PREP ROOM SUPERVISOR WITH MORPHINE AT 0.75CC/HR CONT.. NO S/S OF DISTRESS OBSERVED.
[2020-02-02 20:30] VITALS: BP 138/45
--- NOTE | 2020-02-03 02:34 | NUR ---
RESPERATIONS 8 A MIN AT THIS TIME. HR 100 O2 SAT 98%. DOES NOT APPEAR TO BE IN ANY DISTRESS. EYES FIXED.
[2020-02-03 04:13] VITALS: BP 105/48
--- NOTE | 2020-02-03 07:30 | NUR ---
REPORT RECIEVED. RR UNEVEN BREATHING AT 12 BPM. HE IS CURRENTLY ON 2L NC. HE HAS A L FA PIV INFUSING NS @125 AND A DILUADID CST CONT. @ 0.75. BARILLAS DRAINING SIENNA/BROWN URINE. BED LOCKED AND IN LOWEST POSITION, CALL LIGHT WITHIN REACH. WILL CTM
[2020-02-03 08:22] VITALS: BP 104/45
--- NOTE | 2020-02-03 13:20 | NUR ---
I have reviewed this patient and I concur with the Shift Assessment completed by the Licensed Practical Nurse today this shift. PATIENT CONTINUES WITH HOSPICE /COMFORT CARE ONLY. MORPHINE INFUSING ORDERED.
--- NOTE | 2020-02-03 15:25 | MORECARE ---
CASE MANAGEMENT DISCHARGE SUMMARY PATIENT: JOSE BLOUNT UNIT: [id number] ADM DATE: 01/21/20 AGE: 79 : 42 SEX: M ROOM/BED: D.2137 AUTHOR: CHRISTOPHER MONAHAN PHYSICIAN: REFERRING PHYSICIAN: JUANIS XIONG MD DATE OF SERVICE: 02/03/20 Discharge Plan Patient Name: JOSE BLOUNT [facility] [facility] 1940 Planned Disposition: Anticipated Discharge Date: Discharge Date: Expected LOS: Initial Reviewer: [email or web address] Initial Review Date: 01/21/2020 Generated: 02/03/20 4:25 pm Last DP export: 01/23/20 12:04 p Patient Name: JOSE BLOUNT Page 44719 at 1525 All edits/amendments must be made on the electronic document DICTATION DATE: 02/03/20 152 COMPENSATION AND HRIS ANALYST: YANG 02/03/20 1525 RPT#: [id number] DC DATE: STATUS: ADM IN [facility] [address] [place] [address] END OF REPORT
--- NOTE | 2020-02-03 18:00 | NUR ---
UPON WALKING IN ROOM, PT'S RR 4/MINUTE. PULSE 50 IN CAROTID. NO PERIPHERAL PULSES NOTED. @ 1809 PT HAD NO BREATH SOUNDS AND NO PULSE. DR. RICHMOND AT BEDSIDE TO WITNESS. CALLED AND SPOKE WITH HOSPICE AND MADE THEM AWARE OF PASSING. IV REMOVED WITH CATHETER TIP INTACT. BALLOON DEFLATED AND BARILLAS REMOVED. POST MORTEM CARE COMPLETE.
--- NOTE | 2020-02-03 18:15 | NUR ---
CALLED MARIE FROM HOSPICE @1814. NO ANSWER, VOICEMAIL LEFT.
--- NOTE | 2020-02-03 21:19 | NUR ---
[facility] HERE TO GET BODY.
--- NOTE | 2020-02-04 08:53 | MORECARE ---
CASE MANAGEMENT DISCHARGE SUMMARY PATIENT: JOSE BLOUNT 3RD UNIT: [id number] ADM DATE: 01/21/20 AGE: 79 : 42 SEX: M ROOM/BED: D.2137 AUTHOR: CHRISTOPHER MONAHAN PHYSICIAN: REFERRING PHYSICIAN: JUANIS XIONG MD DATE OF SERVICE: 02/04/20 Discharge Plan Patient Name: JOSE BLOUNT [facility] [facility] 1940 Planned Disposition: Anticipated Discharge Date: Discharge Date: 02/03/2020 Expected LOS: Initial Reviewer: [email or web address] Initial Review Date: 01/21/2020 Generated: 02/04/20 9:53 am Last DP export: 02/03/20 2:25 Patient Name: JOSE BLOUNT Page 19411 at 0853 All edits/amendments must be made on the electronic document DICTATION DATE: 02/04/20852 PICK UP TRUCK DRIVER: YANG 02/04/20852 RPT#: [id number] DC DATE:02/03/20 STATUS: DIS IN [facility] [address] [place] [address] END OF REPORT
== END 2020-02-03 21:25 | DRG 951 ==
LOC: D.M2 15:04
PROVIDERS: ADMIT Legal Medicine; ATTEND Legal Medicine
DX: Z51.5 Encounter for palliative care (principal)